=== PATIENT | female | born 1940 | race Caucasian/White ===

== ENCOUNTER 2020-11-25 08:54 | Emergency (ER) | payer MEDICARE, OTHER, SELFPAY ==
[2020-11-25 09:50] VITALS: BP 124/68; PULSE 71; RESP 20; TEMP 36.9; O2SAT 97; BMI 32.9
--- NOTE | 2020-11-25 09:51 | ED_ITS ---
HPI - General Adult General Chief complaint: Chest Pain <Kaylan Bernard NP - Last Filed: 11/25/20 12:00> Stated complaint: chest pain <Kaylan Bernard NP - Last Filed: 11/25/20 12:00> Time Seen by Provider: 11/25/20 09:51 <Kaylan Bernard NP - Last Filed: 11/25/20 12:00> Source: patient <Kaylan Bernard NP - Last Filed: 11/25/20 12:00> Mode of arrival: ambulatory <Kaylan Bernard NP - Last Filed: 11/25/20 12:00> Limitations: no limitations <Kaylan Bernard NP - Last Filed: 11/25/20 12:00> History of Present Illness HPI narrative: 80 yo female with past medical history of HTN, CVA, CHF, TIA, diverticulitis s/p perf with colostomy s/p anastamosis here with central chest pain since Tuesday. Worsened with palpation, movement, deep breathing. No short ness of breath, cough, fevers, chills, body aches, vomiting, diarrhea. No leg swelling or pain. <Kaylan Bernard NP - Last Filed: 11/25/20 12:00> Onset (ago): day(s) <Kaylan Bernard NP - Last Filed: 11/25/20 12:00> Location: chest <Kaylan Bernard NP - Last Filed: 11/25/20 12:00> Radiation: non-radiation <Kaylan Bernard NP - Last Filed: 11/25/20 12:00> Severity: mild <Kaylan Bernard NP - Last Filed: 11/25/20 12:00> Quality: dull <Kaylan Bernard NP - Last Filed: 11/25/20 12:00> Pain Consistency: intermittent <Kaylan Bernard NP - Last Filed: 11/25/20 12:00> Relieving factors: immobilization <NISHANT Chu Last Filed: 11/25/20 12:00> Exacerbating factors: movement and other (palpation ) <NISHANT Chu Last Filed: 11/25/20 12:00> Associated symptoms: denies other symptoms <Kaylan Bernard NP - Last Filed: 11/25/20 12:00> Treatments prior to arrival: none <NISHANT Chu Last Filed: 11/25/20 12:00> Related Data Home medications: Previous Rx's Medication Instructions Recorded azithromycin See Rx Instructions .ROUTE 11/25/20 .COMPLEX #6 tab <Kaylan Bernard NP - Last Filed: 11/25/20 12:00> Allergies/adverse reactions: Allergies Allergy/AdvReac Type Severity Reaction Status Date / Time amoxicillin [AMOXICILLIN] Allergy Unknown UNKNOWN Unverified 07/24/20 15:04 oxycodone Allergy Unknown vomiting Verified 10/24/18 00:00 <Kaylan Bernard NP - Last Filed: 11/25/20 12:00> Review of Systems Review of Systems: Yes all other systems are reviewed and are negative <NISHANT Chu Last Filed: 11/25/20 12:00> Constitutional: Constitutional: Reports no additional constitutional complaints, Denies body ache(s), Denies chills, Denies fever(s), Denies headache(s) and Denies weakness <NISHANT Chu Last Filed: 11/25/20 12:00> Eyes: Eyes: Reports no additional eye complaints and Denies change in vision <NISHANT Chu Last Filed: 11/25/20 12:00> ENT: Reports system reviewed and no additional complaints, except as documented, Denies dizziness, Denies headache(s), Denies nasal congestion, Denies nasal discharge and Denies neck pain <NISHANT Chu Last Filed: 11/25/20 12:00> Cardiovascular: Cardiovascular: Reports no additional cardiovascular complaints, Reports chest pain, Denies leg edema and Denies dyspnea <NISHANT Chu Last Filed: 11/25/20 12:00> Respiratory: Respiratory: Reports no additional respiratory complaints, Denies cough and Denies dyspnea <Kaylan Bernard NP - Last Filed: 11/25/20 12:00> Gastrointestinal: Gastrointestinal: Reports no additional gastrointestinal complaints, Denies abdominal pain, Denies diarrhea, Denies nausea and Denies vomiting <Kaylan Bernard NP - Last Filed: 11/25/20 12:00> Genitourinary: Genitourinary: Reports no additional female genitourinary complaints and Denies urinary incontinence <Kaylan Bernard NP - Last Filed: 11/25/20 12:00> Musculoskeletal: Musculoskeletal: Reports no additional musculoskeletal complaints, Denies back pain, Denies arthralgias, Denies joint swelling, Denies neck pain, Denies numbness and Denies tingling <Kaylan Bernard NP - Last Filed: 11/25/20 12:00> Integumentary/Breasts: Skin/Breast: Reports system reviewed and no additional complaints, except as docu and Denies rash <Kaylan Bernard NP - Last Filed: 11/25/20 12:00> Neurologic: Reports system reviewed and no additional complaints, except as documented, Denies Abnormal speech present, Denies dizziness, Denies headache(s), Denies numbness, Denies tingling and Denies weakness <Kaylan Bernard NP - Last Filed: 11/25/20 12:00> [facility] Past Medical History Attestation statement: The following information was validated with the patient. <Kaylan Bernard NP - Last Filed: 11/25/20 12:00> Source: old records reviewed and nursing notes reviewed <Kaylan Bernard NP - Last Filed: 11/25/20 12:00> Medical History: Medical History Acute diverticulitis CHF (congestive heart failure) HTN (hypertension) TIA (transient ischemic attack) <Kaylan Bernard NP - Last Filed: 11/25/20 12:00> Surgical History: Surgical History H/O hernia repair <Kaylan Bernard NP - Last Filed: 11/25/20 12:00> Social History Social History: Social History Advance Directives: No Advance Directives Information Provided: No <Kaylan Bernard NP - Last Filed: 11/25/20 12:00> Physical Exam Vital Signs: Vital Signs: Last Vital Signs Temp 98.5 F 11/25/20 09:50 Pulse 71 11/25/20 09:50 Resp 11/25/20 09:50 BP 124/68 11/25/20 09:50 Pulse Ox 97 11/25/20 09:50 Body Mass Index 32.9 <Kaylan Bernard NP - Last Filed: 11/25/20 12:00> Vital Signs: Last Vital Signs Temp 98.5 F 11/25/20 09:50 Pulse 71 11/25/20 09:50 Resp 11/25/20 09:50 BP 124/68 11/25/20 09:50 Pulse Ox 97 11/25/20 09:50 Body Mass Index 32.9 <Atif Hunter MD - Last Filed: 11/28/20 15:46> Const: General: cooperative, healthy appearing, comfortable and no acute distress <Kaylan Bernard NP - Last Filed: 11/25/20 12:00> Orientation/consciousness: patient oriented x3 <Kaylan Bernard NP - Last Filed: 11/25/20 12:00> Limitations: no limitations <Kaylan Bernard NP - Last Filed: 11/25/20 12:00> HENMT: Head: Yes normal to inspection <Kaylan Bernard NP - Last Filed: 11/25/20 12:00> Ears: hearing grossly normal bilaterally <Kaylan Bernard NP - Last Filed: 11/25/20 12:00> General nose exam: Normal external nose present <Kaylan Bernard NP - Last Filed: 11/25/20 12:00> Face and sinus: Yes normal facial exam <Kaylan Bernard NP - Last Filed: 11/25/20 12:00> Mouth: Normal oral and palatal mucosa present <Kaylan Bernard NP - Last Filed: 11/25/20 12:00> Throat: Yes posterior oropharynx normal <Kaylan Bernard NP - Last Filed: 11/25/20 12:00> Eyes: General: appearance normal, both eyes and all related structures <Kaylan Bernard NP - Last Filed: 11/25/20 12:00> Pupils: Equal, round and reactive pupils present <Kaylan Bernard NP - Last Filed: 11/25/20 12:00> Neck: Neck: Yes normal visual inspection <Kaylan Bernard NP - Last Filed: 11/25/20 12:00> Chest: Chest palpation & inspection: normal inspection of the chest and tenderness (central chest tender to palp) <Kaylan Bernard NP - Last Filed: 11/25/20 12:00> Resp: Effort & Inspection: normal respiratory effort <Kaylan Bernard NP - Last Filed: 11/25/20 12:00> Auscultation: clear to auscultation bilaterally <Kaylan Bernard NP - Last Filed: 11/25/20 12:00> Cardio: Rate: regular rate <Kaylan Bernard NP - Last Filed: 11/25/20 12:00> Rhythm: regular rhythm <Kaylan Bernard NP - Last Filed: 11/25/20 12:00> Peripheral pulses: Peripheral pulses 2+ throughout <Kaylan Bernard NP - Last Filed: 11/25/20 12:00> GI: Inspection: Yes normal to inspection <Kaylan Bernard NP - Last Filed: 11/25/20 12:00> Palpation (GI): Soft to palpation and nontender <Kaylan Bernard NP - Last Filed: 11/25/20 12:00> Auscultation: normal bowel sounds <Kaylan Bernard NP - Last Filed: 11/25/20 12:00> Back/Spine/Pelvis: Thoracic/Lumbar Spine: thoracic and lumbar spine normal to inspection <Kaylan Bernard NP - Last Filed: 11/25/20 12:00> Skin: General skin exam: no rashes or lesions noted <Kaylan Bernard NP - Last Filed: 11/25/20 12:00> Neuro: General: patient oriented x3, no focal motor deficits and normal sensation to monofilament <Kaylan Bernard NP - Last Filed: 11/25/20 12:00> Cranial nerves: Yes Equal, round and reactive pupils present <Kaylan Bernard NP - Last Filed: 11/25/20 12:00> Cognition (Neuro): normal cognition <Kaylan Bernard NP - Last Filed: 11/25/20 12:00> Speech: No Abnormal speech present <Kaylan Bernard NP - Last Filed: 11/25/20 12:00> Gait exam (Neuro): Normal gait present <Kaylan Bernard NP - Last Filed: 11/25/20 12:00> Motor exam (neuro): 5/5 motor strength present throughout <Kaylan Bernard NP - Last Filed: 11/25/20 12:00> Extrem: General: Yes normal to inspection, Yes no pedal edema and Yes no calf tenderness <Kaylan Bernard NP - Last Filed: 11/25/20 12:00> Course Course Course Narrative: 850-80 yo female with past medical history of HTN, CVA, CHF, TIA, diverticulitis s/p perf with colostomy s/p anastamosis here with central chest pain since Tuesday, no other symptoms. Worsened with palpation. Will check labs, CXR, EKG. Stable vital signs. 1130-CXR c/w with PNA. Labs including troponin negative. Mildly elevated BNP, exam not c/w with CHF exacerbation. EKG shows no ichemic changes with LBBB which is unchanged from EKG 09/2018. COVID testing sent. 1200-Covid test negative. CXR c/w with CAP. Patient is ambulatory with stable saturations and NO SOB or fever. No signs of leukocytosis or shift Will treat with 5 day course of azithromycin. Reviewed worrisome signs/symptoms with patient and when to return to ED. Comfortable with discharge home. <Kaylan Bernard NP - Last Filed: 11/25/20 12:00> I have reviewed the chart <Atif Hunter MD - Last Filed: 11/28/20 15:46> Medical Decision Making MDM Narrative Medical decision making narrative: PNA, ACS, PE, Viral syndrome Low concern for ACS with unremarkable EKG, symptoms >24 hrs and negative troponin Low concern for PE with no hypoxia, tachycardia, SOB or cough. <Kaylan marc NP - Last Filed: 11/25/20 12:00> Medical Records Medical records reviewed: Yes I reviewed the patient's medical records. <Kaylan Bernard NP - Last Filed: 11/25/20 12:00> Lab Data Lab results reviewed: Yes I reviewed the patient's lab results. <Kaylan Bernard NP - Last Filed: 11/25/20 12:00> Result diagrams: : 11/25/20 10:17 11/25/20 10:17 <Kaylan Bernard NP - Last Filed: 11/25/20 12:00> Labs: Lab Results 11/25/20 11/25/20 11/25/20 Range/Units 10:17 10:17 10:17 WBC 4.2 L (4.8-10.8) X10*3/uL RBC 4.45 (4.20-5.50) X10*6/uL Hgb 12.8 (12.0-16.0) g/dl Hct 39.9 (37-47) % MCV 89.7 (80-98) fL MCH 28.8 (27.0-33.0) pg MCHC 32.1 (31.0-35.0) g/dl RDW 14.2 (11.0-16.0) % Plt Count 202 (160-400) X10*3/uL MPV 9.7 (9.4-12.3) fL Immature Gran % (Auto) 0.2 (0.0-0.4) % Neut % (Auto) 65.7 (45-73) % Lymph % (Auto) 18.0 L (20-40) % [place] % (Auto) 12.1 H (2-11) % Eos % (Auto) 3.3 (0-4) % Baso % (Auto) 0.7 (0-2) % Lymph # (Auto) 0.8 L (1.2-4.9) X10*3/uL [place] # (Auto) 0.5 (0.1-1.2) X10*3/uL Eos # (Auto) 0.1 (0.0-0.4) X10*3/uL Baso # (Auto) 0.0 (0.0-0.2) X10*3/uL Abs Immat Gran (auto) 0.01 (0.00-0.03) X10*3/uL Absolute Neuts (auto) 2.8 (2.0-8.3) X10*3/uL Absolute Nucleated RBC 0.000 (0.0-0.012) X10*3/uL Nucleated RBC % (auto) 0.0 (0.0-0.2) /100WBC Hold Blue Top SEE NOTE Sodium 140 (135-145) mmol/L Potassium 4.0 (3.3-5.1) mmol/l Chloride 103 (96-108) mmol/L Carbon Dioxide 29 (22-29) mmol/L Anion Gap 12 (12-20) BUN 20 H (9-16) mg/dL Creatinine 0.86 (0.5-1.4) mg/dL Estim Creat Clear Calc 56.7 Estimated GFR > 60 Random Glucose 73 (60-115) mg/dL Calcium 9.0 (8.4-10.2) mg/dL Magnesium 2.4 (1.6-2.6) mg/dL Total Bilirubin 0.4 (0.0-1.0) mg/dL Direct Bilirubin 0.3 (0.0-0.5) mg/dL AST 21 (5-31) U/L ALT 17 (0-31) U/L Alkaline Phosphatase 103 (39-117) U/L Troponin I High Sens (<3.5-17.0) ng/L B-Natriuretic Peptide (<100) pg/mL Total Protein 7.4 (6.5-8.0) g/dL Albumin 4.3 (3.5-5.0) g/dL COVID-19 ([facility]) (Negative) COVID-19 Clin Com 11/25/20 11/25/20 Range/Units 10:17 11:09 WBC (4.8-10.8) X10*3/uL RBC (4.20-5.50) X10*6/uL Hgb (12.0-16.0) g/dl Hct (37-47) % MCV (80-98) fL MCH (27.0-33.0) pg MCHC (31.0-35.0) g/dl RDW (11.0-16.0) % Plt Count (160-400) X10*3/uL MPV (9.4-12.3) fL Immature Gran % (Auto) (0.0-0.4) % Neut % (Auto) (45-73) % Lymph % (Auto) (20-40) % [place] % (Auto) (2-11) % Eos % (Auto) (0-4) % Baso % (Auto) (0-2) % Lymph # (Auto) (1.2-4.9) X10*3/uL [place] # (Auto) (0.1-1.2) X10*3/uL Eos # (Auto) (0.0-0.4) X10*3/uL Baso # (Auto) (0.0-0.2) X10*3/uL Abs Immat Gran (auto) (0.00-0.03) X10*3/uL Absolute Neuts (auto) (2.0-8.3) X10*3/uL Absolute Nucleated RBC (0.0-0.012) X10*3/uL Nucleated RBC % (auto) (0.0-0.2) /100WBC Hold Blue Top Sodium (135-145) mmol/L Potassium (3.3-5.1) mmol/l Chloride (96-108) mmol/L Carbon Dioxide (22-29) mmol/L Anion Gap (12-20) BUN (9-16) mg/dL Creatinine (0.5-1.4) mg/dL Estim Creat Clear Calc Estimated GFR Random Glucose (60-115) mg/dL Calcium (8.4-10.2) mg/dL Magnesium (1.6-2.6) mg/dL Total Bilirubin (0.0-1.0) mg/dL Direct Bilirubin (0.0-0.5) mg/dL AST (5-31) U/L ALT (0-31) U/L Alkaline Phosphatase (39-117) U/L Troponin I High Sens < 3.5 (<3.5-17.0) ng/L B-Natriuretic Peptide 123 H (<100) pg/mL Total Protein (6.5-8.0) g/dL Albumin (3.5-5.0) g/dL COVID-19 ([facility]) Negative (Negative) COVID-19 Clin Com See Note <Kaylan Bernard, NISHANT - Last Filed: 11/25/20 12:00> Lab Results 11/25/20 11/25/20 11/25/20 Range/Units 10:17 10:17 10:17 WBC 4.2 L (4.8-10.8) X10*3/uL RBC 4.45 (4.20-5.50) X10*6/uL Hgb 12.8 (12.0-16.0) g/dl Hct 39.9 (37-47) % MCV 89.7 (80-98) fL MCH 28.8 (27.0-33.0) pg MCHC 32.1 (31.0-35.0) g/dl RDW 14.2 (11.0-16.0) % Plt Count 202 (160-400) X10*3/uL MPV 9.7 (9.4-12.3) fL Immature Gran % (Auto) 0.2 (0.0-0.4) % Neut % (Auto) 65.7 (45-73) % Lymph % (Auto) 18.0 L (20-40) % [place] % (Auto) 12.1 H (2-11) % Eos % (Auto) 3.3 (0-4) % Baso % (Auto) 0.7 (0-2) % Lymph # (Auto) 0.8 L (1.2-4.9) X10*3/uL [place] # (Auto) 0.5 (0.1-1.2) X10*3/uL Eos # (Auto) 0.1 (0.0-0.4) X10*3/uL Baso # (Auto) 0.0 (0.0-0.2) X10*3/uL Abs Immat Gran (auto) 0.01 (0.00-0.03) X10*3/uL Absolute Neuts (auto) 2.8 (2.0-8.3) X10*3/uL Absolute Nucleated RBC 0.000 (0.0-0.012) X10*3/uL Nucleated RBC % (auto) 0.0 (0.0-0.2) /100WBC Hold Blue Top SEE NOTE Sodium 140 (135-145) mmol/L Potassium 4.0 (3.3-5.1) mmol/l Chloride 103 (96-108) mmol/L Carbon Dioxide 29 (22-29) mmol/L Anion Gap 12 (12-20) BUN 20 H (9-16) mg/dL Creatinine 0.86 (0.5-1.4) mg/dL Estim Creat Clear Calc 56.7 Estimated GFR > 60 Random Glucose 73 (60-115) mg/dL Calcium 9.0 (8.4-10.2) mg/dL Magnesium 2.4 (1.6-2.6) mg/dL Total Bilirubin 0.4 (0.0-1.0) mg/dL Direct Bilirubin 0.3 (0.0-0.5) mg/dL AST 21 (5-31) U/L ALT 17 (0-31) U/L Alkaline Phosphatase 103 (39-117) U/L Troponin I High Sens (<3.5-17.0) ng/L B-Natriuretic Peptide (<100) pg/mL Total Protein 7.4 (6.5-8.0) g/dL Albumin 4.3 (3.5-5.0) g/dL COVID-19 ([facility]) (Negative) COVID-19 Clin Com 11/25/20 11/25/20 Range/Units 10:17 11:09 WBC (4.8-10.8) X10*3/uL RBC (4.20-5.50) X10*6/uL Hgb (12.0-16.0) g/dl Hct (37-47) % MCV (80-98) fL MCH (27.0-33.0) pg MCHC (31.0-35.0) g/dl RDW (11.0-16.0) % Plt Count (160-400) X10*3/uL MPV (9.4-12.3) fL Immature Gran % (Auto) (0.0-0.4) % Neut % (Auto) (45-73) % Lymph % (Auto) (20-40) % [place] % (Auto) (2-11) % Eos % (Auto) (0-4) % Baso % (Auto) (0-2) % Lymph # (Auto) (1.2-4.9) X10*3/uL [place] # (Auto) (0.1-1.2) X10*3/uL Eos # (Auto) (0.0-0.4) X10*3/uL Baso # (Auto) (0.0-0.2) X10*3/uL Abs Immat Gran (auto) (0.00-0.03) X10*3/uL Absolute Neuts (auto) (2.0-8.3) X10*3/uL Absolute Nucleated RBC (0.0-0.012) X10*3/uL Nucleated RBC % (auto) (0.0-0.2) /100WBC Hold Blue Top Sodium (135-145) mmol/L Potassium (3.3-5.1) mmol/l Chloride (96-108) mmol/L Carbon Dioxide (22-29) mmol/L Anion Gap (12-20) BUN (9-16) mg/dL Creatinine (0.5-1.4) mg/dL Estim Creat Clear Calc Estimated GFR Random Glucose (60-115) mg/dL Calcium (8.4-10.2) mg/dL Magnesium (1.6-2.6) mg/dL Total Bilirubin (0.0-1.0) mg/dL Direct Bilirubin (0.0-0.5) mg/dL AST (5-31) U/L ALT (0-31) U/L Alkaline Phosphatase (39-117) U/L Troponin I High Sens < 3.5 (<3.5-17.0) ng/L B-Natriuretic Peptide 123 H (<100) pg/mL Total Protein (6.5-8.0) g/dL Albumin (3.5-5.0) g/dL COVID-19 ([facility]) Negative (Negative) COVID-19 Clin Com See Note <Atif Hunter MD - Last Filed: 11/28/20 15:46> Imaging Data Chest x-ray: Attestation: I personally reviewed and interpreted this imaging study as follows: <Kaylan Bernard NP - Last Filed: 11/25/20 12:00> Radiologist's impression: EXAMINATION: XR CHEST CLINICAL INFORMATION: Chest pain COMPARISON: Chest radiographs 09/15/2018, 09/14/2018, 05/23/2018, CTA chest 05/21/2014 TECHNIQUE: 2 views of the chest were obtained. FINDINGS: There is no pneumothorax or pleural reaction. No lobar or segmental airspace consolidation or effusion. The costophrenic sulci are clear. There is mild coarsening bronchiolar markings right infrahilar region with suspicion of some associated groundglass opacity. The remainder the lungs are clear. The heart is normal in size. There is oval right hilar vascular markings similar to prior chest radiographs. The mediastinal contours and bony structures are unremarkable. XR/XR chest 2V IMPRESSION: 1. Coarsening bronchiolar markings right infrahilar region with suspicion of mild superimposed airspace opacity. 2. No pneumothorax, pleural reaction, or effusion. <Kaylan Bernard NP - Last Filed: 11/25/20 12:00> ECG Data Attestation: I personally reviewed and interpreted this ECG as follows: <Kaylan Bernard NP - Last Filed: 11/25/20 12:00> Interpretation: NSR with rate 62, normal AK, Normal QRS, LBBB unchanged from previous 09/2018 <Kaylan Bernard NP - Last Filed: 11/25/20 12:00> Discharge Plan Discharge Clinical Impression: Pneumonia <Kaylan Bernard NP - Last Filed: 11/25/20 12:00> Patient Disposition: Home, Self-Care <Kaylan Bernard NP - Last Filed: 11/25/20 12:00> Instructions: Community Acquired Pneumonia (ED) <Kaylan Bernard NP - Last Filed: 11/25/20 12:00> Additional Instructions: Your x-ray shows that you have pneumonia Your COVID is negative <NISHANT Chu Last Filed: 11/25/20 12:00> Prescriptions: New azithromycin 250 mg tablet See Rx Instructions .ROUTE .COMPLEX Qty: 6 RF: 0 <Kaylan Bernard NP - Last Filed: 11/25/20 12:00> Referrals: Cassidy Croley MD [Primary Care Provider] - 2 days <Kaylan Bernard NP - Last Filed: 11/25/20 12:00> Interventions: ED Discharge Assessment Last Done: 11/25/20 11:56 <Kaylan Bernard NP - Last Filed: 11/25/20 12:00> Discharge Date/Time: 11/25/20 11:56 <Kaylan Bernard NP - Last Filed: 11/25/20 12:00>
--- NOTE | 2020-11-25 09:57 | XR_ITS ---
EXAMINATION: XR CHEST CLINICAL INFORMATION: Chest pain COMPARISON: Chest radiographs 09/15/2018, 09/14/2018, 05/23/2018, CTA chest 05/21/2014 TECHNIQUE: 2 views of the chest were obtained. FINDINGS: There is no pneumothorax or pleural reaction. No lobar or segmental airspace consolidation or effusion. The costophrenic sulci are clear. There is mild coarsening bronchiolar markings right infrahilar region with suspicion of some associated groundglass opacity. The remainder the lungs are clear. The heart is normal in size. There is oval right hilar vascular markings similar to prior chest radiographs. The mediastinal contours and bony structures are unremarkable. XR/XR chest 2V IMPRESSION: 1. Coarsening bronchiolar markings right infrahilar region with suspicion of mild superimposed airspace opacity. 2. No pneumothorax, pleural reaction, or effusion.
--- NOTE | 2020-11-25 09:57 | ECG_ITS ---
Test Reason : CP Blood Pressure : / mmHG Vent. Rate : 062 BPM Atrial Rate : 062 BPM P-R Int : 146 ms QRS Dur : 142 ms QT Int : 442 ms P-R-T Axes : 020 -46 083 degrees QTc Int : 448 ms Normal sinus rhythm Left axis deviation Left bundle branch block Abnormal ECG When compared with ECG of 14-SEP-2018 20:51, No significant change was found Referred By: Kaylan Bernard Electronically Signed By:BARTOLO ALFONSO
[2020-11-25 10:31] LABS: MANUAL DIFF FLAG NO
[2020-11-25 10:32] LABS: Basophils Percent Auto 0.7 % (0-2); Eosinophils Absolute Auto 0.1 X10*3/uL (0.0-0.4); Eosinophils Percent Auto 3.3 % (0-4); Hematocrit 39.9 % (37-47); Hemoglobin 12.8 g/dl (12.0-16.0); Imm Gran Abs Auto 0.01 X10*3/uL (0.00-0.03); Imm Gran Pct Auto 0.2 % (0.0-0.4); Lymphocytes Absolute Auto 0.8 X10*3/uL (1.2-4.9); Mean Corpuscular HGB Conc 32.1 g/dl (31.0-35.0); Mean Corpuscular Hemoglobin 28.8 pg (27.0-33.0); Mean Corpuscular Volume 89.7 fL (80-98); Mean Platelet Volume 9.7 fL (9.4-12.3); Monocytes Absolute Auto 0.5 X10*3/uL (0.1-1.2); Monocytes Percent Auto 12.1 % (2-11); Neutrophils Absolute Auto 2.8 X10*3/uL (2.0-8.3); Neutrophils Percent Auto 65.7 % (45-73); Platelet Count 202 X10*3/uL (160-400); Red Blood Count 4.45 X10*6/uL (4.20-5.50); Red Cell Distribution Width 14.2 % (11.0-16.0); White Blood Count 4.2 X10*3/uL (4.8-10.8)
[2020-11-25 10:59] LABS: Alanine Aminotransferase 17 U/L (0-31); Albumin Level 4.3 g/dL (3.5-5.0); Alkaline Phosphatase 103 U/L (39-117); Anion Gap 12 (12-20); Aspartate Amino Transferase 21 U/L (5-31); Bilirubin Direct 0.3 mg/dL (0.0-0.5); Bilirubin Total 0.4 mg/dL (0.0-1.0); Blood Urea Nitrogen 20 mg/dL (9-16); Carbon Dioxide 29 mmol/L (22-29); Chloride 103 mmol/L (96-108); Creatinine Clr Calc Pharmacy 56.7; Estimated Glomerular Filt Rate > 60; Glucose Random 73 mg/dL (60-115); Magnesium 2.4 mg/dL (1.6-2.6); Sodium 140 mmol/L (135-145); Total Protein 7.4 g/dL (6.5-8.0)
[2020-11-25 11:09] LABS: B Type Natriuretic Peptide 123 pg/mL (<100); Troponin-I High Sensitivity < 3.5 ng/L (<3.5-17.0)
[2020-11-25 11:35] LABS: COVID-19 Test Negative (Negative); IDNOW Serial# 9DD0AD1C
== END 2020-11-25 11:56 | disposition home or self-care (01) ==
PROVIDERS: Nurse Practitioner Family; Emergency Provider Emergency Medicine; PCP Internal Medicine
DX: J18.9 Pneumonia, unspecified organism (principal); Z20.822 Contact with and (suspected) exposure to COVID-19; I11.0 Hypertensive heart disease with heart failure; I50.9 Heart failure, unspecified; Z86.73 Personal history of transient ischemic attack (TIA), and cerebral infarction without residual deficits
CPT/HCPCS: 36415; 71046; 80048; 80076; 83735; 83880; 84484; 85025; 87635; 93005; 99283

== ENCOUNTER → 2020-12-18 14:20 | Outpatient (BNVA) | payer MEDICARE, OTHER, SELFPAY | PROVIDERS: PCP Internal Medicine; Visit Provider Internal Medicine | DX: I50.9 Heart failure, unspecified (principal) | CPT/HCPCS: 99202 ==

== ENCOUNTER → 2021-01-28 09:22 | Outpatient (REF) | payer MEDICARE, OTHER, SELFPAY ==
--- NOTE | 2021-01-28 09:25 | CA_ITS ---
Transthoracic Echocardiogram Patient (Last, First, Middle): Isha Izquierdo M Gender: Female Date of : 1940 Age: 80 Procedure Date: 01/28/2021 Procedure Type: Transthoracic Echocardiogram Location: OP Height: 165.1 cm Weight: 88.45 kg BSA: 1.96 m2 Heart Rate: bpm BP: 140 / 70 mmHg Direct Care Worker: DSG Referring MD: Jose Ramey MD Symptoms: I44.7 - Left bundle-branch block, unspecified Study Quality: Fair ECG Rhythm: Sinus Conclusions: - The left ventricular systolic function is normal. The visually estimated ejection fraction is between 55-60%. - There is paradoxical septal motion consistent with a left bundle branch block. - There is severe focal hypertrophy of the basal septum. - There is mild mitral annular calcification. - There is mild tricuspid valve regurgitation. - Mild pulmonary hypertension is present. Findings Left Ventricle Normal left ventricular cavity size. There is mildly increased left ventricular wall thickness. The left ventricular systolic function is normal. The visually estimated ejection fraction is between 55-60%. There is paradoxical septal motion consistent with a left bundle branch block. E/E prime ratio is between 8 and 15 consistent with indeterminate filling pressures. Evidence suggests grade I (mild) diastolic dysfunction. There is severe focal hypertrophy of the basal septum. Right Ventricle Normal right ventricular cavity size and systolic function. Atria The left atrium is mildly dilated. The right atrium is normal in size. Aortic Valve There is a normal trileaflet aortic valve. There is no aortic valve stenosis. There is trace (trivial) aortic valve regurgitation. Mitral Valve There is mild mitral annular calcification. There is mild mitral valve regurgitation. There is no mitral valve stenosis. Pulmonic Valve The pulmonic valve was not well visualized. Tricuspid Valve Normal tricuspid valve structure. There is mild tricuspid valve regurgitation. The right ventricular systolic pressure is 37 mmHg. Mild pulmonary hypertension is present. Great Vessels The aortic annulus, sinuses of valsalva, and asc aorta are normal in size. Venous The inferior vena cava is normal in size and collapses greater than 50% with inspiration. Pericardium/Pleural There is no evidence of pericardial effusion. Prior Study Comparison No prior study available for comparison. Measurements 2D Linear Measurements IVSd: 1.27 0.6-0.9/0.6-1.0 cm LVIDd: 5.32 3.9-5.3/4.2-5.9 cm LVIDd Index: 2.71 2.4-3.2/2.2-3.1 cm/m2 LVIDs: 3.88 2.0-3.6 cm LVPWd: 1.28 0.7-1.1 cm Ao Root: 2.90 2.1-3.5 cm LA Diam: 4.40 2.7-3.8/3.0-4.0 cm LAIDs Index: 2.24 1.5-2.3 cm/m2 LV Mass: 350.35 67-162/88-224 g LV Mass Index: 178.75 43-95/49-115 g/m2 LVOT Diam: 2.10 3.0+(-)1.3 cm 2D Systolic Function EF 4C: 68.30 >55% EF 2C: 56.10 >55% EF BiP: 63.30 >55% Mitral Valve MV VTI: 0.35 MV Pk Barber: 0.92 MV Mn Barber: 0.52 MV Pk Grad: 3.00 MV Mn Grad: 1.00 MV Pk E: 0.80 MV PK A: 1.17 MV Decel Time: 121.00 E/A: 0.70 E'Lateral: 8.22 E'Medial: 5.80 E/E' Med: 13.70 E/E' Lat: 9.70 PHT: 36.00 MVA PHT: 6.11 MVA Continuity: 2.86 Decel [place]: 6.55 MR Vol - PW Dopp: 19.04 MR VTI: 2.38 MR ERO: 8.00 MR Alias Barber: 0.31 MR RAD: 0.50 Aortic Valve AoV Pk Barber: 1.55 AoV Pk Grad: 10.00 LVOT LVOT Pk Barber: 1.20 LVOT Mn Barber: 0.78 LVOT VTI: 0.29 LVOT Pk Grad: 6.00 LVOT Mn Grad: 3.00 LVOT Diam: 2.10 LVOT Area: 3.46 Diastolic Function MV Pk E: 0.80 MV Pk A: 1.17 E/A: 0.70 E'Medial: 5.80 E/E' Med: 13.70 E' Laterial: 8.22 E/E' Lat: 9.70 Tricuspid Valve TR Pk Barber: 2.91 TR Pk Grad: 34.00 RA Press: 3.00 RVSP: 37.00 Great Vessels Aorta Ao Root-2D: 2.90 2.0-3.7 cm Ao Asc: 3.60 2.1-3.4 cm Updated in Other Vendor System with Status of Final Jose Ramey MD electronically signed on 01/30/2021 12:22:23 PM with status of Final
== END ==
LOC: HO.CARD 09:22
PROVIDERS: Visit Provider Internal Medicine
DX: I44.7 Left bundle-branch block, unspecified (principal)
CPT/HCPCS: 93306

== ENCOUNTER → 2021-02-17 13:58 | Outpatient (BNVA) | payer MEDICARE, OTHER, SELFPAY | PROVIDERS: PCP Internal Medicine; Visit Provider Internal Medicine | DX: I50.32 Chronic diastolic (congestive) heart failure (principal); I44.7 Left bundle-branch block, unspecified; I10 Essential (primary) hypertension | CPT/HCPCS: 99212 ==

== ENCOUNTER → 2021-03-02 09:11 | Outpatient (REF) | payer MEDICARE, OTHER, SELFPAY ==
--- NOTE | ~2021-03-02 | NM_ITS ---
Lexiscan Myocardial perfusion study Indication: Chest pain, left bundle branch block, heart failure, assess for coronary disease and ischemia Technique: The patient was brought in for a Lexiscan perfusion study on 03/02/2021 and was injected 0.4 mg of Lexiscan intravenously. Within a minute of this injection 30 mCi of sestamibi was given intravenously. Images were obtained using the SPECT gamma camera interlaced with the gating device. Images were obtained in supine position. Resting perfusion study was performed on 03/03/2021. Patient was administered 30 mCi of sestamibi intravenously at rest. Images were then obtained in supine position. Total DLP 92mGy-cm. Images were processed with the software and compared side to side in short axis, horizontal long axis and vertical long axis views. Findings: Raw acquisition was reviewed. The stress perfusion study showed diminished tracer uptake along the septum and the basal to mid portions. With CT attenuation correction there seems to be improvement, but distal anteroseptal defect seen, likely artifactual. The gated study shows normal LV systolic function with calculated LVEF of 60%. LV cavity is normal in size. The gated study diminished thickening and contractility in the septum but otherwise unremarkable. Resting study shows diminished tracer uptake in the septum in the basal to mid portions. No major change with CT attenuation correction. Gating at rest reveals ejection fraction at 59% and septal wall motion abnormality. The findings are consistent with no definitive reversible defects. Fixed defect in the septum that could be from left bundle branch block. NM/NM delmis perf SPECT rest & str Impression: 1. Myocardial perfusion imaging study shows no clear evidence of any ischemia. Fixed defect in the septum likely from left bundle branch block. 2. Gated LVEF is 60% during stress and 59% during rest. 3. Transient ischemic dilatation not present. EKG component of the test reported separately.
--- NOTE | 2021-03-02 09:15 | CA_ITS ---
Acquisition Time: 2021-03-02 09:44:20 Total Exercise Time: 00:02:00 Test Indications: Dyspnea Medications: ASA FUROSEMIDE HYDROXYCHLOROQUINE LOSARTAN METOPROLOL Protocol: LEXISCAN Max HR: 085 BPM 61% of Pred: 139 BPM Max BP: 144/052 mmHG Max Work Load: 1.0 METS Pharmacological stress test using Lexiscan while sitting. Pt tolerated well, denies any anginal sx. EKG with LBBB non-diagnostic for ischemia. Nuclear images to follow. Normotensive response to test. Test reviewed with Dr. Walls. Referred By: Jose Ramey Overread By: Alicia Corado NP
== END ==
LOC: HO.CARD 09:11
PROVIDERS: Visit Provider Internal Medicine
DX: I50.32 Chronic diastolic (congestive) heart failure (principal); I44.7 Left bundle-branch block, unspecified
CPT/HCPCS: 78452; 93017; A9500; J0280; J2785

== ENCOUNTER → 2021-03-10 14:09 | Outpatient (BNVA) | payer MEDICARE, OTHER, SELFPAY | PROVIDERS: PCP Internal Medicine; Referring Provider Internal Medicine; Visit Provider Internal Medicine | DX: I11.0 Hypertensive heart disease with heart failure (principal); I50.32 Chronic diastolic (congestive) heart failure; I44.7 Left bundle-branch block, unspecified; Z79.899 Other long term (current) drug therapy | CPT/HCPCS: 99212 ==

== ENCOUNTER 2021-06-08 08:13 | Outpatient (REF) | payer MEDICARE, OTHER, SELFPAY ==
--- NOTE | 2021-06-08 14:40 | MHC.AU.AHA ---
Adult Audiological Evaluation Date of Visit: 06/08/21 Reason for Appointment: Audiological re-evaluation to monitor the status of Ms. Izquierdo's hearing loss. She has a history of bilateral sensorineural hearing loss and hearing aid use. She notes some difficulties hearing and understanding speech, but notes that she does not use her hearing aids consistently. She denies any significant changes to her medical history. Previous Hearing Test Results: [facility] [place]22/[place]- Moderate sloping to severe sensorineural hearing loss bilaterally. Medical History: Medical History: High Blood Pressure Medical History: Congestive heart failure, skin lupus Allergies: Amoxicillin Medication List: Metoprolol, Furosemide, baby aspirin, plaquenil Hearing Instrument History- Right Ear: Jewel Gauger: [employer] Model: [place] 2 Pro miniRITE Serial Number: [id number] Battery Size: 312 Repair Warranty: 10/2018 Loss and Damage Warranty:10/2017 Dispensed By: [facility] Date of Fitting: Per [employer], purchased 09/12/2015 Hearing Instrument History- Left Ear: Jewel Gauger: [employer] Model: [place] 2 Pro miniRITE Serial Number: [id number] Battery Size: 312 Warranty: 10/2018 Loss and Damage Warranty: 10/2017 Dispensed By: [facility] Date of Fitting: Per [employer], purchased 09/12/2015 Otoscopy: Right Ear: Unremarkable Left Ear: Unremarkable Tympanometry: Tympanometry performed due to: To assess integrity of the middle ear system Right Ear: Normal Middle Ear System (Type A) Left Ear: Normal Middle Ear System (Type A) Hearing Evaluation: Transducer(s) Used: Insert Earphones, Bone Conduction Method: Conventional Audiometry Stimuli Used: Pure Tones Right Ear: Description of Hearing: Mild sloping to moderately severe sensorineural hearing loss from 250-8000 Hz bilaterally. Left Ear: Description of Hearing: Mild sloping to moderately severe sensorineural hearing loss from 250-8000 Hz bilaterally. Speech Recognition Threshold (SRT): Method Used: Monitored Live Voice Stimuli Used: Spondee Words Right Ear: 45 dBHL Left Ear: 40 dBHL Word Discrimination: Method: Recorded Lists Word Lists Used: NU-6 Right Ear: 80% at 85 dBHL Left Ear: 84% at 80 dBHL Comparison: Compared to the most recent evaluation: Hearing is stable. Recommendations: Audiological re-evaluation in one year. Consistent, daily use of hearing aids is recommended. Diagnosis: Primary Diagnosis: H90.3 Bilateral Sensorineural Hearing Loss Services Performed: Comprehensive Audiological Evaluation (CPT 58280) Tympanometry (CPT 53426) Signature: Provider: Colette Wilson, CCC-A
== END 2021-06-08 08:14 | disposition home or self-care (01) ==
LOC: HO.SH 08:13
PROVIDERS: Visit Provider Internal Medicine
DX: H90.3 Sensorineural hearing loss, bilateral (principal)
CPT/HCPCS: 92557; 92567

== ENCOUNTER 2021-07-02 23:08 | Emergency (ER) | payer MEDICARE, OTHER, SELFPAY ==
[2021-07-02 23:23] VITALS: BP 142/60; PULSE 62; RESP 18; TEMP 36.3; O2SAT 97; BMI 33.1
--- NOTE | 2021-07-03 01:42 | ED.LOWEXIN ---
HPI - Extremity Injury (Lower) General Chief Complaint: Extremity Injury, Lower Stated Complaint: lac left leg Time Seen by Provider: 07/03/21 00:28 Source: patient Mode of arrival: ambulatory History of Present Illness HPI Narrative: 81-year-old female who presents with left lower leg mild redness and swelling for an hour, but states that she originally injured her leg on the edge of a bed 2 weeks ago. Patient otherwise denies any fever, chills. Related Data Home Medications Medication Instructions Recorded Confirmed aspirin 81 mg tablet,delayed 81 mg PO DAILY 12/18/20 03/10/21 release furosemide 40 mg tablet 40 mg PO DAILY 12/18/20 03/10/21 hydroxychloroquine 200 mg tablet 200 mg PO BID 12/18/20 03/10/21 losartan 25 mg tablet 25 mg PO DAILY 12/18/20 03/10/21 metoprolol succinate 25 mg 25 mg PO DAILY 12/18/20 03/10/21 tablet,extended release 24 hr multivitamin 1 tab PO DAILY 03/10/21 03/10/21 Allergies Allergy/AdvReac Type Severity Reaction Status Date / Time amoxicillin [AMOXICILLIN] Allergy Unknown UNKNOWN Verified 07/02/21 23:23 Review of Systems Review of Systems: Pertinent positives and negatives as stated in HPI 10 point review of systems is otherwise negative. [facility] [place] Past Medical History Source: nursing notes reviewed Medical History Acute diverticulitis CHF (congestive heart failure) Chronic heart failure with preserved ejection fraction (HFpEF) Essential hypertension HTN (hypertension) LBBB (left bundle branch block) TIA (transient ischemic attack) Surgical History H/O hernia repair Family History Family History Father No problems noted. Mother No problems noted. Social History Social History Alcohol intake: current Alcohol intake frequency: a few times a month Advance Directives: No Advance Directives Information Provided: Yes Physical Exam Vital Signs: Vital Signs: Last Vital Signs Temp 97.3 F 07/02/21 23:23 Pulse 62 07/02/21 23:23 Resp 18 07/02/21 23:23 BP 142/60 H 07/02/21 23:23 Pulse Ox 97 07/02/21 23:23 Body Mass Index 33.1 VITAL SIGNS: Reviewed. GENERAL: Well developed, well nourished, in no acute distress. HEAD: Normocephalic/atraumatic EYES: PERRLA, EOMI LUNGS: Normal breath sounds. No adventitious sounds or accessory muscle use. SpO2<97> CARDIOVASCULAR: Regular rate and rhythm without noted murmurs, no JVD or lower extremity edema. ABDOMEN: Soft, non-tender, non-distended with bowel sounds. LEFT LOWER EXTREMITY: Mild erythema with evidence of ecchymosis and centralized darker area from coagulated blood with good palpable pulses, no induration NEUROLOGIC: Alert and oriented x 4. Course Course Course Narrative: 81-year-old female with history and clinical presentation consistent with minor injury to left lower extremity approximately 2 weeks ago and likely given her underlying use of Lasix she likely experienced soft tissue injury and the wound has had a protracted healing course due to increased pressure in the lower extremities with poor venous return. There is no suspicion for cellulitis or infection at this time, an Tanner wrap was applied to the lower extremity and the patient was directed to follow-up with her primary care provider for continued observation to ensure continued improvement in the healing process. Discharge Plan Discharge Clinical Impression: Delayed wound healing Patient Disposition: Home, Self-Care Instructions: Wound Healing and Your Diet (ED) Additional Instructions: 1. Resume all home medications as prescribed. 2. Please apply the Tanner bandage to your leg prior to spending a significant amount of time walking around and elevate the lower extremity when possible. 3. Follow-up with your primary care doctor in the next 1-2 days for re-evaluation and further outpatient management to ensure that your wound continues to heal. May cleanse with soap and water and blot dry. Return to the ER for acute worsening of symptoms. Prescriptions: No Action furosemide 40 mg tablet 40 mg PO DAILY RF: 0 hydroxychloroquine 200 mg tablet 200 mg PO BID RF: 0 metoprolol succinate 25 mg tablet extended release 24 hr 25 mg PO DAILY RF: 0 losartan 25 mg tablet 25 mg PO DAILY RF: 0 aspirin 81 mg tablet,delayed release (DR/EC) 81 mg PO DAILY RF: 0 multivitamin Tablet 1 tab PO DAILY RF: 0 Referrals: Leo Dewitt MD [Primary Care Provider] - 2 days
== END 2021-07-03 01:55 | disposition home or self-care (01) ==
PROVIDERS: Emergency Provider Student in an Organized Health Care Education/Training Program; PCP Internal Medicine
DX: S80.12XD Contusion of left lower leg, subsequent encounter (principal); W22.03XD Walked into furniture, subsequent encounter; I11.0 Hypertensive heart disease with heart failure; I50.9 Heart failure, unspecified; Z86.73 Personal history of transient ischemic attack (TIA), and cerebral infarction without residual deficits
CPT/HCPCS: 99283

== ENCOUNTER 2021-07-17 08:48 | Outpatient (REF) | payer MEDICARE, OTHER, SELFPAY ==
--- NOTE | ~2021-07-17 | XR_ITS ---
EXAMINATION: XR LUMBOSACRAL SPINE CLINICAL INFORMATION: Low back pain. Question compression fracture COMPARISON: Sagittal reformatted images from CT abdomen pelvis 09/14/2018 TECHNIQUE: Three views of the lumbosacral spine. FINDINGS: 5 nonrib-bearing lumbar type vertebral bodies. 4 mm anterolisthesis of L4 on L5. There is mild inferior endplate concavity of L1 which is new from the prior study. Severe lower lumbar facet arthropathy. Osteopenia. Vascular calcifications. S-shaped thoracolumbar scoliosis. There is fusion/sclerosis of the right sacroiliac joint XR/XR lumbar spine 2-3V IMPRESSION: Mild inferior endplate concavity of L1 is new from the prior CT scan in 2018 but not necessarily acute. Consider MRI for further evaluation. Perfusion/sclerosis of the right sacroiliac joint consistent with prior sacroiliitis. Multilevel degenerative changes of the lumbar spine and osteopenia.
== END 2021-07-17 08:49 | disposition home or self-care (01) ==
LOC: HO.XRAY 08:48
PROVIDERS: PCP Internal Medicine; Visit Provider Internal Medicine Rheumatology
DX: M54.5 Low back pain (principal)
CPT/HCPCS: 72100

== ENCOUNTER 2021-07-28 11:38 | Outpatient (REF) | payer MEDICARE, OTHER, SELFPAY ==
--- NOTE | ~2021-07-28 | MR_ITS ---
EXAMINATION: MR LUMBAR SPINE WITHOUT CONTRAST CLINICAL INFORMATION: Dorsalgia, sacroiliitis. COMPARISON: Plain films of the lumbar spine 07/17/2021. TECHNIQUE: MRI of the lumbar spine was obtained using routine sequences without contrast. FINDINGS: VERTEBRAL BODIES AND PARASPINAL STRUCTURES: There is a mild levoscoliosis. There is a 4 mm grade 1 anterolisthesis of L4 on L5, and there is a 2 mm grade 1 anterolisthesis of L2 on L3. There is loss of intervertebral disc signal throughout the lumbar spine consistent with disc desiccation. There is loss of vertebral body height inferiorly of L1, of approximately 20%. There is moderately intense increased STIR signal along the inferior body of L1 with corresponding low T1 signal, and these findings are consistent with an inferior compression fracture of L1 which appears relatively acute and which corresponds to findings on the plain films. Vertebral body heights are maintained at other levels. There are degenerative endplate contour changes at some levels. There are fatty endplate signal changes anteriorly at T10-T11, and at L5-S1. There is a 1.6 cm area of increased signal on all sequences in the spinous process of L2, consistent with a hemangioma. A small focus of increased T1 and T2 signal is noted in the body of L4. Overall, marrow signal is homogenous. The visualized retroperitoneal and pelvic structures are unremarkable. CONUS MEDULLARIS AND CAUDA EQUINA: Normal, terminating at the level of L1. Accounting for artifact, spinal cord signal appears normal. SPINAL LEVELS: L1-L2: There is mild bilateral facet arthropathy. There is mild posterior protrusion of the inferior endplate of L1 into the spinal canal with mild flattening of the thecal sac but there is no significant central stenosis. The neural foramina are patent bilaterally. L2-L3: There is mild to moderate bilateral facet arthropathy. There is mild unroofing of the disc as a result of anterolisthesis. There are bilateral foraminal disc protrusions, and there may be mild impingement on the exiting right L2 nerve root. There is mild narrowing of the subarticular recesses. There is no central stenosis. L3-L4: There is mild bilateral facet arthropathy. There is a posterior disc protrusion extending into the right greater than left neural foramina, and there is impingement on the exiting right L3 nerve root. There is no central stenosis. L4-L5: There is severe right and moderate to severe left facet arthropathy. There is unroofing of the disc as a result of the anterolisthesis and there are bilateral foraminal disc protrusions impinging on the exiting L4 nerve roots bilaterally. There is mild narrowing of the subarticular recesses, but there is no central stenosis. L5-S1: There is severe bilateral facet arthropathy. There is a shallow posterior disc protrusion with an annular fissure extending into the neural foramina with impingement on the exiting L5 nerve roots, more prominently on the right. There is no central stenosis. MR/MR lumbar spine wo con IMPRESSION: 1. There is an inferior compression fracture the body of L1 which appears relatively acute. There is loss of approximately 20% vertebral body height inferiorly. 2. There is a grade 1 anterolisthesis of L4 on L5 secondary to facet arthropathy. There are bilateral foraminal disc protrusions impinging on the exiting L4 nerve roots. There is no central stenosis. 3. At L2-L3 there is a mild anterolisthesis secondary to facet arthropathy. There are bilateral foraminal disc protrusions and there may be impingement on the exiting right L2 nerve root. There is no central stenosis. 4. Spondylitic and facet arthropathic changes are also demonstrated at other levels as described above.
== END 2021-07-28 11:39 | disposition home or self-care (01) ==
LOC: HO.MRI 11:38
PROVIDERS: Visit Provider Internal Medicine Rheumatology
DX: M54.9 Dorsalgia, unspecified (principal)
CPT/HCPCS: 72148

== ENCOUNTER 2021-08-12 08:00 | Outpatient (RCR) | payer MEDICARE, OTHER, SELFPAY ==
--- NOTE | 2021-09-10 07:50 | MHC.PT.DC ---
[facility] [place] Office [place] Office [place] Office [address] [place] [address] [facility] [phone] F: [phone] F: [phone] F: [phone] F: [phone] Physical Therapy Discharge Report Diagnosis: Low Back Pain Date of Surgery: N/A Date of Evaluation: 08/06/21 Date of Discharge: 08/21/21 Treatments to Date: 2 Cancellations to Date: 1 No Shows to Date: 1 Discharge Status: Discharge Summary: Admit to in-patient status Electronically signed by: Yumiko Rapp PT, DPT Please sign and return to therapist. Thank you for your referral.
== END 2021-09-10 07:50 | disposition home or self-care (01) ==
LOC: HO.PT 08:00
PROVIDERS: PCP Internal Medicine; Visit Provider Internal Medicine
DX: G89.29 Other chronic pain; M54.50 Low back pain, unspecified
CPT/HCPCS: 97162; 97530; 97535

== ENCOUNTER → 2021-08-13 10:43 | Outpatient (BNVA) | payer MEDICARE, OTHER, SELFPAY | PROVIDERS: PCP Internal Medicine; Visit Provider Internal Medicine | DX: I11.0 Hypertensive heart disease with heart failure (principal); I50.32 Chronic diastolic (congestive) heart failure; I44.7 Left bundle-branch block, unspecified | CPT/HCPCS: 99212 ==

== ENCOUNTER 2021-08-18 01:58 | Inpatient (IN) | payer MEDICARE, OTHER, SELFPAY ==
[2021-08-18] VITALS (13 sets, daily range): BP systolic 127–169; BP diastolic 46–72; PULSE 58–96; RESP 15–30; TEMP 35.9–39.4; O2SAT 91–99; BMI 33.3
--- NOTE | 2021-08-18 | ECG_ITS ---
Test Reason : SOB Blood Pressure : / mmHG Vent. Rate : 100 BPM Atrial Rate : 100 BPM P-R Int : 154 ms QRS Dur : 134 ms QT Int : 366 ms P-R-T Axes : 086 -40 095 degrees QTc Int : 472 ms Sinus rhythm with Premature atrial complexes Left axis deviation Left bundle branch block Abnormal ECG When compared with ECG of 25-NOV-2020 10:18, Premature atrial complexes are now Present Vent. rate has increased BY 38 BPM Referred By: Generic ED Physician Electronically Signed By:ELADIO JIM MD
--- NOTE | 2021-08-18 | ECG_ITS ---
Test Reason : REPEAT, KEVIN Blood Pressure : / mmHG Vent. Rate : 056 BPM Atrial Rate : 056 BPM P-R Int : 158 ms QRS Dur : 144 ms QT Int : 456 ms P-R-T Axes : 041 -34 076 degrees QTc Int : 440 ms Sinus bradycardia with marked sinus arrhythmia Left axis deviation Blocked Premature atrial complexes Left bundle branch block Abnormal ECG When compared with ECG of 18-AUG-2021 02:11, Premature atrial complexes are no longer Present Vent. rate has decreased BY 44 BPM Referred By: Eugene Babb Electronically Signed By:ELADIO JIM MD
--- NOTE | ~2021-08-18 | XR_ITS ---
EXAMINATION: XR CHEST CLINICAL INFORMATION: Shortness breath COMPARISON: 11/25/2020 TECHNIQUE: Frontal view of the chest was obtained. FINDINGS: Normal symmetric lung volumes. Streaky opacity within the left lower lobe, likely subsegmental atelectasis. No pleural effusion. No pneumothorax. Cardiomediastinal silhouette and pulmonary vascularity are within normal limits. Aorta is atherosclerotic, and tortuous. No acute osseous abnormalities. XR/XR chest 1V IMPRESSION: Left lower lobe streaky opacity could represent subsegmental atelectasis or infiltrate
--- NOTE | ~2021-08-18 | CT_ITS ---
EXAMINATION: CT HEAD WITHOUT CONTRAST CLINICAL INFORMATION: Previous head CT August 2014 COMPARISON: None TECHNIQUE: Contiguous axial imaging was performed from the skull base to vertex without intravenous administration of contrast. This CT examination was performed using dose optimization techniques as appropriate, variously including the following: *Automated exposure control *Adjustment of mA and/or kV according to patient size (this includes techniques or standardized protocols for targeted exams where dose is matched to indication/reason for exam; i.e. extremities or head) *Use of iterative reconstruction technique DLP: 853 mGy-cm FINDINGS: There is no evidence of acute intracranial hemorrhage or territorial infarction. No abnormal mass effect or midline shift is seen. Recinos to white matter differentiation is well preserved. No extra-axial fluid collections are identified. The ventricles are normal in size. There is no abnormal attenuation within the brain parenchyma. The osseous structures and soft tissues are normal. The mastoid air cells and visualized portions of the paranasal sinuses are well aerated. CT/CT head/brain wo con IMPRESSION: Unremarkable exam.
--- NOTE | 2021-08-18 02:31 | ED_ITS ---
HPI - SOB/Dyspnea General Chief Complaint: Dyspnea Stated Complaint: SOB Time Seen by Provider: 08/18/21 02:20 Source: patient Mode of arrival: ambulatory Limitations: no limitations History of Present Illness HPI Narrative: 81-year-old female who presents emergency department for evaluation of shortness of breath. The patient states that the symptoms began at around 9:00 p.m.. She states the symptoms came on suddenly. She felt very weak, she felt anxious and short of breath. She states that she also is feeling lightheaded and dizzy. The patient denied chest pain. She denied fever, chills or cough. On presentation, the patient appeared to be very anxious. Her rectal temperature however was 103? F. . Patient states that she does have a nonhealing wound on her left sams, she states that this wound has become more painful over the past day or 2 and is more red than usual. Related Data Home Medications Medication Instructions Recorded Confirmed aspirin 81 mg tablet,delayed 81 mg PO DAILY 12/18/20 08/18/21 release furosemide 40 mg tablet 40 mg PO DAILY 12/18/20 08/18/21 hydroxychloroquine 200 mg tablet 200 mg PO BID 12/18/20 08/18/21 metoprolol succinate 25 mg 25 mg PO DAILY 12/18/20 08/18/21 tablet,extended release 24 hr multivitamin 1 tab PO DAILY 03/10/21 08/18/21 acetaminophen 325 mg capsule 650 mg PO Q6H PRN 07/15/21 08/18/21 Previous Rx's Medication Instructions Recorded losartan 25 mg tablet 25 mg PO DAILY #90 tab 07/03/21 Allergies Allergy/AdvReac Type Severity Reaction Status Date / Time amoxicillin [AMOXICILLIN] Allergy Unknown UNKNOWN Verified 08/13/21 11:12 Review of Systems Review of Systems: Yes all other systems are reviewed and are negative [facility] Past Medical History [facility] Narrative: Social history: The patient denies tobacco, alcohol and drug use. Medical History Acute diverticulitis CHF (congestive heart failure) Chronic heart failure with preserved ejection fraction (HFpEF) Essential hypertension HTN (hypertension) LBBB (left bundle branch block) TIA (transient ischemic attack) Surgical History H/O hernia repair History of cataract surgery Family History Family History Father No problems noted. Mother No problems noted. Social History Social History Housing: Apartment Alcohol intake: never Patient Tobacco Use Status: Never used Tobacco e-Cigarette/Vaping Use: Never Used Second Hand Smoke Exposure: No Use of substances other than those prescribed or required for medical reasons: No Advance Directives: No service: No Current occupational status: retired Physical Exam Vital Signs: Vital Signs: Last Vital Signs Temp 98.2 F 08/18/21 05:12 Pulse 79 08/18/21 05:12 Resp 17 08/18/21 05:12 BP 127/60 08/18/21 05:12 Pulse Ox 97 08/18/21 05:12 Body Mass Index 33.3 Const: General: cooperative and no acute distress Orientation/consciousness: oriented to person and oriented to place Limitations: no limitations HENMT: Head: Yes normal to inspection, Yes normocephalic and Yes atraumatic Ears: external ears normal General nose exam: Normal external nose present Face and sinus: Yes normal facial exam Mouth: Normal oral and palatal mucosa present Throat: Yes posterior oropharynx normal Eyes: General: appearance normal, both eyes and all related structures Pupils: Equal, round and reactive pupils present Neck: Neck: Yes normal visual inspection, Yes no lymphadenopathy, Yes trachea midline and Yes supple Chest: Chest palpation & inspection: normal inspection of the chest and normal palpation of entire chest wall Resp: Effort & Inspection: normal respiratory effort and able to speak in complete sentences Auscultation: clear to auscultation bilaterally Cardio: Rate: regular rate Rhythm: regular rhythm Heart sounds: S1 normal heart sound present, S2 normal heart sound present and no murmurs GI: Inspection: Yes normal to inspection Palpation (GI): Soft to palpation, nontender and no guarding Auscultation: normal bowel sounds : General: Yes no CVA tenderness Back/Spine/Pelvis: Back: no CVA tenderness Skin: Other: The patient has a over patch of erythema to her left lower sams area, there is a center area cicatration with no purulent drainage. Neuro: General: oriented to person and oriented to place Cranial nerves: Yes CN's II-XII intact bilaterally and Yes Equal, round and reactive pupils present Cognition (Neuro): normal cognition Motor exam (neuro): 5/5 motor strength present throughout Extrem: General: Yes normal to inspection Psych: Appearance: grossly normal Speech and movement: Normal speech and movement present Affect: normal affect Attitude: cooperative Thought process: Normal thought process present Thought content: Normal thought content present Course Course Course Narrative: 81-year-old female who presents emergency department for evaluation of sudden onset weakness, lightheadedness, shortness of breath and fever that started at 9:00 p.m.. The patient's vital signs revealed an elevated respiratory rate of 25 and a rectal temperature of a 103? F. blood pressure was elevated at 160 9/70. O2 saturation was 96% on room air. The patient's source is most likely pulmonary however she also has a left leg a nonhealing wound which is erythematous I did order a CBC, CMP, blood cultures x2, lactic acid, troponin, COVID screen, chest x-ray, EKG. Patient was ordered to get normal saline x1 L, Tylenol 975 mg orally and she will be treated for possible kidney acquired pneumonia with ceftriaxone 1 g IV and azithromycin 500 mg IV. 0326: The patient's laboratory evaluation did reveal low white blood count of 4500. The patient's lactic acid was elevated 2.8. The patient was ordered to get a 30 cc/kilogram normal saline bolus. The patient is not hypotensive. The patient's COVID-19 test was negative. Chest x-ray is concerning for left lower lobe infiltrate. Urinalysis revealed trace leukocyte esterase positive nitrate. Microscopic urine evaluation revealed 49 white blood cells 2+ bacteria 1+ epithelial cells. At this time I suspect the patient does have a left lower lobe pneumonia as the cause of her fever. I will discuss the patient's presentation with the covering hospitalist. 0527: Did discuss the patient's presentation with the covering hospitalist, Dr. Rios. Patient will be admitted the hospital service for further treatment. Patient has completed her fluid bolus and the repeat lactate is pending. Patient's repeat examination was unremarkable, the patient is awake and alert and does not appear to be in any distress. She states she is feeling significantly better. MDM - SOB/Dyspnea Lab Data Result diagrams: 08/18/21 02:38 08/18/21 02:38 Labs: Lab Results 08/18/21 08/18/21 08/18/21 Range/Units 02:38 02:38 02:38 WBC 4.5 L (4.8-10.8) X10*3/uL RBC 3.88 L (4.20-5.50) X10*6/uL Hgb 11.4 L (12.0-16.0) g/dl Hct 34.3 L (37-47) % MCV 88.4 (80-98) fL MCH 29.4 (27.0-33.0) pg MCHC 33.2 (31.0-35.0) g/dl RDW 14.3 (11.0-16.0) % Plt Count 192 (160-400) X10*3/uL MPV 9.4 (9.4-12.3) fL Immature Gran % (Auto) 0.7 H (0.0-0.4) % Neut % (Auto) 83.5 H (45-73) % Lymph % (Auto) 11.0 L (20-40) % [place] % (Auto) 4.0 (2-11) % Eos % (Auto) 0.4 (0-4) % Baso % (Auto) 0.4 (0-2) % Lymph # (Auto) 0.5 L (1.2-4.9) X10*3/uL [place] # (Auto) 0.2 (0.1-1.2) X10*3/uL Eos # (Auto) 0.0 (0.0-0.4) X10*3/uL Baso # (Auto) 0.0 (0.0-0.2) X10*3/uL Abs Immat Gran (auto) 0.03 (0.00-0.03) X10*3/uL Absolute Neuts (auto) 3.8 (2.0-8.3) X10*3/uL Absolute Nucleated RBC 0.000 (0.0-0.012) X10*3/uL Nucleated RBC % (auto) 0.0 (0.0-0.2) /100WBC Sodium 136 (135-145) mmol/L Potassium 4.3 (3.3-5.1) mmol/L Chloride 105 (96-108) mmol/L Carbon Dioxide 21 L (22-29) mmol/L Anion Gap 14 (12-20) BUN 14 (9-16) mg/dL Creatinine 0.88 (0.5-1.4) mg/dL Estim Creat Clear Calc 54.8 Estimated GFR > 60 Random Glucose 129 H (60-115) mg/dL Lactic Acid (0.5-2.0) mmol/L Calcium 9.0 (8.4-10.2) mg/dL Total Bilirubin 0.6 (0.0-1.0) mg/dL AST 29 (5-31) U/L ALT 22 (0-31) U/L Alkaline Phosphatase 99 (39-117) U/L Troponin I High Sens 16.4 (<3.5-17.0) ng/L Total Protein 6.7 (6.5-8.0) g/dL Albumin 3.9 (3.5-5.0) g/dL Lipase 37 (8-78) U/L COVID-19 ([facility]IO) (Negative) COVID-19 Clin Com 08/18/21 08/18/21 Range/Units 02:38 02:38 WBC (4.8-10.8) X10*3/uL RBC (4.20-5.50) X10*6/uL Hgb (12.0-16.0) g/dl Hct (37-47) % MCV (80-98) fL MCH (27.0-33.0) pg MCHC (31.0-35.0) g/dl RDW (11.0-16.0) % Plt Count (160-400) X10*3/uL MPV (9.4-12.3) fL Immature Gran % (Auto) (0.0-0.4) % Neut % (Auto) (45-73) % Lymph % (Auto) (20-40) % [place] % (Auto) (2-11) % Eos % (Auto) (0-4) % Baso % (Auto) (0-2) % Lymph # (Auto) (1.2-4.9) X10*3/uL [place] # (Auto) (0.1-1.2) X10*3/uL Eos # (Auto) (0.0-0.4) X10*3/uL Baso # (Auto) (0.0-0.2) X10*3/uL Abs Immat Gran (auto) (0.00-0.03) X10*3/uL Absolute Neuts (auto) (2.0-8.3) X10*3/uL Absolute Nucleated RBC (0.0-0.012) X10*3/uL Nucleated RBC % (auto) (0.0-0.2) /100WBC Sodium (135-145) mmol/L Potassium (3.3-5.1) mmol/L Chloride (96-108) mmol/L Carbon Dioxide (22-29) mmol/L Anion Gap (12-20) BUN (9-16) mg/dL Creatinine (0.5-1.4) mg/dL Estim Creat Clear Calc Estimated GFR Random Glucose (60-115) mg/dL Lactic Acid 2.8 H* (0.5-2.0) mmol/L Calcium (8.4-10.2) mg/dL Total Bilirubin (0.0-1.0) mg/dL AST (5-31) U/L ALT (0-31) U/L Alkaline Phosphatase (39-117) U/L Troponin I High Sens (<3.5-17.0) ng/L Total Protein (6.5-8.0) g/dL Albumin (3.5-5.0) g/dL Lipase (8-78) U/L COVID-19 ([facility]IO) Negative (Negative) COVID-19 Clin Com See Note Discharge Plan Discharge Clinical Impression: Pneumonia Qualifiers: Pneumonia type: due to unspecified organism Laterality: left Lung location: lower lobe of lung Qualified Code(s): J18.9 - Pneumonia, unspecified organism Fever Qualifiers: Fever type: unspecified Qualified Code(s): R50.9 - Fever, unspecified Patient Disposition: Admitted As Inpatient
[2021-08-18] MEDS: 0.9 % Sodium Chloride 1,000 ML 999 ML IV (02:46)
[2021-08-18 02:49] LABS: Basophils Percent Auto 0.4 % (0-2); Eosinophils Percent Auto 0.4 % (0-4); Hematocrit 34.3 % (37-47); Hemoglobin 11.4 g/dl (12.0-16.0); Imm Gran Abs Auto 0.03 X10*3/uL (0.00-0.03); Imm Gran Pct Auto 0.7 % (0.0-0.4); Lymphocytes Absolute Auto 0.5 X10*3/uL (1.2-4.9); MANUAL DIFF FLAG NO; Mean Corpuscular HGB Conc 33.2 g/dl (31.0-35.0); Mean Corpuscular Hemoglobin 29.4 pg (27.0-33.0); Mean Corpuscular Volume 88.4 fL (80-98); Mean Platelet Volume 9.4 fL (9.4-12.3); Monocytes Absolute Auto 0.2 X10*3/uL (0.1-1.2); Neutrophils Absolute Auto 3.8 X10*3/uL (2.0-8.3); Neutrophils Percent Auto 83.5 % (45-73); Platelet Count 192 X10*3/uL (160-400); Red Blood Count 3.88 X10*6/uL (4.20-5.50); Red Cell Distribution Width 14.3 % (11.0-16.0); White Blood Count 4.5 X10*3/uL (4.8-10.8)
[2021-08-18] MEDS: cefTRIAXone sodium 1 GM in 0.9 % Sodium Chloride 50 ML IV (02:50)
[2021-08-18] MEDS: Azithromycin 500 MG in 0.9 % Sodium Chloride 250 ML 125 MG IV (02:50)
[2021-08-18] MEDS: LORazepam 2 MG/ML VIAL 0.5 MG IVPUSH (02:51)
[2021-08-18] MEDS: Acetaminophen 325 MG TABLET 975 MG PO (02:52)
[2021-08-18] MEDS: ondansetron HCL 4 MG/2 ML VIAL IVPUSH (02:52)
[2021-08-18 03:01] LABS: COVID-19 Test Negative (Negative); IDNOW Serial# 9DD0AD1C
[2021-08-18 03:02] LABS: Lactic Acid 2.8 mmol/L (0.5-2.0)
[2021-08-18 03:10] LABS: Troponin-I High Sensitivity 16.4 ng/L (<3.5-17.0)
[2021-08-18 03:12] LABS: Alanine Aminotransferase 22 U/L (0-31); Albumin Level 3.9 g/dL (3.5-5.0); Alkaline Phosphatase 99 U/L (39-117); Anion Gap 14 (12-20); Aspartate Amino Transferase 29 U/L (5-31); Bilirubin Total 0.6 mg/dL (0.0-1.0); Blood Urea Nitrogen 14 mg/dL (9-16); Carbon Dioxide 21 mmol/L (22-29); Chloride 105 mmol/L (96-108); Creatinine Clr Calc Pharmacy 54.8; Estimated Glomerular Filt Rate > 60; Glucose Random 129 mg/dL (60-115); Lipase 37 U/L (8-78); Potassium 4.3 mmol/L (3.3-5.1); Sodium 136 mmol/L (135-145); Total Protein 6.7 g/dL (6.5-8.0)
[2021-08-18] MEDS: 0.9 % Sodium Chloride 2,721.54 ML 2721.54 ML IV (03:52)
[2021-08-18 04:47] LABS: Reflex Lactate? Lactic Acid Added
[2021-08-18 05:41] LABS: ~Lactic Acid-LAB USE ONLY 0.7 mmol/L (0.5-2.0)
--- NOTE | 2021-08-18 06:31 | PC.NURSE ---
Pt remains alert and oriented x4, calm and cooperative. Pt denies pain. Pt states SOB has improved. Pt denies chest pain. Pt remains afebrile at thi time, vitals stable. Pt on tele monitor NSR. IV intact. Pt tolerated IV abx well. Pt remains on 2 liters O2 at this time, pt noted t desat at 88% on room air. Pt resting in stretcher without complaints, will continue to monitor.
--- NOTE | 2021-08-18 07:32 | PHA.MEDREC ---
Pharmacy Consult ? Medication Reconciliation Med rec completed by overnight nursing staff. Pharmacy reviewed the completed med rec. There are no remarkable issues for provider's attention. Janet Garrison, JazielD
--- NOTE | 2021-08-18 08:26 | P.HPHOSP_ITS ---
History of Present Illness Date of Service: 08/18/21 Attending physician on admission: John Diaz Chief Complaint: Shortness of breath /weakness 81-year-old female with past medical history significant for congestive heart failure with preserved EF, essential hypertension, left bundle-branch block, chronic left leg redness presented to [facility] with acute onset of shortness of breath associated with generalized weakness unable to walk, also felt lightheaded and dizzy, patient denies associated fever chills or cough in the emergency room patient was noted to be febrile with a rectal temperature of 103 degrees, patient also noted that skin surrounding her chronic nonhealing left sams wound was also red without associated drainage or skin breakdown, in the emergency room workup revealed a urinalysis positive for UTI, chest x-ray concerning for left lower lobe infiltrate, elevated lactic acid and low WBC count patient treated in the emergency room for possible pneumonia with IV ceftriaxone and azithromycin now being admitted to [facility] with a diagnosis of sepsis likely related to pneumonia/cellulitis and possible UTI. Review of Systems Review of Systems: General no headache, positive lightheadedness, positive dizziness, no fever chills. CVS no chest pain, no palpitation. Respiratory no cough , no sputum production, no shortness of breath Gastrointestinal no nausea no vomiting, no abdominal pain Musculoskeletal chronic back pain Skin chronic left leg redness and scab Yes all other systems are reviewed and are negative [facility] Medical History Acute diverticulitis CHF (congestive heart failure) Chronic heart failure with preserved ejection fraction (HFpEF) Essential hypertension HTN (hypertension) LBBB (left bundle branch block) TIA (transient ischemic attack) Family History Father No problems noted. Mother No problems noted. Pertinent family history: No significant family history of premature coronary artery disease Surgical History H/O hernia repair History of cataract surgery Social History Household Members: None Housing: Apartment Do you presently have visiting nurse or other home services: No Alcohol intake: never Patient Tobacco Use Status: Never used Tobacco e-Cigarette/Vaping Use: Never Used Second Hand Smoke Exposure: No Use of substances other than those prescribed or required for medical reasons: No Currently Displaying Signs/Symptoms of Drug Intoxication Withdrawal: No Have you been hit, kicked, punched, or otherwise hurt by someone within the past year? If so, by whom?: No Do you feel safe in your current relationship?: Yes Is there a partner from a previous relationship who is making you feel unsafe now?: No Are you made to feel afraid or neglected: No Advance Directives: Yes Advance Directives on File: Yes Advance Directives Date on File: 08/18/21 Do you have thoughts of harming others: None Do you have a plan to hurt others: No Plan Recently lost weight without trying: No Nutrition Risks: No Nutritional Risk service: No Current occupational status: retired [employer] Allergies Allergy/AdvReac Type Severity Reaction Status Date / Time amoxicillin [AMOXICILLIN] Allergy Unknown UNKNOWN Verified 08/13/21 11:12 Active Medications: Current Medications Acetaminophen (Acetaminophen 325 Mg Tablet) 650 mg PO Q6H PRN PRN Reason: Pain, Mild (Pain Scale 1-3) Aspirin (Aspirin Enteric Coated 81 Mg Tablet.Dr) 81 mg PO DAILY [facility] Hydroxychloroquine Sulfate (Hydroxychloroquine Sulfate 200 Mg Tablet) 200 mg PO BID [facility] Ceftriaxone Sodium 1 gm/ (Sodium Chloride) 50 mls @ 100 mls/hr IV Q24H [facility] Azithromycin 500 mg/ Sodium (Chloride) 250 mls @ 125 mls/hr IV DAILY [facility] Losartan Potassium (Losartan Potassium 25 Mg Tablet) 25 mg PO DAILY [facility]; Protocol Metoprolol Succinate (Metoprolol Succinate Er 25 Mg Tab.Er.24h) 25 mg PO DAILY [facility]; Protocol Multivitamins/Vitamin C (Multivitamin Tablet) 1 tab PO DAILY [facility] Ondansetron HCl (Ondansetron Hcl 4 Mg/2 Ml Vial) 4 mg IVPUSH Q8H PRN PRN Reason: Nausea and Vomiting Pharmacy Consult (Consult Rx Perform Med Rec) 1 each MISCELLANE ONCE PRN PRN Reason: Consult order Sodium Chloride (0.9 % Sodium Chloride Flush 3 Ml Syringe) 3 ml IVFLUSH QSHIFT [facility] Home Medications Medication Instructions Recorded Confirmed Last Taken Type aspirin 81 mg tablet,delayed 81 mg PO DAILY 12/18/20 08/18/21 06/30/21 History release furosemide 40 mg tablet 40 mg PO DAILY 12/18/20 08/18/21 08/17/21 08:00 History hydroxychloroquine 200 mg tablet 200 mg PO BID 12/18/20 08/18/21 08/17/21 21:00 History metoprolol succinate 25 mg 25 mg PO DAILY 12/18/20 08/18/21 08/17/21 08:00 History tablet,extended release 24 hr multivitamin 1 tab PO DAILY 03/10/21 08/18/21 08/17/21 08:00 History acetaminophen 325 mg capsule 650 mg PO Q6H PRN 07/15/21 08/18/21 08/18/21 History Physical Exam Vital Signs and Narrative: Vital Signs: Last Vital Signs Temp 96.6 F L 08/18/21 08:14 Pulse 78 08/18/21 08:14 Resp 17 08/18/21 08:14 BP 141/53 H 08/18/21 08:14 Pulse Ox 96 08/18/21 08:14 Body Mass Index 33.3 General awake alert, no acute distress. Neck supple no JVD. CVS regular rate rhythm, Respiratory lungs left base crepitus, no respiratory distress, no wheeze, no rhonchi. Gastrointestinal abdomen soft, nontender, bowel sounds audible, no guarding , no rigidity. Extremities left lower extremity dry scab with surrounding erythema left sams, positive warmth and mild tenderness Neuro nonfocal, moving all 4 extremity speech clear. Skin multiple hyperemic dry scabs on both shoulders and right neck Musculoskeletal no deformity Results Labs CBC and Chem 7: 08/18/21 02:38 08/18/21 02:38 Labs: Laboratory Results - last 24 hr 08/18/21 08/18/21 08/18/21 02:38 02:38 02:38 MCV 88.4 MCH 29.4 MCHC 33.2 RDW 14.3 Plt Count 192 MPV 9.4 Immature Gran % (Auto) 0.7 H Neut % (Auto) 83.5 H Lymph % (Auto) 11.0 L [place] % (Auto) 4.0 Eos % (Auto) 0.4 Baso % (Auto) 0.4 Lymph # (Auto) 0.5 L [place] # (Auto) 0.2 Eos # (Auto) 0.0 Baso # (Auto) 0.0 Abs Immat Gran (auto) 0.03 Absolute Neuts (auto) 3.8 Absolute Nucleated RBC 0.000 Nucleated RBC % (auto) 0.0 Anion Gap 14 Estim Creat Clear Calc 54.8 Estimated GFR > 60 Random Glucose 129 H Lactic Acid Lactic Acid Fup @ 2Hr Calcium 9.0 Total Bilirubin 0.6 AST 29 ALT 22 Alkaline Phosphatase 99 Troponin I High Sens 16.4 Total Protein 6.7 Albumin 3.9 Lipase 37 COVID-19 ([facility]IO) COVID-19 Clin Com 08/18/21 08/18/21 08/18/21 02:38 02:38 05:27 MCV MCH MCHC RDW Plt Count MPV Immature Gran % (Auto) Neut % (Auto) Lymph % (Auto) [place] % (Auto) Eos % (Auto) Baso % (Auto) Lymph # (Auto) [place] # (Auto) Eos # (Auto) Baso # (Auto) Abs Immat Gran (auto) Absolute Neuts (auto) Absolute Nucleated RBC Nucleated RBC % (auto) Anion Gap Estim Creat Clear Calc Estimated GFR Random Glucose Lactic Acid 2.8 H* Lactic Acid Fup @ 2Hr 0.7 Calcium Total Bilirubin AST ALT Alkaline Phosphatase Troponin I High Sens Total Protein Albumin Lipase COVID-19 (CAIO) Negative COVID-19 Clin Com See Note Imaging Radiologist's Impressions: Impressions Chest X-Ray 08/18/21 02:45 IMPRESSION: Left lower lobe streaky opacity could represent subsegmental atelectasis or infiltrate Assessment and Plan (1) Pneumonia: Qualifiers: Laterality: left Lung location: lower lobe of lung Pneumonia type: due to unspecified organism Qualified Code(s): J18.9 - Pneumonia, unspecified organism Status: Acute (2) Fever: Qualifiers: Fever type: unspecified Qualified Code(s): R50.9 - Fever, unspecified Status: Acute (3) Chronic lower back pain: Status: Acute (4) Essential hypertension: Status: Acute (5) Chronic heart failure with preserved ejection fraction (HFpEF): Status: Acute (6) LBBB (left bundle branch block): Status: Acute (7) Leg skin lesion, left: Status: Acute (8) Cellulitis of left leg: Status: Acute (9) Sepsis: Status: Acute 81-year-old female patient with multiple medical issues including history of heart failure with preserved EF, chronic back pain, chronic left leg wound, essential hypertension presented to [facility] with acute onset of shortness of breath generalized weakness, in ER noted to have fever tachycardia and lactic acidosis patient diagnosed to have sepsis possible early related to pneumonia, left leg cellulitis and possible UTI # sepsis due to pneumonia/left leg cellulitis and positive UA Patient met sepsis due to tachycardia, fever, and lactic acidosis, repeat lactic acid normalized Will admit patient to medical floor, will treat with IV ceftriaxone and IV azithromycin, follow blood cultures and urine cultures Continue supportive care with analgesics cough medications Old record reviewed patient has chronic ongoing left leg cellulitis and has finished 2 recent courses of antibiotics including Bactrim and doxycycline # chronic congestive heart failure with preserved EF no acute decompensation continue losartan and Lasix, EKG showed left bundle-branch block. # hypertension blood pressure is stable continue home medication started 25 mg and metoprolol XL 25 mg daily # chronic back pain no acute exacerbation continue Tylenol and follow clinical course , status post recent MRI study 1 month ago will review report. # DVT prophylaxis with Lovenox # code status full code Quality Stroke Does the patient have a stroke diagnosis?: No VTE Prior VTE?: No VTE Risk Level:: Medical - moderate - high VTE Device Contraindication: Treatment Not Indicated VTE Drug Contraindication: N/A - Med Ordered
--- NOTE | 2021-08-18 09:56 | PC.NURSE ---
pt's daughter(lives in [place] and is the hcp) emelyn goodrich called [facility] and she was updated on pt status.
[2021-08-18] MEDS: Losartan Potassium 25 MG TABLET PO (10:05)
[2021-08-18] MEDS: Multivitamin TABLET 1 TAB PO (10:05)
[2021-08-18] MEDS: Aspirin Enteric Coated 81 MG TABLET.DR PO (10:05)
[2021-08-18] MEDS: Metoprolol Succinate ER 25 MG TAB.ER.24H PO (10:05)
[2021-08-18] MEDS: Hydroxychloroquine Sulfate 200 MG TABLET PO ×2 (10:06→21:44)
--- NOTE | 2021-08-18 10:17 | PC.NURSE ---
pt had a large bm x 1. pt daughter emelyn phone number is ([phone]).
--- NOTE | 2021-08-18 13:30 | PC.NURSE ---
visitor with pt. pt tearful, complaining of discomfort. moved to recliner to eat.
[2021-08-18 15:36] LABS: Appearance Urine CLEAR; Color Urine DK YELLOW; Glucose Urine UA NEG (NEG); Leukocyte Esterase Urine NEG (NEG); Nitrite Urine NEG (NEG); Specific Gravity - Urine >= 1.030 (1.005-1.025); Urine Blood NEG (NEG); Urine Ketones NEG (NEG); Urine Protein NEG (NEG-TRACE)
[2021-08-18] MEDS: 0.9 % Sodium Chloride Flush 3 ML SYRINGE IVFLUSH (16:04)
[2021-08-18] MEDS: Acetaminophen 325 MG TABLET 650 MG PO (19:30)
--- NOTE | 2021-08-18 20:50 | MHC.CM.PN ---
CM met with admitted patient, with bed assignment, awaiting transfer to floor. A&O x3. Pt lives alone, very independent, uses no equipment or services. Pt does have hearing aides. Pt would like some help with light housekeeping. Daughter referred to [facility]. IMM reviewed an signed per protocol 08/18/2021@2014. HCP not on file. HCP reviewed, completed and signed. HCP/daughter Daria Ruiz ([phone]). Copies given and uploaded into [employer] and [facility] [employer]. Pt is fully vaccinated with Pfizer and has received the booster vaccination. Pt is weak and has been having chronic back pain and attending PT at [facility]. D/C plan is home vs STR. Pt may need PT evaluation prior to d/c. Transportation by family. CM to follow for d/c needs.
[2021-08-19] VITALS (7 sets, daily range): BP systolic 146–181; BP diastolic 65–78; PULSE 55–76; RESP 17–20; TEMP 36.2–37.4; O2SAT 94–98
[2021-08-19] MEDS: 0.9 % Sodium Chloride Flush 3 ML SYRINGE IVFLUSH ×4 (02:19→23:51)
[2021-08-19] MEDS: cefTRIAXone sodium 1 GM in 0.9 % Sodium Chloride 50 ML IV (02:19)
[2021-08-19] MEDS: Azithromycin 500 MG in 0.9 % Sodium Chloride 250 ML 125 MG IV (03:05)
--- NOTE | 2021-08-19 03:26 | PC.NURSE ---
Pt c/o chronic back pain and requested a heating pad (she uses one at home). Pt given hot packs and repositioned with good effect. Will continue to monitor.
[2021-08-19] MEDS: Acetaminophen 325 MG TABLET 650 MG PO ×3 (04:01→23:42)
[2021-08-19] MEDS: Losartan Potassium 25 MG TABLET PO (10:13)
[2021-08-19] MEDS: Multivitamin TABLET 1 TAB PO (10:13)
[2021-08-19] MEDS: Hydroxychloroquine Sulfate 200 MG TABLET PO ×2 (10:14→20:23)
[2021-08-19] MEDS: Metoprolol Succinate ER 25 MG TAB.ER.24H PO (10:14)
[2021-08-19] MEDS: Aspirin Enteric Coated 81 MG TABLET.DR PO (10:14)
--- NOTE | 2021-08-19 14:06 | MHC.CLN ---
NUTRITION DIET CHANGED FROM REGULAR TO CARDIAC DUE TO HX CHF. SKIN WITH LEFT LEG CELLULITIS, NO PRESSURE AREAS.
--- NOTE | 2021-08-19 14:49 | MHC.CM.PN ---
EMR REVIEWED, BC PENDING, PT EVAL REC HOME W/SERVICES, PER HOSPITALIST PT HAS L1 COMPRESSION FX AND WILL CONSULT ORTHO, CM MET W/PT AND DTR WHO WAS AT BEDSIDE TO DISCUSS DCP AND PT PREFERS [facility] FOR VNA AND IF THEY CANNOT ACCOMMODATE PT SHE PREFERS [facility], [facility]. D/C PLAN: HOME W/NEW VNA, FAMILY FOR TRANSPORT.
--- NOTE | 2021-08-19 15:38 | MHC.CM.PN ---
CM RECEIVED MESSAGE FROM [facility] D/T BEING AT [facility], PER [facility] PLEASE RESUBMIT REFERRAL ON Tuesday08/21/21 THEY ARE UNABLE TO ACCEPT NEW PT'S ON 08/20/21.
--- NOTE | 2021-08-19 16:23 | HO.PM.IMPN ---
Subjective Subjective Date of Service: 08/19/21 Interval History: Being followed for sepsis due to left leg cellulitis/pneumonia, Complaining of lower back pain ongoing for lasts several weeks, denies fever chills, no shortness of breath,not on home oxygen. Review of Systems General no headache, no fever chills.? CVS no chest pain, no palpitation.? Respiratory no cough , no sputum production, no shortness of breath Gastrointestinal no nausea, no vomiting, no abdominal pain Musculoskeletal chronic back pain Skin chronic left leg redness and scab Yes all other systems are reviewed and are negative Physical Exam Vital Signs: Vital Signs: Last Vital Signs Temp 98.6 F 08/19/21 15:19 Pulse 76 08/19/21 15:19 Resp 18 08/19/21 15: BP 156/78 H 08/19/21 15: Pulse Ox 94 08/19/21 15:19 Body Mass Index 33.3 General awake alert, no acute distress.? Neck supple no JVD. CVS? regular rate rhythm, Respiratory lungs left base crepitus, no respiratory distress, no wheeze, no rhonchi. Gastrointestinal abdomen soft, nontender, bowel sounds audible, no guarding , no rigidity. Extremities left lower extremity dry scab with surrounding erythema left sams improved since yesterday, mild tenderness to palpation Neuro nonfocal, moving all 4 extremity speech clear. Skin multiple hyperemic dry scabs on both shoulders and right neck Musculoskeletal no deformity Objective Data Active Medications Acetaminophen (Acetaminophen 325 Mg Tablet) 650 mg PO Q6H PRN PRN Reason: Pain, Mild (Pain Scale 1-3) Last Admin: 08/19/21 14:09 Dose: 650 mg Documented by: LYNN Aspirin (Aspirin Enteric Coated 81 Mg Tablet.) 81 mg PO DAILY [facility] Last Admin: 08/19/21 10:14 Dose: 81 mg Documented by: LYNN Calcitonin Lykens (Calcitonin,Lykens,Synth Nasal 3.7 Ml Bottle) 1 spray NOSTRILALT DAILY [facility] Hydroxychloroquine Sulfate (Hydroxychloroquine Sulfate 200 Mg Tablet) 200 mg PO BID [facility] Last Admin: 08/19/21 10:14 Dose: 200 mg Documented by: LYNN Ceftriaxone Sodium 1 gm/ (Sodium Chloride) 50 mls @ 100 mls/hr IV Q24H [facility] Last Infusion: 08/19/21 02:51 Dose: 0 mls/hr Documented by: ISAEL Azithromycin 500 mg/ Sodium (Chloride) 250 mls @ 125 mls/hr IV Q24H [facility] Last Infusion: 08/19/21 05:16 Dose: 0 mls/hr Documented by: ISAEL Losartan Potassium (Losartan Potassium 25 Mg Tablet) 25 mg PO DAILY [facility]; Protocol Last Admin: 08/19/21 10:13 Dose: 25 mg Documented by: LYNN Metoprolol Succinate (Metoprolol Succinate Er 25 Mg Tab.Er.24h) 25 mg PO DAILY [facility]; Protocol Last Admin: 08/19/21 10:14 Dose: 25 mg Documented by: LYNN Multivitamins/Vitamin C (Multivitamin Tablet) 1 tab PO DAILY [facility] Last Admin: 08/19/21 10:13 Dose: 1 tab Documented by: LYNN Ondansetron HCl (Ondansetron Hcl 4 Mg/2 Ml Vial) 4 mg IVPUSH Q8H PRN PRN Reason: Nausea and Vomiting Pharmacy Consult (Consult Rx Perform Med Rec) 1 each MISCELLANE ONCE PRN PRN Reason: Consult order Sodium Chloride (0.9 % Sodium Chloride Flush 3 Ml Syringe) 3 ml IVFLUSH QSHIFT [facility] Last Admin: 08/19/21 10:15 Dose: 3 ml Documented by: LYNN Labs CBC & Chem 7: 08/18/21 02:38 08/18/21 02:38 Microbiology Microbiology Results: Microbiology 08/18/21 15:20 Urine Culture - Preliminary Urine clean catch - Clean Catch Midstream Culture too young to evaluate. 08/18/21 02:42 Blood Culture - Preliminary Blood - Venous No growth after 24 hours. 08/18/21 02:42 Blood Culture - Preliminary Blood - Venous No growth after 24 hours. Assessment and Plan (1) Sepsis: Status: Acute (2) Cellulitis of left leg: Status: Acute (3) Pneumonia: Status: Acute (4) Chronic lower back pain: Status: Acute (5) Leg skin lesion, left: Status: Acute (6) Chronic heart failure with preserved ejection fraction (HFpEF): Status: Acute (7) Essential hypertension: Status: Acute (8) LBBB (left bundle branch block): Status: Acute (9) CHF (congestive heart failure): Status: Acute Assessment and Plan: 81-year-old female patient with multiple medical issues including history of heart failure with preserved EF, chronic back pain, chronic left leg wound, essential hypertension presented to [facility] with acute onset of shortness of breath generalized weakness, in ER noted to have fever tachycardia and lactic acidosis patient diagnosed to have sepsis possible early related to pneumonia, left leg cellulitis and possible UTI # sepsis due to pneumonia/left leg cellulitis and positive UA ?? Patient met sepsis due to tachycardia, fever, and lactic acidosis, All symptoms of sepsis resolved ?? Continue IV ceftriaxone and IV azithromycin,day2, blood cultures neg and urine culture pend ?? Continue supportive care with analgesics, cough medications ?? Old record reviewed patient has chronic ongoing left leg cellulitis and has finished 2 recent courses of antibiotics including Bactrim and doxycycline As per daughter patient frequently bump her legs therefore has multiple bruises and recurrent cellulitis # chronic congestive heart failure with preserved EF no acute decompensation continue losartan and Lasix, EKG showed left bundle-branch block. # hypertension blood pressure is stable continue home medication losartan 25 mg and metoprolol XL 25 mg daily # chronic back pain Recent lumbar MRI 07/28 showed L1 compression fracture, continue Tylenol /hot pack, patient being followed at [facility] by Dr. Benjamin Thayer recommend outpatient follow-up Patient seen by Physical therapy today related with walker, give result of MRI to patient's daughter and patient. # DVT prophylaxis with Lovenox # code status full code Quality Stroke Does the patient have a stroke diagnosis?: No VTE Prior VTE?: No VTE Risk Level:: Medical - moderate - high VTE Device Contraindication: Treatment Not Indicated VTE Drug Contraindication: N/A - Med Ordered
[2021-08-19] MEDS: Calcitonin,Salmon,Synth Nasal 3.7 ML BOTTLE 1 SPRAY NOSTRILALT (16:39)
[2021-08-19] MEDS: ondansetron HCL 4 MG/2 ML VIAL IVPUSH (22:10)
[2021-08-20] VITALS (7 sets, daily range): BP systolic 137–158; BP diastolic 65–83; PULSE 58–76; RESP 17–18; TEMP 36.4–36.8; O2SAT 95–98
[2021-08-20] MEDS: cefTRIAXone sodium 1 GM in 0.9 % Sodium Chloride 50 ML IV (03:04)
[2021-08-20] MEDS: Azithromycin 500 MG in 0.9 % Sodium Chloride 250 ML 125 MG IV (03:36)
[2021-08-20] MEDS: Losartan Potassium 25 MG TABLET PO (07:48)
[2021-08-20] MEDS: Metoprolol Succinate ER 25 MG TAB.ER.24H PO (07:49)
[2021-08-20] MEDS: Hydroxychloroquine Sulfate 200 MG TABLET PO (07:49)
[2021-08-20] MEDS: Multivitamin TABLET 1 TAB PO (07:49)
[2021-08-20] MEDS: Aspirin Enteric Coated 81 MG TABLET.DR PO (07:49)
[2021-08-20] MEDS: Acetaminophen 325 MG TABLET 650 MG PO ×2 (07:49→14:34)
[2021-08-20] MEDS: 0.9 % Sodium Chloride Flush 3 ML SYRINGE IVFLUSH (07:50)
[2021-08-20 09:02] LABS: Hematocrit 32.6 % (37-47); Hemoglobin 10.5 g/dl (12.0-16.0); Mean Corpuscular HGB Conc 32.2 g/dl (31.0-35.0); Mean Corpuscular Hemoglobin 28.7 pg (27.0-33.0); Mean Corpuscular Volume 89.1 fL (80-98); Mean Platelet Volume 9.7 fL (9.4-12.3); Platelet Count 149 X10*3/uL (160-400); Red Blood Count 3.66 X10*6/uL (4.20-5.50); Red Cell Distribution Width 14.4 % (11.0-16.0); White Blood Count 3.8 X10*3/uL (4.8-10.8)
[2021-08-20 09:26] LABS: Anion Gap 11 (12-20); Blood Urea Nitrogen 10 mg/dL (9-16); Carbon Dioxide 24 mmol/L (22-29); Chloride 108 mmol/L (96-108); Estimated Glomerular Filt Rate > 60; Glucose Random 89 mg/dL (60-115); Sodium 138 mmol/L (135-145)
[2021-08-20 09:30] LABS: Troponin-I High Sensitivity 8.8 ng/L (<3.5-17.0)
[2021-08-20 09:48] LABS: Procalcitonin 0.05 ng/mL
[2021-08-20] MEDS: Calcitonin,Salmon,Synth Nasal 3.7 ML BOTTLE 1 SPRAY NOSTRILALT (11:01)
--- NOTE | 2021-08-20 12:37 | MHC.CM.PN ---
Addendum entered by Latanya Blake, RN 08/20/21 16:13: PT MEDICALLY CLEARED FOR DISCHARGE, PT WILL HAVE [facility] FOR SN & HOME PT, DTR AT BEDSIDE FOR TRANSPORT Original Note: PT DISCHARGING TODAY AFTER HEAD BRAIN CT SCHEDULED AT 2PM. D/C PLAN: HOME W/SN AND HOME PT, CM STILL WORKING ON OBTAINING VNA [facility] WERE UNABLE TO TAKE PT, [facility] WILL PROVIDE TRANSPORT.
--- NOTE | 2021-08-20 15:01 | W.MHC.F2F ---
Service Date Service Date: 08/20/21 Encounter Date of encounter: 08/20/21 Reasons for Services Signs and symptoms assessed: deconditioning, dyspnea Reason for retirement: medication management and teach disease management Reason for physical therapy: home safety and mobility, therapeutic exercises, gait/transfer training, assess need for DME, ADL training and energy conservation MD Overseeing Care: Armando Richards Homebound: Leaving the home is medically contraindicated at this time without the asist of a device and/or another person due th the listed conditions above and below. Reason homebound: unsteady gait / fall risk and weakness related to hospital stay Certification: Based on the above findings, I certify that this patient is confined to the home and needs intermittent retirement care, physical therapy and/or speech therapy, or continues to need occupational therapy. The patient is under my care, and I have initiated the establishment of the plan of care. The patient will be followed by a physician who will periodically review the plan of care.
--- NOTE | 2021-08-20 15:16 | P.DS_ITS ---
DS: Providers Provider Date of Service: 08/20/21 Date of admission: 08/18/21 08:13 Date of discharge: 08/20/21 Primary care physician: Armando Richards NP DS: Diagnosis Discharge Diagnosis (1) Sepsis: Status: Acute (2) Cellulitis of left leg: Status: Acute (3) Pneumonia: Status: Acute (4) Tension headache: Status: Acute DS: Summary Hospital Course Hospital Course: from admission H+P by hospitalist John Diaz, 08/18/21: 81-year-old female with past medical history significant for congestive heart failure with preserved EF, essential hypertension, left bundle-branch block, chronic left leg redness presented to [facility] with acute onset of shortness of breath associated with generalized weakness unable to walk, also felt lightheaded and dizzy, patient denies associated fever chills or cough in the emergency room patient was noted to be febrile with a rectal temperature of 103 degrees, patient also noted that skin surrounding her chronic nonhealing left sams wound was also red without associated drainage or skin breakdown, in the emergency room workup revealed a urinalysis positive for UTI, chest x-ray concerning for left lower lobe infiltrate, elevated lactic acid and low WBC count patient treated in the emergency room for possible pneumonia with IV ceftriaxone and azithromycin now being admitted to [facility] with a diagnosis of sepsis likely related to pneumonia/cellulitis and possible UTI. The patient was admitted to the medical/surgical floor for sepsis by virtue of tachycardia, fever, and lactic acidosis. She was treated with IV ceftriaxone and azithromycin for 3 days. Blood cultures were negative. Her symptoms improved. She also had a small area of cellulitis without martha abscess of the L sams that improved. She was discharged home with 4 more days of antibiotic treatment with cefuroxime and doxycycline. She also had a CT of the head for severe tension headache; CT was negative. She was given a prescription of Fioricet for short-term use. She was discharged home with VNA services and should see her primary care doctor within 1 week. Time Spent with Patient Time attestation: Total time spent providing and/or coordinating discharge services: Discharge coordination time: Greater than 30 minutes Quality: Stroke Does the patient have a stroke diagnosis?: No Physical Exam Vital Signs: Vital Signs: Last Vital Signs Temp 98.0 F 08/20/21 12:00 Pulse 66 08/20/21 12:00 Resp 17 08/20/21 12:00 BP 145/65 H 08/20/21 12:00 Pulse Ox 95 08/20/21 12:00 Body Mass Index 33.3 Gen: in no acute distress HEENT: sclera anicteric, moist mucus membranes Neck: supple Lungs: clear to auscultation bilaterally Heart: regular rate and rhythm, no murmurs Abd: soft, non-tender, non-distended Ext: no edema Skin: L sams with dry scab with approx 2 cm circumferential induration and erythema without fluctuance Neuro: alert and oriented x3, no focal findings Psych: appropriate affect DS: Data Data Completed and Pending Completed studies during hospitalization [Text1]: Laboratory Results WBC 3.8 X10*3/uL (4.8-10.8) L 08/20/21 08:18 RBC 3.66 X10*6/uL (4.20-5.50) L 08/20/21 08:18 Hgb 10.5 g/dl (12.0-16.0) L 08/20/21 08:18 Hct 32.6 % (37-47) L 08/20/21 08:18 MCV 89.1 fL (80-98) 08/20/21 08:18 MCH 28.7 pg (27.0-33.0) 08/20/21 08:18 MCHC 32.2 g/dl (31.0-35.0) 08/20/21 08:18 RDW 14.4 % (11.0-16.0) 08/20/21 08:18 Plt Count 149 X10*3/uL (160-400) L 08/20/21 08:18 MPV 9.7 fL (9.4-12.3) 08/20/21 08:18 Immature Gran % (Auto) 0.7 % (0.0-0.4) H 08/18/21 02:38 Neut % (Auto) 83.5 % (45-73) H 08/18/21 02:38 Lymph % (Auto) 11.0 % (20-40) L 08/18/21 02:38 [place] % (Auto) 4.0 % (2-11) 08/18/21 02:38 Eos % (Auto) 0.4 % (0-4) 08/18/21 02:38 Baso % (Auto) 0.4 % (0-2) 08/18/21 02:38 Lymph # (Auto) 0.5 X10*3/uL (1.2-4.9) L 08/18/21 02:38 [place] # (Auto) 0.2 X10*3/uL (0.1-1.2) 08/18/21 02:38 Eos # (Auto) 0.0 X10*3/uL (0.0-0.4) 08/18/21 02:38 Baso # (Auto) 0.0 X10*3/uL (0.0-0.2) 08/18/21 02:38 Abs Immat Gran (auto) 0.03 X10*3/uL (0.00-0.03) 08/18/21 02:38 Absolute Neuts (auto) 3.8 X10*3/uL (2.0-8.3) 08/18/21 02:38 Absolute Nucleated RBC 0.000 X10*3/uL (0.0-0.012) 08/20/21 08:18 Nucleated RBC % (auto) 0.0 /100WBC (0.0-0.2) 08/20/21 08:18 Sodium 138 mmol/L (135-145) 08/20/21 08:18 Potassium 5.0 mmol/L (3.3-5.1) 08/20/21 08:18 Chloride 108 mmol/L (96-108) 08/20/21 08:18 Carbon Dioxide 24 mmol/L (22-29) 08/20/21 08:18 Anion Gap 11 (12-20) L 08/20/21 08:18 BUN 10 mg/dL (9-16) 08/20/21 08:18 Creatinine 0.67 mg/dL (0.5-1.4) 08/20/21 08:18 Estim Creat Clear Calc 72.0 08/20/21 08:18 Estimated GFR > 60 08/20/21 08:18 Random Glucose 89 mg/dL (60-115) 08/20/21 08:18 Lactic Acid 2.8 mmol/L (0.5-2.0) H* 08/18/21 02:38 Lactic Acid Fup @ 2Hr 0.7 mmol/L (0.5-2.0) 08/18/21 05:27 Calcium 9.0 mg/dL (8.4-10.2) 08/20/21 08:18 Total Bilirubin 0.6 mg/dL (0.0-1.0) 08/18/21 02:38 AST 29 U/L (5-31) 08/18/21 02:38 ALT 22 U/L (0-31) 08/18/21 02:38 Alkaline Phosphatase 99 U/L (39-117) 08/18/21 02:38 Troponin I High Sens 8.8 ng/L (<3.5-17.0) 08/20/21 08:18 Total Protein 6.7 g/dL (6.5-8.0) 08/18/21 02:38 Albumin 3.9 g/dL (3.5-5.0) 08/18/21 02:38 Lipase 37 U/L (8-78) 08/18/21 02:38 Procalcitonin 0.05 ng/mL 08/20/21 08:18 Urine Color DK YELLOW 08/18/21 15:20 Urine Appearance CLEAR 08/18/21 15:20 Urine pH 6.0 (5.0-8.0) 08/18/21 15:20 Ur Specific [place] >= 1.030 (1.005-1.025) H 08/18/21 15:20 Urine Protein NEG MG/DL (NEG-TRACE) 08/18/21 15:20 Urine Glucose (UA) NEG MG/DL (NEG) 08/18/21 15:20 Urine Ketones NEG MG/DL (NEG) 08/18/21 15:20 Urine Blood NEG (NEG) 08/18/21 15:20 Urine Nitrite NEG (NEG) 08/18/21 15:20 Ur Leukocyte Esterase NEG (NEG) 08/18/21 15:20 COVID-19 (CAIO) Negative (Negative) 08/18/21 02:38 COVID-19 Clin Com See Note 08/18/21 02:38 Impressions Chest X-Ray 08/18/21 02:45 IMPRESSION: Left lower lobe streaky opacity could represent subsegmental atelectasis or infiltrate Head CT 08/20/21 12:55 IMPRESSION: Unremarkable exam. Discharge Plan Discharge Patient Disposition: Home Health Service Discharge Diagnosis: sepsis, pneumonia, cellulitis Referrals: Armando Richards NP [Primary Care Provider] - 1 Week Discharge Medications: New [id number]-[id number] 50-325-40 mg Tablet 1 tab PO Q4H PRN (Reason: headache) Qty: 20 RF: 0 cefuroxime axetil 250 mg tablet 250 mg PO BID Qty: 8 RF: 0 doxycycline monohydrate 100 mg tablet 100 mg PO BID Qty: 8 RF: 0 Continued acetaminophen 325 mg capsule 650 mg PO Q6H PRN (Reason: pain) RF: 0 losartan 25 mg tablet 25 mg PO DAILY Qty: 90 RF: 0 furosemide 40 mg tablet 40 mg PO DAILY RF: 0 hydroxychloroquine 200 mg tablet 200 mg PO BID RF: 0 metoprolol succinate 25 mg tablet extended release 24 hr 25 mg PO DAILY RF: 0 aspirin 81 mg tablet,delayed release (DR/EC) 81 mg PO DAILY RF: 0 multivitamin Tablet 1 tab PO DAILY RF: 0 Discharge Orders: Discharge Order (Routine); Ordered 08/20/21 Ordered By: Emery Lou Diet: advance to usual diet Activity on Discharge: As tolerated Stand Alone Forms: Patient Portal Discharge page Care Plan Goals: cure of pneumonia and cellulitis Health Concerns: sepsis due to pneumonia, cellulitis Plan of Treatment: cefuroxime 250 mg 2x a day for 4 days doxycycline 100 mg 2x a day for 4 days apply warm compresses to the infected area on your left leg home PT see your primary care doctor in 1 week take Fioricet as needed for severe headache; your CT scan was normal Assessment: see Discharge Plan
== END 2021-08-20 20:07 | disposition home health service (06) | DRG 871 ==
LOC: HO.ED 03:44 → HO.EDOVER 08:41 → HO.S3 18:43
PROVIDERS: Admitting Provider Hospitalist; Emergency Provider Emergency Medicine Emergency Medical Services; PCP Nurse Practitioner Family; Visit Provider Family Medicine
DX: A41.9 Sepsis, unspecified organism (principal); J18.9 Pneumonia, unspecified organism; I50.32 Chronic diastolic (congestive) heart failure; L03.116 Cellulitis of left lower limb; N39.0 Urinary tract infection, site not specified; E87.2 Acidosis; G44.209 Tension-type headache, unspecified, not intractable; I11.0 Hypertensive heart disease with heart failure; I44.7 Left bundle-branch block, unspecified; G89.29 Other chronic pain; Z20.822 Contact with and (suspected) exposure to COVID-19; Z88.0 Allergy status to penicillin; Z79.82 Long term (current) use of aspirin; Z79.899 Other long term (current) drug therapy
CPT/HCPCS: 36415; 70450; 71045; 80048; 80053; 81003; 83605; 83690; 84145; 84484; 85025; 85027; 87040; 87086; 87635; 93005; 97116; 97161; 99285; J0456; J0696; J2060; J2405

== ENCOUNTER 2021-09-15 08:57 | Outpatient (RCR) | payer MEDICARE, OTHER, SELFPAY | END 2021-09-22 16:00 | disposition home or self-care (01) | LOC: HO.WCC 08:57 | PROVIDERS: PCP Internal Medicine; Visit Provider Physician Assistant | DX: Z09 Encounter for follow-up examination after completed treatment for conditions other than malignant neoplasm (principal); I83.12 Varicose veins of left lower extremity with inflammation; I11.0 Hypertensive heart disease with heart failure; I50.9 Heart failure, unspecified; I73.9 Peripheral vascular disease, unspecified; I44.7 Left bundle-branch block, unspecified; M32.10 Systemic lupus erythematosus, organ or system involvement unspecified; Z86.73 Personal history of transient ischemic attack (TIA), and cerebral infarction without residual deficits; Z87.2 Personal history of diseases of the skin and subcutaneous tissue | CPT/HCPCS: 99213 ==

== ENCOUNTER 2021-09-25 07:45 | Outpatient (REF) | payer MEDICARE, OTHER, SELFPAY ==
[2021-09-25 09:34] LABS: COVID-19 Test Negative (Negative)
== END 2021-09-25 07:46 | disposition home or self-care (01) ==
LOC: HO.LAB 07:45
PROVIDERS: PCP Internal Medicine; Visit Provider Internal Medicine
DX: Z20.822 Contact with and (suspected) exposure to COVID-19 (principal)
CPT/HCPCS: 36415; 87635; C9803

== ENCOUNTER 2022-03-09 16:00 | Outpatient (REF) | payer MEDICARE, OTHER, SELFPAY ==
--- NOTE | ~2022-03-09 | XR_ITS ---
EXAMINATION: XR CHEST CLINICAL INFORMATION: Shortness of breath. COMPARISON: 08/18/2021 chest radiograph. TECHNIQUE: 2 views of the chest were obtained. FINDINGS: No significant abnormality is noted involving the heart, lungs, mediastinum, bony thorax or soft tissues. XR/XR chest 2V IMPRESSION: No acute cardiopulmonary process.
[2022-03-09 16:15] LABS: MANUAL DIFF FLAG NO
[2022-03-09 16:49] LABS: Basophils Percent Auto 0.5 % (0-2); Eosinophils Absolute Auto 0.1 X10*3/uL (0.0-0.4); Eosinophils Percent Auto 1.5 % (0-4); Hemoglobin 11.5 g/dl (12.0-16.0); Imm Gran Abs Auto 0.03 X10*3/uL (0.00-0.03); Imm Gran Pct Auto 0.8 % (0.0-0.4); Lymphocytes Absolute Auto 1.1 X10*3/uL (1.2-4.9); Lymphocytes Percent Auto 28.6 % (20-40); Mean Corpuscular HGB Conc 32.9 g/dl (31.0-35.0); Mean Corpuscular Hemoglobin 29.3 pg (27.0-33.0); Mean Corpuscular Volume 89.1 fL (80.0-98.0); Mean Platelet Volume 9.6 fL (9.4-12.3); Monocytes Absolute Auto 0.3 X10*3/uL (0.1-1.2); Monocytes Percent Auto 8.7 % (2-11); Neutrophils Absolute Auto 2.3 x10*3/uL (2.0-8.3); Neutrophils Percent Auto 59.9 % (45-73); Platelet Count 265 X10*3/uL (160-400); Red Blood Count 3.93 X10*6/uL (4.20-5.50); Red Cell Distribution Width 14.6 % (11.0-16.0); White Blood Count 3.9 X10*3/uL (4.8-10.8)
[2022-03-09 16:54] LABS: Appearance Urine HAZY; Color Urine YELLOW; Glucose Urine UA NEG (NEG); Leukocyte Esterase Urine 2+ (NEG); Nitrite Urine POS (NEG); Specific Gravity - Urine <= 1.005 (1.005-1.025); UACC Culture Trigger YES; Urine Blood NEG (NEG); Urine Ketones NEG (NEG); Urine Protein NEG (NEG-TRACE)
[2022-03-09 17:08] LABS: Anion Gap 12 (12-20); Blood Urea Nitrogen 16 mg/dL (9-16); Calcium 9.6 mg/dL (8.4-10.2); Carbon Dioxide 32 mmol/L (22-29); Chloride 98 mmol/L (96-108); Estimated Glomerular Filt Rate 51; Glucose Random 98 mg/dL (60-115); Sodium 137 mmol/L (135-145)
[2022-03-09 17:14] LABS: Bacteria Urine 4+ /LPF; RBC Urine 0-2 /HPF (0); Squamous Epithelial Cell Urine TRACE /LPF; WBC Urine 50-75 /HPF (0-4)
== END 2022-03-09 16:01 | disposition home or self-care (01) ==
LOC: HO.XRAY 16:00
PROVIDERS: PCP Internal Medicine; Visit Provider Nurse Practitioner Family
DX: R06.02 Shortness of breath (principal); R32 Unspecified urinary incontinence; I10 Essential (primary) hypertension
CPT/HCPCS: 36415; 71046; 80048; 81001; 85025; 87086; 87088; 87186

== ENCOUNTER → 2022-06-01 08:14 | Outpatient (BNVA) | payer MEDICARE, OTHER, SELFPAY | PROVIDERS: PCP Internal Medicine | DX: R35.0 Frequency of micturition (principal) | CPT/HCPCS: 51798; 99202 ==

== ENCOUNTER 2022-06-28 09:12 | Outpatient (REF) | payer SELFPAY | END 2022-06-28 09:13 | disposition home or self-care (01) | LOC: HO.HAP 09:12 | PROVIDERS: Visit Provider Internal Medicine | DX: Z46.1 Encounter for fitting and adjustment of hearing aid (principal); H90.3 Sensorineural hearing loss, bilateral | CPT/HCPCS: 99499 ==

== ENCOUNTER 2022-08-02 18:42 | Emergency (ER) | payer MEDICARE, OTHER, SELFPAY ==
--- NOTE | ~2022-08-02 | XR_ITS ---
EXAMINATION: XR CHEST CLINICAL INFORMATION: Cough COMPARISON: 04/05/2022 TECHNIQUE: Frontal view of the chest was obtained. FINDINGS: Heart is enlarged. Low lung volumes are present. Interstitial and patchy opacity seen diffusely throughout the bilateral lung parenchyma, especially within the bilateral lower lobes. No pleural effusion seen. XR/XR chest 1V IMPRESSION: Low lung volumes with interstitial and patchy airspace opacities
[2022-08-02 19:21] VITALS: BP 108/70; PULSE 64; RESP 14; O2SAT 99; BMI 31.8
--- NOTE | 2022-08-02 19:21 | ECG_ITS ---
Test Reason : syncope Blood Pressure : / mmHG Vent. Rate : 051 BPM Atrial Rate : 051 BPM P-R Int : 146 ms QRS Dur : 158 ms QT Int : 504 ms P-R-T Axes : 015 -32 111 degrees QTc Int : 464 ms Sinus bradycardia Left axis deviation Left bundle branch block Abnormal ECG When compared with ECG of 18-AUG-2021 18:43, Premature atrial complexes are no longer Present Referred By: Liz Tavarez Electronically Signed By:CHANA TORREZ
[2022-08-02 19:44] VITALS: PULSE 53; RESP 14; O2SAT 98; O2SAT 99
[2022-08-02 19:55] LABS: MANUAL DIFF FLAG NO
[2022-08-02 19:56] LABS: Basophils Percent Auto 0.6 % (0-2); Eosinophils Absolute Auto 0.1 X10*3/uL (0.0-0.4); Eosinophils Percent Auto 1.6 % (0-4); Hematocrit 37.3 % (37.0-47.0); Hemoglobin 12.3 g/dl (12.0-16.0); Imm Gran Abs Auto 0.09 X10*3/uL (0.00-0.03); Imm Gran Pct Auto 1.3 % (0.0-0.4); Lymphocytes Percent Auto 28.6 % (20-40); Mean Corpuscular Hemoglobin 29.1 pg (27.0-33.0); Mean Corpuscular Volume 88.2 fL (80.0-98.0); Mean Platelet Volume 9.5 fL (9.4-12.3); Monocytes Absolute Auto 0.6 X10*3/uL (0.1-1.2); Monocytes Percent Auto 9.1 % (2-11); Neutrophils Percent Auto 58.8 % (45-73); Platelet Count 206 X10*3/uL (160-400); Red Blood Count 4.23 X10*6/uL (4.20-5.50); White Blood Count 6.8 X10*3/uL (4.8-10.8)
[2022-08-02 20:00] VITALS: PULSE 54; RESP 14; O2SAT 98
[2022-08-02 20:02] LABS: INTERNATIONAL NORM RATIO 0.9 (0.9-1.1); Prothrombin Time 10.7 SEC (10.0-13.1)
[2022-08-02 20:13] LABS: Alanine Aminotransferase 21 U/L (0-31); Albumin Level 3.9 g/dL (3.5-5.0); Alkaline Phosphatase 70 U/L (39-117); Anion Gap 15 (12-20); Aspartate Amino Transferase 20 U/L (5-31); Bilirubin Total 0.8 mg/dL (0.0-1.0); Blood Urea Nitrogen 23 mg/dL (9-16); Calcium 9.3 mg/dL (8.4-10.2); Carbon Dioxide 28 mmol/L (22-29); Chloride 96 mmol/L (96-108); Creatinine Clr Calc Pharmacy 31.3; Estimated Glomerular Filt Rate 34; Glucose Random 122 mg/dL (60-115); Potassium 3.6 mmol/L (3.3-5.1); Sodium 135 mmol/L (135-145); Total Protein 6.8 g/dL (6.5-8.0)
[2022-08-02 20:19] LABS: B Type Natriuretic Peptide 82 pg/mL (<100); Troponin-I High Sensitivity 7.3 ng/L (<3.5-17.0)
--- NOTE | 2022-08-02 20:25 | ED_ITS ---
HPI - Syncope General Chief Complaint: Syncope Stated Complaint: Syncopal Time Seen by Provider: 08/02/22 19:21 Source: patient and family (Daughter) Mode of arrival: EMS History of Present Illness HPI narrative: 82-year-old female with history CAD and hypertension is arriving via ambulance and states that she was having dinner with her family, celebrating a birthday, when she ?passed out?. Patient states that she began experiencing narrowed vision and was able to communicate to her daughter that she did not feel well and this was also associated with nausea. The daughter who is at bedside states that she witnessed her mother losing consciousness she did not hit her head as there were other family members to hold her up in the approximate passing out. Was felt to be approximately 2 minutes. When patient came around she felt nauseous, states that she felt like she had to go to the bathroom and felt cool and clammy. This all occurred while patient was sitting at the table and she denies any associated dizziness, shortness of breath, chest pain or palpitations. Patient states that she feels much better now. Related Data Home Medications Medication Instructions Recorded Confirmed hydroxychloroquine 200 mg tablet 200 mg PO BID 12/18/20 03/09/22 multivitamin 1 tab PO DAILY 03/10/21 03/09/22 clobetasol 0.05 % topical ointment g topical 02/04/22 03/09/22 triamcinolone acetonide 0.1 % topical 02/04/22 03/09/22 topical ointment prednisone 5 mg tablet mg PO 03/09/22 03/09/22 Previous Rx's Medication Instructions Recorded azithromycin 250 mg tablet See Rx Instructions PO .COMPLEX #6 03/09/22 tabs guaifenesin 200 mg tablet 200 mg PO Q4H PRN congestion #20 03/09/22 tabs nitrofurantoin macrocrystal 100 mg 100 mg PO Q12H 5 days #10 caps 03/11/22 capsule furosemide 40 mg tablet 40 mg PO DAILY #90 tabs 04/14/22 losartan 25 mg tablet 25 mg PO DAILY #90 tabs 04/14/22 estradiol 0.01% (0.1 mg/gram) See Rx Instructions .Route DAILY 06/01/22 vaginal cream (Estrace) complicated uti 30 days #42.5 grams oxybutynin chloride 15 mg 15 mg PO DAILY 30 days #30 tabs 06/01/22 tablet,extended release 24 hr metoprolol succinate 25 mg 25 mg PO DAILY #90 tabs 07/09/22 tablet,extended release 24 hr Allergies Allergy/AdvReac Type Severity Reaction Status Date / Time amoxicillin [AMOXICILLIN] Allergy Unknown UNKNOWN Verified 06/01/22 08:23 Review of Systems Review of Systems: Pertinent positives and negatives as stated in HPI 10 point review of systems is otherwise negative. [facility] Past Medical History Source: nursing notes reviewed Medical History Acute diverticulitis Cellulitis of left leg CHF (congestive heart failure) Chronic heart failure with preserved ejection fraction (HFpEF) Chronic lower back pain Essential hypertension Fever HTN (hypertension) LBBB (left bundle branch block) Leg skin lesion, left Leg wound, left Pneumonia Sepsis TIA (transient ischemic attack) Surgical History H/O hernia repair History of cataract surgery Family History Family History Father No problems noted. Mother No problems noted. Social History Social History Household Members: None Housing: Apartment Do you presently have visiting nurse or other home services: No Alcohol intake: current Alcohol intake frequency: holidays/special occasions only Patient Tobacco Use Status: Never used Tobacco e-Cigarette/Vaping Use: Never Used Second Hand Smoke Exposure: No Use of substances other than those prescribed or required for medical reasons: No Advance Directives: Yes Advance Directives on File: Yes Advance Directives Date on File: 08/18/21 service: No Current occupational status: retired Current occupational exposures/hazards: No Cognitive needs: No Hearing needs: Yes Vision needs: No Physical Exam Vital Signs: Vital Signs: Last Vital Signs Pulse 53 08/02/22 19:44 Resp 14 08/02/22 19:44 BP 108/70 08/02/22 19:21 Pulse Ox 98 08/02/22 19:44 O2 Del Method 08/02/22 19:44 BMI result Body Mass Index 31.8 VITAL SIGNS: Reviewed. GENERAL: Well developed, well nourished, in no acute distress. HEAD: Normocephalic/atraumatic EYES: PERRLA, EOMI EARS: Ext canals without abnormality OROPHARYNX: no oral lesions noted, posterior pharynx clear NECK: Supple, no adenopathy LUNGS: Normal breath sounds, no tachypnea/wheeze/rhonchi/rales. SpO2<98> CARDIOVASCULAR: Regular rate and rhythm without noted murmurs, no JVD or lower extremity edema. ABDOMEN: Soft, non-tender, non-distended with bowel sounds. MUSCULOSKELETAL: No tenderness, deformities, or effusions noted on gross inspection. EXTREMITIES: No cyanosis, clubbing or edema. SKIN: Inspection of the skin reveals no rashes NEUROLOGIC: Alert and oriented x 4. Strength and sensation to light touch were grossly intact x 4, cranial nerves 2-12 grossly intact, no facial asymmetry. Course Course Course Narrative: 82-year-old female with history and clinical presentation consistent with vasovagal syncope, this occurred while patient was sitting and she is noted to be significantly bradycardic. Review of all investigations demonstrates a mild PAULINE and patient is adamant that she will not stay here in the hospital. 2049: I discussed the case with Dr. Morrow who recommends IV fluids, stop Lopressor, and call the office in the morning. Patient discharged home in stable condition. MDM - Syncope Lab Data Result diagrams: 08/02/22 19:49 08/02/22 19:49 Labs: Lab Results 08/02/22 08/02/22 08/02/22 Range/Units 19:49 19:49 19:49 WBC 6.8 (4.8-10.8) X10*3/uL RBC 4.23 (4.20-5.50) X10*6/uL Hgb 12.3 (12.0-16.0) g/dl Hct 37.3 (37.0-47.0) % MCV 88.2 (80.0-98.0) fL MCH 29.1 (27.0-33.0) pg MCHC 33.0 (31.0-35.0) g/dl RDW 16.0 (11.0-16.0) % Plt Count 206 (160-400) X10*3/uL MPV 9.5 (9.4-12.3) fL Immature Gran % (Auto) 1.3 H (0.0-0.4) % Neut % (Auto) 58.8 (45-73) % Lymph % (Auto) 28.6 (20-40) % Atkinson % (Auto) 9.1 (2-11) % Eos % (Auto) 1.6 (0-4) % Baso % (Auto) 0.6 (0-2) % Lymph # (Auto) 2.0 (1.2-4.9) X10*3/uL Atkinson # (Auto) 0.6 (0.1-1.2) X10*3/uL Eos # (Auto) 0.1 (0.0-0.4) X10*3/uL Baso # (Auto) 0.0 (0.0-0.2) X10*3/uL Abs Immat Gran (auto) 0.09 H (0.00-0.03) X10*3/uL Absolute Neuts (auto) 4.0 (2.0-8.3) x10*3/uL Absolute Nucleated RBC 0.000 (0.0-0.012) X10*3/uL Nucleated RBC % (auto) 0.0 (0.0-0.2) /100WBC PT 10.7 (10.0-13.1) SEC INR 0.9 (0.9-1.1) Sodium 135 (135-145) mmol/L Potassium 3.6 D (3.3-5.1) mmol/L Chloride 96 (96-108) mmol/L Carbon Dioxide 28 (22-29) mmol/L Anion Gap 15 (12-20) BUN 23 H (9-16) mg/dL Creatinine 1.48 H (0.5-1.4) mg/dL Estim Creat Clear Calc 31.3 Estimated GFR 34 Random Glucose 122 H (60-115) mg/dL Calcium 9.3 (8.4-10.2) mg/dL Total Bilirubin 0.8 (0.0-1.0) mg/dL AST 20 (5-31) U/L ALT 21 (0-31) U/L Alkaline Phosphatase 70 D (39-117) U/L Troponin I High Sens (<3.5-17.0) ng/L B-Natriuretic Peptide (<100) pg/mL Total Protein 6.8 (6.5-8.0) g/dL Albumin 3.9 (3.5-5.0) g/dL COVID-19 ([facility]) (Negative) COVID-19 Clin Com 08/02/22 08/02/22 Range/Units 19:49 20:12 WBC (4.8-10.8) X10*3/uL RBC (4.20-5.50) X10*6/uL Hgb (12.0-16.0) g/dl Hct (37.0-47.0) % MCV (80.0-98.0) fL MCH (27.0-33.0) pg MCHC (31.0-35.0) g/dl RDW (11.0-16.0) % Plt Count (160-400) X10*3/uL MPV (9.4-12.3) fL Immature Gran % (Auto) (0.0-0.4) % Neut % (Auto) (45-73) % Lymph % (Auto) (20-40) % Atkinson % (Auto) (2-11) % Eos % (Auto) (0-4) % Baso % (Auto) (0-2) % Lymph # (Auto) (1.2-4.9) X10*3/uL Atkinson # (Auto) (0.1-1.2) X10*3/uL Eos # (Auto) (0.0-0.4) X10*3/uL Baso # (Auto) (0.0-0.2) X10*3/uL Abs Immat Gran (auto) (0.00-0.03) X10*3/uL Absolute Neuts (auto) (2.0-8.3) x10*3/uL Absolute Nucleated RBC (0.0-0.012) X10*3/uL Nucleated RBC % (auto) (0.0-0.2) /100WBC PT (10.0-13.1) SEC INR (0.9-1.1) Sodium (135-145) mmol/L Potassium (3.3-5.1) mmol/L Chloride (96-108) mmol/L Carbon Dioxide (22-29) mmol/L Anion Gap (12-20) BUN (9-16) mg/dL Creatinine (0.5-1.4) mg/dL Estim Creat Clear Calc Estimated GFR Random Glucose (60-115) mg/dL Calcium (8.4-10.2) mg/dL Total Bilirubin (0.0-1.0) mg/dL AST (5-31) U/L ALT (0-31) U/L Alkaline Phosphatase (39-117) U/L Troponin I High Sens 7.3 (<3.5-17.0) ng/L B-Natriuretic Peptide 82 (<100) pg/mL Total Protein (6.5-8.0) g/dL Albumin (3.5-5.0) g/dL COVID-19 ([facility]) Negative (Negative) COVID-19 Clin Com See Note ECG Data Attestation: I personally reviewed and interpreted this ECG as follows: Prior ECG tracings: available for review Interpretation: Sinus bradycardia, HR -51, LBBB, no STEMI, NH/QTC are within normal limits. Discharge Plan Discharge Clinical Impression: Vasovagal syncope, PAULINE (acute kidney injury) Patient Disposition: Home, Self-Care Instructions: Syncope in Older Adults (ED) Additional Instructions: 1. Resume all home medications as prescribed. Increase your water intake. 2. Stop taking the metoprolol succinate until evaluated by Cardiology. 3. Call the cardiology office in the morning to set up an appointment. You understand that the recommendation is for you to stay for further workup and admission. Return to the ER for any worsening symptoms. Prescriptions: No Action furosemide 40 mg tablet 40 mg PO DAILY Qty: 90 1RF losartan 25 mg tablet 25 mg PO DAILY Qty: 90 1RF metoprolol succinate 25 mg tablet extended release 24 hr 25 mg PO DAILY Qty: 90 1RF triamcinolone acetonide 0.1 % ointment topical clobetasol 0.05 % ointment topical prednisone 5 mg tablet PO azithromycin 250 mg tablet See Rx Instructions PO .COMPLEX Qty: 6 0RF Rx Instructions: take 500 mg today (day 1), then 250 mg for 4 days (days 2-5) PO guaifenesin 200 mg tablet 200 mg PO Q4H PRN (Reason: congestion) Qty: 20 0RF nitrofurantoin macrocrystal 100 mg capsule 100 mg PO Q12H 5 Days Qty: 10 0RF Rx Instructions: must administer with a meal/food hydroxychloroquine 200 mg tablet 200 mg PO BID multivitamin Tablet 1 tab PO DAILY estradiol [Estrace] 0.01 % (0.1 mg/gram) cream See Rx Instructions .Route DAILY 30 Days Qty: 42.5 0RF Rx Instructions: pea sized amount per urethra daily; oxybutynin chloride 15 mg tablet extended release 24hr 15 mg PO DAILY 30 Days Qty: 30 3RF Referrals: Leo Dewitt MD [Primary Care Provider] - Kannan Morrow MD [Physician] -
[2022-08-02 20:37] LABS: COVID-19 Test Negative (Negative); IDNOW Serial# 9DB6401D
[2022-08-02] MEDS: 0.9 % Sodium Chloride 500 ML 999 ML IV (21:13)
== END 2022-08-02 22:18 | disposition home or self-care (01) ==
PROVIDERS: Emergency Provider Student in an Organized Health Care Education/Training Program; PCP Internal Medicine
DX: R55 Syncope and collapse (principal); N17.9 Acute kidney failure, unspecified; R00.1 Bradycardia, unspecified; Z20.822 Contact with and (suspected) exposure to COVID-19; I11.0 Hypertensive heart disease with heart failure; I50.32 Chronic diastolic (congestive) heart failure; Z86.73 Personal history of transient ischemic attack (TIA), and cerebral infarction without residual deficits
CPT/HCPCS: 36415; 71045; 80053; 83880; 84484; 85025; 85610; 87635; 93005; 96360; 99284; 99285

== ENCOUNTER → 2022-08-04 12:49 | Outpatient (BNVA) | payer MEDICARE, OTHER, SELFPAY | PROVIDERS: PCP Internal Medicine; Referring Provider Internal Medicine; Visit Provider Nurse Practitioner Family | DX: R55 Syncope and collapse (principal); I44.7 Left bundle-branch block, unspecified; R00.1 Bradycardia, unspecified; I11.0 Hypertensive heart disease with heart failure; I50.32 Chronic diastolic (congestive) heart failure; Z79.899 Other long term (current) drug therapy | CPT/HCPCS: 99212 ==

== ENCOUNTER 2022-08-17 09:06 | Outpatient (REF) | payer SELFPAY ==
--- NOTE | 2022-08-17 09:44 | MHC.AU.FUL ---
Hearing Instrument Follow-Up Date of Visit: 08/17/22 Left Ear: Burner Operator: Oticon Model: Verenice 2 Pro miniRITE Serial Number: [id number] Repair Warranty: 10/2018 Loss and Damage Warranty: 10/2017 Battery Size: 312 Provider Relations Coordinator: Size 3 85 gain Type of Dome: 8 mm power DOUBLE [place] Type of Wax Guard: Prowax minifit Dispensed By: [facility] Date of Fitting: Per Oticon, purchased 09/12/2015 Follow-Up Summary: Patient dropped off left aid not working. Cerumen blocking the wax guard. Changed wax guard and dome. Cleaned microphones and contacts. Aid now amplifying clearly. TODAY'S SERVICE FEE WILL BE $15.00. WILL TELL PATIENT NEXT VISIT FOR MAINTENANCE WILL BE $50.00 DUE TO GILLIAM CHANGE. Diagnosis Code(s):Primary Diagnosis: H90.3 Bilateral Sensorineural Hearing Loss Services Performed:[facility] Purchased through [facility] [place] or Outside Vendor: GARCIA Purchased At Another Clinic Signature:Provider: Colette Tipton CCC-A
== END 2022-08-17 09:07 | disposition home or self-care (01) ==
LOC: HO.HAP 09:06
PROVIDERS: Visit Provider Internal Medicine
DX: Z46.1 Encounter for fitting and adjustment of hearing aid (principal); H90.3 Sensorineural hearing loss, bilateral
CPT/HCPCS: 92700

== ENCOUNTER 2022-08-19 10:59 | Outpatient (REF) | payer SELFPAY | END 2022-08-19 11:00 | disposition home or self-care (01) | LOC: HO.HAP 10:59 | PROVIDERS: Visit Provider Internal Medicine | DX: Z13.89 Encounter for screening for other disorder (principal) ==

== ENCOUNTER 2022-08-20 11:08 | Outpatient (REF) | payer MEDICARE, OTHER, SELFPAY ==
--- NOTE | ~2022-08-20 | XR_ITS ---
EXAMINATION: XR CHEST CLINICAL INFORMATION: Cough COMPARISON: August 02, 2022, March 09, 2022, and August 18, 2021 TECHNIQUE: 2 views of the chest were obtained. FINDINGS: There is improvement in appearance to study of August 02, 2022 with patchy regions of interstitial and airspace disease. The present some of which may be related to small lung volumes and atelectasis at that time. Scarring is noted at the left base. Heart is upper limits of normal in size. No evidence of pulmonary edema. No pneumothorax or pleural effusion. On lateral film overlying the anterior aspects of T10 and T11 is region of increased density but which appears similar to prior studies and appears to represent superimposition of aorta, vertebral bodies and some spurring, and vasculature. XR/XR chest 2V IMPRESSION: No significant acute parenchymal disease identified.
== END 2022-08-20 11:09 | disposition home or self-care (01) ==
LOC: HO.HMGCX 11:08
PROVIDERS: PCP Internal Medicine; Visit Provider Internal Medicine
DX: R05.9 Cough, unspecified (principal)
CPT/HCPCS: 71046

== ENCOUNTER → 2022-08-25 13:37 | Outpatient (REF) | payer MEDICARE, OTHER, SELFPAY ==
--- NOTE | 2022-08-25 13:40 | CA_ITS ---
Transthoracic Echocardiogram Patient (Last, First, Middle): Isha Izquierdo M Gender: Female Date of : 1940 Age: 82 Procedure Date: 08/25/2022 Procedure Type: Transthoracic Echocardiogram Location: OP Height: 165.1 cm Weight: 87.09 kg BSA: 1.94 m2 Heart Rate: bpm BP: 140 / 68 mmHg Revenue Manager: TO Referring MD: Haley Garcia CLAMP OPERATORCortesC Symptoms: R55 - Syncope and collapse Study Quality: Fair ECG Rhythm: Sinus Conclusions: - The left ventricular systolic function is mildly decreased. The calculated ejection fraction is 48% by biplane method. - There is evidence of regional wall motion abnormalities(septal wall motion abnormalities could be related to LBBB). - There is mild tricuspid valve regurgitation. Findings Left Ventricle Normal left ventricular cavity size. The left ventricular systolic function is mildly decreased. The calculated ejection fraction is 48% by biplane method. There is evidence of regional wall motion abnormalities. Severe focal hypertrophy of the basal septum. Wall Motion Rest Echo Findings The apical septum is hypokinetic. The mid inferoseptal segment is akinetic. Atria The left atrium is mildly dilated. The right atrium is normal in size. Aortic Valve There is a normal trileaflet aortic valve. There is no aortic valve stenosis. There is trace (trivial) aortic valve regurgitation. Mitral Valve There is mild mitral annular calcification. There is trace mitral valve regurgitation. There is no mitral valve stenosis. Pulmonic Valve The pulmonic valve is likely normal. Tricuspid Valve There is mild tricuspid valve regurgitation. Borderline pulmonary artery systolic pressure. Great Vessels The asc aorta is normal in size. Venous The inferior vena cava is normal in size and collapses greater than 50% with inspiration. Pericardium/Pleural There is a trivial pericardial effusion. Prior Study Comparison Changes noted compared to prior study dated: 01/28/2021. Reported LVEF slightly lower, but otherwise similar. Measurements 2D Linear Measurements LVOT Diam: 2.00 3.0+(-)1.3 cm 2D Systolic Function EF 4C: 42.10 >55% EF 2C: 51.90 >55% EF BiP: 48.20 >55% Mitral Valve MV Pk E: 0.53 MV PK A: 0.90 MV Decel Time: 233.00 E/A: 0.60 E'Lateral: 3.26 E'Medial: 3.37 E/E' Med: 15.60 E/E' Lat: 16.20 PHT: 68.00 MVA PHT: 3.24 Decel Vermillion: 2.27 Aortic Valve AoV Pk Barber: 1.56 AoV Mn Barber: 1.12 AoV VTI: 0.34 AoV Pk Grad: 10.00 Aov Mn Grad: 6.00 CHILO Cont.VTI: 2.96 LVOT LVOT Pk Barber: 1.54 LVOT Mn Barber: 0.99 LVOT VTI: 0.32 LVOT Pk Grad: 9.00 LVOT Mn Grad: 5.00 LVOT Diam: 2.00 LVOT Area: 3.14 Diastolic Function MV Pk E: 0.53 MV Pk A: 0.90 E/A: 0.60 E'Medial: 3.37 E/E' Med: 15.60 E' Laterial: 3.26 E/E' Lat: 16.20 Right Ventricle TAPSE (mm): 17.50 TVS' Barber: 12.90 Tricuspid Valve TR Pk Barber: 2.81 TR Pk Grad: 32.00 RA Press: 3.00 RVSP: 35.00 Great Vessels Aorta Sinus of Valsalva: 3.66 2.0-3.[address] [place]: 2.77 1.7-3.4 cm Ao Asc: 3.50 2.1-3.4 cm Updated in Other Vendor System with Status of Final Jose Ramey MD electronically signed on 08/25/2022 5:49:36 PM with status of Final
--- NOTE | 2022-08-25 13:40 | HM_ITS ---
Conclusion: 1. Patient was monitored for total period of 3 days 2. Baseline rhythm was normal sinus rhythm with average heart of 78 beats per minute 3. No significant pauses or bradycardia noted 4. Total of 741 PVCs accounting for 0.22% of total beats account for occasional PVCs 5. 1 episode of nonsustained VT, 3 beat at 161 beats per minute 6. Total of 19,870 PACs accounting for 5.9% total beats account for frequent PACs 7. Frequent short burst of SVTs consistent with SVT with fastest at 179 beats per minute 8. No sustained atrial fibrillation noted 9. Patient reported multiple events correlated with sinus rhythm MTDD
== END ==
LOC: HO.CARD 13:37
PROVIDERS: PCP Internal Medicine; Visit Provider Nurse Practitioner Family
DX: R55 Syncope and collapse (principal); R00.1 Bradycardia, unspecified; I44.7 Left bundle-branch block, unspecified
CPT/HCPCS: 93242; 93306

== ENCOUNTER 2022-09-01 15:05 | Outpatient (REF) | payer MEDICARE, OTHER, SELFPAY ==
--- NOTE | ~2022-09-01 | US_ITS ---
EXAMINATION: US VENOUS ULTRASOUND WITH DOPPLER LOWER EXTREMITY, BILATERAL CLINICAL INFORMATION: Pain and swelling. COMPARISON: None TECHNIQUE: Ultrasound of the deep veins is performed from the hip to the calf with compression sonography and color and pulse Doppler assessment. Spectral analysis with color-flow imaging is performed. FINDINGS: RIGHT: There is normal venous compression and respiratory variation and augmented flow. The visualized common femoral vein, superficial femoral vein, profunda femoral vein, popliteal vein, and the trifurcation region shows no evidence of deep venous thrombosis. There is no significant popliteal fossa cyst. LEFT: There is normal venous compression and respiratory variation and augmented flow. The visualized common femoral vein, superficial femoral vein, profunda femoral vein, popliteal vein, and the trifurcation region shows no evidence of deep venous thrombosis. There is no significant popliteal fossa cyst. If the patient's symptoms persist, followup ultrasound in 5 days 7 days might be of value to exclude proximal propagation from a non-visualized calf vein. US/US venous duplex LE BI IMPRESSION: No DVT demonstrated in the right and left lower extremity.
== END 2022-09-01 15:06 | disposition home or self-care (01) ==
LOC: HO.US 15:05
PROVIDERS: PCP Internal Medicine; Visit Provider Internal Medicine
DX: I82.593 Chronic embolism and thrombosis of other specified deep vein of lower extremity, bilateral (principal); R60.0 Localized edema
CPT/HCPCS: 93970

== ENCOUNTER 2022-09-10 12:56 | Outpatient (REF) | payer MEDICARE, OTHER, SELFPAY ==
--- NOTE | ~2022-09-10 | XR_ITS ---
EXAMINATION: XR LUMBOSACRAL SPINE CLINICAL INFORMATION: Low back pain COMPARISON: None TECHNIQUE: Three views of the lumbosacral spine. FINDINGS: There is normal lumbar lordosis. There is loss of inferior endplate height L1 vertebra with sclerosis likely chronic changes. Rest of the vertebral heights and alignment is normal. No visible acute fracture, dislocation or lytic process seen. The SI joints are symmetrical and normal. There is moderate stool seen throughout the colon. XR/XR lumbar spine 2-3V IMPRESSION: 1. Old mild compression deformity inferior endplate L1 vertebra with sclerosis likely chronic. No acute fracture or dislocation seen. 2. There is moderate constipation with moderate stool in the colon.
== END 2022-09-10 12:57 | disposition home or self-care (01) ==
LOC: HO.XRAY 12:56
PROVIDERS: PCP Internal Medicine; Visit Provider Internal Medicine
DX: M54.50 Low back pain, unspecified (principal)
CPT/HCPCS: 72100

== ENCOUNTER → 2022-09-21 13:48 | Outpatient (BNVA) | payer MEDICARE, OTHER, SELFPAY | PROVIDERS: PCP Internal Medicine; Referring Provider Internal Medicine; Visit Provider Nurse Practitioner Family | DX: I11.0 Hypertensive heart disease with heart failure (principal); I50.32 Chronic diastolic (congestive) heart failure; I44.7 Left bundle-branch block, unspecified; R55 Syncope and collapse | CPT/HCPCS: 99212 ==

== ENCOUNTER 2022-09-24 08:53 | Outpatient (REF) | payer MEDICARE, OTHER, SELFPAY ==
[2022-09-24 10:07] LABS: Hematocrit 37.5 % (37.0-47.0); Hemoglobin 11.9 g/dl (12.0-16.0); Mean Corpuscular HGB Conc 31.7 g/dl (31.0-35.0); Mean Corpuscular Hemoglobin 29.2 pg (27.0-33.0); Mean Corpuscular Volume 92.1 fL (80.0-98.0); Mean Platelet Volume 9.9 fL (9.4-12.3); Platelet Count 265 X10*3/uL (160-400); Red Blood Count 4.07 X10*6/uL (4.20-5.50); Red Cell Distribution Width 14.4 % (11.0-16.0); White Blood Count 3.6 X10*3/uL (4.8-10.8)
[2022-09-24 10:41] LABS: Alanine Aminotransferase 22 U/L (0-31); Alkaline Phosphatase 141 U/L (39-117); Anion Gap 15 (12-20); Aspartate Amino Transferase 30 U/L (5-31); Bilirubin Direct 0.3 mg/dL (0.0-0.5); Bilirubin Total 0.6 mg/dL (0.0-1.0); Blood Urea Nitrogen 16 mg/dL (9-16); C Reactive Protein 0.15 mg/dL (< or = 0.50); Calcium 9.3 mg/dL (8.4-10.2); Carbon Dioxide 25 mmol/L (22-29); Chloride 104 mmol/L (96-108); Estimated Glomerular Filt Rate > 60; Glucose Random 84 mg/dL (60-115); Potassium 4.7 mmol/L (3.3-5.1); Sodium 139 mmol/L (135-145); Thyroid Stimulating Hormone 3.21 uIU/mL (0.32-4.0); Total Protein 7.2 g/dL (6.5-8.0)
[2022-09-24 11:15] LABS: Albumin Level 3.8 g/dL (3.5-5.0)
[2022-09-25 23:12] LABS: Prot Elec - Albumin 3.9 g/dL (3.8-4.8); Prot Elec - Alpha1 0.3 g/dL (0.2-0.3); Prot Elec - Alpha2 0.7 g/dL (0.5-0.9); Prot Elec - Beta 1 0.4 g/dL (0.4-0.6); Prot Elec - Beta 2 0.2 g/dL (0.2-0.5); Prot Elec - Gamma 1.7 g/dL (0.8-1.7); Prot Elec - Total Protein 7.1 g/dL (6.1-8.1)
== END 2022-09-24 08:54 | disposition home or self-care (01) ==
LOC: HO.LAB 08:53
PROVIDERS: PCP Internal Medicine; Visit Provider Internal Medicine
DX: M54.6 Pain in thoracic spine (principal)
CPT/HCPCS: 36415; 80048; 80076; 84165; 84443; 85027; 86140

== ENCOUNTER → 2022-10-11 08:20 | Outpatient (BNVA) | payer MEDICARE, OTHER, SELFPAY | PROVIDERS: PCP Internal Medicine; Visit Provider Anesthesiology | DX: M51.36 Other intervertebral disc degeneration, lumbar region (principal); M47.16 Other spondylosis with myelopathy, lumbar region; M54.50 Low back pain, unspecified | CPT/HCPCS: 99202 ==

== ENCOUNTER → 2023-03-22 08:57 | Outpatient (BNVA) | payer MEDICARE, OTHER, SELFPAY | PROVIDERS: PCP Internal Medicine; Referring Provider Internal Medicine; Visit Provider Internal Medicine | DX: I11.0 Hypertensive heart disease with heart failure (principal); I50.32 Chronic diastolic (congestive) heart failure; I44.7 Left bundle-branch block, unspecified | CPT/HCPCS: 99212 ==

== ENCOUNTER 2023-05-12 11:17 | Outpatient (REF) | payer SELFPAY | END 2023-05-12 11:18 | disposition home or self-care (01) | LOC: HO.HAP 11:17 | PROVIDERS: Visit Provider Internal Medicine | DX: Z46.1 Encounter for fitting and adjustment of hearing aid (principal); H90.3 Sensorineural hearing loss, bilateral | CPT/HCPCS: 92593 ==

== ENCOUNTER 2023-06-16 13:22 | Inpatient (IN) | payer MEDICARE, OTHER, SELFPAY ==
[2023-06-16] VITALS (10 sets, daily range): BP systolic 114–157; BP diastolic 44–73; PULSE 76–101; RESP 14–19; TEMP 36.4–38.3; O2SAT 90–97
--- NOTE | ~2023-06-16 | XR_ITS ---
EXAMINATION: XR CHEST 2 VIEW CLINICAL INFORMATION: This COMPARISON: [facility] most recent 08/20/2022 TECHNIQUE: PA and lateral views of the chest obtained. FINDINGS: The lungs are clear. There are no pleural effusions. The cardiomediastinal silhouette is stable. The humeral heads are elevated and the glenohumeral joint is narrowed bilaterally, unchanged, indicative of advanced osteoarthrosis or rheumatoid arthritis as well as superimposed rotator cuff tear. XR/XR chest 2V IMPRESSION: No acute cardiopulmonary disease or significant change since 08/20/2022.
--- NOTE | ~2023-06-16 | CT_ITS ---
EXAMINATION: CT ABDOMEN AND PELVIS WITH CONTRAST CLINICAL INFORMATION: Right lower quadrant pain. COMPARISON: CT abdomen/pelvis 09/14/2018. TECHNIQUE: Multidetector volumetric images were obtained from the superior aspect of the liver through the pubic symphysis following administration 85 mL of Omnipaque 350 intravenous contrast. Sagittal and coronal reformatted images were obtained on the technologist's workstation. Oral contrast: No This CT examination was performed using dose optimization techniques as appropriate, variously including the following: *Automated exposure control *Adjustment of mA and/or kV according to patient size (this includes techniques or standardized protocols for targeted exams where dose is matched to indication/reason for exam; i.e. extremities or head) *Use of iterative reconstruction technique DLP: 617 mGy-cm FINDINGS: LUNG BASES: Mild bilateral bronchiectasis. Bibasilar predominantly platelike opacities, more prominent in the left lung base. Cardiomegaly. Partially imaged coronary artery calcifications. Multiple bilateral breast nodules with a few small calcifications, for instance a 1.3 cm nodule in the right breast axial image 2 series 2. LIVER, GALLBLADDER, AND BILIARY TREE: Liver is normal in size, shape and attenuation. Simple water density cyst in the left hepatic lobe measuring 3.5 cm. A few additional too small to characterize hypodensities scattered along the liver are stable compared to 2018 which is reassuring. Large approximately 2.2 cm calculus in the gallbladder fundus. No associated gallbladder wall thickening or pericholecystic fat stranding/free fluid to suspected acute cholecystitis. No biliary ductal dilatation. PANCREAS: Atrophic. There are 2 cystic appearing lesions in the posterior surface of the pancreatic body measuring 1.5 cm and 1.3 cm on images 22 and 23 of series 2, new compared to 2018. No main ductal dilatation. No peripancreatic free fluid or fat stranding. SPLEEN: Unremarkable. ADRENAL GLANDS: Unremarkable. KIDNEYS AND URETERS: Multiple too small to characterize bilateral cortical hypodensities, statistically favoring to represent simple cysts for which no imaging follow-up is recommended. No hydronephrosis. Symmetric nephrograms. BLADDER: Unremarkable. GASTROINTESTINAL TRACT: Redemonstration of an anastomotic staple lines in the rectosigmoid junction and right lower quadrant small bowel. The appendix is dilated measuring up to 1.5 cm in diameter with significant periappendiceal fat stranding and free fluid. A few foci of extraluminal air are noted adjacent to the appendiceal base on axial image 48 series 2 most consistent with perforated appendicitis. There is dilatation of the upstream small bowel as well as cecum, most likely reflecting reactive ileus. ABDOMINAL WALL: Anterior abdominal wall hernias containing loops of small and large bowel. There is luminal narrowing of the small bowel loops in the midline hernia axial image 53 series 2, however there is contrast passing into distal loops of small bowel. LYMPH NODES: No lymphadenopathy. VASCULAR: Normal caliber abdominal aorta with extensive atherosclerotic disease. PELVIC VISCERA: Uterus is likely surgically absent. Small amount of free fluid. OSSEOUS STRUCTURES: Stable inferior endplate compression deformity at L1 compared to MRI lumbar spine from 07/28/2021. New severe compression deformity at L5 with 0.6 cm of retropulsion into the spinal canal. New moderate to severe compression deformity at L4 compared to MRI lumbar spine 07/28/2021 CT/CT abdomen pelvis w IV con IMPRESSION: 1. Findings most consistent with acute perforated appendicitis with significant periappendiceal fat stranding and free fluid. 2. Anterior abdominal wall hernias containing loops of small and large bowel. There is luminal narrowing of the small bowel loops in the midline hernia, however there is contrast passing into distal loops of small bowel; some degree of partial small bowel obstruction transitioning at the level of the hernia is suspected. The small bowel dilatation throughout the abdomen could be explained by a combination of reactive ileus in the setting of perforated appendicitis and partial small bowel obstruction from the hernia. 3. New severe compression deformity at L5 with 0.6 cm of retropulsion into the spinal canal. New moderate to severe compression deformity at L4. Correlation with an MRI of the lumbar spine could be obtained as clinically indicated for evaluation of spinal cord signal abnormalities. 4. There are 2 cystic-appearing lesions in the posterior surface of the pancreatic body, new compared to 2018. These are indeterminate and could represent side branch IPMNs. Recommend further evaluation with an MR of the abdomen with and without intravenous contrast, pancreatic mass protocol. 5. Multiple bilateral breast nodules with a few small calcifications. If the patient is due, correlation with mammograms is advised. 6. Bronchiectasis in the lung bases suggesting some degree of pulmonary fibrosis. Platelike opacities are likely subsegmental atelectasis/scarring. This critical result was discussed with Dr Salas at 06/16/2023 7:12 PM and it was ascertained that the content and urgency of the report was understood at the time of direct communication.
--- NOTE | 2023-06-16 13:27 | ED_ITS ---
[facility] Past Medical History Medical History Acute diverticulitis Cellulitis of left leg CHF (congestive heart failure) Chronic heart failure with preserved ejection fraction (HFpEF) Chronic lower back pain Essential hypertension Fever HTN (hypertension) LBBB (left bundle branch block) Leg skin lesion, left Leg wound, left Pneumonia Sepsis TIA (transient ischemic attack) Surgical History H/O hernia repair History of cataract surgery Family History Family History Father No problems noted. Mother No problems noted. Social History Social History Household Members: None Housing: Apartment Do you presently have visiting nurse or other home services: No Alcohol intake: current Alcohol intake frequency: a few times a week Patient Tobacco Use Status: Never used Tobacco Smoked in Last 30 Days: No e-Cigarette/Vaping Use: Never Used Second Hand Smoke Exposure: No Use of substances other than those prescribed or required for medical reasons: No Advance Directives: Yes Advance Directives on File: Yes Advance Directives Date on File: 08/18/21 service: No Current occupational status: retired Current occupational exposures/hazards: No Cognitive needs: No Hearing needs: Yes Vision needs: No FT.Exam Exam Narrative Exam Narrative: Last Vital Signs Temp 100.9 F H 06/16/23 13:26 Pulse 85 06/16/23 13:26 Resp 18 06/16/23 13:26 BP 114/44 L 06/16/23 13:26 Pulse Ox 94 06/16/23 13:26 O2 Del Method Room Air 06/16/23 13:26 BMI result Body Mass Index 30.0 Course Course Course Narrative: This is an RME: Additional HPI, ROS, PE not included below will be deferred to primary provider. This is a 83-year-old, past medical history significant for congestive heart failure with preserved EF, essential hypertension, left bundle-branch block,?presenting to the emergency department with complaints of not feeling well . Patient reports that 2 days ago she ate a chicken salad while she was at a meeting. She states that ever since she has had nausea, vomiting and diarrhea. Denies any bloody or black stool. She states that she was seen at an urgent care today where she was tested for COVID which was negative. She also had an EKG which showed a left bundle branch block. Patient was sent to the emergency department for further evaluation. Patient has a history of left bundle-branch block. Patient found to be febrile orally at 100.9. Given vital signs on presentation, spoke to charge nurse to bring patient back into the main emergency department for further evaluation. Plan: Labs, blood cultures, lactic acid, troponin, BNP, EKG, chest x-ray, UA Medications Administered Generic Name Dose Route Start Last Admin Trade Name Freq PRN Reason Stop Dose Admin Sodium Chloride 1,000 mls @ 999 mls/hr 06/16/23 16:30 06/16/23 16:34 Ns IV 06/16/23 17:30 999 mls/hr .Q1H1M KATE Administration Medical Decision Making Lab Data 06/16/23 14:10 06/16/23 14:10 Labs: Lab Results 06/16/23 06/16/23 06/16/23 Range/Units 14:10 14:10 14:10 WBC 15.6 H (4.8-10.8) X10*3/uL RBC 4.06 L (4.20-5.50) X10*6/uL Hgb 11.9 L (12.0-16.0) g/dl Hct 36.5 L (37.0-47.0) % MCV 89.9 (80.0-98.0) fL MCH 29.3 (27.0-33.0) pg MCHC 32.6 (31.0-35.0) g/dl RDW 14.6 (11.0-16.0) % Plt Count 187 D (160-400) X10*3/uL MPV 10.0 (9.4-12.3) fL Immature Gran % (Auto) 0.6 H (0.0-0.4) % Neut % (Auto) 88.5 H (45-73) % Lymph % (Auto) 4.4 L (20-40) % [place] % (Auto) 6.1 (2-11) % Eos % (Auto) 0.1 (0-4) % Baso % (Auto) 0.3 (0-2) % Lymph # (Auto) 0.7 L (1.2-4.9) X10*3/uL [place] # (Auto) 1.0 (0.1-1.2) X10*3/uL Eos # (Auto) 0.0 (0.0-0.4) X10*3/uL Baso # (Auto) 0.0 (0.0-0.2) X10*3/uL Abs Immat Gran (auto) 0.09 H (0.00-0.03) X10*3/uL Absolute Neuts (auto) 13.8 H (2.0-8.3) x10*3/uL Absolute Nucleated RBC 0.000 (0.0-0.012) X10*3/uL Nucleated RBC % (auto) 0.0 (0.0-0.2) /100WBC Sodium 135 (135-145) mmol/L Potassium 3.6 D (3.3-5.1) mmol/L Chloride 103 (96-108) mmol/L Carbon Dioxide 24 (22-29) mmol/L Anion Gap 12 (12-20) BUN 16 (9-16) mg/dL Creatinine 0.99 (0.5-1.4) mg/dL Estim Creat Clear Calc 44.6 Estimated GFR 53 Random Glucose 105 (60-115) mg/dL Lactic Acid (0.5-2.0) mmol/L Calcium 9.3 (8.4-10.2) mg/dL Magnesium 1.9 (1.6-2.6) mg/dL Total Bilirubin 1.3 H (0.0-1.0) mg/dL Direct Bilirubin 0.6 H (0.0-0.5) mg/dL AST 19 (5-31) U/L ALT 16 (0-31) U/L Alkaline Phosphatase 79 (39-117) U/L Troponin I High Sens (<3.5-17.0) ng/L B-Natriuretic Peptide 318 H (<100) pg/mL Total Protein 7.0 (6.5-8.0) g/dL Albumin 3.7 (3.5-5.0) g/dL Lipase 10 (8-78) U/L 08/10/23 08/10/23 Range/Units 14:10 14:10 WBC (4.8-10.8) X10*3/uL RBC (4.20-5.50) X10*6/uL Hgb (12.0-16.0) g/dl Hct (37.0-47.0) % MCV (80.0-98.0) fL MCH (27.0-33.0) pg MCHC (31.0-35.0) g/dl RDW (11.0-16.0) % Plt Count (160-400) X10*3/uL MPV (9.4-12.3) fL Immature Gran % (Auto) (0.0-0.4) % Neut % (Auto) (45-73) % Lymph % (Auto) (20-40) % [place] % (Auto) (2-11) % Eos % (Auto) (0-4) % Baso % (Auto) (0-2) % Lymph # (Auto) (1.2-4.9) X10*3/uL [place] # (Auto) (0.1-1.2) X10*3/uL Eos # (Auto) (0.0-0.4) X10*3/uL Baso # (Auto) (0.0-0.2) X10*3/uL Abs Immat Gran (auto) (0.00-0.03) X10*3/uL Absolute Neuts (auto) (2.0-8.3) x10*3/uL Absolute Nucleated RBC (0.0-0.012) X10*3/uL Nucleated RBC % (auto) (0.0-0.2) /100WBC Sodium (135-145) mmol/L Potassium (3.3-5.1) mmol/L Chloride (96-108) mmol/L Carbon Dioxide (22-29) mmol/L Anion Gap (12-20) BUN (9-16) mg/dL Creatinine (0.5-1.4) mg/dL Estim Creat Clear Calc Estimated GFR Random Glucose (60-115) mg/dL Lactic Acid 1.8 (0.5-2.0) mmol/L Calcium (8.4-10.2) mg/dL Magnesium (1.6-2.6) mg/dL Total Bilirubin (0.0-1.0) mg/dL Direct Bilirubin (0.0-0.5) mg/dL AST (5-31) U/L ALT (0-31) U/L Alkaline Phosphatase (39-117) U/L Troponin I High Sens 20.8 H (<3.5-17.0) ng/L B-Natriuretic Peptide (<100) pg/mL Total Protein (6.5-8.0) g/dL Albumin (3.5-5.0) g/dL Lipase (8-78) U/L Discharge Plan Discharge Prescriptions: No Action furosemide 40 mg tablet 40 mg PO DAILY Qty: 90 1RF losartan 25 mg tablet 25 mg PO DAILY Qty: 90 0RF oxybutynin chloride 15 mg tablet extended release 24hr 15 mg PO DAILY Qty: 30 1RF prednisone 5 mg tablet 5 mg PO BID acetaminophen [Tylenol] 325 mg capsule 325 mg PO QID PRN hydroxychloroquine 200 mg tablet 200 mg PO ONCE multivitamin Tablet 1 tab PO DAILY metoprolol succinate 25 mg tablet extended release 24 hr 25 mg PO DAILY Rx Instructions: TAKE HALF OF A TABLET DAILY
--- NOTE | 2023-06-16 13:35 | ECG_ITS ---
Test Reason : WEAKNESS Blood Pressure : / mmHG Vent. Rate : 082 BPM Atrial Rate : 082 BPM P-R Int : 138 ms QRS Dur : 140 ms QT Int : 396 ms P-R-T Axes : 006 -42 111 degrees QTc Int : 462 ms Normal sinus rhythm Left axis deviation Left bundle branch block Abnormal ECG When compared with ECG of 02-AUG-2022 19:58, Vent. rate has increased BY 31 BPM Referred By: Skye Diaz Electronically Signed By:Kannan Morrow
[2023-06-16 14:16] LABS: MANUAL DIFF FLAG NO
[2023-06-16 14:19] LABS: Basophils Percent Auto 0.3 % (0-2); Eosinophils Percent Auto 0.1 % (0-4); Hematocrit 36.5 % (37.0-47.0); Hemoglobin 11.9 g/dl (12.0-16.0); Imm Gran Abs Auto 0.09 X10*3/uL (0.00-0.03); Imm Gran Pct Auto 0.6 % (0.0-0.4); Lymphocytes Absolute Auto 0.7 X10*3/uL (1.2-4.9); Lymphocytes Percent Auto 4.4 % (20-40); Mean Corpuscular HGB Conc 32.6 g/dl (31.0-35.0); Mean Corpuscular Hemoglobin 29.3 pg (27.0-33.0); Mean Corpuscular Volume 89.9 fL (80.0-98.0); Monocytes Percent Auto 6.1 % (2-11); Neutrophils Absolute Auto 13.8 x10*3/uL (2.0-8.3); Neutrophils Percent Auto 88.5 % (45-73); Platelet Count 187 X10*3/uL (160-400); Red Blood Count 4.06 X10*6/uL (4.20-5.50); Red Cell Distribution Width 14.6 % (11.0-16.0); White Blood Count 15.6 X10*3/uL (4.8-10.8)
[2023-06-16 14:32] LABS: Alanine Aminotransferase 16 U/L (0-31); Albumin Level 3.7 g/dL (3.5-5.0); Alkaline Phosphatase 79 U/L (39-117); Anion Gap 12 (12-20); Aspartate Amino Transferase 19 U/L (5-31); Bilirubin Direct 0.6 mg/dL (0.0-0.5); Bilirubin Total 1.3 mg/dL (0.0-1.0); Blood Urea Nitrogen 16 mg/dL (9-16); Calcium 9.3 mg/dL (8.4-10.2); Carbon Dioxide 24 mmol/L (22-29); Chloride 103 mmol/L (96-108); Creatinine Clr Calc Pharmacy 44.6; Estimated Glomerular Filt Rate 53; Glucose Random 105 mg/dL (60-115); Lipase 10 U/L (8-78); Magnesium 1.9 mg/dL (1.6-2.6); Potassium 3.6 mmol/L (3.3-5.1); Sodium 135 mmol/L (135-145)
[2023-06-16 14:34] LABS: Lactic Acid 1.8 mmol/L (0.5-2.0)
[2023-06-16 14:38] LABS: B Type Natriuretic Peptide 318 pg/mL (<100)
[2023-06-16 15:03] LABS: Troponin-I High Sensitivity 20.8 ng/L (<3.5-17.0)
[2023-06-16] MEDS: 0.9 % Sodium Chloride 1,000 ML 999 ML IV (16:34)
--- NOTE | 2023-06-16 16:58 | ED_ITS ---
HPI - General Adult General Chief complaint: Arrhythmia/Palpitations Stated complaint: heart issues Time Seen by Provider: 06/16/23 16:01 Source: patient, family (son at bedside, eldest daughter karen via telephone), RN notes reviewed and old records reviewed Mode of arrival: ambulatory Limitations: no limitations History of Present Illness HPI narrative: 83-year-old female with past medical history significant for SLE with cutaneous manifestations, congestive heart failure, left bundle-branch block, degenerative disc disease presents for evaluation of vomiting. Patient reports 2 days of vomiting and diarrhea but denies severe abdominal pain She went to urgent care earlier to the ER for further evaluation Patient denies any chest pain She states that currently ?I feel like a million bucks. ? Denies any fevers or chills Patient reports a history of large abdominal hernia that she states ?is too big for them to operate on. ? Patient denies any recent antibiotic use Per her daughter she has been ?around people with rotavirus. Patient has been to steroids open a your, last 2 weeks but no other travel Related Data Home Medications Medication Instructions Recorded Confirmed multivitamin 1 tab PO DAILY 03/10/21 04/28/23 hydroxychloroquine 200 mg tablet 200 mg PO ONCE 09/21/22 04/28/23 acetaminophen 325 mg capsule 325 mg PO QID PRN 01/20/23 04/28/23 (Tylenol) prednisone 5 mg tablet 5 mg PO BID 01/20/23 04/28/23 metoprolol succinate 25 mg 25 mg PO DAILY 03/22/23 04/28/23 tablet,extended release 24 hr Previous Rx's Medication Instructions Recorded losartan 25 mg tablet 25 mg PO DAILY #90 tabs 04/28/23 oxybutynin chloride 15 mg 15 mg PO DAILY #30 tabs 04/28/23 tablet,extended release 24 hr furosemide 40 mg tablet 40 mg PO DAILY #90 tabs 05/08/23 Allergies Allergy/AdvReac Type Severity Reaction Status Date / Time amoxicillin [AMOXICILLIN] Allergy Unknown UNKNOWN Verified 04/28/23 11:17 Review of Systems Constitutional: Constitutional: Denies chills, Denies fever(s), Denies malaise and Denies weakness Cardiovascular: Cardiovascular: Denies chest pain and Denies dyspnea Respiratory: Respiratory: Denies cough and Denies dyspnea Gastrointestinal: Gastrointestinal: Denies abdominal pain, Denies melena, Denies hematochezia, Reports diarrhea, Reports nausea and Reports vomiting Musculoskeletal: Musculoskeletal: Denies back pain Neurologic: Denies weakness PMFSH Past Medical History Medical History Acute diverticulitis Cellulitis of left leg CHF (congestive heart failure) Chronic heart failure with preserved ejection fraction (HFpEF) Chronic lower back pain Essential hypertension Fever HTN (hypertension) LBBB (left bundle branch block) Leg skin lesion, left Leg wound, left Pneumonia Sepsis TIA (transient ischemic attack) Surgical History H/O hernia repair History of cataract surgery Family History Family History Father No problems noted. Mother No problems noted. Social History Social History Household Members: None Housing: Apartment Do you presently have visiting nurse or other home services: No Alcohol intake: current Alcohol intake frequency: a few times a week Patient Tobacco Use Status: Never used Tobacco Smoked in Last 30 Days: No e-Cigarette/Vaping Use: Never Used Second Hand Smoke Exposure: No Use of substances other than those prescribed or required for medical reasons: No Advance Directives: Yes Advance Directives on File: Yes Advance Directives Date on File: 08/18/21 service: No Current occupational status: retired Current occupational exposures/hazards: No Cognitive needs: No Hearing needs: Yes Vision needs: No Physical Exam ED Vital Signs: Vital Signs - 24 hr 06/16/23 13:26 06/16/23 17:19 06/16/23 19:43 Temperature 100.9 F H 99.3 F 98.4 F Pulse Rate 85 82 86 Respiratory Rate 18 18 14 Blood Pressure 114/44 L 157/57 H 128/58 L Pulse Oximetry 94 92 90 L Oxygen Delivery Method Room Air Room Air Room Air 06/16/23 20:00 Temperature Pulse Rate Respiratory Rate Blood Pressure Pulse Oximetry 97 Oxygen Delivery Method Room Air BMI result Body Mass Index 30.0 Const General: healthy appearing, comfortable, no acute distress, alert and awake Nutritional Appearance: well nourished Orientation/consciousness: patient oriented x3 HENMT Head: Yes normocephalic and Yes atraumatic Eyes Eyelids: Yes eyelids normal Conjunctivae: conjunctivae normal Sclerae: sclerae normal Corneas: corneas normal Pupils: Equal, round and reactive pupils present EOM: EOMs intact bilaterally Neck Neck: Yes full ROM Resp Effort & Inspection: normal respiratory effort, able to speak in complete sentences, no audible wheezes and not labored Auscultation: clear to auscultation bilaterally Cardio Rate: regular rate Rhythm: regular rhythm GI Inspection: No distended Palpation (GI): Soft to palpation, not firm, Tenderness to palpation present (GI) in the epigastrum, in the RLQ and periumbilically, Guarding due to palpation present (GI) in the RLQ and not rigid Auscultation: normoactive bowel sounds Skin Other: Diffuse cutaneous plaque like lesions scattered over most of her body with an erythematous base General skin exam: elasticity normal Neuro General: patient oriented x3 Cranial nerves: Yes Equal, round and reactive pupils present and Yes Bilaterally intact EOM present Cognition (Neuro): normal cognition Extrem Other: Moving all extremities well without any obvious deformities Course Reevaluation(s) Reevaluation #1: The patient denies any chest pain, her EKG is consistent with his known left bundle-branch block. Will repeat the slightly elevated troponin Time: 17:05 Reevaluation #2: Received call from [facility] the patient had a perforated appendix. Dr Echevarria happened to be walking by and was able to discuss with him who is the covering general surgeon. He evaluated the patient and will take the patient to the. I added on metronidazole and Levaquin as the patient has an amoxicillin allergy. I discussed the CT findings with the patient her son was at bedside and her daughter, Karen via telephone. Time: 19:34 Medications Administered Generic Name Dose Route Start Last Admin Trade Name Freq PRN Reason Stop Dose Admin Levofloxacin 750 mg in 150 mls @ 100 mls/hr 06/16/23 19:22 06/16/23 20:05 Levaquin IV 06/16/23 20:51 100 mls/hr ONCE ONE Administration Discontinued Medications Generic Name Dose Route Start Last Admin Trade Name Freq PRN Reason Stop Dose Admin Acetaminophen 975 mg 06/16/23 16:56 06/16/23 17:17 Acetaminophen 325 Mg Tablet PO 06/16/23 16:57 975 mg ONCE ONE Administration Diatrizoate Meglum/Diatrizoate Sod 30 ml 06/16/23 18:06 06/16/23 18:06 Diatrizoate Meglumine, Sodium 30 Ml Solution PO 06/16/23 18:07 30 ml ONCE ONE Administration Sodium Chloride 1,000 mls @ 999 mls/hr 06/16/23 16:30 06/16/23 17:58 Ns IV 06/16/23 17:30 Infused .Q1H1M KATE Infusion Metronidazole 500 mg in 100 mls @ 100 mls/hr 06/16/23 19:22 06/16/23 20:05 Flagyl IV 06/16/23 20:21 100 mls/hr ONCE ONE Administration Iohexol 100 ml 06/16/23 18:43 06/16/23 18:43 Iohexol 350 Mg/Ml 100 Ml Infus..Btl IV 06/16/23 18:44 85 ml ONCE ONE Administration Medical Decision Making Medical Decision Making [facility] Narrative: 83-year-old female presents for evaluation of nausea and vomiting. Despite benign fevers and chills subjectively she is noted have a temperature a 100.9?. She is quite tender on exam to right lower quadrant despite denying abdominal pain. Will get a septic workup that includes blood cultures, lactic acid, chest x-ray, UA, CT scan of the abdomen pelvis. Patient declines analgesia and antiemetics at this time. Will give her Tylenol for her fever. Is worth noting that she is on chronic prednisone for her SLE Differential Diagnosis Differential Diagnoses: The differential diagnosis associated with the pres entation includes Acute appendicitis Incarcerated hernia Viral syndrome COVID-19 Pneumonia Pyelonephritis Strangulated hernia Admission/Observation Consideration of admission/observation: Escalation of care including admissio n/observation considered Consult Healthcare Provider Management of the patient was discussed with: Central Lab Technician Dr Echevarria, general surgery who will take the patient to the OR Lab Data [facility] Lab Attestation statement: I reviewed the patient's lab results. Leukocytosis with a white count of 15.6 K. there is an associated left shift. Exam mild anemia this consistent with her recent baseline with a hemoglobin 11.9 the macula 36.5. Normal platelet count. Sodium, potassium, chloride, CO2 this. The patient has normal renal function with a BUN of 16 and creatinine is 0.99. Normal for renal glucose at 105. Patient has slight elevation of total bilirubin to 1.3. Troponin is 20.8 BNP of 318. Patient's lungs are clear to auscultation, there is no sign of over volume overload. 06/16/23 14:10 06/16/23 14:10 Labs: Lab Results 06/16/23 06/16/23 06/16/23 Range/Units 14:10 14:10 14:10 WBC 15.6 H (4.8-10.8) X10*3/uL RBC 4.06 L (4.20-5.50) X10*6/uL Hgb 11.9 L (12.0-16.0) g/dl Hct 36.5 L (37.0-47.0) % MCV 89.9 (80.0-98.0) fL MCH 29.3 (27.0-33.0) pg MCHC 32.6 (31.0-35.0) g/dl RDW 14.6 (11.0-16.0) % Plt Count 187 D (160-400) X10*3/uL MPV 10.0 (9.4-12.3) fL Immature Gran % (Auto) 0.6 H (0.0-0.4) % Neut % (Auto) 88.5 H (45-73) % Lymph % (Auto) 4.4 L (20-40) % [place] % (Auto) 6.1 (2-11) % Eos % (Auto) 0.1 (0-4) % Baso % (Auto) 0.3 (0-2) % Lymph # (Auto) 0.7 L (1.2-4.9) X10*3/uL [place] # (Auto) 1.0 (0.1-1.2) X10*3/uL Eos # (Auto) 0.0 (0.0-0.4) X10*3/uL Baso # (Auto) 0.0 (0.0-0.2) X10*3/uL Abs Immat Gran (auto) 0.09 H (0.00-0.03) X10*3/uL Absolute Neuts (auto) 13.8 H (2.0-8.3) x10*3/uL Absolute Nucleated RBC 0.000 (0.0-0.012) X10*3/uL Nucleated RBC % (auto) 0.0 (0.0-0.2) /100WBC Sodium 135 (135-145) mmol/L Potassium 3.6 D (3.3-5.1) mmol/L Chloride 103 (96-108) mmol/L Carbon Dioxide 24 (22-29) mmol/L Anion Gap 12 (12-20) BUN 16 (9-16) mg/dL Creatinine 0.99 (0.5-1.4) mg/dL Estim Creat Clear Calc 44.6 Estimated GFR 53 Random Glucose 105 (60-115) mg/dL Lactic Acid (0.5-2.0) mmol/L Calcium 9.3 (8.4-10.2) mg/dL Magnesium 1.9 (1.6-2.6) mg/dL Total Bilirubin 1.3 H (0.0-1.0) mg/dL Direct Bilirubin 0.6 H (0.0-0.5) mg/dL AST 19 (5-31) U/L ALT 16 (0-31) U/L Alkaline Phosphatase 79 (39-117) U/L Troponin I High Sens (<3.5-17.0) ng/L B-Natriuretic Peptide 318 H (<100) pg/mL Total Protein 7.0 (6.5-8.0) g/dL Albumin 3.7 (3.5-5.0) g/dL Lipase 10 (8-78) U/L Influenza Type A (PCR) (Negative) Influenza Type B (PCR) (Negative) RSV RNA Qual (PCR) (Negative) SARS-CoV-2 RNA (RT-PCR) (Negative) 06/16/23 06/16/23 06/16/23 Range/Units 14:10 14:10 16:59 WBC (4.8-10.8) X10*3/uL RBC (4.20-5.50) X10*6/uL Hgb (12.0-16.0) g/dl Hct (37.0-47.0) % MCV (80.0-98.0) fL MCH (27.0-33.0) pg MCHC (31.0-35.0) g/dl RDW (11.0-16.0) % Plt Count (160-400) X10*3/uL MPV (9.4-12.3) fL Immature Gran % (Auto) (0.0-0.4) % Neut % (Auto) (45-73) % Lymph % (Auto) (20-40) % [place] % (Auto) (2-11) % Eos % (Auto) (0-4) % Baso % (Auto) (0-2) % Lymph # (Auto) (1.2-4.9) X10*3/uL [place] # (Auto) (0.1-1.2) X10*3/uL Eos # (Auto) (0.0-0.4) X10*3/uL Baso # (Auto) (0.0-0.2) X10*3/uL Abs Immat Gran (auto) (0.00-0.03) X10*3/uL Absolute Neuts (auto) (2.0-8.3) x10*3/uL Absolute Nucleated RBC (0.0-0.012) X10*3/uL Nucleated RBC % (auto) (0.0-0.2) /100WBC Sodium (135-145) mmol/L Potassium (3.3-5.1) mmol/L Chloride (96-108) mmol/L Carbon Dioxide (22-29) mmol/L Anion Gap (12-20) BUN (9-16) mg/dL Creatinine (0.5-1.4) mg/dL Estim Creat Clear Calc Estimated GFR Random Glucose (60-115) mg/dL Lactic Acid 1.8 (0.5-2.0) mmol/L Calcium (8.4-10.2) mg/dL Magnesium (1.6-2.6) mg/dL Total Bilirubin (0.0-1.0) mg/dL Direct Bilirubin (0.0-0.5) mg/dL AST (5-31) U/L ALT (0-31) U/L Alkaline Phosphatase (39-117) U/L Troponin I High Sens 20.8 H 19.3 H (<3.5-17.0) ng/L B-Natriuretic Peptide (<100) pg/mL Total Protein (6.5-8.0) g/dL Albumin (3.5-5.0) g/dL Lipase (8-78) U/L Influenza Type A (PCR) (Negative) Influenza Type B (PCR) (Negative) RSV RNA Qual (PCR) (Negative) SARS-CoV-2 RNA (RT-PCR) (Negative) 06/16/23 Range/Units 16:59 WBC (4.8-10.8) X10*3/uL RBC (4.20-5.50) X10*6/uL Hgb (12.0-16.0) g/dl Hct (37.0-47.0) % MCV (80.0-98.0) fL MCH (27.0-33.0) pg MCHC (31.0-35.0) g/dl RDW (11.0-16.0) % Plt Count (160-400) X10*3/uL MPV (9.4-12.3) fL Immature Gran % (Auto) (0.0-0.4) % Neut % (Auto) (45-73) % Lymph % (Auto) (20-40) % [place] % (Auto) (2-11) % Eos % (Auto) (0-4) % Baso % (Auto) (0-2) % Lymph # (Auto) (1.2-4.9) X10*3/uL [place] # (Auto) (0.1-1.2) X10*3/uL Eos # (Auto) (0.0-0.4) X10*3/uL Baso # (Auto) (0.0-0.2) X10*3/uL Abs Immat Gran (auto) (0.00-0.03) X10*3/uL Absolute Neuts (auto) (2.0-8.3) x10*3/uL Absolute Nucleated RBC (0.0-0.012) X10*3/uL Nucleated RBC % (auto) (0.0-0.2) /100WBC Sodium (135-145) mmol/L Potassium (3.3-5.1) mmol/L Chloride (96-108) mmol/L Carbon Dioxide (22-29) mmol/L Anion Gap (12-20) BUN (9-16) mg/dL Creatinine (0.5-1.4) mg/dL Estim Creat Clear Calc Estimated GFR Random Glucose (60-115) mg/dL Lactic Acid (0.5-2.0) mmol/L Calcium (8.4-10.2) mg/dL Magnesium (1.6-2.6) mg/dL Total Bilirubin (0.0-1.0) mg/dL Direct Bilirubin (0.0-0.5) mg/dL AST (5-31) U/L ALT (0-31) U/L Alkaline Phosphatase (39-117) U/L Troponin I High Sens (<3.5-17.0) ng/L B-Natriuretic Peptide (<100) pg/mL Total Protein (6.5-8.0) g/dL Albumin (3.5-5.0) g/dL Lipase (8-78) U/L Influenza Type A (PCR) NEGATIVE (Negative) Influenza Type B (PCR) NEGATIVE (Negative) RSV RNA Qual (PCR) NEGATIVE (Negative) SARS-CoV-2 RNA (RT-PCR) NEGATIVE (Negative) Independent Interpretation I performed an independent interpretation of an: EKG and Plain X-Ray (Chest x- ray without acute findings, no pleural effusions or overt heart failure) Interpretation: Normal sinus rhythm rate of 82 beats per minute. Left bundle branch block left axis deviation. Radiology Impression Discussion of test interpretation with radiology: I have reviewed the radiologist's reading. (No acute abnormality of the chest x-ray) Radiologist Impression: Perforated appendicitis. Abdominal wall hernia New severe compression deformity Critical Care Time Critical Care Time Critical Care Time: Yes Total Critical Care Time: 40 Attestation: 83-year-old female presents for evaluation of a perforated appendix. Discussions with surgery, as well as multiple discussions with family. IV antibiotic, IV fluid resuscitation patient was brought emergently to the OR Discharge Plan Discharge Clinical Impression: Acute perforated appendicitis Patient Disposition: Admitted As Inpatient
[2023-06-16] MEDS: Acetaminophen 325 MG TABLET 975 MG PO (17:17)
[2023-06-16 17:52] LABS: Troponin-I High Sensitivity 19.3 ng/L (<3.5-17.0)
[2023-06-16] MEDS: Diatrizoate Meglumine, Sodium 30 ML SOLUTION PO (18:06)
[2023-06-16 18:23] LABS: Influenza A PCR NEGATIVE (Negative); Influenza B PCR NEGATIVE (Negative); Resp Syncy Virus RNA Qual PCR NEGATIVE (Negative); SARS COV2 PCR INHOUSE NEGATIVE (Negative)
[2023-06-16] MEDS: iohexoL 350 MG/ML 100 ML INFUS..BTL IV (18:43)
--- NOTE | 2023-06-16 18:56 | PC.NURSE ---
patient in ct scan
--- NOTE | 2023-06-16 19:46 | PM.HPGS ---
History of Present Illness History of Present Illness Date of Service: 06/16/23 Chief complaint: heart issues Narrative: Isha Izquierdo is a 83 year old female who presents here with a 2-3 day history of progressively worsening lower abdominal pain. She has associated nausea vomiting and loose stool. She thought she had gastroenteritis/food poisoning. Because of progression of symptoms, she presented to the emergency department for further evaluation. Workup including physical exam and CT scan demonstrate findings consistent with perforated acute appendicitis. Chart was reviewed and patient evaluated. Patient has a plethora of medical problems. She is currently on 5 mg of prednisone for rheumatologic reasons. [facility] Past Medical History Medical History Acute diverticulitis Cellulitis of left leg CHF (congestive heart failure) Chronic heart failure with preserved ejection fraction (HFpEF) Chronic lower back pain Essential hypertension Fever HTN (hypertension) LBBB (left bundle branch block) Leg skin lesion, left Leg wound, left Pneumonia Sepsis TIA (transient ischemic attack) Family History Family History Father No problems noted. Mother No problems noted. Surgical History Surgical History H/O hernia repair History of cataract surgery Social History Social History Household Members: None Housing: Apartment Do you presently have visiting nurse or other home services: No Alcohol intake: current Alcohol intake frequency: a few times a week Patient Tobacco Use Status: Never used Tobacco Smoked in Last 30 Days: No e-Cigarette/Vaping Use: Never Used Second Hand Smoke Exposure: No Use of substances other than those prescribed or required for medical reasons: No Advance Directives: Yes Advance Directives on File: Yes Advance Directives Date on File: 08/18/21 service: No Current occupational status: retired Current occupational exposures/hazards: No Cognitive needs: No Hearing needs: Yes Vision needs: No Meds Allergies Allergy/AdvReac Type Severity Reaction Status Date / Time amoxicillin [AMOXICILLIN] Allergy Unknown UNKNOWN Verified 04/28/23 11:17 Active Medications: Current Medications Levofloxacin (Levaquin) 750 mg in 150 mls @ 100 mls/hr IV ONCE ONE Stop: 08/10/23 20:51 Metronidazole (Flagyl) 500 mg in 100 mls @ 100 mls/hr IV ONCE ONE Stop: 06/16/23 20:21 Home Medications Medication Instructions Recorded Confirmed Last Taken Type multivitamin 1 tab PO DAILY 03/10/21 04/28/23 08/17/21 08:00 History hydroxychloroquine 200 mg tablet 200 mg PO ONCE 09/21/22 04/28/23 Unknown History acetaminophen 325 mg capsule 325 mg PO QID PRN 01/20/23 04/28/23 Unknown History (Tylenol) prednisone 5 mg tablet 5 mg PO BID 01/20/23 04/28/23 Unknown History metoprolol succinate 25 mg 25 mg PO DAILY 03/22/23 04/28/23 Unknown History tablet,extended release 24 hr Physical Exam Vital Signs: Vital Signs: Last Vital Signs Temp 99.3 F 06/16/23 17:19 Pulse 82 06/16/23 17:19 Resp 18 06/16/23 17:19 BP 157/57 H 06/16/23 17:19 Pulse Ox 92 06/16/23 17:19 O2 Del Method Room Air 06/16/23 17:19 BMI result Body Mass Index 30.0 Chest: Other: Chest breath sounds bilaterally, HS 1 in 2 GI: Other: Abdominal exam is most noteworthy for marked right lower quadrant rebound tenderness. Patient has a very large irreducible ventral midline hernia. This is confirmed on CT scan with multiple loops of small bowel in this large hernia. Results Results Labs: Short CBC 06/16/23 Range/Units 14:10 WBC 15.6 H (4.8-10.8) X10*3/uL Hgb 11.9 L (12.0-16.0) g/dl Hct 36.5 L (37.0-47.0) % Plt Count 187 D (160-400) X10*3/uL BMP 06/16/23 14:10 Sodium 135 Potassium 3.6 D Chloride 103 Carbon Dioxide 24 BUN 16 Creatinine 0.99 Calcium 9.3 Liver Function 06/16/23 Range/Units 14:10 Total Bilirubin 1.3 H (0.0-1.0) mg/dL Direct Bilirubin 0.6 H (0.0-0.5) mg/dL AST 19 (5-31) U/L ALT 16 (0-31) U/L Alkaline Phosphatase 79 (39-117) U/L Albumin 3.7 (3.5-5.0) g/dL Assessment and Plan (1) Acute perforated appendicitis: Status: Acute Plan Because of the significant midline hernia with incarcerated loops of bowel, laparoscopic appendectomy would not be applicable or safe. I discussed with the patient the risks, benefits, alternatives of open appendectomy which included but not limited to bleeding, infection, numbness, pain, scarring and the patient wishes to proceed. All questions were answered. Arrangements will be made for this as an add on case for this evening. Time Spent With Patient Time: Total time managing care of this patient today ____ minutes. Quality Stroke Does the patient have a stroke diagnosis?: No VTE Prior VTE?: No VTE Risk Level:: Surgical - low VTE Device Contraindication: Treatment Not Indicated VTE Drug Contraindication: Treatment Not Indicated Procedures Date of Service Date of Service: 06/16/23
[2023-06-16] MEDS: levoFLOXacin/D5W 750 MG/150 ML PIGGYBACK 100 MG IV (20:05)
[2023-06-16] MEDS: metroNIDAZOLE/NS 500 MG/100 ML PIGGYBACK 100 MG IV (20:05)
--- NOTE | 2023-06-16 20:32 | PC.NURSE ---
This magnetic tape typewriter operator assumed care at 1900, Pt A&Ox4, denies any pain at the moment, positive effectiveness to medication given by previous nurse, afebrile. Pt ambulated independently to br, with steady gait, pt had one episode of foul smelling, explosive diarrhea. 20G IV in right hand and right AC placed. ABX running as ordered, pt changed into to hospital attire. awaiting transport to OR, pt and family aware of plan. VSS.
--- NOTE | 2023-06-16 21:01 | PHA.MEDREC ---
Pharmacy Consult ? Medication Reconciliation Pharmacy has completed the medication reconciliation. Patient confirmed medications. Reports she is taking prednisone 5 mg daily. She stated that her daughter wants her off it. She was prescribed a high dose but reports taking 5 mg. Patient also stated she ran out of oxybutynin and wants a refill because she pees to much. It has not been filled since 11/01/22. Janet Garrison P
--- NOTE | 2023-06-16 21:25 | PC.NURSE ---
RN to RN report given to Benjamin from PACU, nurse will come over to transport Pt, Pt and family aware of plan.
[2023-06-16 21:35] LABS: INTERNATIONAL NORM RATIO 1.2 (0.9-1.1); Prothrombin Time 14.9 SEC (11.1-13.3)
--- NOTE | 2023-06-16 21:42 | HO.ANESPROP2 ---
[facility] Active Problems Active Problems: All Active Problems (Updated 06/16/23 @ 19:36 by Bandar Franklin) Acute perforated appendicitis (Acute) Wound of right leg (Acute) Acute low back pain (Acute) Spondylosis, lumbar, with myelopathy (Acute) Disc degeneration, lumbar (Acute) Lower thoracic back pain (Acute) Edema of both feet (Acute) Cough (Acute) Sinus bradycardia (Acute) LBBB (left bundle branch block) (Acute) Chronic heart failure with preserved ejection fraction (HFpEF) (Acute) Syncope (Acute) Urinary frequency (Acute) Chest congestion (Acute) Urinary incontinence (Acute) Shortness of breath (Acute) Lupus (Acute) Essential hypertension (Acute) Leg wound, left (Acute) Tension headache (Acute) Lower back pain (Acute) Migraine headache (Acute) Decreased hearing (Acute) Past Medical History Medical History Acute diverticulitis Cellulitis of left leg CHF (congestive heart failure) Chronic heart failure with preserved ejection fraction (HFpEF) Chronic lower back pain Essential hypertension Fever HTN (hypertension) LBBB (left bundle branch block) Leg skin lesion, left Leg wound, left Pneumonia Sepsis TIA (transient ischemic attack) Functional capacity: independent ambulation Family History Family History Father No problems noted. Mother No problems noted. Surgical History Surgical History H/O hernia repair History of cataract surgery History of Problems with Anesthesia: No Social History Social History Household Members: None Housing: Apartment Do you presently have visiting nurse or other home services: No Alcohol intake: current Alcohol intake frequency: a few times a week Patient Tobacco Use Status: Never used Tobacco Smoked in Last 30 Days: No e-Cigarette/Vaping Use: Never Used Second Hand Smoke Exposure: No Use of substances other than those prescribed or required for medical reasons: No Advance Directives: Yes Advance Directives on File: Yes Advance Directives Date on File: 08/18/21 service: No Current occupational status: retired Current occupational exposures/hazards: No Cognitive needs: No Hearing needs: Yes Vision needs: No Meds Allergies Allergy/AdvReac Type Severity Reaction Status Date / Time amoxicillin [AMOXICILLIN] Allergy Unknown UNKNOWN Verified 04/28/23 11:17 Home Medications Medication Instructions Recorded Confirmed Last Taken Type multivitamin 1 tab PO DAILY 03/10/21 06/16/23 08/17/21 08:00 History hydroxychloroquine 200 mg tablet 200 mg PO BID 09/21/22 06/16/23 Unknown History acetaminophen 325 mg capsule 650 mg PO QID PRN Pain 01/20/23 06/16/23 Unknown History (Tylenol) prednisone 5 mg tablet 5 mg PO DAILY 01/20/23 06/16/23 Unknown History metoprolol succinate 25 mg 12.5 mg PO DAILY 03/22/23 06/16/23 Unknown History tablet,extended release 24 hr Exam Exam Date and Time: June 16, [id number] Height,Weight and Vital Signs: Height 5 ft 5 in Weight 81.647 kg Last Vital Signs Temp 98.4 F 06/16/23 19:43 Pulse 86 06/16/23 19:43 Resp 14 06/16/23 19:43 BP 128/58 L 06/16/23 19:43 Pulse Ox 97 06/16/23 20:00 O2 Del Method Room Air 06/16/23 20:00 Pertinent Lab Results Pertinent Lab Results: Laboratory Tests 06/16/23 06/16/23 06/16/23 14:10 14:10 14:10 WBC 15.6 H RBC 4.06 L Hgb 11.9 L Hct 36.5 L MCV 89.9 MCH 29.3 MCHC 32.6 RDW 14.6 Plt Count 187 D MPV 10.0 Immature Gran % (Auto) 0.6 H Neut % (Auto) 88.5 H Lymph % (Auto) 4.4 L Tompkins % (Auto) 6.1 Eos % (Auto) 0.1 Baso % (Auto) 0.3 Lymph # (Auto) 0.7 L Tompkins # (Auto) 1.0 Eos # (Auto) 0.0 Baso # (Auto) 0.0 Abs Immat Gran (auto) 0.09 H Absolute Neuts (auto) 13.8 H Absolute Nucleated RBC 0.000 Nucleated RBC % (auto) 0.0 PT INR APTT Sodium 135 Potassium 3.6 D Chloride 103 Carbon Dioxide 24 Anion Gap 12 BUN 16 Creatinine 0.99 Estim Creat Clear Calc 44.6 Estimated GFR 53 Random Glucose 105 Lactic Acid Calcium 9.3 Magnesium 1.9 Total Bilirubin 1.3 H Direct Bilirubin 0.6 H AST 19 ALT 16 Alkaline Phosphatase 79 Troponin I High Sens B-Natriuretic Peptide 318 H Total Protein 7.0 Albumin 3.7 Lipase 10 Influenza Type A (PCR) Influenza Type B (PCR) RSV RNA Qual (PCR) SARS-CoV-2 RNA (RT-PCR) 06/16/23 06/16/23 06/16/23 14:10 14:10 16:59 WBC RBC Hgb Hct MCV MCH MCHC RDW Plt Count MPV Immature Gran % (Auto) Neut % (Auto) Lymph % (Auto) Tompkins % (Auto) Eos % (Auto) Baso % (Auto) Lymph # (Auto) Tompkins # (Auto) Eos # (Auto) Baso # (Auto) Abs Immat Gran (auto) Absolute Neuts (auto) Absolute Nucleated RBC Nucleated RBC % (auto) PT INR APTT Sodium Potassium Chloride Carbon Dioxide Anion Gap BUN Creatinine Estim Creat Clear Calc Estimated GFR Random Glucose Lactic Acid 1.8 Calcium Magnesium Total Bilirubin Direct Bilirubin AST ALT Alkaline Phosphatase Troponin I High Sens 20.8 H 19.3 H B-Natriuretic Peptide Total Protein Albumin Lipase Influenza Type A (PCR) Influenza Type B (PCR) RSV RNA Qual (PCR) SARS-CoV-2 RNA (RT-PCR) 06/16/23 06/16/23 16:59 21:19 WBC RBC Hgb Hct MCV MCH MCHC RDW Plt Count MPV Immature Gran % (Auto) Neut % (Auto) Lymph % (Auto) Tompkins % (Auto) Eos % (Auto) Baso % (Auto) Lymph # (Auto) Tompkins # (Auto) Eos # (Auto) Baso # (Auto) Abs Immat Gran (auto) Absolute Neuts (auto) Absolute Nucleated RBC Nucleated RBC % (auto) PT 14.9 H INR 1.2 H APTT 28.0 Sodium Potassium Chloride Carbon Dioxide Anion Gap BUN Creatinine Estim Creat Clear Calc Estimated GFR Random Glucose Lactic Acid Calcium Magnesium Total Bilirubin Direct Bilirubin AST ALT Alkaline Phosphatase Troponin I High Sens B-Natriuretic Peptide Total Protein Albumin Lipase Influenza Type A (PCR) NEGATIVE Influenza Type B (PCR) NEGATIVE RSV RNA Qual (PCR) NEGATIVE SARS-CoV-2 RNA (RT-PCR) NEGATIVE Airway TM Dist: >3cm Neck ROM: Full Heart: RRR Lungs: CTA Assessment and Plan Final Anesthetic Review History of Problems with Anesthesia: No NPO: Yes ASA Class: III and Emergency Final Preanesthetic Review: Meds/Allgs Chart Reviewed, Consent Obtained/Reviewed and Anes Risks/Benef Reviewed Patient Risk: Intermediate Procedure Risk: Intermediate Anesthetic Plan Anesthetic Plan: GA Disposition: Standard PACU
[2023-06-16] MEDS: Acetaminophen 1,000 MG/100 ML PIGGYBACK 400 MG IV (23:36)
[2023-06-16] MEDS: ondansetron HCL 4 MG/2 ML VIAL IVPUSH (23:36)
--- NOTE | 2023-06-16 23:39 | W.PM.OPN ---
Operative Note Operative Note Date of Service: 06/16/23 Narrative: Preoperative diagnosis: [] Perforated appendicitis Postop diagnosis: [] Same Procedure [] open appendectomy Surgeon: [] [facility] Physician Assistant: [] Type of Anesthesia: [] General Findings: [] Patient has had multiple prior abdominal surgeries including several midline hernia repairs. Patient has a massive midline incarcerated hernia with multiple loops of small bowel precluding laparoscopic appendectomy. Intraoperative findings demonstrated significant acute suppurative peritonitis secondary to perforated appendix. Patient is on chronic steroids and has very poor quality tissues. Moderately corpulent abdomen. Procedure; patient was brought to the operating room, placed on the operative table in supine position, after adequate level of general anesthesia was induced, the patient's abdomen was prepped and draped in usual sterile fashion. Using an oblique incision over McBurney's point right lower quadrant, this carried down through skin, subcutaneous tissue, and Juan's fascia. External oblique fibers were opened and there direction. Internal oblique and transversus abdominal muscles were split, the perineum opened sharply and extended along the length of the incision. Patient had marked acute suppurative peritonitis. Cultures were obtained. Patient also had significant adhesions from multiple prior abdominal surgeries. Enterolysis was undertaken and the cecum was identified. Perforated necrotic appendix was identified. This was mobilized and transected at the cecal base using endoscopic MORGAN stapler. Mesentery was then taken down using double firing of ligature device. Specimen sent to pathology. The abdominal cavity was very copiously irrigated, and secured for hemostasis. Wound was closed in the following manner; perineum was closed using running 2-0 Vicryl suture. Internal oblique and transversus abdominal muscles were reapproximated using one Maxon. The fascia was closed using running 1. Maxon. Skin was closed using widely spaced interrupted inverted dermal 3-0 Vicryl sutures followed by skin zev. Wound was infiltrated 0.5% Marcaine at completion of the procedure. Sponge, needle, instrument counts reported to be correct. Patient tolerated the procedure well and emerged anesthesia in stable condition. EBL minimal
[2023-06-17] VITALS (8 sets, daily range): BP systolic 118–165; BP diastolic 50–80; PULSE 62–86; RESP 16–20; TEMP 36.4–37.2; O2SAT 92–96
[2023-06-17] MEDS: ceFAZolin Sodium/Dextrose,Iso 2 GM/50 ML PIGGYBACK IV ×3 (00:33→22:30)
[2023-06-17] MEDS: Dextrose 5 % and 0.45 % NaCl 1,000 ML 100 ML IVCONT ×2 (00:35→14:03)
--- NOTE | 2023-06-17 01:11 | PC.NURSE ---
patient just arrived from PACU. Per MOVEMENT EDUCATION SPECIALISTchild and family therapist took all belongings except dentures top and bottom. Placed in denture cup, labelled.
[2023-06-17 01:30] LABS: Anion Gap 11 (12-20); Blood Urea Nitrogen 17 mg/dL (9-16); Calcium 8.8 mg/dL (8.4-10.2); Carbon Dioxide 23 mmol/L (22-29); Chloride 103 mmol/L (96-108); Creatinine Clr Calc Pharmacy 44.6; Estimated Glomerular Filt Rate 53; Glucose Random 104 mg/dL (60-115); Magnesium 1.9 mg/dL (1.6-2.6); Potassium 3.8 mmol/L (3.3-5.1); Sodium 133 mmol/L (135-145)
[2023-06-17] MEDS: Magnesium Sulfate/H2O 2 GM/50 ML PIGGYBACK IV (01:43)
[2023-06-17 06:32] LABS: Hematocrit 35.3 % (37.0-47.0); Hemoglobin 11.4 g/dl (12.0-16.0); Mean Corpuscular HGB Conc 32.3 g/dl (31.0-35.0); Mean Corpuscular Hemoglobin 29.4 pg (27.0-33.0); Mean Platelet Volume 9.9 fL (9.4-12.3); Platelet Count 143 X10*3/uL (160-400); Red Blood Count 3.88 X10*6/uL (4.20-5.50); Red Cell Distribution Width 14.8 % (11.0-16.0); White Blood Count 12.8 X10*3/uL (4.8-10.8)
[2023-06-17 06:42] LABS: Anion Gap 11 (12-20); Blood Urea Nitrogen 14 mg/dL (9-16); Carbon Dioxide 21 mmol/L (22-29); Chloride 107 mmol/L (96-108); Creatinine Clr Calc Pharmacy 55.3; Estimated Glomerular Filt Rate > 60; Glucose Random 135 mg/dL (60-115); Potassium 3.7 mmol/L (3.3-5.1); Sodium 135 mmol/L (135-145)
[2023-06-17] MEDS: Metoprolol Succinate ER 12.5 MG HALFTAB.ER.24H PO (08:03)
[2023-06-17] MEDS: Furosemide 40 MG TABLET PO (08:03)
[2023-06-17] MEDS: predniSONE 5 MG TABLET PO (08:03)
[2023-06-17] MEDS: Losartan Potassium 25 MG TABLET PO (08:03)
[2023-06-17] MEDS: Hydroxychloroquine Sulfate 200 MG TABLET PO ×2 (08:03→19:48)
[2023-06-17] MEDS: metroNIDAZOLE/NS 500 MG/100 ML PIGGYBACK 100 MG IV ×2 (08:03→19:48)
[2023-06-17] MEDS: Multivitamin TABLET 1 TAB PO (08:04)
[2023-06-17] MEDS: 0.9 % Sodium Chloride Flush 3 ML SYRINGE IVFLUSH (08:12)
--- NOTE | 2023-06-17 08:20 | PM.PNGS ---
Subjective Subjective Date of Service: 06/17/23 Interval history: Feels better this morning. Hungry. Pain is well controlled. Has not been OOB. Denies flatus. Physical Exam Vital Signs: Vital Signs: Last Vital Signs Temp 97.9 F 06/17/23 07:42 Pulse 75 06/17/23 07:42 Resp 18 06/17/23 07:42 BP 146/66 H 06/17/23 07:42 Pulse Ox 96 06/17/23 07:42 O2 Del Method Nasal Cannula 06/17/23 07:42 O2 Flow Rate 3 06/17/23 07:42 BMI result Body Mass Index 30.0 Const: General: comfortable, no acute distress and alert Orientation/consciousness: patient oriented x3 Resp: Effort & Inspection: normal respiratory effort GI: Inspection: Yes distended and Yes incision (dressing c/d/i) Palpation (GI): Soft to palpation, Tenderness to palpation present (GI) (incisional), no guarding and not rigid Skin: General skin exam: no rashes or lesions noted Neuro: General: patient oriented x3 and moves all extremities Objective Data Active Medications Acetaminophen (Acetaminophen 325 Mg Tablet) 650 mg PO Q6H PRN PRN Reason: Pain, Mild (Pain Scale 1-3) Al Hydroxide/Mg Hydroxide (Magnesium Hydrox/Alum Hydrox 30 Ml Oral.Susp) 30 ml PO Q4H PRN PRN Reason: Heartburn/Nausea Docusate Sodium (Docusate Sodium 100 Mg Capsule) 100 mg PO DAILY PRN PRN Reason: Constipation Fentanyl (Fentanyl Citrate/Pf 100 Mcg/2 Ml Vial) 25 mcg IVPUSH Q5M PRN; Protocol PRN Reason: Pain, Moderate(Pain Scale 4-6) Furosemide (Furosemide 40 Mg Tablet) 40 mg PO DAILY [facility]; Protocol Last Admin: 06/17/23 08:03 Dose: 40 mg Documented By: OLIVIA Hydromorphone HCl (Hydromorphone Hcl 1 Mg/Ml Syringe) 0.5 mg IVPUSH Q4H PRN; Protocol PRN Reason: Pain, Severe (Pain Scale 7-10) Hydroxychloroquine Sulfate (Hydroxychloroquine Sulfate 200 Mg Tablet) 200 mg PO BID [facility] Last Admin: 06/17/23 08:03 Dose: 200 mg Documented By: OLIVIA Dextrose/Sodium Chloride (D51/2ns) 1,000 mls @ 100 mls/hr IVCONT .Q10H [facility] Last Infusion: 06/17/23 03:43 Dose: 100 mls/hr Documented By: MANJEET Cefazolin Sodium/Dextrose (Ancef) 2 gm in 50 mls @ 100 mls/hr IV Q12H [facility] Last Infusion: 06/17/23 01:07 Dose: 0 mls/hr Documented By: MANJEET Metronidazole (Flagyl) 500 mg in 100 mls @ 100 mls/hr IV Q12H [facility] Last Admin: 06/17/23 08:03 Dose: 100 mls/hr Documented By: OLIVIA Losartan Potassium (Losartan Potassium 25 Mg Tablet) 25 mg PO DAILY [facility]; Protocol Last Admin: 06/17/23 08:03 Dose: 25 mg Documented By: OLIVIA Magnesium Hydroxide (Milk Of Magnesia 30 Ml Oral.Susp) 30 ml PO DAILY PRN PRN Reason: Constipation Metoprolol Succinate (Metoprolol Succinate Er 12.5 Mg Halftab.Er.24h) 12.5 mg PO DAILY [facility]; Protocol Last Admin: 06/17/23 08:03 Dose: 12.5 mg Documented By: OLIVIA Multivitamins/Vitamin C (Multivitamin Tablet) 1 tab PO DAILY [facility] Last Admin: 06/17/23 08:04 Dose: 1 tab Documented By: OLIVIA Ondansetron HCl (Ondansetron Hcl 4 Mg/2 Ml Vial) 4 mg IVPUSH Q8H PRN PRN Reason: Nausea and Vomiting Prednisone (Prednisone 5 Mg Tablet) 5 mg PO DAILY [facility] Last Admin: 06/17/23 08:03 Dose: 5 mg Documented By: OLIVIA Sodium Chloride (0.9 % Sodium Chloride Flush 3 Ml Syringe) 3 ml IVFLUSH QSHIFT [facility] Last Admin: 06/17/23 08:12 Dose: 3 ml Documented By: OLIVIA Labs 06/17/23 06:22 06/17/23 06:22 Labs: Laboratory Results - last 24 hr 06/16/23 06/16/23 06/16/23 14:10 14:10 14:10 MCV 89.9 MCH 29.3 MCHC 32.6 RDW 14.6 Plt Count 187 D MPV 10.0 Immature Gran % (Auto) 0.6 H Neut % (Auto) 88.5 H Lymph % (Auto) 4.4 L [place] % (Auto) 6.1 Eos % (Auto) 0.1 Baso % (Auto) 0.3 Lymph # (Auto) 0.7 L [place] # (Auto) 1.0 Eos # (Auto) 0.0 Baso # (Auto) 0.0 Abs Immat Gran (auto) 0.09 H Absolute Neuts (auto) 13.8 H Absolute Nucleated RBC 0.000 Nucleated RBC % (auto) 0.0 PT INR APTT Anion Gap 12 Estim Creat Clear Calc 44.6 Estimated GFR 53 Random Glucose 105 Lactic Acid Calcium 9.3 Magnesium 1.9 Total Bilirubin 1.3 H Direct Bilirubin 0.6 H AST 19 ALT 16 Alkaline Phosphatase 79 B-Natriuretic Peptide 318 H Total Protein 7.0 Albumin 3.7 Lipase 10 Influenza Type A (PCR) Influenza Type B (PCR) RSV RNA Qual (PCR) SARS-CoV-2 RNA (RT-PCR) Blood Type Antibody Screen 06/16/23 06/16/23 06/16/23 14:10 16:59 21:19 MCV MCH MCHC RDW Plt Count MPV Immature Gran % (Auto) Neut % (Auto) Lymph % (Auto) [place] % (Auto) Eos % (Auto) Baso % (Auto) Lymph # (Auto) [place] # (Auto) Eos # (Auto) Baso # (Auto) Abs Immat Gran (auto) Absolute Neuts (auto) Absolute Nucleated RBC Nucleated RBC % (auto) PT 14.9 H INR 1.2 H APTT 28.0 Anion Gap Estim Creat Clear Calc Estimated GFR Random Glucose Lactic Acid 1.8 Calcium Magnesium Total Bilirubin Direct Bilirubin AST ALT Alkaline Phosphatase B-Natriuretic Peptide Total Protein Albumin Lipase Influenza Type A (PCR) NEGATIVE Influenza Type B (PCR) NEGATIVE RSV RNA Qual (PCR) NEGATIVE SARS-CoV-2 RNA (RT-PCR) NEGATIVE Blood Type Antibody Screen 06/16/23 06/17/23 06/17/23 21:19 01:00 06:22 MCV 91.0 MCH 29.4 MCHC 32.3 RDW 14.8 Plt Count 143 L MPV 9.9 Immature Gran % (Auto) Neut % (Auto) Lymph % (Auto) [place] % (Auto) Eos % (Auto) Baso % (Auto) Lymph # (Auto) [place] # (Auto) Eos # (Auto) Baso # (Auto) Abs Immat Gran (auto) Absolute Neuts (auto) Absolute Nucleated RBC 0.000 Nucleated RBC % (auto) 0.0 PT INR APTT Anion Gap 11 L Estim Creat Clear Calc 44.6 Estimated GFR 53 Random Glucose 104 Lactic Acid Calcium 8.8 Magnesium 1.9 Total Bilirubin Direct Bilirubin AST ALT Alkaline Phosphatase B-Natriuretic Peptide Total Protein Albumin Lipase Influenza Type A (PCR) Influenza Type B (PCR) RSV RNA Qual (PCR) SARS-CoV-2 RNA (RT-PCR) Blood Type O Negative Antibody Screen NEGATIVE 06/17/23 06:22 MCV MCH MCHC RDW Plt Count MPV Immature Gran % (Auto) Neut % (Auto) Lymph % (Auto) [place] % (Auto) Eos % (Auto) Baso % (Auto) Lymph # (Auto) [place] # (Auto) Eos # (Auto) Baso # (Auto) Abs Immat Gran (auto) Absolute Neuts (auto) Absolute Nucleated RBC Nucleated RBC % (auto) PT INR APTT Anion Gap 11 L Estim Creat Clear Calc 55.3 Estimated GFR > 60 Random Glucose 135 H Lactic Acid Calcium 9.0 Magnesium Total Bilirubin Direct Bilirubin AST ALT Alkaline Phosphatase B-Natriuretic Peptide Total Protein Albumin Lipase Influenza Type A (PCR) Influenza Type B (PCR) RSV RNA Qual (PCR) SARS-CoV-2 RNA (RT-PCR) Blood Type Antibody Screen Procedures Date of Service Date of Service: 06/17/23 Progress Note: A&P Assessment and plan (1) Acute perforated appendicitis: Status: Acute Plan 83 year old female admitted with acute perforated appendicitis now POD #1 s/p open appendectomy. Doing fairly well post op. VSS. Abd benign with appropriate post op tenderness, dressing c/d/i. Will advance to clear liquids and then further as tolerated. Cont IV abx. Cont pain control. Encouraged OOB/ambulation and IS use. Time Spent With Patient Time: Total time managing care of this patient today ____ minutes. Quality Stroke Does the patient have a stroke diagnosis?: No VTE Prior VTE?: No VTE Risk Level:: Surgical - low VTE Device Contraindication: Treatment Not Indicated VTE Drug Contraindication: Treatment Not Indicated
--- NOTE | 2023-06-17 10:53 | MHC.CM.PN ---
CM MET WITH PT, HER DAUGHTER KVNG, AND HER SON AT BEDSIDE PT LIVES ALONE AND IS INDEPENDENT AT BASELINE PT HAS A CANE SHE USES PRN PT HAS NO HOME SERVICES HCP ON FILE PCP: [facility] DELIVERED PER PT, HER WAS A , HOWEVER SHE IS NOT SERVICE CONNECTED DCP: HOME WITH POSSIBLE [facility]NA SERVICES PT ONLY WANTS [facility], SHE HAS HAD THEM IN THE PAST REFERRAL PLACED FAMILY WILL TRANSPORT
--- NOTE | 2023-06-17 11:28 | PC.NURSE ---
Per RADHA Lynn. mendez catheter removed at 1125. Catheter intact upon removal. Pt tolerated well. Due to void by 1725.
--- NOTE | 2023-06-17 12:12 | P.CONHOSP_ITS ---
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 She presented with 2 to 3 days of abdominal pain, nausea vomitting and loose stool and found to have perferoated appendicitis and underwent urgent surgery, POD 1 today. She doing well, pain is controlled, she is tolerating regular diet and looking forward to going home tomorrow Review of Systems Review of Systems: Gen: no fever Resp: no sob, no cough CV: no chest, no VEGA, no leg edema GI: No n/v, no abd pain Neuro: No confusion noted lupus rash on arms [facility] Medical History (Updated 06/17/23 @ 12:18 by Viktor Dodge MD) Acute diverticulitis Cellulitis of left leg CHF (congestive heart failure) Chronic heart failure with preserved ejection fraction (HFpEF) Chronic lower back pain Essential hypertension Fever HTN (hypertension) LBBB (left bundle branch block) Leg skin lesion, left Leg wound, left Pneumonia Sepsis TIA (transient ischemic attack) Functional capacity: independent ambulation Family History Father No problems noted. Mother No problems noted. Surgical History H/O hernia repair History of cataract surgery Social History Household Members: None Housing: Apartment Do you presently have visiting nurse or other home services: No Alcohol intake: current Alcohol intake frequency: a few times a week Patient Tobacco Use Status: Never used Tobacco Smoked in Last 30 Days: No e-Cigarette/Vaping Use: Never Used Second Hand Smoke Exposure: No Use of substances other than those prescribed or required for medical reasons: No Currently Displaying Signs/Symptoms of Drug Intoxication Withdrawal: No Have you been hit, kicked, punched, or otherwise hurt by someone within the past year? If so, by whom?: No Do you feel safe in your current relationship?: No Current Relationship Is there a partner from a previous relationship who is making you feel unsafe now?: No Are you made to feel afraid or neglected: No Advance Directives: Yes Advance Directives on File: Yes Advance Directives Date on File: 08/18/21 Do you have thoughts of harming others: None Do you have a plan to hurt others: No Plan Eating poorly because of decreased appetite: No Nutrition Risks: No Nutritional Risk Patient : No : No Poor oral hygiene: No service: No Current occupational status: retired Current occupational exposures/hazards: No Cognitive needs: No Hearing needs: Yes Vision needs: No Meds Allergies Allergy/AdvReac Type Severity Reaction Status Date / Time amoxicillin [AMOXICILLIN] Allergy Unknown UNKNOWN Verified 06/17/23 00:53 Active Medications: Current Medications Acetaminophen (Acetaminophen 325 Mg Tablet) 650 mg PO Q6H PRN PRN Reason: Pain, Mild (Pain Scale 1-3) Al Hydroxide/Mg Hydroxide (Magnesium Hydrox/Alum Hydrox 30 Ml Oral.Susp) 30 ml PO Q4H PRN PRN Reason: Heartburn/Nausea Docusate Sodium (Docusate Sodium 100 Mg Capsule) 100 mg PO DAILY PRN PRN Reason: Constipation Fentanyl (Fentanyl Citrate/Pf 100 Mcg/2 Ml Vial) 25 mcg IVPUSH Q5M PRN; Protocol PRN Reason: Pain, Moderate(Pain Scale 4-6) Furosemide (Furosemide 40 Mg Tablet) 40 mg PO DAILY [facility]; Protocol Last Admin: 06/17/23 08:03 Dose: 40 mg Hydromorphone HCl (Hydromorphone Hcl 1 Mg/Ml Syringe) 0.5 mg IVPUSH Q4H PRN; Protocol PRN Reason: Pain, Severe (Pain Scale 7-10) Hydroxychloroquine Sulfate (Hydroxychloroquine Sulfate 200 Mg Tablet) 200 mg PO BID [facility] Last Admin: 06/17/23 08:03 Dose: 200 mg Dextrose/Sodium Chloride (D51/2ns) 1,000 mls @ 100 mls/hr IVCONT .Q10H [facility] Last Infusion: 06/17/23 03:43 Dose: 100 mls/hr Cefazolin Sodium/Dextrose (Ancef) 2 gm in 50 mls @ 100 mls/hr IV Q12H [facility] Last Infusion: 06/17/23 11:27 Dose: Infused Metronidazole (Flagyl) 500 mg in 100 mls @ 100 mls/hr IV Q12H [facility] Last Infusion: 06/17/23 09:44 Dose: Infused Losartan Potassium (Losartan Potassium 25 Mg Tablet) 25 mg PO DAILY [facility]; Protocol Last Admin: 06/17/23 08:03 Dose: 25 mg Magnesium Hydroxide (Milk Of Magnesia 30 Ml Oral.Susp) 30 ml PO DAILY PRN PRN Reason: Constipation Metoprolol Succinate (Metoprolol Succinate Er 12.5 Mg Halftab.Er.24h) 12.5 mg PO DAILY [facility]; Protocol Last Admin: 06/17/23 08:03 Dose: 12.5 mg Multivitamins/Vitamin C (Multivitamin Tablet) 1 tab PO DAILY [facility] Last Admin: 06/17/23 08:04 Dose: 1 tab Ondansetron HCl (Ondansetron Hcl 4 Mg/2 Ml Vial) 4 mg IVPUSH Q8H PRN PRN Reason: Nausea and Vomiting Prednisone (Prednisone 5 Mg Tablet) 5 mg PO DAILY [facility] Last Admin: 06/17/23 08:03 Dose: 5 mg Sodium Chloride (0.9 % Sodium Chloride Flush 3 Ml Syringe) 3 ml IVFLUSH QSHIFT [facility] Last Admin: 06/17/23 08:12 Dose: 3 ml Home Medications Medication Instructions Recorded Confirmed Last Taken Type multivitamin 1 tab PO DAILY 03/10/21 06/16/23 08/17/21 08:00 History hydroxychloroquine 200 mg tablet 200 mg PO BID 09/21/22 06/16/23 Unknown History acetaminophen 325 mg capsule 650 mg PO QID PRN Pain 01/20/23 06/16/23 Unknown History (Tylenol) prednisone 5 mg tablet 5 mg PO DAILY 01/20/23 06/16/23 Unknown History metoprolol succinate 25 mg 12.5 mg PO DAILY 03/22/23 06/16/23 Unknown History tablet,extended release 24 hr Physical Exam Vital Signs and Narrative: Vital Signs: Last Vital Signs Temp 97.9 F 06/17/23 07:42 Pulse 75 06/17/23 07:42 Resp 18 06/17/23 07:42 BP 146/66 H 06/17/23 07:42 Pulse Ox 96 06/17/23 07:42 O2 Del Method Nasal Cannula 06/17/23 07:42 O2 Flow Rate 3 06/17/23 07:42 BMI result Body Mass Index 30.0 Const: Other: Constitutional: Alert, in no distress, overweight. Mental Status: Oriented to person, place and time. Eyes: Pupils are equal, round and reactive to light. Ear, Nose and Throat: Oropharynx clear, mucous membranes moist. Ears and nose without eformities. Trachea midline. Respiratory: Clear to auscultation. No wheezing, rales or rhonchi. Cardiovascular: S1 S2 regular. No murmurs, rubs or gallops. Gastrointestinal: Abdomen soft, non-tender, non-distended. Normal bowel sounds.? Neurologic: Cranial nerves II-XII grossly intact. No focal neurological defic its. Moves all extremities spontaneously.? Skin: No rashes, noticeable lups rash on arm, chest area, not face Musculoskeletal: No cyanosis or clubbing. Psychiatric: Normal mood and affect? Results Labs 06/17/23 06:22 06/17/23 06:22 Imaging Radiologist's Impressions: Impressions Chest X-Ray 06/16/23 13:58 IMPRESSION: No acute cardiopulmonary disease or significant change since 08/20/2022. Abdomen/Pelvis CT 06/16/23 18:47 IMPRESSION: 1. Findings most consistent with acute perforated appendicitis with significant periappendiceal fat stranding and free fluid. 2. Anterior abdominal wall hernias containing loops of small and large bowel. There is luminal narrowing of the small bowel loops in the midline hernia, however there is contrast passing into distal loops of small bowel; some degree of partial small bowel obstruction transitioning at the level of the hernia is suspected. The small bowel dilatation throughout the abdomen could be explained by a combination of reactive ileus in the setting of perforated appendicitis and partial small bowel obstruction from the hernia. 3. New severe compression deformity at L5 with 0.6 cm of retropulsion into the spinal canal. New moderate to severe compression deformity at L4. Correlation with an MRI of the lumbar spine could be obtained as clinically indicated for evaluation of spinal cord signal abnormalities. 4. There are 2 cystic-appearing lesions in the posterior surface of the pancreatic body, new compared to 2018. These are indeterminate and could represent side branch IPMNs. Recommend further evaluation with an MR of the abdomen with and without intravenous contrast, pancreatic mass protocol. 5. Multiple bilateral breast nodules with a few small calcifications. If the patient is due, correlation with mammograms is advised. 6. Bronchiectasis in the lung bases suggesting some degree of pulmonary fibrosis. Platelike opacities are likely subsegmental atelectasis/scarring. This critical result was discussed with Dr Salas at 06/16/2023 7:12 PM and it was ascertained that the content and urgency of the report was understood at the time of direct communication. 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 She presented with 2 to 3 days of abdominal pain, nausea vomitting and loose stool and found to have perferoated appendicitis and underwent urgent surgery, POD 1 today. She doing well, pain is controlled, she is tolerating regular diet and looking forward to going home tomorrow ruptured apendicitis--s/p open apendectomy, further management by surgery, contine flagyl and cefazolin Chronic HFpEF--no exacerbation, continue Lasix Cutaneous Lupus, continue Hydroxychloroquine and Prednisone HTN--continue Losartan and Metoprolol will follow Time Spent With Patient Time: Total time managing care of this patient today ____ minutes.
--- NOTE | 2023-06-17 13:03 | HO.POSTANES ---
Post Anesthesia Evaluation Post Anesthesia Evaluation Date of Service: 06/17/23 Vital Signs: Vital Signs Temp Pulse Resp BP Pulse Ox O2 Del Method O2 Flow Rate 06/17/23 07:42 97.9 F 75 18 146/66 H 96 Nasal Cannula 3 06/17/23 03:25 98 F 75 17 134/63 94 Nasal Cannula 3 Anesthesia: General Endotracheal-GETA Mental Status: Awake Pain Control: Satisfactory Nausea/Vomiting: None Hydration: Adequate Anesthesia-Related Issues: No Anes. Related Issues
[2023-06-17] MEDS: ondansetron HCL 4 MG/2 ML VIAL IVPUSH (19:46)
[2023-06-17] MEDS: Betamethasone Dip Aug 0.05% Cr 15 GM TUBE 1 APPL TOPICAL (20:45)
[2023-06-17] MEDS: Acetaminophen 325 MG TABLET 650 MG PO (23:28)
[2023-06-17] MEDS: Magnesium Hydrox/Alum Hydrox 30 ML ORAL.SUSP PO (23:29)
[2023-06-18] MEDS: Dextrose 5 % and 0.45 % NaCl 1,000 ML 100 ML IVCONT ×2 (00:52→11:20)
[2023-06-18 07:32] VITALS: BP 148/88; PULSE 76; RESP 16; TEMP 36.5; O2SAT 92
[2023-06-18] MEDS: Multivitamin TABLET 1 TAB PO (07:50)
[2023-06-18] MEDS: metroNIDAZOLE/NS 500 MG/100 ML PIGGYBACK 100 MG IV ×2 (07:50→19:48)
[2023-06-18] MEDS: Metoprolol Succinate ER 12.5 MG HALFTAB.ER.24H PO (07:50)
[2023-06-18] MEDS: Losartan Potassium 25 MG TABLET PO (07:51)
[2023-06-18] MEDS: Furosemide 40 MG TABLET PO (07:51)
[2023-06-18] MEDS: Hydroxychloroquine Sulfate 200 MG TABLET PO ×2 (07:51→19:48)
[2023-06-18] MEDS: predniSONE 5 MG TABLET PO (07:52)
[2023-06-18] MEDS: Betamethasone Dip Aug 0.05% Cr 15 GM TUBE 1 APPL TOPICAL ×2 (07:52→19:48)
--- NOTE | 2023-06-18 08:15 | HO.PM.IMPN ---
Subjective Subjective Date of Service: 06/18/23 Interval History: has no pain, no fever or chils, tolerating diet and wants to go home Physical Exam Vital Signs: Vital Signs: Last Vital Signs Temp 97.7 F 06/18/23 07:32 Pulse 76 06/18/23 07:32 Resp 16 06/18/23 07:32 BP 148/88 H 06/18/23 07:32 Pulse Ox 92 06/18/23 07:32 O2 Del Method Room Air 06/18/23 07:32 O2 Flow Rate 3 06/17/23 07:42 BMI result Body Mass Index 30.0 Const: Other: Constitutional: Alert, in no distress, overweight. Mental Status: Oriented to person, place and time. Eyes: Pupils are equal, round and reactive to light. Ear, Nose and Throat: Oropharynx clear, mucous membranes moist. Ears and nose without eformities. Trachea midline. Respiratory: Clear to auscultation. No wheezing, rales or rhonchi. Cardiovascular: S1 S2 regular. No murmurs, rubs or gallops. Gastrointestinal: Abdomen soft, non-tender, non-distended. Normal bowel sounds.? Neurologic: Cranial nerves II-XII grossly intact. No focal neurological deficits. Moves all extremities spontaneously.? Skin: No rashes, noticeable lups rash on arm, chest area, not face Musculoskeletal: No cyanosis or clubbing. Psychiatric: Normal mood and affect? Objective Data Active Medications Acetaminophen (Acetaminophen 325 Mg Tablet) 650 mg PO Q6H PRN PRN Reason: Pain, Mild (Pain Scale 1-3) Last Admin: 06/17/23 23:28 Dose: 650 mg Documented By: MANJEET Al Hydroxide/Mg Hydroxide (Magnesium Hydrox/Alum Hydrox 30 Ml Oral.Susp) 30 ml PO Q4H PRN PRN Reason: Heartburn/Nausea Last Admin: 06/17/23 23:29 Dose: 30 ml Documented By: MANJEET Betamethasone Dipropion Augmented (Betamethasone Dip Aug 0.05% Cr 15 Gm Tube) 1 appl TOPICAL BID [facility] Last Admin: 06/18/23 07:52 Dose: 1 appl Documented By: COTEMA Docusate Sodium (Docusate Sodium 100 Mg Capsule) 100 mg PO DAILY PRN PRN Reason: Constipation Fentanyl (Fentanyl Citrate/Pf 100 Mcg/2 Ml Vial) 25 mcg IVPUSH Q5M PRN; Protocol PRN Reason: Pain, Moderate(Pain Scale 4-6) Furosemide (Furosemide 40 Mg Tablet) 40 mg PO DAILY [facility]; Protocol Last Admin: 06/18/23 07:51 Dose: 40 mg Documented By: COTEMA Hydromorphone HCl (Hydromorphone Hcl 1 Mg/Ml Syringe) 0.5 mg IVPUSH Q4H PRN; Protocol PRN Reason: Pain, Severe (Pain Scale 7-10) Hydroxychloroquine Sulfate (Hydroxychloroquine Sulfate 200 Mg Tablet) 200 mg PO BID [facility] Last Admin: 06/18/23 07:51 Dose: 200 mg Documented By: COTEMA Dextrose/Sodium Chloride (D51/2ns) 1,000 mls @ 100 mls/hr IVCONT .Q10H [facility] Last Admin: 06/18/23 04:50 Dose: Not Given Documented By: LYSZ Non-Admin Reason: IV Running Cefazolin Sodium/Dextrose (Ancef) 2 gm in 50 mls @ 100 mls/hr IV Q12H [facility] Last Infusion: 06/17/23 23:01 Dose: 0 mls/hr Documented By: MANJEET Metronidazole (Flagyl) 500 mg in 100 mls @ 100 mls/hr IV Q12H [facility] Last Admin: 06/18/23 07:50 Dose: 100 mls/hr Documented By: COTEMA Losartan Potassium (Losartan Potassium 25 Mg Tablet) 25 mg PO DAILY [facility]; Protocol Last Admin: 06/18/23 07:51 Dose: 25 mg Documented By: COTEMA Magnesium Hydroxide (Milk Of Magnesia 30 Ml Oral.Susp) 30 ml PO DAILY PRN PRN Reason: Constipation Metoprolol Succinate (Metoprolol Succinate Er 12.5 Mg Halftab.Er.24h) 12.5 mg PO DAILY [facility]; Protocol Last Admin: 06/18/23 07:50 Dose: 12.5 mg Documented By: COTEMA Multivitamins/Vitamin C (Multivitamin Tablet) 1 tab PO DAILY [facility] Last Admin: 06/18/23 07:50 Dose: 1 tab Documented By: COTEMA Ondansetron HCl (Ondansetron Hcl 4 Mg/2 Ml Vial) 4 mg IVPUSH Q8H PRN PRN Reason: Nausea and Vomiting Last Admin: 06/17/23 19:46 Dose: 4 mg Documented By: MANJEET Prednisone (Prednisone 5 Mg Tablet) 5 mg PO DAILY [facility] Last Admin: 06/18/23 07:52 Dose: 5 mg Documented By: MICHAEL Sodium Chloride (0.9 % Sodium Chloride Flush 3 Ml Syringe) 3 ml IVFLUSH QSHIFT [facility] Last Admin: 06/18/23 07:05 Dose: Not Given Documented By: MICHAEL Non-Admin Reason: IV Running Labs 06/17/23 06:22 06/17/23 06:22 Microbiology Microbiology Results: Microbiology 06/16/23 14:10 Blood Culture - Preliminary Blood - Venous No growth after 24 hours. 06/16/23 14:10 Blood Culture - Preliminary Blood - Venous No growth after 24 hours. 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 She presented with 2 to 3 days of abdominal pain, nausea vomitting and loose stool and found to have perferoated appendicitis and underwent urgent surgery, POD 1 today. She doing well, pain is controlled, she is tolerating regular diet and looking forward to going home tomorrow ruptured apendicitis--s/p open apendectomy, further management by surgery, contine flagyl and cefazolin, PO option of discharge (Flagyl and Keflex) Chronic HFpEF--no exacerbation, continue Lasix Cutaneous Lupus, continue Hydroxychloroquine and Prednisone HTN--continue Losartan and Metoprolol [facility] for ddischarge Time Spent With Patient Time: Total time managing care of this patient today ____ minutes. Quality Stroke Does the patient have a stroke diagnosis?: No VTE Prior VTE?: No VTE Risk Level:: Surgical - low VTE Device Contraindication: Treatment Not Indicated VTE Drug Contraindication: Treatment Not Indicated
--- NOTE | 2023-06-18 11:13 | PM.PNGS ---
Subjective Subjective Date of Service: 06/18/23 Interval history: says she feels well good oral intake passing flatus Physical Exam Vital Signs: Vital Signs: Last Vital Signs Temp 97.7 F 06/18/23 07:32 Pulse 76 06/18/23 07:32 Resp 16 06/18/23 07:32 BP 148/88 H 06/18/23 07:32 Pulse Ox 92 06/18/23 07:32 O2 Del Method Room Air 06/18/23 07:32 O2 Flow Rate 3 06/17/23 07:42 BMI result Body Mass Index 30.0 Const: Other: ambulating General: comfortable and no acute distress Resp: Effort & Inspection: normal respiratory effort Cardio: Rate: regular rate GI: Other: incision clean and dry, with packings, Palpation (GI): Soft to palpation, not firm and no guarding Objective Data Active Medications Acetaminophen (Acetaminophen 325 Mg Tablet) 650 mg PO Q6H PRN PRN Reason: Pain, Mild (Pain Scale 1-3) Last Admin: 06/17/23 23:28 Dose: 650 mg Documented By: MANJEET Al Hydroxide/Mg Hydroxide (Magnesium Hydrox/Alum Hydrox 30 Ml Oral.Susp) 30 ml PO Q4H PRN PRN Reason: Heartburn/Nausea Last Admin: 06/17/23 23:29 Dose: 30 ml Documented By: MANJEET Betamethasone Dipropion Augmented (Betamethasone Dip Aug 0.05% Cr 15 Gm Tube) 1 appl TOPICAL BID [facility] [place] Last Admin: 06/18/23 07:52 Dose: 1 appl Documented By: COTEMA Docusate Sodium (Docusate Sodium 100 Mg Capsule) 100 mg PO DAILY PRN PRN Reason: Constipation Fentanyl (Fentanyl Citrate/Pf 100 Mcg/2 Ml Vial) 25 mcg IVPUSH Q5M PRN; Protocol PRN Reason: Pain, Moderate(Pain Scale 4-6) Furosemide (Furosemide 40 Mg Tablet) 40 mg PO DAILY [facility] [place]; Protocol Last Admin: 06/18/23 07:51 Dose: 40 mg Documented By: COTEMA Hydromorphone HCl (Hydromorphone Hcl 1 Mg/Ml Syringe) 0.5 mg IVPUSH Q4H PRN; Protocol PRN Reason: Pain, Severe (Pain Scale 7-10) Hydroxychloroquine Sulfate (Hydroxychloroquine Sulfate 200 Mg Tablet) 200 mg PO BID [facility] [place] Last Admin: 06/18/23 07:51 Dose: 200 mg Documented By: COTEMA Dextrose/Sodium Chloride (D51/2ns) 1,000 mls @ 100 mls/hr IVCONT .Q10H [facility] Last Admin: 06/18/23 04:50 Dose: Not Given Documented By: MANJEET Non-Admin Reason: IV Running Cefazolin Sodium/Dextrose (Ancef) 2 gm in 50 mls @ 100 mls/hr IV Q12H [facility] [place] Last Infusion: 06/17/23 23:01 Dose: 0 mls/hr Documented By: MANJEET Metronidazole (Flagyl) 500 mg in 100 mls @ 100 mls/hr IV Q12H [facility] [place] Last Infusion: 06/18/23 09:20 Dose: 0 mls/hr Documented By: COTEMA Losartan Potassium (Losartan Potassium 25 Mg Tablet) 25 mg PO DAILY [facility] [place]; Protocol Last Admin: 06/18/23 07:51 Dose: 25 mg Documented By: EMYEMA Magnesium Hydroxide (Milk Of Magnesia 30 Ml Oral.Susp) 30 ml PO DAILY PRN PRN Reason: Constipation Metoprolol Succinate (Metoprolol Succinate Er 12.5 Mg Halftab.Er.24h) 12.5 mg PO DAILY [facility] [place]; Protocol Last Admin: 06/18/23 07:50 Dose: 12.5 mg Documented By: MICHAEL Multivitamins/Vitamin C (Multivitamin Tablet) 1 tab PO DAILY [facility] [place] Last Admin: 06/18/23 07:50 Dose: 1 tab Documented By: MICHAEL Ondansetron HCl (Ondansetron Hcl 4 Mg/2 Ml Vial) 4 mg IVPUSH Q8H PRN PRN Reason: Nausea and Vomiting Last Admin: 06/17/23 19:46 Dose: 4 mg Documented By: MANJEET Prednisone (Prednisone 5 Mg Tablet) 5 mg PO DAILY [facility] [place] Last Admin: 06/18/23 07:52 Dose: 5 mg Documented By: EMYEMA Sodium Chloride (0.9 % Sodium Chloride Flush 3 Ml Syringe) 3 ml IVFLUSH QSHIFT [facility] [place] Last Admin: 06/18/23 07:05 Dose: Not Given Documented By: MICHAEL Non-Admin Reason: IV Running Labs 06/17/23 06:22 08/11/23 06:22 Microbiology Microbiology Results: Microbiology 06/16/23 Unknown Gram Stain - Final Abscess Appendiceal Routine Culture - Preliminary Gram negative martha 06/16/23 14:10 Blood Culture - Preliminary Blood - Venous No growth after 24 hours. 06/16/23 14:10 Blood Culture - Preliminary Blood - Venous No growth after 24 hours. Procedures Date of Service Date of Service: 06/18/23 Progress Note: A&P Assessment and plan (1) Acute perforated appendicitis: Status: Acute Assessment and Plan: status post open appendectomy looks well I removed some of her packings dressings changed doing well overall possible discharge home tomorrow family in the room Time Spent With Patient Time: Total time managing care of this patient today ____ minutes. Quality Stroke Does the patient have a stroke diagnosis?: No VTE Prior VTE?: No VTE Risk Level:: Surgical - low VTE Device Contraindication: Treatment Not Indicated VTE Drug Contraindication: Treatment Not Indicated
[2023-06-18] MEDS: ceFAZolin Sodium/Dextrose,Iso 2 GM/50 ML PIGGYBACK IV ×2 (11:21→22:58)
[2023-06-18] MEDS: Magnesium Hydrox/Alum Hydrox 30 ML ORAL.SUSP PO ×2 (16:52→23:52)
[2023-06-18 19:57] VITALS: BP 148/76; PULSE 69; RESP 14; TEMP 36.5; O2SAT 93
[2023-06-18 21:00] VITALS: O2SAT 93
[2023-06-18 23:03] VITALS: BP 156/66; PULSE 68; RESP 14; TEMP 36.3; O2SAT 95
--- NOTE | 2023-06-19 06:38 | PC.NURSE ---
At 0425 patient had what appears to be 26 beats of v-tech. Leads checked and all intact, patient is asymptomatic.VS stable. Md Rahman notified, images of the monitor recording as well as the rhythm strip sent to her also. Stat labs ordered, awaiting results.
[2023-06-19 06:42] LABS: Anion Gap 10 (12-20); Blood Urea Nitrogen 9 mg/dL (9-16); Carbon Dioxide 27 mmol/L (22-29); Chloride 102 mmol/L (96-108); Creatinine Clr Calc Pharmacy 64.9; Estimated Glomerular Filt Rate > 60; Glucose Random 87 mg/dL (60-115); Magnesium 2.1 mg/dL (1.6-2.6); Potassium 3.8 mmol/L (3.3-5.1); Sodium 135 mmol/L (135-145)
[2023-06-19] MEDS: Betamethasone Dip Aug 0.05% Cr 15 GM TUBE 1 APPL TOPICAL (07:36)
[2023-06-19] MEDS: Hydroxychloroquine Sulfate 200 MG TABLET PO (07:36)
[2023-06-19] MEDS: Losartan Potassium 25 MG TABLET PO (07:36)
[2023-06-19] MEDS: Metoprolol Succinate ER 12.5 MG HALFTAB.ER.24H PO (07:36)
[2023-06-19] MEDS: predniSONE 5 MG TABLET PO (07:36)
[2023-06-19] MEDS: Furosemide 40 MG TABLET PO (07:36)
[2023-06-19] MEDS: Multivitamin TABLET 1 TAB PO (07:36)
[2023-06-19] MEDS: metroNIDAZOLE/NS 500 MG/100 ML PIGGYBACK 100 MG IV (07:36)
[2023-06-19] MEDS: 0.9 % Sodium Chloride Flush 3 ML SYRINGE IVFLUSH (07:37)
[2023-06-19 08:00] VITALS: BP 138/72; PULSE 77; RESP 16; TEMP 36.4; O2SAT 92
--- NOTE | 2023-06-19 10:46 | W.MHC.F2F ---
Service Date Service Date: 06/19/23 Encounter Date of encounter: 06/19/23 Reasons for Services Signs and symptoms assessed: underwent open appendectomy has incision on right side of the abdomen, with pain and tenderness Reason for detention: wound care Reason for occupational therapy: home safety and mobility Homebound: Leaving the home is medically contraindicated at this time without the asist of a device and/or another person due th the listed conditions above and below. Reason homebound: unsteady gait / fall risk Homebound supporting statement: as above Certification: Based on the above findings, I certify that this patient is confined to the home and needs intermittent detention care, physical therapy and/or speech therapy, or continues to need occupational therapy. The patient is under my care, and I have initiated the establishment of the plan of care. The patient will be followed by a physician who will periodically review the plan of care. Time Spent With Patient Time: Total time managing care of this patient today ____ minutes.
--- NOTE | 2023-06-19 10:47 | P.PNGS_ITS ---
Subjective Subjective Date of Service: 06/19/23 Interval history: still with pain on incision but better tolerating diet wants to go home has BMs Physical Exam Vital Signs: Vital Signs: Last Vital Signs Temp 97.6 F 06/19/23 08:00 Pulse 77 06/19/23 08:00 Resp 16 06/19/23 08:00 BP 138/72 06/19/23 08:00 Pulse Ox 92 06/19/23 08:00 O2 Del Method Room Air 06/19/23 08:00 O2 Flow Rate 3 06/17/23 07:42 BMI result Body Mass Index 30.0 Const: Other: frail looking General: comfortable and no acute distress Cardio: Rate: regular rate GI: Other: incision clean and dry, dressings changed, packings removed Palpation (GI): Soft to palpation, not firm and no guarding Objective Data Active Medications Acetaminophen (Acetaminophen 325 Mg Tablet) 650 mg PO Q6H PRN PRN Reason: Pain, Mild (Pain Scale 1-3) Last Admin: 06/17/23 23:28 Dose: 650 mg Documented By: MANJEET Al Hydroxide/Mg Hydroxide (Magnesium Hydrox/Alum Hydrox 30 Ml Oral.Susp) 30 ml PO Q4H PRN PRN Reason: Heartburn/Nausea Last Admin: 06/18/23 23:52 Dose: 30 ml Documented By: MANJEET Betamethasone Dipropion Augmented (Betamethasone Dip Aug 0.05% Cr 15 Gm Tube) 1 appl TOPICAL BID [facility] Last Admin: 06/19/23 07:36 Dose: 1 appl Documented By: CADENCE Docusate Sodium (Docusate Sodium 100 Mg Capsule) 100 mg PO DAILY PRN PRN Reason: Constipation Fentanyl (Fentanyl Citrate/Pf 100 Mcg/2 Ml Vial) 25 mcg IVPUSH Q5M PRN; Protocol PRN Reason: Pain, Moderate(Pain Scale 4-6) Furosemide (Furosemide 40 Mg Tablet) 40 mg PO DAILY [facility]; Protocol Last Admin: 06/19/23 07:36 Dose: 40 mg Documented By: CADENCE Hydromorphone HCl (Hydromorphone Hcl 1 Mg/Ml Syringe) 0.5 mg IVPUSH Q4H PRN; Protocol PRN Reason: Pain, Severe (Pain Scale 7-10) Hydroxychloroquine Sulfate (Hydroxychloroquine Sulfate 200 Mg Tablet) 200 mg PO BID [facility] Last Admin: 06/19/23 07:36 Dose: 200 mg Documented By: CADENCE Cefazolin Sodium/Dextrose (Ancef) 2 gm in 50 mls @ 100 mls/hr IV Q12H [facility] Last Infusion: 06/18/23 23:29 Dose: 0 mls/hr Documented By: MANJEET Metronidazole (Flagyl) 500 mg in 100 mls @ 100 mls/hr IV Q12H [facility] Last Infusion: 06/19/23 08:56 Dose: 0 mls/hr Documented By: CADENCE Losartan Potassium (Losartan Potassium 25 Mg Tablet) 25 mg PO DAILY [facility]; Protocol Last Admin: 06/19/23 07:36 Dose: 25 mg Documented By: CADENCE Magnesium Hydroxide (Milk Of Magnesia 30 Ml Oral.Susp) 30 ml PO DAILY PRN PRN Reason: Constipation Metoprolol Succinate (Metoprolol Succinate Er 12.5 Mg Halftab.Er.24h) 12.5 mg PO DAILY [facility]; Protocol Last Admin: 06/19/23 07:36 Dose: 12.5 mg Documented By: CADENCE Multivitamins/Vitamin C (Multivitamin Tablet) 1 tab PO DAILY [facility] Last Admin: 06/19/23 07:36 Dose: 1 tab Documented By: CADENCE Ondansetron HCl (Ondansetron Hcl 4 Mg/2 Ml Vial) 4 mg IVPUSH Q8H PRN PRN Reason: Nausea and Vomiting Last Admin: 06/17/23 19:46 Dose: 4 mg Documented By: MANJEET Prednisone (Prednisone 5 Mg Tablet) 5 mg PO DAILY [facility] Last Admin: 06/19/23 07:36 Dose: 5 mg Documented By: CADENCE Sodium Chloride (0.9 % Sodium Chloride Flush 3 Ml Syringe) 3 ml IVFLUSH QSHIFT [facility] Last Admin: 06/19/23 07:37 Dose: 3 ml Documented By: CADENCE Labs 06/17/23 06:22 06/19/23 06:20 Labs: Laboratory Results - last 24 hr 06/19/23 06:20 Anion Gap 10 L Estim Creat Clear Calc 64.9 Estimated GFR > 60 Random Glucose 87 Calcium 9.0 Magnesium 2.1 Microbiology Microbiology Results: Microbiology 06/16/23 Unknown Gram Stain - Final Abscess Appendiceal Routine Culture - Final Escherichia coli 06/16/23 14:10 Blood Culture - Preliminary Blood - Venous No growth after 48 hours. 06/16/23 14:10 Blood Culture - Preliminary Blood - Venous No growth after 48 hours. Procedures Date of Service Date of Service: 06/19/23 Progress Note: A&P Assessment and plan (1) Acute perforated appendicitis: Status: Acute Assessment and Plan: status post open appendectomy dressings changed packings removed she says she is comfortable and wants to go home today okay to DC home, discussed with adult protective caseworker instructions given, follow-up with Dr. Echevarria Time Spent With Patient Time: Total time managing care of this patient today ____ minutes. Quality Stroke Does the patient have a stroke diagnosis?: No VTE Prior VTE?: No VTE Risk Level:: Surgical - low VTE Device Contraindication: Treatment Not Indicated VTE Drug Contraindication: Treatment Not Indicated
--- NOTE | 2023-06-19 10:56 | MHC.CM.PN ---
Addendum entered by Tali Gonzales 06/20/23 10:18: [facility] SENT TO [facility] Addendum entered by Tali Gonzales 06/19/23 11:08: CM MET WITH PT AND DAUGHTER AT BEDSIDE PT REPORTS BEING EXCITED ABOUT DC PTS DAUGHTER REPORTS SHE USED TO HAVE [facility] AND [facility] HOW TO GET IT AGAIN PT REPORTS SHE GOT IT THROUGH [facility] AND DOES NOT WANT TO WORK WITH THEM AGAIN SHE SAYS THE [facility] DID NOT WORK IN MOST ROOMS OF HER HOME PTS DAUGHTER REPORTS SHE IS UNSURE THAT THIS IS ACCURATE PTS DAUGHTER REPORTS SHE WOULD BE INTERESTED IN SPEAKING WITH A REP FROM [facility] TO DETERMINE WHAT MAY BE AVAILABLE TO HER MOTHER AND WHAT THE COST WOULD BE TASK SENT TO [facility] REP THEY ARE ALSO AWARE [facility] WILL BE STARTING AND PTS DAUGHTER, KVNG, WILL ALSO ASK THEM ABOUT [facility] OR [facility] PTS FAMILY WILL TRANSPORT Original Note: PT CLEARED TO DC HOME TODAY WITH [facility] UPDATED, FACE TO FACE SENT, DCS STILL PENDING FAMILY TO TRANSPORT
--- NOTE | 2023-06-20 08:57 | PM.DS ---
DS: Providers Provider Date of Service: 06/16/23 Date of admission: 06/16/23 21:55 Date of discharge: 06/19/23 Primary care physician: Leo Dewitt MD Admitting clinician: Eris Echevarria Attending physician on admission: Eris Echevarria Consults: 06/16/23 19:55 Consult to Hospitalist Routine Comment: Consulting Provider: Hospitalist Reason For Exam: Perforated appendicitis. Multiple medical comorbi Attending physician on discharge: Eris Echevarria Discharging clinician: Eris Echevarria DS: Diagnosis Discharge Diagnosis (1) Acute perforated appendicitis: Status: Acute DS: Summary Hospital Course Hospital Course: Patient is an 83-year-old female presents with acute perforated appendicitis. Patient was admitted, underwent general restorative measures, had uneventful open appendectomy on 06/16/2023. Patient's postoperative course has been exemplary. She has been afebrile stay device signs. She is tolerating her diet. Standing with minimal assistance. Abdomen soft. Wound is clean dry and intact. Current plan is to discharge patient home will follow-up me in a proximal weeks time. She has been given local instructions as well as analgesics. Time Spent with Patient Time attestation: Total time managing care of this patient today ____ minutes. Discharge coordination time: Less than 30 minutes Quality: Safe Use of Opioids Does Pt have an Active Cancer Diagnosis on the Problem List?: No Quality: Stroke Does the patient have a stroke diagnosis?: No Physical Exam Vital Signs: Vital Signs: Last Vital Signs Temp 97.6 F 06/19/23 08:00 Pulse 77 06/19/23 08:00 Resp 16 06/19/23 08:00 BP 138/72 06/19/23 08:00 Pulse Ox 92 06/19/23 08:00 O2 Del Method Room Air 06/19/23 08:00 O2 Flow Rate 3 06/17/23 07:42 BMI result Body Mass Index 30.0 Chest: Other: Chest sounds bilaterally, HS 1 in 2 GI: Other: Abdomen soft, benign. Wound clean dry and intact. DS: Data Data Completed and Pending Pending studies at discharge: Pending at discharge 06/16/23 22:55 Surgical [PTH] Routine Labs on day of discharge: Preliminary micro results at discharge 06/16/23 14:10 Blood Culture - Preliminary Blood - Venous No growth after 48 hours. 06/16/23 14:10 Blood Culture - Preliminary Blood - Venous No growth after 48 hours. Discharge Plan Discharge Anticipated Discharge Date/Time: 06/19/23 13:52 Patient Disposition: Home Health Service Discharge Diagnosis: acute perforated appendicitis Referrals: [facility] [Outside] - 1 Day Eris Echevarria MD [Physician] - 1 Week Leo Dewitt MD [Primary Care Provider] - 1 Week Discharge Medications: New docusate sodium [Colace] 100 mg capsule 100 mg PO BID PRN (Reason: constipation) Qty: 30 0RF oxycodone 5 mg tablet 5 mg PO Q4H PRN (Reason: pain (scale score 7-10)) Qty: 24 0RF Rx Instructions: Partial Fill upon patient request. levofloxacin 500 mg tablet 500 mg PO Q24H Qty: 7 0RF metronidazole 500 mg tablet 500 mg PO Q8H Qty: 21 0RF Continued furosemide 40 mg tablet 40 mg PO DAILY Qty: 90 1RF clobetasol 0.05 % ointment 1 appl topical BID losartan 25 mg tablet 25 mg PO DAILY Qty: 90 0RF prednisone 5 mg tablet 5 mg PO DAILY acetaminophen [Tylenol] 325 mg capsule 650 mg PO QID PRN (Reason: Pain) hydroxychloroquine 200 mg tablet 200 mg PO BID multivitamin Tablet 1 tab PO DAILY metoprolol succinate 25 mg tablet extended release 24 hr 12.5 mg PO DAILY Rx Instructions: TAKE HALF OF A TABLET DAILY Discharge Orders: Discharge Order (Routine); Ordered 06/19/23 Ordered By: Matt Simpson Diet: Advance to usual diet Activity on Discharge: No heavy lifting Stand Alone Forms: Patient Portal Discharge page Activity Restrictions/Additional Instructions: Apply an ice pack for short intervals (20 minutes on, followed by at least 20 minutes off) for the first 2 days. Do not apply heat. Do not use creams, lotions, or topical antibiotics. These can cause infection or allergic reaction. Ok to shower 48 hours after your surgery. Replace dressing as needed. You have steri strips (small white cloth strips) covering your incision- these will fall off ~1 week. Follow up in office with Dr. Echevarria in 1 week. ([phone]) No heavy lifting (>10lbs) or strenuous activity! Call Your Doctor If: -Your temperature exceeds 101.5? F -You experience excessive pain or swelling -You have an unexpected reaction to medication -You have excessive bleeding -You experience continued vomiting/nausea -Your incision begins to separate -Your incision shows signs of infection such as increased redness, swelling, excessive pain, drainage (light blood or clear fluid is normal) or heat Care Plan Goals: Return to baseline health and resume normal activities following recovery period. Health Concerns: acute perforated appendicitis Lupus CHF Plan of Treatment: s/p open appendectomy IV abx transitioned to PO abx F/u in office in 1 week Assessment: Doing well post op Discharge Date/Time: 06/19/23 11:37
== END 2023-06-19 11:37 | disposition home health service (06) | DRG 336 ==
LOC: HO.ED 19:47 → HO.EDOVER 22:08 → HO.S3 23:40
PROVIDERS: Internal Medicine; Physician Assistant; Physician Assistant Medical; Admitting Provider Surgery; Emergency Provider Emergency Medicine Emergency Medical Services; PCP Internal Medicine; Visit Provider Surgery
PROC: (CPT 44950; principal; 2023-06-16 22:00)
DX: K35.32 Acute appendicitis with perforation, localized peritonitis, and gangrene, without abscess (principal); I50.32 Chronic diastolic (congestive) heart failure; K43.0 Incisional hernia with obstruction, without gangrene; I11.0 Hypertensive heart disease with heart failure; L93.1 Subacute cutaneous lupus erythematosus; K66.0 Peritoneal adhesions (postprocedural) (postinfection); Z20.822 Contact with and (suspected) exposure to COVID-19; Z79.52 Long term (current) use of systemic steroids; Z79.899 Other long term (current) drug therapy
CPT/HCPCS: 0241U; 36415; 71046; 74177; 80048; 80076; 83605; 83690; 83735; 83880; 84484; 85025; 85027; 85610; 85730; 86850; 86900; 86901; 87040; 87070; 87077; 87186; 87205; 88304; 93005; 99285; C1758; J0131; J0690; J1100; J1956; J2250; J2405; J2795; J3010; J3475; Q9967

== ENCOUNTER → 2023-06-16 13:35 | Outpatient (BNV) | payer MEDICARE, OTHER, SELFPAY | PROVIDERS: Emergency Provider Emergency Medicine Emergency Medical Services; PCP Internal Medicine; Visit Provider Internal Medicine Cardiovascular Disease | DX: R94.31 Abnormal electrocardiogram [ECG] [EKG] (principal) | CPT/HCPCS: 93010 ==

== ENCOUNTER → 2023-06-16 14:09 | Outpatient (BNV) | payer MEDICARE, OTHER, SELFPAY | PROVIDERS: Emergency Provider Emergency Medicine Emergency Medical Services; PCP Internal Medicine; Visit Provider Surgery | DX: K35.32 Acute appendicitis with perforation, localized peritonitis, and gangrene, without abscess (principal) | CPT/HCPCS: 44960; 99024; 99223; 99285; G0180 ==

== ENCOUNTER → 2023-06-16 21:55 | Outpatient (BNV) | payer MEDICARE, OTHER, SELFPAY | PROVIDERS: Admitting Provider Surgery; Emergency Provider Emergency Medicine Emergency Medical Services; PCP Internal Medicine; Visit Provider Internal Medicine | DX: I10 Essential (primary) hypertension (principal); L93.2 Other local lupus erythematosus; K35.32 Acute appendicitis with perforation, localized peritonitis, and gangrene, without abscess | CPT/HCPCS: 99223; 99232 ==

== ENCOUNTER 2023-06-23 08:16 | Outpatient (AMB) | payer MEDICARE, OTHER, SELFPAY ==
[2023-06-23 08:33] VITALS: BP 164/70; PULSE 79
--- NOTE | 2023-06-23 08:33 | MHC.OFFVIS ---
Intake Vital Signs 06/23/23 08:33 Weight 192 lb BP 164/70 H Blood Pressure Location Rt brachial Position Sitting Pulse 79 Intake Visit Reasons: s/p open appendectomy Intake Note: Patient here s/p appendectomy. Visiting nurse changed dressing a couple days ago. Advised patient incision sites look fine and healing well. Denies pain, redness, itch. Patient never took percocet rx. Taking tylenol as needed. [facility] Required: No Accompanied by: Self / Same As Patient Allergies amoxicillin [AMOXICILLIN] Allergy (Unknown, Verified 06/23/23 08:35) UNKNOWN HPI HPI Comments History of Present Illness Details Patient presents with her daughter status post open appendectomy for perforated appendicitis. Patient is doing very well. She is tolerating a diet. Having normal bowel habits. She has minimal incisional discomfort. She is increasing her activity level. [facility] Medical History (Updated 06/17/23 @ 12:18 by Viktor Dodge MD) Acute diverticulitis Cellulitis of left leg CHF (congestive heart failure) Chronic heart failure with preserved ejection fraction (HFpEF) Chronic lower back pain Essential hypertension Fever HTN (hypertension) LBBB (left bundle branch block) Leg skin lesion, left Leg wound, left Pneumonia Sepsis TIA (transient ischemic attack) Surgical History (Updated 06/23/23 @ 09:11 by Eris Echevarria MD) H/O hernia repair History of appendectomy (06/16/23) History of cataract surgery Family History Father No problems noted. Mother No problems noted. Social History Household Members: None Housing: Apartment Do you presently have visiting nurse or other home services: No Alcohol intake: current Alcohol intake frequency: a few times a week Patient Tobacco Use Status: Never used Tobacco e-Cigarette/Vaping Use: Never Used Second Hand Smoke Exposure: No Advance Directives Date on File: 08/18/21 service: No Current occupational status: retired Current occupational exposures/hazards: No Cognitive needs: No Hearing needs: Yes Vision needs: No Physical Exam Vital Signs: Last Vital Signs Pulse 79 06/23/23 08:33 BP 164/70 H 06/23/23 08:33 GI Other: Abdomen soft. Wound clean dry and intact. Assessment & Plan Assessment & Plan (1) Acute perforated appendicitis: Code(s): K35.32 - Acute appendicitis with perforation, localized peritonitis, and gangrene, without abscess Plan Patient and daughter have been given local instructions and activity instructions and will follow-up p.r.n.. Coding Level of Care Code Global (75541) Diagnoses Acute perforated appendicitis K35.32
== END 2023-06-23 09:10 | disposition home or self-care (01) ==
PROVIDERS: PCP Internal Medicine; Visit Provider Surgery
DX: K35.32 Acute appendicitis with perforation, localized peritonitis, and gangrene, without abscess (principal)
CPT/HCPCS: 99024

== ENCOUNTER → 2023-06-23 08:16 | Outpatient (BNVA) | payer MEDICARE, OTHER, SELFPAY | PROVIDERS: PCP Internal Medicine; Visit Provider Surgery ==

== ENCOUNTER 2023-06-28 07:36 | Outpatient (AMB) | payer MEDICARE, OTHER, SELFPAY ==
[2023-06-28 07:51] VITALS: BP 140/62; PULSE 67; TEMP 36; O2SAT 98; BMI 33.0
--- NOTE | 2023-06-28 07:51 | MHC.OFFVIS ---
Intake Vital Signs 06/28/23 07:51 Height 5 ft 3 in Weight 186 lb 8.177 oz BMI 33.0 BP 140/62 H Blood Pressure Location Rt brachial Position Sitting Pulse 67 Pulse Source Pulse Oximeter Temp 96.8 F Temp Source Skin Pulse Oximetry (%) 98 Oxygen Delivery Method Room Air Intake Visit Reasons: SLE Intake Note: Here for new patient visit for SLE. 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: No Accompanied by: Self / Same As Patient Allergies amoxicillin [AMOXICILLIN] Allergy (Unknown, Verified 06/28/23 07:56) UNKNOWN Medication List - Last Reconciled 06/28/23 by Love Avitia MD acetaminophen (Tylenol) 650 mg PO QID PRN clobetasol 0.05% 1 appl topical BID furosemide 40 mg PO DAILY hydroxychloroquine 200 mg PO BID levofloxacin 500 mg PO Q24H losartan 25 mg PO DAILY metoprolol succinate ER 12.5 mg PO DAILY metronidazole 500 mg PO Q8H multivitamin 1 tab PO DAILY prednisone mg PO HPI HPI Comments History of Present Illness Details This is an 83-year-old female who 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 She had been on hydroxychloroquine for the last 5 years and intermittently gets prednisone. She stated that she started having a flare of discoid lupus over the last 6-9 months. She was started on prednisone g daily. Prednisone dose was recently increased to 10 mg daily. Of note patient was admitted to the hospital about 2 weeks ago for a perforated appendicitis, she had open appendectomy. Patient has healed well. The stitches are out. Currently she is complaining of diffuse skin rashes on her back, chest, arms. The rashes are not itchy or painful. Patient avoids the sun. [facility] Medical History (Updated 06/28/23 @ 08:42 by Love Avitia MD) Acute diverticulitis Cellulitis of left leg CHF (congestive heart failure) Chronic heart failure with preserved ejection fraction (HFpEF) Chronic lower back pain Essential hypertension Fever HTN (hypertension) LBBB (left bundle branch block) Leg skin lesion, left Leg wound, left Pneumonia Sepsis TIA (transient ischemic attack) Surgical History H/O hernia repair History of appendectomy (06/16/23) History of cataract surgery Family History Father No problems noted. Mother No problems noted. Social History Household Members: None Housing: Apartment Do you presently have visiting nurse or other home services: No Alcohol intake: current Alcohol intake frequency: a few times a week Patient Tobacco Use Status: Never used Tobacco e-Cigarette/Vaping Use: Never Used Second Hand Smoke Exposure: No Advance Directives Date on File: 08/18/21 service: No Current occupational status: retired Current occupational exposures/hazards: No Cognitive needs: No Hearing needs: Yes Vision needs: No Review of Systems Musc Denies arthralgias Skin/Breast Reports photosensitivity and Reports rash Physical Exam Vital Signs: Last Vital Signs Temp 96.8 F 06/28/23 07:51 Pulse 67 06/28/23 07:51 BP 140/62 H 06/28/23 07:51 Pulse Ox 98 06/28/23 07:51 Oxygen Delivery Method Room Air 06/28/23 07:51 BMI result Body Mass Index 33.0 Const General: cooperative, healthy appearing and comfortable Nutritional Appearance: obese Orientation/consciousness: patient oriented x3 Limitations: no limitations HEENT Head: Yes normocephalic and Yes atraumatic Mouth: moist mucous membranes Resp Effort & Inspection: normal respiratory effort and able to speak in complete sentences GI Other: Right lower quadrant appendectomy scar with no signs of infection Inspection: No distended Palpation (GI): Soft to palpation and nontender Skin Other: Diffuse discoid lesions on back, upper chest, arms, proximal thighs Neuro General: patient oriented x3 Extrem Other: No active synovitis Normal nailfold capillaroscopy Assessment & Plan Assessment & Plan (1) Cutaneous lupus erythematosus: Comment: dx around 2018 HCQ throughout Code(s): L93.2 - Other local lupus erythematosus Plan: This is an 83-year-old female with a past medical history of discoid lupus who presents for evaluation of discoid lupus. Diagnosed around 5 years ago. Has been on hydroxychloroquine consistently. She has been having a flare of discoid lupus for the last 6-9 months. Patient is currently on 10 mg of prednisone as well. Will need to add DMARD Discussed risks and benefits of methotrexate. Patient agreed to proceed. Start methotrexate 15 mg once weekly for 2 weeks then 20 mg once weekly. Plus folic acid 1 mg daily. Continue hydroxychloroquine 200 mg Twice daily Continue prednisone 10 mg daily. Plan to taper next visit Patient's appendectomy wound has healed well Labs before next visit in 2 months Plan I spent 46 minutes reviewing patient's chart, evaluating patient, ordering diagnostic workup, counseling patient and documenting in the chart Orders: Orders Comprehensive Met. Panel Today M32.9 - Systemic lupus erythematosus, unspecified C Reactive Protein Today M32.9 - Systemic lupus erythematosus, unspecified Complete Blood Count Auto Diff Today M32.9 - Systemic lupus erythematosus, unspecified Erythrocyte Sedimentation Rate Today M32.9 - Systemic lupus erythematosus, unspecified Immunofixation Pnl, Serum Today M32.9 - Systemic lupus erythematosus, unspecified Protein Electrophoresis, Serum Today M32.9 - Systemic lupus erythematosus, unspecified Hepatitis A,B,C Profile Today Z11.59 - Encounter for screening for other viral diseases Thiopurine Methyltransferase Today Z51.81 - Encounter for therapeutic drug level monitoring, Z79.624 - jail (current) use of inhibitors of nucleotide synthesis Protein Creatinine Ratio, Ur Today M32.9 - Systemic lupus erythematosus, unspecified Complement C3 Today M32.9 - Systemic lupus erythematosus, unspecified Complement C4 Today M32.9 - Systemic lupus erythematosus, unspecified Anti DNA DS Antibody Today M32.9 - Systemic lupus erythematosus, unspecified Anti Extractable Nuclear Ag Today M32.9 - Systemic lupus erythematosus, unspecified Sjogren's Antibodies Today M32.9 - Systemic lupus erythematosus, unspecified T Spot TB Today Z11.7 - Encounter for testing for latent tuberculosis infection UA w Microscopic Today M32.9 - Systemic lupus erythematosus, unspecified Medications: New methotrexate sodium take 6 tabs by mouth once weekly for 2 weeks then 8 tabs once weekly 64 tabs 0RF folic acid 1 mg PO DAILY 90 tabs 0RF Coding Level of Care Code New Pt Level 4 (75053) Diagnoses Cutaneous lupus erythematosus L93.2
== END 2023-06-28 08:28 | disposition home or self-care (01) ==
PROVIDERS: PCP Internal Medicine; Visit Provider Student in an Organized Health Care Education/Training Program
DX: L93.2 Other local lupus erythematosus (principal)
CPT/HCPCS: 99204

== ENCOUNTER → 2023-06-28 07:36 | Outpatient (BNVA) | payer MEDICARE, OTHER, SELFPAY | PROVIDERS: PCP Internal Medicine; Visit Provider Student in an Organized Health Care Education/Training Program | DX: L93.2 Other local lupus erythematosus (principal) | CPT/HCPCS: 99202 ==

== ENCOUNTER 2023-08-04 09:37 | Outpatient (AMB) | payer MEDICARE, OTHER, SELFPAY ==
--- NOTE | 2023-08-04 09:47 | A.OFFPC_ITS ---
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: Not Required per policy Accompanied by: Self / Same As Patient Allergies amoxicillin [AMOXICILLIN] Allergy (Unknown, Verified 08/04/23 10:49) UNKNOWN Medication List - Last Reconciled 08/04/23 by Leo Dewitt MD acetaminophen (Tylenol) 650 mg PO QID PRN clobetasol 0.05% 1 appl topical BID folic acid 1 mg PO DAILY furosemide 40 mg PO DAILY hydroxychloroquine 200 mg PO BID levofloxacin 500 mg PO Q24H losartan 25 mg PO DAILY methotrexate sodium take 6 tabs by mouth once weekly for 2 weeks then 8 tabs once weekly metoprolol succinate ER 12.5 mg PO DAILY metronidazole 500 mg PO Q8H multivitamin 1 tab PO DAILY prednisone mg PO Tobacco use date assessed: 08/04/23 Fall risk assessment: No Falls in past year Last assessed Fall Risk: 08/04/23 Dental Screening Dental Screen Date: 08/04/23 Did you have a dental visit in the last 12 months?: Yes Did you have a dental problem in the last 6 months where you did not have access to dental care?: No Was dental information given to patient?: Patient has dentist HPI 3mth f/u HPI Details 83-year-old female presents to the offic e to discuss her chronic medical conditions. Since the last office visit, patient was admitted to [facility] for a perforated appendix. She underwent an appendectomy and recovered with no complications. Subsequently she saw her new senior accountant analyst who has started her on methotrexate. Patient is confused about the instructions on the new medications and has not taken any medication. Patient was also quite agitated and depressed on a personal matter. [facility] Medical History (Updated 06/28/23 @ 08:42 by Love Avitia MD) Leg wound, left Sepsis Cellulitis of left leg Fever Pneumonia Chronic lower back pain Leg skin lesion, left Chronic heart failure with preserved ejection fraction (HFpEF) Essential hypertension LBBB (left bundle branch block) Acute diverticulitis TIA (transient ischemic attack) CHF (congestive heart failure) HTN (hypertension) Surgical History History of appendectomy (06/16/23) History of cataract surgery H/O hernia repair Family History Father No problems noted. Mother No problems noted. Social History Household Members: None Housing: Apartment Do you presently have visiting nurse or other home services: No Alcohol intake: current Alcohol intake frequency: a few times a week Patient Tobacco Use Status: Never used Tobacco e-Cigarette/Vaping Use: Never Used Second Hand Smoke Exposure: No Advance Directives Date on File: 08/18/21 service: No Current occupational status: retired Current occupational exposures/hazards: No Cognitive needs: No Hearing needs: Yes Vision needs: No Questionnaire Thrive Questionnaire Date Thrive assessed: 06/17/23 VERONICA-7 AMB Questionnaire VERONICA-7 Date VERONICA - 7 assessed: 12/02/22 Source: Developed by Drs. Chad Gramajo, Amalia Brewer, Duane Small and colleagues, with an educational edward from [employer]. Physical exam (Primary Care) Vital Signs: Last Vital Signs Pulse 59 08/04/23 09:48 BP 132/72 08/04/23 09:48 Pulse Ox 98 08/04/23 09:48 Oxygen Delivery Method Room Air 08/04/23 09:48 BMI result Body Mass Index 32.6 Tobacco/Smoking Status: Tobacco use Status Tobacco use date assessed 08/04/23 08/04/23 10:07 Patient Tobacco Use Status Never used Tobacco 08/04/23 10:07 e-Cigarette/Vaping Use Never Used 08/04/23 10:07 Thrive Assessment: Date of Thrive Assessment Date Thrive assessed 06/17/23 08/04/23 10:07 Const General: cooperative and healthy appearing Nutritional Appearance: well nourished Orientation/consciousness: patient oriented x3 Limitations: no limitations HENMT Head: Yes normal to inspection Eyes General: appearance normal, both eyes and all related structures Neck Neck: Yes normal visual inspection Chest Chest palpation & inspection: normal palpation of entire chest wall Resp Effort & Inspection: normal respiratory effort Neuro General: patient oriented x3 Assessment and Plan Assessment & Plan (1) Cutaneous lupus erythematosus: Comment: dx around 2018 HCQ throughout Code(s): L93.2 - Other local lupus erythematosus Plan: Patient's hospital visit and her visit to the senior accountant analyst was reviewed. She was instructed to take 15 mg of methotrexate a week for 2 weeks and then increase it to 20 mg. She was also instructed to take folic acid once a day. Coding Level of Care Code Est Pt Level 3 (96872) Diagnoses Cutaneous lupus erythematosus L93.2
[2023-08-04 09:48] VITALS: BP 132/72; PULSE 59; O2SAT 98; BMI 32.6
== END 2023-08-04 11:42 | disposition home or self-care (01) ==
PROVIDERS: PCP Internal Medicine; Visit Provider Internal Medicine
DX: L93.2 Other local lupus erythematosus (principal)
CPT/HCPCS: 99213

== ENCOUNTER 2023-08-30 07:38 | Outpatient (REF) | payer MEDICARE, OTHER, SELFPAY ==
[2023-08-30 13:23] LABS: MANUAL DIFF FLAG NO
[2023-08-30 13:58] LABS: Basophils Percent Auto 0.8 % (0-2); Eosinophils Percent Auto 1.5 % (0-4); Hematocrit 35.5 % (37.0-47.0); Hemoglobin 11.5 g/dl (12.0-16.0); Imm Gran Abs Auto 0.01 X10*3/uL (0.00-0.03); Imm Gran Pct Auto 0.4 % (0.0-0.4); Lymphocytes Percent Auto 36.7 % (20-40); Mean Corpuscular HGB Conc 32.4 g/dl (31.0-35.0); Mean Corpuscular Hemoglobin 29.4 pg (27.0-33.0); Mean Corpuscular Volume 90.8 fL (80.0-98.0); Mean Platelet Volume 9.9 fL (9.4-12.3); Monocytes Absolute Auto 0.4 X10*3/uL (0.1-1.2); Neutrophils Absolute Auto 1.1 x10*3/uL (2.0-8.3); Neutrophils Percent Auto 43.6 % (45-73); Platelet Count 225 X10*3/uL (160-400); Red Blood Count 3.91 X10*6/uL (4.20-5.50); Red Cell Distribution Width 15.3 % (11.0-16.0); White Blood Count 2.6 X10*3/uL (4.8-10.8)
[2023-08-30 14:19] LABS: Appearance Urine Hazy; Color Urine Yellow; Glucose Urine UA Negative (Negative); Leukocyte Esterase Urine Moderate (2+) (Negative); Nitrite Urine Positive (Negative); PH 7.5 (5.0-9.0); Specific Gravity - Urine <= 1.005 (1.005-1.025); UMIC TRIGGER UA YES; Urine Blood Negative (Negative); Urine Ketones Negative (Negative); Urine Protein 30 (1+) mg/dL (Neg-Trace)
[2023-08-30 14:26] LABS: Bacteria Urine 4+ (None Seen); Squamous Epithelial Cell Urine 0-2 /HPF (0-2); WBC Urine >50 /HPF (0-5)
[2023-08-30 14:42] LABS: Creatinine Urine 122.41 mg/dL; Protein/Creatinine Ratio, Ur 0.18 (<0.2); Total Protein Urine Random 22 mg/dL (<12)
[2023-08-30 14:44] LABS: Erythrocyte Sedimentation Rate 10 MM/HR (0-20)
[2023-08-30 14:48] LABS: Alanine Aminotransferase 24 U/L (0-31); Albumin Level 3.8 g/dL (3.5-5.0); Alkaline Phosphatase 69 U/L (39-117); Anion Gap 13 (12-20); Aspartate Amino Transferase 38 U/L (5-31); Bilirubin Total 0.7 mg/dL (0.0-1.0); Blood Urea Nitrogen 16 mg/dL (9-16); Calcium 9.3 mg/dL (8.4-10.2); Carbon Dioxide 28 mmol/L (22-29); Chloride 106 mmol/L (96-108); Estimated Glomerular Filt Rate > 60; Glucose Random 86 mg/dL (60-115); Potassium 4.5 mmol/L (3.3-5.1); Sodium 142 mmol/L (135-145); Total Protein 7.1 g/dL (6.5-8.0)
[2023-08-31 10:02] LABS: HBS Num1 0.17 mIU/mL (0-7.99); HBc Num1 0.17 S/CO (0.00-0.79); HBsAGNum1 0.27 S/CO (0.00-0.99); Hepatitis A Antibody IgM 0.39 Index (0-0.79); Hepatitis B Core Antibody Nonreactive (Nonreactive); Hepatitis B Surface Antigen Negative (Negative); ~HepC Num1 0.08 S/CO (0.00-0.79); ~Hepatitis A Antibody IgM Nonreactive (Nonreactive); ~Hepatitis B Surface Antibody NONREACTIVE (Nonreactive); ~Hepatitis C Antibody Nonreactive (Nonreactive)
[2023-08-31 17:38] LABS: Complement C3 93 mg/dL
[2023-09-01 13:04] LABS: Anti DNA DS Antibody <1 IU/mL; Antibody to SS-A Antigen >8.0 POS AI (<1.0 NEG); Antibody to SS-B Antigen >8.0 POS AI (<1.0 NEG); SM/Ribonucleoprotein Ab <1.0 NEG AI (<1.0 NEG); Smith Protein <1.0 NEG AI (<1.0 NEG)
[2023-09-01 21:19] LABS: TS Negative Control Passed; TS Panel A 0; TS Panel B 0; TS Positive Control Passed; TSpotTB Negative (Negative)
[2023-09-02 11:27] LABS: Prot Elec - Albumin 3.9 g/dL (3.8-4.8); Prot Elec - Alpha1 0.2 g/dL (0.2-0.3); Prot Elec - Alpha2 0.6 g/dL (0.5-0.9); Prot Elec - Beta 1 0.3 g/dL (0.4-0.6); Prot Elec - Beta 2 0.3 g/dL (0.2-0.5); Prot Elec - Gamma 1.5 g/dL (0.8-1.7); Prot Elec - Total Protein 6.8 g/dL (6.1-8.1)
[2023-09-05 13:28] LABS: IgA 132 mg/dL (70-320); IgG 1643 mg/dL (600-1540); IgM 79 mg/dL (50-300)
[2023-09-10 19:03] LABS: TPMT Activity 19
== END 2023-08-30 07:39 | disposition home or self-care (01) ==
LOC: HO.LAB 07:38
PROVIDERS: PCP Internal Medicine; Visit Provider Student in an Organized Health Care Education/Training Program
DX: L93.2 Other local lupus erythematosus (principal); Z51.81 Encounter for therapeutic drug level monitoring; Z79.631 Long term (current) use of antimetabolite agent; Z79.624 Long term (current) use of inhibitors of nucleotide synthesis; Z79.899 Other long term (current) drug therapy; Z11.59 Encounter for screening for other viral diseases; Z11.7 Encounter for testing for latent tuberculosis infection; Z72.89 Other problems related to lifestyle
CPT/HCPCS: 36415; 80053; 81001; 82570; 82784; 84156; 84165; 84433; 85025; 85652; 86140; 86160; 86225; 86235; 86334; 86481; 86704; 86706; 86709; 86803; 87340; 99212

== ENCOUNTER 2023-08-30 07:38 | Outpatient (AMB) | payer MEDICARE, OTHER, SELFPAY ==
--- NOTE | 2023-08-30 08:07 | MHC.OFFVIS ---
Intake Vital Signs 08/30/23 08:08 Height 5 ft 3 in Weight 183 lb 3.266 oz BMI 32.4 BP 142/74 H Blood Pressure Location Rt brachial Position Sitting Pulse 63 Pulse Source Pulse Oximeter Temp 97.4 F Temp Source Skin Pulse Oximetry (%) 96 Intake Visit Reasons: Discoid Intake Note: Pt presents today for follow up and test results. Last seen 06/28/23, labs pending. She states she did not do labs. Continues on plaquenil, prednisone and MTX. Would like to discuss medications. 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 Accompanied by: Self / Same As Patient Allergies amoxicillin [AMOXICILLIN] Allergy (Unknown, Verified 08/30/23 08:17) UNKNOWN Medication List - Last Reconciled 08/30/23 by Love Avitia MD acetaminophen (Tylenol) 650 mg PO QID PRN clobetasol 0.05% 1 appl topical BID folic acid 1 mg PO DAILY furosemide 40 mg PO DAILY hydroxychloroquine 200 mg PO BID losartan 25 mg PO DAILY methotrexate sodium take 6 tabs by mouth once weekly for 2 weeks then 8 tabs once weekly metoprolol succinate ER 12.5 mg PO DAILY metronidazole 500 mg PO Q8H multivitamin 1 tab PO DAILY prednisone 20 mg (2 x 10 mg) PO DAILY HPI HPI Comments History of Present Illness Details 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 Patient did not take methotrexate as prescribed last visit. She was worried about it. Wanted to discuss it again with me before she started. She states that the rashes on her arms, chest and back are worse. She continues to take hydroxychloroquine. She takes prednisone 5 mg daily, I had as patient to take 10 mg daily. She states that has multiple prednisone dosages at home and she is not quite sure how to take it. 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 She had been on hydroxychloroquine for the last 5 years and intermittently gets prednisone. She stated that she started having a flare of discoid lupus over the last 6-9 months. She was started on prednisone g daily. Prednisone dose was recently increased to 10 mg daily. Of note patient was admitted to the hospital about 2 weeks ago for a perforated appendicitis, she had open appendectomy. Patient has healed well. The stitches are out. Currently she is complaining of diffuse skin rashes on her back, chest, arms. The rashes are not itchy or painful. Patient avoids the sun. [facility] Medical History Leg wound, left Sepsis Cellulitis of left leg Fever Pneumonia Chronic lower back pain Leg skin lesion, left Chronic heart failure with preserved ejection fraction (HFpEF) Essential hypertension LBBB (left bundle branch block) Acute diverticulitis TIA (transient ischemic attack) CHF (congestive heart failure) HTN (hypertension) Surgical History History of appendectomy (06/16/23) History of cataract surgery H/O hernia repair Family History Father No problems noted. Mother No problems noted. Social History Household Members: None Housing: Apartment Do you presently have visiting nurse or other home services: No Alcohol intake: current Alcohol intake frequency: a few times a week Patient Tobacco Use Status: Never used Tobacco e-Cigarette/Vaping Use: Never Used Second Hand Smoke Exposure: No Advance Directives Date on File: 08/18/21 service: No Current occupational status: retired Current occupational exposures/hazards: No Cognitive needs: No Hearing needs: Yes Vision needs: No Review of Systems Musc Denies arthralgias Skin/Breast Reports photosensitivity and Reports rash Physical Exam Vital Signs: Last Vital Signs Temp 97.4 F 08/30/23 08:08 Pulse 63 08/30/23 08:08 BP 142/74 H 08/30/23 08:08 Pulse Ox 96 08/30/23 08:08 BMI result Body Mass Index 32.4 Const General: cooperative, healthy appearing and comfortable Nutritional Appearance: obese Orientation/consciousness: patient oriented x3 Limitations: no limitations HEENT Head: Yes normocephalic and Yes atraumatic Resp Effort & Inspection: normal respiratory effort and able to speak in complete sentences Skin Other: Picture 08/30/2023. Subacute cutaneous lupus erythematosus rash on both arms, upper chest and back Neuro General: patient oriented x3 Extrem Other: No active synovitis Normal nailfold capillaroscopy Assessment & Plan Assessment & Plan (1) Cutaneous lupus erythematosus: Comment: dx around 2018 HCQ throughout Code(s): L93.2 - Other local lupus erythematosus Plan: This is an 83-year-old female with a past medical history of discoid lupus who presents for evaluation of discoid lupus. Diagnosed around 2018. Has been on hydroxychloroquine consistently. She has been having a flare of discoid lupus for the last year. Last visit we discussed adding methotrexate. Patient did not start methotrexate as discussed. Her rashes worsening. Today her rash looks more consistent with subacute cutaneous lupus. Today we had a long discussion about methotrexate. Patient agrees to start. 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 Patient states that she follows up regularly with Ophthalmology once yearly since starting hydroxychloroquine. Patient will call her recovery assistant Dr. GARCIA and request they send records to me Plan I spent 36 minutes reviewing patient's chart, evaluating patient, ordering diagnostic workup, counseling patient and documenting in the chart Orders: Orders Complete Blood Count Auto Diff 2 Months L93.2 - Other local lupus erythematosus Comprehensive Met. 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
[2023-08-30 08:08] VITALS: BP 142/74; PULSE 63; TEMP 36.3; O2SAT 96; BMI 32.4
== END 2023-08-30 08:42 | disposition home or self-care (01) ==
PROVIDERS: PCP Internal Medicine; Visit Provider Student in an Organized Health Care Education/Training Program
DX: L93.2 Other local lupus erythematosus (principal); Z79.631 Long term (current) use of antimetabolite agent; Z79.899 Other long term (current) drug therapy
CPT/HCPCS: 99214

== ENCOUNTER 2023-10-17 09:29 | Outpatient (REF) | payer MEDICARE, OTHER, SELFPAY ==
[2023-10-17 09:53] LABS: MANUAL DIFF FLAG NO
[2023-10-17 10:03] LABS: Basophils Percent Auto 0.3 % (0-2); Eosinophils Percent Auto 0.7 % (0-4); Hematocrit 36.2 % (37.0-47.0); Hemoglobin 11.7 g/dl (12.0-16.0); Imm Gran Abs Auto 0.04 X10*3/uL (0.00-0.03); Imm Gran Pct Auto 0.7 % (0.0-0.4); Lymphocytes Absolute Auto 0.8 X10*3/uL (1.2-4.9); Lymphocytes Percent Auto 12.9 % (20-40); Mean Corpuscular HGB Conc 32.3 g/dl (31.0-35.0); Mean Corpuscular Hemoglobin 30.1 pg (27.0-33.0); Mean Corpuscular Volume 93.1 fL (80.0-98.0); Mean Platelet Volume 9.6 fL (9.4-12.3); Monocytes Absolute Auto 0.6 X10*3/uL (0.1-1.2); Monocytes Percent Auto 9.5 % (2-11); Neutrophils Absolute Auto 4.5 x10*3/uL (2.0-8.3); Neutrophils Percent Auto 75.9 % (45-73); Platelet Count 260 X10*3/uL (160-400); Red Blood Count 3.89 X10*6/uL (4.20-5.50); Red Cell Distribution Width 16.5 % (11.0-16.0)
[2023-10-17 10:40] LABS: Erythrocyte Sedimentation Rate 5 MM/HR (0-20)
[2023-10-17 10:46] LABS: Alanine Aminotransferase 17 U/L (0-31); Albumin Level 3.9 g/dL (3.5-5.0); Alkaline Phosphatase 69 U/L (39-117); Anion Gap 14 (12-20); Aspartate Amino Transferase 18 U/L (5-31); Bilirubin Total 0.6 mg/dL (0.0-1.0); Blood Urea Nitrogen 18 mg/dL (9-16); C Reactive Protein < 0.10 mg/dL (< or = 0.50); Calcium 9.3 mg/dL (8.4-10.2); Carbon Dioxide 28 mmol/L (22-29); Chloride 104 mmol/L (96-108); Estimated Glomerular Filt Rate > 60; Glucose Random 82 mg/dL (60-115); Potassium 3.5 mmol/L (3.3-5.1); Sodium 142 mmol/L (135-145); Total Protein 6.9 g/dL (6.5-8.0)
== END 2023-10-17 09:30 | disposition home or self-care (01) ==
LOC: HO.LAB 09:29
PROVIDERS: PCP Internal Medicine; Visit Provider Student in an Organized Health Care Education/Training Program
DX: L93.2 Other local lupus erythematosus (principal); Z79.631 Long term (current) use of antimetabolite agent
CPT/HCPCS: 36415; 80053; 85025; 85652; 86140

== ENCOUNTER 2023-10-28 12:06 | Outpatient (AMB) | payer MEDICARE, OTHER, SELFPAY ==
[2023-10-28 13:19] VITALS: BP 120/70; PULSE 88; TEMP 36.6; O2SAT 98; BMI 33.5
--- NOTE | 2023-10-28 13:19 | AM.OFFWIN_ITS ---
Intake Vital Signs 10/28/23 13:19 Height 5 ft 3 in Weight 189 lb BMI 33.5 BP 120/70 Blood Pressure Location Lt brachial Position Sitting Pulse 88 Pulse Source Pulse Oximeter Temp 97.8 F Temp Source Temporal Artery Scan Pulse Oximetry (%) 98 Oxygen Delivery Method Room Air Intake Visit Reasons: EP, Right wrist cut (pt on blood thinner) Intake Note: pt is here today for rt wrist cut started this morning Patient Tobacco Use Status: Never used Tobacco Allergies amoxicillin [AMOXICILLIN] Allergy (Unknown, Verified 10/28/23 13:58) UNKNOWN Medication List - Last Reconciled 10/28/23 by Leo Dewitt MD acetaminophen (Tylenol) 650 mg PO QID PRN clobetasol 0.05% 1 appl topical BID folic acid 1 mg PO DAILY furosemide 40 mg PO DAILY hydroxychloroquine 200 mg PO BID losartan 25 mg PO DAILY methotrexate sodium 20 mg (8 x 2.5 mg) PO QWEEK metoprolol succinate ER 25 mg PO DAILY metronidazole 500 mg PO Q8H multivitamin 1 tab PO DAILY oxybutynin chloride ER 15 mg PO DAILY prednisone 20 mg (2 x 10 mg) PO DAILY Do you need a note to return to daycare/school/sports/work: No HPI EP, Right wrist cut (pt on blood thinner) HPI Details 83-year-old female presents to the [facility] for visit. Patient was out Dov shopping, when she accidentally hit a shelf at the department store. She is bleeding blood from the right wrist area. [facility] Medical History Leg wound, left Sepsis Cellulitis of left leg Fever Pneumonia Chronic lower back pain Leg skin lesion, left Chronic heart failure with preserved ejection fraction (HFpEF) Essential hypertension LBBB (left bundle branch block) Acute diverticulitis TIA (transient ischemic attack) CHF (congestive heart failure) HTN (hypertension) Surgical History History of appendectomy (06/16/23) History of cataract surgery H/O hernia repair Family History Father No problems noted. Mother No problems noted. Social History Household Members: None Housing: Apartment Do you presently have visiting nurse or other home services: No Alcohol intake: current Alcohol intake frequency: a few times a week Patient Tobacco Use Status: Never used Tobacco e-Cigarette/Vaping Use: Never Used Second Hand Smoke Exposure: No Advance Directives Date on File: 08/18/21 service: No Current occupational status: retired Current occupational exposures/hazards: No Cognitive needs: No Hearing needs: Yes Vision needs: No Physical Exam Vital Signs: Last Vital Signs Temp 97.8 F 10/28/23 13:19 Pulse 88 10/28/23 13:19 BP 120/70 10/28/23 13:19 Pulse Ox 98 10/28/23 13:19 Oxygen Delivery Method Room Air 10/28/23 13:19 BMI result Body Mass Index 33.5 Skin Other: Right wrist: Superficial laceration. Minimal bleeding Assessment & Plan Assessment & Plan (1) Wound, open, wrist: Code(s): S61.509A - Unspecified open wound of unspecified wrist, initial encounter Plan: Wound approximated with steri strips. Tetanus booster provided. Coding Level of Care Code Est Pt Level 3 (13751) Diagnoses Wound, open, wrist S61.509A
== END 2023-10-28 14:26 | disposition home or self-care (01) ==
PROVIDERS: PCP Internal Medicine; Visit Provider Internal Medicine
DX: S61.509A Unspecified open wound of unspecified wrist, initial encounter (principal); Z23 Encounter for immunization
CPT/HCPCS: 90471; 90715; 99213

== ENCOUNTER 2023-11-02 08:03 | Outpatient (AMB) | payer MEDICARE, OTHER, SELFPAY ==
--- NOTE | 2023-11-02 08:07 | A.OFFVIS_ITS ---
Intake Vital Signs 11/02/23 08:08 Height 5 ft 8 in Weight 179 lb 0.246 oz BMI 27.2 BP 144/62 H Blood Pressure Location Lt brachial Position Sitting Pulse 72 Pulse Source Pulse Oximeter Temp 97 F Temp Source Skin Pulse Oximetry (%) 98 Oxygen Delivery Method Room Air Intake Visit Reasons: cutaneous lupus Intake Note: Pt last seen 08/30/23 presents today for follow up and test results. Daughter reports high dose of prednisone causing anxiety. Currently on Prednisone 10 mg QD. Process Supervisor Required: No Accompanied by: Daughter Allergies amoxicillin [AMOXICILLIN] Allergy (Unknown, Verified 11/02/23 08:08) UNKNOWN Medication List - Last Reconciled 11/02/23 by Love Avitia MD acetaminophen (Tylenol) 650 mg PO QID PRN clobetasol 0.05% 1 appl topical BID folic acid 1 mg PO DAILY furosemide 40 mg PO DAILY hydroxychloroquine 200 mg PO BID losartan 25 mg PO DAILY methotrexate sodium 20 mg (8 x 2.5 mg) PO QWEEK metoprolol succinate ER 25 mg PO DAILY metronidazole 500 mg PO Q8H multivitamin 1 tab PO DAILY oxybutynin chloride ER 15 mg PO DAILY prednisone 20 mg (2 x 10 mg) PO DAILY HPI HPI Comments History of Present Illness Details 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 Has been on methotrexate for the last 2 months now. Well tolerated. Her skin has cleared up. She remains on hydroxychloroquine 200 mg Twice daily and prednisone 10 mg daily. She has been having more frequent skin bruising recently. 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 She had been on hydroxychloroquine for the last 5 years and intermittently gets prednisone. She stated that she started having a flare of discoid lupus over the last 6-9 months. She was started on prednisone g daily. Prednisone dose was recently increased to 10 mg daily. Of note patient was admitted to the hospital about 2 weeks ago for a perforated appendicitis, she had open appendectomy. Patient has healed well. The stitches are out. Currently she is complaining of diffuse skin rashes on her back, chest, arms. The rashes are not itchy or painful. Patient avoids the sun. [facility] Medical History Leg wound, left Sepsis Cellulitis of left leg Fever Pneumonia Chronic lower back pain Leg skin lesion, left Chronic heart failure with preserved ejection fraction (HFpEF) Essential hypertension LBBB (left bundle branch block) Acute diverticulitis TIA (transient ischemic attack) CHF (congestive heart failure) HTN (hypertension) Surgical History History of appendectomy (06/16/23) History of cataract surgery H/O hernia repair Family History Father No problems noted. Mother No problems noted. Social History Household Members: None Housing: Apartment Do you presently have visiting nurse or other home services: No Alcohol intake: current Alcohol intake frequency: a few times a month Patient Tobacco Use Status: Never used Tobacco e-Cigarette/Vaping Use: Never Used Second Hand Smoke Exposure: No Advance Directives Date on File: 08/18/21 service: No Current occupational status: retired Current occupational exposures/hazards: No Cognitive needs: No Hearing needs: Yes Vision needs: No Review of Systems Musc Denies arthralgias Skin/Breast Denies rash Physical Exam Vital Signs: Last Vital Signs Temp 97 F 11/02/23 08:08 Pulse 72 11/02/23 08:08 BP 144/62 H 11/02/23 08:08 Pulse Ox 98 11/02/23 08:08 Oxygen Delivery Method Room Air 11/02/23 08:08 BMI result Body Mass Index 27.2 Const General: cooperative, healthy appearing and comfortable Nutritional Appearance: obese Orientation/consciousness: patient oriented x3 Limitations: no limitations HEENT Head: Yes normocephalic and Yes atraumatic Resp Effort & Inspection: normal respiratory effort and able to speak in complete sentences Skin Other: Her skin essentially cleared up compared to last visit Neuro General: patient oriented x3 Extrem Other: No active synovitis Normal nailfold capillaroscopy Assessment & Plan Assessment & Plan (1) Cutaneous lupus erythematosus: Comment: dx around 2018 HCQ throughout PDN throughout Code(s): L93.2 - Other local lupus erythematosus Plan: 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 Has been on methotrexate for the last 2 months and essentially her skin cleared up. Continue methotrexate 20 mg weekly plus hydroxychloroquine 200 mg Twice daily. Continue folic acid 1 mg daily Reduce prednisone to 7.5 mg daily for 1 month then remain on 5 mg daily until next visit Labs before next visit in 3 month (2) shelter methotrexate user: Code(s): Z79.631 - shelter (current) use of antimetabolite agent Plan: Monitor safety labs (3) Long-term use of hydroxychloroquine: Code(s): Z79.899 - Other fdc (current) drug therapy Plan: Discussed risk of retinopathy with hydroxychloroquine. Patient states that she follows up regularly with Ophthalmology once yearly since starting hydroxychloroquine. Patient will call her reel repairer Dr. GARCIA and request they send records to me (4) Immunization counseling: Code(s): Z71.85 - Encounter for immunization safety counseling Plan: Patient stated that she got both COVID booster and flu vaccine for this seen Plan I spent 26 minutes reviewing patient's chart, evaluating patient, ordering diagnostic workup, counseling patient and documenting in the chart Orders: Orders Comprehensive Met. Panel 3 Months Z79.631 - emt intermediate (current) use of antimetabolite agent C Reactive Protein 3 Months Z79.631 - shelter (current) use of antimetabolite agent Erythrocyte Sedimentation Rate 3 Months Z79.631 - emt intermediate (current) use of antimetabolite agent Complete Blood Count Auto Diff 3 Months Z79.631 - shelter (current) use of antimetabolite agent Medications: New prednisone Take 3 tablets once daily for 1 month then remain on 2 tabs daily 210 tabs 0RF Refilled methotrexate sodium 20 mg (8 x 2.5 mg) PO QWEEK 32 tabs 2RF hydroxychloroquine 200 mg PO BID 180 tabs 0RF folic acid 1 mg PO DAILY 90 tabs 1RF Discontinued prednisone Discontinued Reason: Doctor's Order 20 mg (2 x 10 mg) PO DAILY 30 tabs 1RF Coding Level of Care Code Est Pt Level 4 (02769) Diagnoses Cutaneous lupus erythematosus L93.2 emt intermediate methotrexate user Z79.631 Long-term use of hydroxychloroquine Z79.899 Immunization counseling Z71.85
[2023-11-02 08:08] VITALS: BP 144/62; PULSE 72; TEMP 36.1; O2SAT 98; BMI 27.2
== END 2023-11-02 08:38 | disposition home or self-care (01) ==
PROVIDERS: PCP Internal Medicine; Visit Provider Student in an Organized Health Care Education/Training Program
DX: L93.2 Other local lupus erythematosus (principal); Z79.631 Long term (current) use of antimetabolite agent; Z79.899 Other long term (current) drug therapy; Z71.85 Encounter for immunization safety counseling
CPT/HCPCS: 99214

== ENCOUNTER → 2023-11-02 08:03 | Outpatient (BNVA) | payer MEDICARE, OTHER, SELFPAY | PROVIDERS: PCP Internal Medicine; Visit Provider Student in an Organized Health Care Education/Training Program | DX: L93.2 Other local lupus erythematosus (principal); Z79.631 Long term (current) use of antimetabolite agent; Z79.899 Other long term (current) drug therapy; Z71.85 Encounter for immunization safety counseling | CPT/HCPCS: 99212 ==

== ENCOUNTER 2023-11-16 07:58 | Outpatient (AMB) | payer MEDICARE, OTHER, SELFPAY ==
--- NOTE | 2023-11-16 08:03 | MHC.OFFVIS ---
Intake Vital Signs 11/16/23 08:05 Height 5 ft 3 in Weight 179 lb 3.773 oz BMI 31.7 BP 124/62 Blood Pressure Location Rt brachial Position Sitting Pulse 62 Pulse Source Pulse Oximeter Temp 96.6 F L Temp Source Skin Pulse Oximetry (%) 94 Oxygen Delivery Method Room Air Intake Visit Reasons: Methotrexate side effects Intake Note: Pt seen today for mtx concerns ? Does it make skin less thick. Reports banging arm and skin breaks easily. If continuing mtx she will need a refill Vice President Education Required: No Accompanied by: Self / Same As Patient Allergies amoxicillin [AMOXICILLIN] Allergy (Unknown, Verified 11/16/23 08:08) UNKNOWN Medication List - Last Reconciled 11/16/23 by Love Avitia MD acetaminophen (Tylenol) 650 mg PO QID PRN clobetasol 0.05% 1 appl topical BID folic acid 1 mg PO DAILY furosemide 40 mg PO DAILY hydroxychloroquine 200 mg PO BID losartan 25 mg PO DAILY methotrexate sodium 20 mg (8 x 2.5 mg) PO QWEEK metoprolol succinate ER 25 mg PO DAILY metronidazole 500 mg PO Q8H multivitamin 1 tab PO DAILY oxybutynin chloride ER 15 mg PO DAILY prednisone Take 3 tablets once daily for 1 month then remain on 2 tabs daily HPI HPI Comments History of Present Illness Details 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 She is here to discuss medications. She is worried about medication side effects. She mentions that her skin bruises easily. She had not had any recurrence of lupus skin lesions. She does not believe she has any fatigue, hair loss, mouth ulcers. 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 She had been on hydroxychloroquine for the last 5 years and intermittently gets prednisone. She stated that she started having a flare of discoid lupus over the last 6-9 months. She was started on prednisone g daily. Prednisone dose was recently increased to 10 mg daily. Of note patient was admitted to the hospital about 2 weeks ago for a perforated appendicitis, she had open appendectomy. Patient has healed well. The stitches are out. Currently she is complaining of diffuse skin rashes on her back, chest, arms. The rashes are not itchy or painful. Patient avoids the sun. [facility] Medical History Leg wound, left Sepsis Cellulitis of left leg Fever Pneumonia Chronic lower back pain Leg skin lesion, left Chronic heart failure with preserved ejection fraction (HFpEF) Essential hypertension LBBB (left bundle branch block) Acute diverticulitis TIA (transient ischemic attack) CHF (congestive heart failure) HTN (hypertension) Surgical History History of appendectomy (06/16/23) History of cataract surgery H/O hernia repair Family History Father No problems noted. Mother No problems noted. Social History Household Members: None Housing: Apartment Do you presently have visiting nurse or other home services: No Alcohol intake: current Alcohol intake frequency: a few times a month Patient Tobacco Use Status: Never used Tobacco e-Cigarette/Vaping Use: Never Used Second Hand Smoke Exposure: No Advance Directives Date on File: 08/18/21 service: No Current occupational status: retired Current occupational exposures/hazards: No Cognitive needs: No Hearing needs: Yes Vision needs: No Review of Systems Musc Denies arthralgias Skin/Breast Denies rash and Reports unusual bruising Physical Exam Vital Signs: Last Vital Signs Temp 96.6 F L 11/16/23 08:05 Pulse 62 11/16/23 08:05 BP 124/62 11/16/23 08:05 Pulse Ox 94 11/16/23 08:05 Oxygen Delivery Method Room Air 11/16/23 08:05 BMI result Body Mass Index 31.7 Const General: cooperative, healthy appearing and comfortable Nutritional Appearance: obese Orientation/consciousness: patient oriented x3 Limitations: no limitations HEENT Head: Yes normocephalic and Yes atraumatic Resp Effort & Inspection: normal respiratory effort and able to speak in complete sentences Neuro General: patient oriented x3 Extrem Other: No active synovitis Normal nailfold capillaroscopy Assessment & Plan Assessment & Plan (1) Cutaneous lupus erythematosus: Comment: dx around 2018 HCQ throughout PDN throughout flare 2022 MTX 08/2023 very effective Code(s): L93.2 - Other local lupus erythematosus Plan: 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 On methotrexate 20 mg weekly. Her skin essentially cleared up promptly after methotrexate was started. Today we had a long discussion about methotrexate and its side effects. It does not seem that patient had any symptomatic side effects related to methotrexate. Given patient's worry and very good control of her cutaneous lupus. Will reduce methotrexate to 15 mg weekly. Continue prednisone 7.5 mg daily for 2 more weeks then remain on 5 mg daily Labs before next visit in 10 weeks (2) senior living methotrexate user: Code(s): Z79.631 - senior living (current) use of antimetabolite agent Plan: Monitor safety labs (3) Long-term use of hydroxychloroquine: Code(s): Z79.899 - Other custodial (current) drug therapy Plan: Discussed risk of retinopathy with hydroxychloroquine. Patient states that she follows up regularly with Ophthalmology once yearly since starting hydroxychloroquine. Patient will call her catheter builder Dr. GARCIA and request they send records to me (4) Immunization counseling: Code(s): Z71.85 - Encounter for immunization safety counseling Plan: Patient stated that she got both COVID booster and flu vaccine for this seen Plan I spent 26 minutes reviewing patient's chart, evaluating patient, ordering diagnostic workup, counseling patient and documenting in the chart Medications: Changed From methotrexate sodium 20 mg (8 x 2.5 mg) PO QWEEK 96 tabs 0RF To methotrexate sodium 15 mg (6 x 2.5 mg) PO QWEEK 72 tabs 0RF Coding Level of Care Code Est Pt Level 4 (95417) Diagnoses Cutaneous lupus erythematosus L93.2 senior living methotrexate user Z79.631 Long-term use of hydroxychloroquine Z79.899 Immunization counseling Z71.85
[2023-11-16 08:05] VITALS: BP 124/62; PULSE 62; TEMP 35.9; O2SAT 94; BMI 31.7
== END 2023-11-16 08:35 | disposition home or self-care (01) ==
PROVIDERS: PCP Internal Medicine; Visit Provider Student in an Organized Health Care Education/Training Program
DX: L93.2 Other local lupus erythematosus (principal); Z79.631 Long term (current) use of antimetabolite agent; Z79.899 Other long term (current) drug therapy; Z71.85 Encounter for immunization safety counseling
CPT/HCPCS: 99214

== ENCOUNTER → 2023-11-16 07:58 | Outpatient (BNVA) | payer MEDICARE, OTHER, SELFPAY | PROVIDERS: PCP Internal Medicine; Visit Provider Student in an Organized Health Care Education/Training Program | DX: L93.2 Other local lupus erythematosus (principal); Z79.631 Long term (current) use of antimetabolite agent; Z71.85 Encounter for immunization safety counseling; Z79.899 Other long term (current) drug therapy | CPT/HCPCS: 99212 ==

== ENCOUNTER 2023-11-24 10:30 | Outpatient (AMB) | payer MEDICARE, OTHER, SELFPAY ==
--- NOTE | 2023-11-24 10:40 | MHC.PC.OV ---
Vital Signs 11/24/23 10:42 Height 5 ft 3 in Weight 179 lb 2 oz BMI 31.7 BP 110/70 Blood Pressure Location Lt brachial Position Sitting Pulse 59 Pulse Source Pulse Oximeter Pulse Oximetry (%) 91 L Oxygen Delivery Method Room Air Intake Visit Reasons: discuss medication Intake Note: Patient is here to follow up on medication review. Rn Case Management Required: No Dry Cleaning Counter Clerk: Not Required per policy Accompanied by: Self / Same As Patient Allergies amoxicillin [AMOXICILLIN] Allergy (Unknown, Verified 12/04/23 10:25) UNKNOWN Medication List - Last Reconciled 12/04/23 by Leo Dewitt MD acetaminophen (Tylenol) 650 mg PO QID PRN folic acid 1 mg PO DAILY furosemide 40 mg PO DAILY hydroxychloroquine 200 mg PO BID losartan 25 mg PO DAILY methotrexate sodium 15 mg (6 x 2.5 mg) PO QWEEK metoprolol succinate ER 25 mg PO DAILY multivitamin 1 tab PO DAILY oxybutynin chloride ER 15 mg PO DAILY prednisone Take 3 tablets once daily for 1 month then remain on 2 tabs daily Tobacco use date assessed: 11/24/23 Fall risk assessment: No Falls in past year Last assessed Fall Risk: 11/24/23 Dental Screening Dental Screen Date: 11/24/23 Did you have a dental visit in the last 12 months?: No Did you have a dental problem in the last 6 months where you did not have access to dental care?: No Was dental information given to patient?: No (dentures) HPI discuss medication HPI Details 83-year-old female presents to the office to discuss her chronic medical conditions. Patient continues to be active and able to enjoy her daily life. Continues to drive and do all activities of daily living. Compliant with all medications. [facility] Medical History (Updated 12/04/23 @ 10:30 by Leo Dewitt MD) Chronic lower back pain Chronic heart failure with preserved ejection fraction (HFpEF) Essential hypertension LBBB (left bundle branch block) Acute diverticulitis TIA (transient ischemic attack) HTN (hypertension) Surgical History History of appendectomy (06/16/23) History of cataract surgery H/O hernia repair Family History Father No problems noted. Mother No problems noted. Social History Household Members: None Housing: Apartment Do you presently have visiting nurse or other home services: No Alcohol intake: current Alcohol intake frequency: a few times a month Patient Tobacco Use Status: Never used Tobacco e-Cigarette/Vaping Use: Never Used Second Hand Smoke Exposure: No Advance Directives Date on File: 08/18/21 service: No Current occupational status: retired Current occupational exposures/hazards: No Cognitive needs: No Hearing needs: Yes Vision needs: No Questionnaire PHQ-9 Over the last 2 weeks, how often have you been bothered by any of the following problems? 1. Little interest or pleasure in doing things: not at all 2. Feeling down, depressed, or hopeless: not at all 3. Trouble falling or staying asleep, or sleeping too much: not at all 4. Feeling tired or having little energy: not at all 5. Poor appetite or overeating: not at all 6. Feeling bad about yourself - or that you are a failure or have let yourself or your family down: not at all 7. Trouble concentrating on things, such as reading the newspaper or watching television: not at all 8. Moving or speaking so slowly that other people could have noticed. Or the opposite - being so fidgety or restless that you have been moving around a lot more than usual: not at all 9. Thoughts that you would be better off or of hurting yourself in some way: not at all Total score: 0 Depression Screening Interpretation: Negative Depression Screening Done: Yes Source: Developed by Drs. Chad Gramajo, Amalia Brewer, Duane Small and colleagues, with an educational edward from [employer]. Thrive Questionnaire Date Thrive assessed: 11/24/23 I am a: Patient What is your living situation today?: I have a steady place to live Within the past 12 months, did the food you bought not last and you didn't have the money to get more?: Never true Within the past 12 months, did you worry whether your food would run out before you got money to buy more?: Never true Do you have trouble paying for medicines?: No Do you have trouble getting transportation to medical appointments?: No Do you have trouble paying your heating and electricity bill?: No Do you have trouble taking care of your child, family member or friend?: No Do you have trouble with day-to-day activities such as bathing, preparing meals, shopping, managing finances, etc.?: No Are you currently unemployed and looking for a job?: No Are you interested in more education?: No Currently or been in a relationship where the following occur: no concerns reported THRIVE Score: 0 AUDIT C Alcohol Use Questionnaire (AUDIT-C) 1. How often do you have a drink containing alcohol?: Never Total Score: 0 VERONICA-7 AMB Questionnaire VERONICA-7 Date VERONICA - 7 assessed: 11/24/23 Feeling nervous, anxious, or on edge: 0 = Not at all Not being able to stop or control worryin = Not at all Worrying too much about different things: 0 = Not at all Trouble relaxin = Not at all Being so restless that it is hard to sit still: 0 = Not at all Becoming easily annoyed or irritable: 0 = Not at all Feeling afraid as if something awful might happen: 0 = Not at all Total VERONICA-7 score (0-4 normal; 5-9 mild; 10-14 moderate; 15-21 severe): 0 Source: Developed by Drs. Chad Gramajo, Amalia Brewer, Duane Small and colleagues, with an educational edward from [employer]. Physical exam (Primary Care) Vital Signs: Last Vital Signs Pulse 59 11/24/23 10:42 BP 110/70 11/24/23 10:42 Pulse Ox 91 L 11/24/23 10:42 Oxygen Delivery Method Room Air 11/24/23 10:42 Care Plan Goal for BP management: Blood pressure is in range. Continue current medications. BMI result Body Mass Index 31.7 BMI Assessment/Plan discussion: High (1 lb per week weight loss suggested.) BMI High, discussed plan: lifestyle, weight reduction and dietary Tobacco/Smoking Status: Tobacco use Status Tobacco use date assessed 11/24/23 11/24/23 10:51 Patient Tobacco Use Status Never used Tobacco 11/24/23 10:51 e-Cigarette/Vaping Use Never Used 11/24/23 10:51 PHQ-9: PHQ-9 Score PHQ-9: Total score 0 11/24/23 10:51 Depression Screening Interpretation: Negative Thrive Assessment: Date of Thrive Assessment Date Thrive assessed 11/24/23 11/24/23 10:51 Currently or been in a relationship where the following occur: no concerns reported Date of discussion: 11/24/23 Who was present: Patient Forms completed: Health Care Proxy Time spent: 1-15 minutes, on File Actual minutes spent: 5 Const General: cooperative and healthy appearing Nutritional Appearance: well nourished Orientation/consciousness: patient oriented x3 Limitations: no limitations HENMT Head: Yes normal to inspection Eyes General: appearance normal, both eyes and all related structures Neck Neck: Yes normal visual inspection Chest Chest palpation & inspection: normal palpation of entire chest wall Resp Effort & Inspection: normal respiratory effort Neuro General: patient oriented x3 Assessment and Plan Assessment & Plan (1) Cutaneous lupus erythematosus: Comment: dx around 2018 HCQ throughout PDN throughout flare 2022 MTX 08/2023 very effective Code(s): L93.2 - Other local lupus erythematosus Plan: Condition is stable. Continue medications at same dosage. (2) Chronic heart failure with preserved ejection fraction (HFpEF): Code(s): I50.32 - Chronic diastolic (congestive) heart failure Plan: Condition is stable. Continue medications at same dosage. (3) LBBB (left bundle branch block): Code(s): I44.7 - Left bundle-branch block, unspecified Coding Level of Care Code Est Pt Level 4 (11493) Diagnoses Cutaneous lupus erythematosus L93.2 Chronic heart failure with preserved ejection fraction (HFpEF) I50.32 LBBB (left bundle branch block) I44.7 Additional Codes Vital Signs *Quality* - Time spent: 1-15 minutes, on File ([id number])
[2023-11-24 10:42] VITALS: BP 110/70; PULSE 59; O2SAT 91; BMI 31.7
== END 2023-11-24 12:05 | disposition home or self-care (01) ==
PROVIDERS: PCP Internal Medicine; Visit Provider Internal Medicine
DX: L93.2 Other local lupus erythematosus (principal); I50.32 Chronic diastolic (congestive) heart failure; I44.7 Left bundle-branch block, unspecified; Z00.00 Encounter for general adult medical examination without abnormal findings
CPT/HCPCS: 1123F; 99214

== ENCOUNTER 2024-01-17 08:59 | Outpatient (REF) | payer MEDICARE, OTHER, SELFPAY ==
[2024-01-17 10:01] LABS: Basophils Percent Auto 0.6 % (0-2); Eosinophils Absolute Auto 0.1 X10*3/uL (0.0-0.4); Eosinophils Percent Auto 3.5 % (0-4); Hematocrit 38.4 % (37.0-47.0); Hemoglobin 12.3 g/dl (12.0-16.0); Imm Gran Abs Auto 0.03 X10*3/uL (0.00-0.03); Lymphocytes Percent Auto 32.3 % (20-40); MANUAL DIFF FLAG SCAN; Mean Corpuscular Hemoglobin 30.7 pg (27.0-33.0); Mean Corpuscular Volume 95.8 fL (80.0-98.0); Mean Platelet Volume 9.8 fL (9.4-12.3); Monocytes Absolute Auto 0.7 X10*3/uL (0.1-1.2); Monocytes Percent Auto 21.9 % (2-11); Neutrophils Absolute Auto 1.3 x10*3/uL (2.0-8.3); Neutrophils Percent Auto 40.7 % (45-73); Platelet Count 222 X10*3/uL (160-400); Red Blood Count 4.01 X10*6/uL (4.20-5.50); Red Cell Distribution Width 15.9 % (11.0-16.0); SCAN SMEAR FLAG 1; White Blood Count 3.1 X10*3/uL (4.8-10.8)
[2024-01-17 10:19] LABS: Alanine Aminotransferase 24 U/L (0-31); Albumin Level 4.1 g/dL (3.5-5.0); Alkaline Phosphatase 101 U/L (39-117); Anion Gap 11 (12-20); Aspartate Amino Transferase 24 U/L (5-31); Bilirubin Total 0.6 mg/dL (0.0-1.0); Blood Urea Nitrogen 24 mg/dL (9-16); C Reactive Protein 0.16 mg/dL (< or = 0.50); Calcium 9.5 mg/dL (8.4-10.2); Carbon Dioxide 29 mmol/L (22-29); Chloride 107 mmol/L (96-108); Estimated Glomerular Filt Rate > 60; Glucose Random 80 mg/dL (60-115); Potassium 3.5 mmol/L (3.3-5.1); Sodium 143 mmol/L (135-145); Total Protein 7.3 g/dL (6.5-8.0)
[2024-01-17 10:54] LABS: SLIDE REVIEW VERIFIED
[2024-01-17 11:13] LABS: Erythrocyte Sedimentation Rate 8 MM/HR (0-20)
== END 2024-01-17 09:00 | disposition home or self-care (01) ==
LOC: HO.LAB 08:59
PROVIDERS: PCP Internal Medicine; Visit Provider Student in an Organized Health Care Education/Training Program
DX: L93.2 Other local lupus erythematosus (principal); Z79.631 Long term (current) use of antimetabolite agent
CPT/HCPCS: 36415; 80053; 85025; 85652; 86140

== ENCOUNTER 2024-01-19 14:25 | Outpatient (AMB) | payer MEDICARE, OTHER, SELFPAY ==
--- NOTE | 2024-01-19 14:45 | MHC.PC.OV ---
Vital Signs 01/19/24 14:46 Height 5 ft 3 in Weight 180 lb 8.937 oz BMI 32.0 BP 116/66 Blood Pressure Location Lt brachial Position Sitting Pulse 58 Pulse Source Pulse Oximeter Pulse Oximetry (%) 98 Oxygen Delivery Method Room Air Intake Visit Reasons: Back pain Intake Note: Patient is here today to follow up on back pain Underwater Hunter Trapper Required: No Hot Dip Plating Supervisor: Not Required per policy Accompanied by: Self / Same As Patient Allergies amoxicillin [AMOXICILLIN] Allergy (Unknown, Verified 01/27/24 20:31) UNKNOWN Medication List - Last Reconciled 01/27/24 by Leo Dewitt MD acetaminophen (Tylenol) 650 mg PO QID PRN folic acid 1 mg PO DAILY furosemide 40 mg PO DAILY hydroxychloroquine 200 mg PO BID losartan 25 mg PO DAILY methotrexate sodium 15 mg (6 x 2.5 mg) PO QWEEK metoprolol succinate ER 25 mg PO DAILY multivitamin 1 tab PO DAILY oxybutynin chloride ER 15 mg PO DAILY prednisone 5 mg (2 x 2.5 mg) PO DAILY Tobacco use date assessed: 01/19/24 Fall risk assessment: No Falls in past year Last assessed Fall Risk: 01/19/24 Dental Screening Dental Screen Date: 01/19/24 Did you have a dental visit in the last 12 months?: Yes Did you have a dental problem in the last 6 months where you did not have access to dental care?: No Was dental information given to patient?: Patient has dentist HPI Back pain HPI Details 83 yr old female presents to the office to discuss her chronic medical conditions. Patient is at baseline state of health. Compliant with medications and not reporting any side effects. Able to function and do all ADL's. Able to drive and handle all her personal finances. No change in bowel or urinary habits. [facility] Medical History Chronic lower back pain Chronic heart failure with preserved ejection fraction (HFpEF) Essential hypertension LBBB (left bundle branch block) Acute diverticulitis TIA (transient ischemic attack) HTN (hypertension) Surgical History History of appendectomy (06/16/23) History of cataract surgery H/O hernia repair Family History Father No problems noted. Mother No problems noted. Social History Household Members: None Housing: Apartment Do you presently have visiting nurse or other home services: No Alcohol intake: current Alcohol intake frequency: a few times a month Patient Tobacco Use Status: Never used Tobacco e-Cigarette/Vaping Use: Never Used Second Hand Smoke Exposure: No Advance Directives Date on File: 08/18/21 service: No Current occupational status: retired Current occupational exposures/hazards: No Cognitive needs: No Hearing needs: Yes Vision needs: No Questionnaire PHQ-9 Over the last 2 weeks, how often have you been bothered by any of the following problems? Depression Screening Interpretation: Negative Depression Screening Done: Yes Source: Developed by Drs. Chad Gramajo, Amalia Brewer, Duane Small and colleagues, with an educational edward from [employer]. Thrive Questionnaire Date Thrive assessed: 11/24/23 Currently or been in a relationship where the following occur: no concerns reported THRIVE Score: 0 VERONICA-7 AMB Questionnaire VERONICA-7 Date VERONICA - 7 assessed: 11/24/23 Source: Developed by Drs. Chad Gramajo, Amalia Brewer, Duane Small and colleagues, with an educational edward from [employer]. Physical exam (Primary Care) Vital Signs: Last Vital Signs Pulse 58 01/19/24 14:46 BP 116/66 01/19/24 14:46 Pulse Ox 98 01/19/24 14:46 Oxygen Delivery Method Room Air 01/19/24 14:46 Care Plan Goal for BP management: BP is stable, continue current medications BMI result Body Mass Index 32.0 BMI Assessment/Plan discussion: High Tobacco/Smoking Status: Tobacco use Status Tobacco use date assessed 01/19/24 01/19/24 14:55 Patient Tobacco Use Status Never used Tobacco 01/19/24 14:55 e-Cigarette/Vaping Use Never Used 01/19/24 14:55 Depression Screening Interpretation: Negative Thrive Assessment: Date of Thrive Assessment Date Thrive assessed 11/24/23 01/19/24 14:55 Currently or been in a relationship where the following occur: no concerns reported Advance Care Planning discussion: Exists, not on file Date of discussion: 01/19/24 Forms completed: Health Care Proxy Time spent: 1-15 minutes, not on file Actual minutes spent: 5 Const General: cooperative and healthy appearing Nutritional Appearance: well nourished Orientation/consciousness: patient oriented x3 Limitations: no limitations HENMT Head: Yes normal to inspection Eyes General: appearance normal, both eyes and all related structures Neck Neck: Yes normal visual inspection Chest Chest palpation & inspection: normal palpation of entire chest wall Resp Effort & Inspection: normal respiratory effort Neuro General: patient oriented x3 Assessment and Plan Assessment & Plan (1) HTN (hypertension): Code(s): I10 - Essential (primary) hypertension Plan: BP is stable, continue current medications (2) Cutaneous lupus erythematosus: Comment: dx around 2018 HCQ throughout PDN throughout flare 2022 MTX 08/2023 very effective Code(s): L93.2 - Other local lupus erythematosus (3) Chronic heart failure with preserved ejection fraction (HFpEF): Code(s): I50.32 - Chronic diastolic (congestive) heart failure Plan: Condition is stable, continue current medications. Medications: Refilled losartan 25 mg PO DAILY 90 tabs 0RF I10 - Essential (primary) hypertension Coding Level of Care Code Est Pt Level 4 (09733) Diagnoses HTN (hypertension) I10 Cutaneous lupus erythematosus L93.2 Chronic heart failure with preserved ejection fraction (HFpEF) I50.32 Additional Codes Vital Signs *Quality* - Advance Care Planning discussion: Exists, not on file ([id number]) Vital Signs *Quality* - Time spent: 1-15 minutes, not on file ([id number])
[2024-01-19 14:46] VITALS: BP 116/66; PULSE 58; O2SAT 98; BMI 32.0
== END 2024-01-19 16:23 | disposition home or self-care (01) ==
PROVIDERS: PCP Internal Medicine; Visit Provider Internal Medicine
DX: I11.0 Hypertensive heart disease with heart failure (principal); I50.32 Chronic diastolic (congestive) heart failure; L93.2 Other local lupus erythematosus; Z00.00 Encounter for general adult medical examination without abnormal findings
CPT/HCPCS: 1124F; 99214

== ENCOUNTER 2024-01-24 07:40 | Outpatient (AMB) | payer MEDICARE, OTHER, SELFPAY ==
[2024-01-24 07:49] VITALS: BP 110/68; PULSE 69; O2SAT 97; BMI 31.4
--- NOTE | 2024-01-24 07:49 | MHC.OFFVIS ---
Intake Vital Signs 01/24/24 07:49 Height 5 ft 3 in Weight 177 lb 7.554 oz BMI 31.4 BP 110/68 Blood Pressure Location Rt brachial Position Sitting Pulse 69 Pulse Source Pulse Oximeter Pulse Oximetry (%) 97 Oxygen Delivery Method Room Air Intake Visit Reasons: Cutneous lupus Intake Note: Patient last seen 11/16/23 presents today for follow up and test results. She has 3 different prescription bottles for prednisone with her and is confused. She states she has been off prednsione for a week I screwed up my medication. I hope he takes me off prednisone; I'm just an accident waiting to happen Concerned with over dosing Instrumentation And Controls Technician Required: No Accompanied by: Self / Same As Patient Allergies amoxicillin [AMOXICILLIN] Allergy (Unknown, Verified 01/24/24 08:05) UNKNOWN HPI HPI Comments History of Present Illness Details 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 Patient states that over the last few weeks. She messed up her prednisone dose. She was confused. She stopped taking it altogether last week. Did not feel any difference in her symptoms. Her skin rashes have not come back. She remains on methotrexate and folic acid. 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 She had been on hydroxychloroquine for the last 5 years and intermittently gets prednisone. She stated that she started having a flare of discoid lupus over the last 6-9 months. She was started on prednisone g daily. Prednisone dose was recently increased to 10 mg daily. Of note patient was admitted to the hospital about 2 weeks ago for a perforated appendicitis, she had open appendectomy. Patient has healed well. The stitches are out. Currently she is complaining of diffuse skin rashes on her back, chest, arms. The rashes are not itchy or painful. Patient avoids the sun. [facility] Medical History Chronic lower back pain Chronic heart failure with preserved ejection fraction (HFpEF) Essential hypertension LBBB (left bundle branch block) Acute diverticulitis TIA (transient ischemic attack) HTN (hypertension) Surgical History History of appendectomy (06/16/23) History of cataract surgery H/O hernia repair Family History Father No problems noted. Mother No problems noted. Social History Household Members: None Housing: Apartment Do you presently have visiting nurse or other home services: No Alcohol intake: current Alcohol intake frequency: a few times a month Patient Tobacco Use Status: Never used Tobacco e-Cigarette/Vaping Use: Never Used Second Hand Smoke Exposure: No Advance Directives Date on File: 08/18/21 service: No Current occupational status: retired Current occupational exposures/hazards: No Cognitive needs: No Hearing needs: Yes Vision needs: No Review of Systems Musc Denies arthralgias Skin/Breast Denies rash and Reports unusual bruising Physical Exam Vital Signs: Last Vital Signs Pulse 69 01/24/24 07:49 BP 110/68 01/24/24 07:49 Pulse Ox 97 01/24/24 07:49 Oxygen Delivery Method Room Air 01/24/24 07:49 BMI result Body Mass Index 31.4 Const General: cooperative, healthy appearing and comfortable Nutritional Appearance: obese Orientation/consciousness: patient oriented x3 Limitations: no limitations HEENT Head: Yes normocephalic and Yes atraumatic Resp Effort & Inspection: normal respiratory effort and able to speak in complete sentences Skin Other: Few areas of super facial bruising No lupus rashes Neuro General: patient oriented x3 Extrem Other: No active synovitis Normal nailfold capillaroscopy Assessment & Plan Assessment & Plan (1) Cutaneous lupus erythematosus: Comment: dx around 2018 HCQ throughout PDN throughout flare 2022 MTX 08/2023 very effective Code(s): L93.2 - Other local lupus erythematosus Plan: 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 On hydroxychloroquine 200 mg Twice daily, methotrexate 15 mg weekly and folic acid 1 mg daily. She patient was confused about her prednisone dose and discontinued it last week without any adverse events. Continue with methotrexate 15 mg weekly, folic acid 1 mg daily. Continue with hydroxychloroquine 200 mg Twice daily Labs before next visit in 3 months (2) assisted methotrexate user: Code(s): Z79.631 - terminal superintendent (current) use of antimetabolite agent Plan: Monitor safety labs (3) Long-term use of hydroxychloroquine: Code(s): Z79.899 - Other care home (current) drug therapy Plan: Discussed risk of retinopathy with hydroxychloroquine. Patient states that she follows up regularly with Ophthalmology once yearly since starting hydroxychloroquine. She stated that when evaluated last year she was cleared to continue. Advised patient to follow-up regularly with her presser machine and request they send me the report Plan I spent 26 minutes reviewing patient's chart, evaluating patient, ordering diagnostic workup, counseling patient and documenting in the chart Orders: Orders Complete Blood Count Auto Diff 3 Months Z79.631 - assisted (current) use of antimetabolite agent Erythrocyte Sedimentation Rate 3 Months Z79.631 - assisted (current) use of antimetabolite agent Comprehensive Met. Panel 3 Months Z79.631 - terminal superintendent (current) use of antimetabolite agent C Reactive Protein 3 Months Z79.631 - terminal superintendent (current) use of antimetabolite agent Coding Level of Care Code Est Pt Level 4 (15506) Diagnoses Cutaneous lupus erythematosus L93.2 assisted methotrexate user Z79.631 Long-term use of hydroxychloroquine Z79.899
== END 2024-01-24 08:24 | disposition home or self-care (01) ==
PROVIDERS: PCP Internal Medicine; Visit Provider Student in an Organized Health Care Education/Training Program
DX: L93.2 Other local lupus erythematosus (principal); Z79.631 Long term (current) use of antimetabolite agent; Z79.899 Other long term (current) drug therapy
CPT/HCPCS: 99214

== ENCOUNTER → 2024-01-24 07:40 | Outpatient (BNVA) | payer MEDICARE, OTHER, SELFPAY | PROVIDERS: Visit Provider Student in an Organized Health Care Education/Training Program | DX: L93.2 Other local lupus erythematosus (principal); Z79.631 Long term (current) use of antimetabolite agent; Z79.899 Other long term (current) drug therapy | CPT/HCPCS: 99212 ==

== ENCOUNTER 2024-01-31 15:25 | Outpatient (AMB) | payer MEDICARE, OTHER, SELFPAY ==
[2024-01-31 15:32] VITALS: BP 156/82; PULSE 70; TEMP 36.7; O2SAT 98; BMI 31.2
--- NOTE | 2024-01-31 15:32 | MHC.OFFWIV ---
Intake Vital Signs 01/31/24 15:32 Height 5 ft 3 in Weight 176 lb 2 oz BMI 31.2 BP 156/82 H Blood Pressure Location Lt brachial Position Sitting Pulse 70 Pulse Source Pulse Oximeter Temp 98.0 F Temp Source Oral Pulse Oximetry (%) 98 Oxygen Delivery Method Room Air Intake Visit Reasons: EP Pain Intake Note: Pt presents to the office today for c/o rib pain. Pt states the pain started this morning with no known injury. Pt states she has no others symptoms at this time. Patient Tobacco Use Status: Never used Tobacco Allergies amoxicillin [AMOXICILLIN] Allergy (Unknown, Verified 01/31/24 15:57) UNKNOWN Medication List - Last Reconciled 01/31/24 by Leo Dewitt MD acetaminophen (Tylenol) 650 mg PO QID PRN folic acid 1 mg PO DAILY furosemide 40 mg PO DAILY hydroxychloroquine 200 mg PO BID losartan 25 mg PO DAILY methotrexate sodium 15 mg (6 x 2.5 mg) PO QWEEK metoprolol succinate ER 25 mg PO DAILY multivitamin 1 tab PO DAILY oxybutynin chloride ER 15 mg PO DAILY HPI EP Pain HPI Details 83 yr old female presents to the office for a sick visit. Reporting a dull pain under the ribs bilaterally since 10 am this morning. Pain has not gotten worse. No improvement after eating. No associated nausea or vomiting. No fever or chills. Last BM was yesterday. Feels apprehensive. [facility] Medical History Chronic lower back pain Chronic heart failure with preserved ejection fraction (HFpEF) Essential hypertension LBBB (left bundle branch block) Acute diverticulitis TIA (transient ischemic attack) HTN (hypertension) Surgical History History of appendectomy (06/16/23) History of cataract surgery H/O hernia repair Family History Father No problems noted. Mother No problems noted. Social History Household Members: None Housing: Apartment Do you presently have visiting nurse or other home services: No Alcohol intake: current Alcohol intake frequency: a few times a month Patient Tobacco Use Status: Never used Tobacco e-Cigarette/Vaping Use: Never Used Second Hand Smoke Exposure: No Advance Directives Date on File: 08/18/21 service: No Current occupational status: retired Current occupational exposures/hazards: No Cognitive needs: No Hearing needs: Yes Vision needs: No Physical Exam Vital Signs: Last Vital Signs Temp 98.0 F 01/31/24 15:32 Pulse 70 01/31/24 15:32 BP 156/82 H 01/31/24 15:32 Pulse Ox 98 01/31/24 15:32 Oxygen Delivery Method Room Air 01/31/24 15:32 BMI result Body Mass Index 31.2 Const General: cooperative and healthy appearing Nutritional Appearance: well nourished Orientation/consciousness: patient oriented x3 Limitations: no limitations HEENT Head: Yes normal to inspection Eyes General: appearance normal, both eyes and all related structures Neck Neck: Yes normal visual inspection Chest Chest palpation & inspection: normal palpation of entire chest wall Resp Effort & Inspection: normal respiratory effort GI Other: Abd: BS well heard all over. No tender areas and no rebound tenderness. Neuro General: patient oriented x3 Assessment & Plan Assessment & Plan (1) Abdominal pain: Code(s): R10.9 - Unspecified abdominal pain Plan: X rays revd by me. Predominant fecal matter. In view of her benign clinical exam, constipation could be causing her sx. Try Milk of magnesia. If sx do not improve to follow up here. Orders: Orders XR chest 2V Today R05.9 - Cough, unspecified Coding Level of Care Code Est Pt Level 4 (75388) Diagnoses Abdominal pain R10.9
== END 2024-01-31 16:23 | disposition home or self-care (01) ==
PROVIDERS: PCP Internal Medicine; Visit Provider Internal Medicine
DX: R10.9 Unspecified abdominal pain (principal)
CPT/HCPCS: 99214

== ENCOUNTER 2024-01-31 15:56 | Outpatient (REF) | payer MEDICARE, OTHER, SELFPAY ==
--- NOTE | ~2024-01-31 | XR_ITS ---
EXAMINATION: Chest and abdomen. CLINICAL INDICATIONS: Cough. COMPARISON: Chest 06/16/2023. TECHNIQUE: Chest 2 views. Abdomen 2 views. FINDINGS: CHEST: The lungs are well-expanded and clear. Heart size and pulmonary vascularity is normal. Mild compression deformity T6 vertebra of indeterminate age. No additional bony abnormality seen. ABDOMEN: There is moderate scattered stool seen in colon without significant distention. There is multiple small air-fluid levels on upright view but no free air seen. There is no organomegaly. No radiopaque calculi. No gross bony abnormality. XR/XR chest 2V IMPRESSION: 1. No acute cardiopulmonary process seen. 2. Mild compression deformity T6 vertebra of indeterminate age. 3. Moderate constipation. Nonspecific small bowel air-fluid levels in the midabdomen.
--- NOTE | ~2024-01-31 | XR_ITS ---
EXAMINATION: Chest and abdomen. CLINICAL INDICATIONS: Cough. COMPARISON: Chest 06/16/2023. TECHNIQUE: Chest 2 views. Abdomen 2 views. FINDINGS: CHEST: The lungs are well-expanded and clear. Heart size and pulmonary vascularity is normal. Mild compression deformity T6 vertebra of indeterminate age. No additional bony abnormality seen. ABDOMEN: There is moderate scattered stool seen in colon without significant distention. There is multiple small air-fluid levels on upright view but no free air seen. There is no organomegaly. No radiopaque calculi. No gross bony abnormality. XR/XR abdomen min 2V IMPRESSION: 1. No acute cardiopulmonary process seen. 2. Mild compression deformity T6 vertebra of indeterminate age. 3. Moderate constipation. Nonspecific small bowel air-fluid levels in the midabdomen.
== END 2024-01-31 15:57 | disposition home or self-care (01) ==
LOC: HO.HMGCX 15:56
PROVIDERS: Visit Provider Internal Medicine
DX: R05.9 Cough, unspecified (principal); R10.9 Unspecified abdominal pain
CPT/HCPCS: 71046; 74019

== ENCOUNTER 2024-02-02 15:48 | Outpatient (AMB) | payer MEDICARE, OTHER, SELFPAY ==
--- NOTE | 2024-02-02 15:54 | A.OFFVIS_ITS ---
Intake Vital Signs 02/02/24 15:55 Height 5 ft 3 in BP 134/70 Blood Pressure Location Rt brachial Position Sitting Pulse 78 Pulse Source Pulse Oximeter Pulse Oximetry (%) 98 Oxygen Delivery Method Room Air Intake Visit Reasons: SLE Equal Opportunity Specialist Required: No Accompanied by: Self / Same As Patient Allergies amoxicillin [AMOXICILLIN] Allergy (Unknown, Verified 02/02/24 15:57) UNKNOWN Medication List - Last Reconciled 02/02/24 by Love Avitia MD acetaminophen (Tylenol) 650 mg PO QID PRN folic acid 1 mg PO DAILY furosemide 40 mg PO DAILY hydroxychloroquine 200 mg PO BID losartan 25 mg PO DAILY methotrexate sodium 15 mg (6 x 2.5 mg) PO QWEEK metoprolol succinate ER 25 mg PO DAILY multivitamin 1 tab PO DAILY oxybutynin chloride ER 15 mg PO DAILY HPI HPI Comments History of Present Illness Details This is an 83-year-old female with cutaneous lupus who presents for an urgent visit. Three days ago she started having abrupt onset of mid back pain, she took Tylenol with little relief. The pain did not improve so she went to urgent care 2 days ago and she had a chest and abdominal x-rays which showed findings suggestive of constipation. She was discharged home. She states that she continues to have the same pain. She does not recall having any similar pain before. She denies any recent trauma or overuse. 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 She had been on hydroxychloroquine for the last 5 years and intermittently gets prednisone. She stated that she started having a flare of discoid lupus over the last 6-9 months. She was started on prednisone g daily. Prednisone dose was recently increased to 10 mg daily. Of note patient was admitted to the hospital about 2 weeks ago for a perforated appendicitis, she had open appendectomy. Patient has healed well. The stitches are out. Currently she is complaining of diffuse skin rashes on her back, chest, arms. The rashes are not itchy or painful. Patient avoids the sun. REPLACED BY [facility] Medical History Chronic lower back pain Chronic heart failure with preserved ejection fraction (HFpEF) Essential hypertension LBBB (left bundle branch block) Acute diverticulitis TIA (transient ischemic attack) HTN (hypertension) Surgical History History of appendectomy (06/16/23) History of cataract surgery H/O hernia repair Family History Father No problems noted. Mother No problems noted. Social History Household Members: None Housing: Apartment Do you presently have visiting nurse or other home services: No Alcohol intake: current Alcohol intake frequency: a few times a month Patient Tobacco Use Status: Never used Tobacco e-Cigarette/Vaping Use: Never Used Second Hand Smoke Exposure: No Advance Directives Date on File: 08/18/21 service: No Current occupational status: retired Current occupational exposures/hazards: No Cognitive needs: No Hearing needs: Yes Vision needs: No Review of Systems Musc Reports back pain Physical Exam Vital Signs: Last Vital Signs Pulse 78 02/02/24 15:55 BP 134/70 02/02/24 15:55 Pulse Ox 98 02/02/24 15:55 Oxygen Delivery Method Room Air 02/02/24 15:55 Const General: cooperative, healthy appearing and in distress mild Nutritional Appearance: obese Orientation/consciousness: patient oriented x3 Limitations: no limitations HEENT Head: Yes normocephalic and Yes atraumatic Resp Effort & Inspection: normal respiratory effort and able to speak in complete sentences Back/Spine/Pelvis Other: Tenderness to palpation in the midthoracic vertebrae Skin Other: Few areas of super facial bruising No lupus rashes Neuro General: patient oriented x3 Extrem Other: No active synovitis Normal nailfold capillaroscopy Results Reviewed Results Reviewed: XR/XR chest 2V IMPRESSION: 1. No acute cardiopulmonary process seen. 2. Mild compression deformity T6 vertebra of indeterminate age. 3. Moderate constipation. Nonspecific small bowel air-fluid levels in the midabdomen. 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 Imaging showed T6 fracture of indeterminate age. Of note patient has history of an L1 fracture. Likely this is what is causing her symptoms. Discussed osteoporosis with patient. For now will need to treat the acute pain. I prescribed calcitonin. Apply Salonpas patch. Patient states that she will take Tylenol 2 or 3 times a day. She stated that she had GI bleeding with NSAIDs in the past. Advised patient to call the office if her pain is not improving in a few days and I will prescribe her something stronger. She mentioned that she has old prescriptions of Percocet at home from her PCP that she never used Will order a bone density scan. 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
[2024-02-02 15:55] VITALS: BP 134/70; PULSE 78; O2SAT 98
== END 2024-02-02 16:27 | disposition home or self-care (01) ==
PROVIDERS: PCP Internal Medicine; Visit Provider Student in an Organized Health Care Education/Training Program
DX: M80.08XA Age-related osteoporosis with current pathological fracture, vertebra(e), initial encounter for fracture (principal)
CPT/HCPCS: 99214

== ENCOUNTER → 2024-02-02 15:48 | Outpatient (BNVA) | payer MEDICARE, OTHER, SELFPAY | PROVIDERS: PCP Internal Medicine; Visit Provider Student in an Organized Health Care Education/Training Program | DX: M80.08XA Age-related osteoporosis with current pathological fracture, vertebra(e), initial encounter for fracture (principal) | CPT/HCPCS: 99212 ==

== ENCOUNTER 2024-02-17 07:54 | Outpatient (REF) | payer MEDICARE, OTHER, SELFPAY ==
--- NOTE | ~2024-02-17 | MM_ITS ---
EXAMINATION: BONE DENSITOMETRY CLINICAL INDICATION: Age-related osteoporosis with current pathological fracture. COMPARISON: This is the patient's baseline examination. TECHNIQUE: Using a theScore DXA System (software version: 13.1) manufactured by [employer], dual-energy x-ray absorptiometry was performed of the lumbar spine and left hip. The images are of good technical quality. Summary results are attached. FINDINGS: LEFT FEMUR, NECK: BMD 0.679 g/cm2, Z-score -0.5, T-score -2.6, osteoporosis. LEFT FEMUR, TOTAL: BMD 0.727 g/cm2, Z-score -0.3, T-score -2.2, osteopenia. AP SPINE L1-L4: BMD 0.895 g/cm2, Z-score -0.9, T-score -2.4, osteopenia. IDENTIFIED RISK FACTORS: Rheumatoid arthritis, height loss, menopause, hysterectomy. HISTORY OF FRACTURE: None listed. MEDICATIONS: Multivitamin. MM/XR DEXA axial skeleton IMPRESSION: 1. DIAGNOSIS: Osteoporosis based on the lowest T-score value of -2.6 in the femoral neck applying World Health Organization criteria. 2. 10-YEAR FRACTURE RISK PREDICTION, FRAX: According to the guidelines, FRAX calculation should only be performed on patients in the osteopenia bone density category. Therefore, FRAX was not performed on this patient. 3. Treatment Recommendations: NOF guidelines recommend consideration for treatment in postmenopausal women and men age 50 and older presenting with the following: -A hip or vertebral (clinical or morphometric) fracture. -T-score less than or equal to -2.5 at the femoral neck or spine after appropriate evaluation to exclude secondary causes. -Low bone mass at the hip or spine and a 10-year fracture probability by FRAX of greater than or equal to 3% for hip fracture or greater than or equal to 20% for major osteoporotic fracture based on the [place] adapted WHO algorithm. 4. Other Recommendations: All treatment decisions require clinical judgment and consideration of individual patient factors, including patient preferences, comorbidities, previous drug use, risk factors not captured in the FRAX model (e.g. frailty, falls, vitamin D deficiency, increased bone turnover, interval significant decline in bone density) and possible under or overestimation of fracture risk by FRAX. Additional medical evaluation for secondary cause of low bone mineral density may be appropriate. FUTURE SCAN RECOMMENDATION: People with diagnosed cases of osteoporosis or at high risk for fracture should have regular bone mineral density tests. For patients eligible for Medicare, routine testing is allowed once every 2 years. The testing frequency can be increased to one year for patients who have rapidly progressing disease, those who are receiving or discontinuing medical therapy to restore bone mass, or have additional risk factors.
== END 2024-02-17 07:55 | disposition home or self-care (01) ==
LOC: HO.MAMMO 07:54
PROVIDERS: PCP Internal Medicine; Visit Provider Student in an Organized Health Care Education/Training Program
DX: Z13.820 Encounter for screening for osteoporosis (principal); M80.08XA Age-related osteoporosis with current pathological fracture, vertebra(e), initial encounter for fracture; Z78.0 Asymptomatic menopausal state
CPT/HCPCS: 77080

== ENCOUNTER 2024-02-21 09:14 | Outpatient (REF) | payer MEDICARE, OTHER, SELFPAY ==
[2024-02-21 09:33] LABS: MANUAL DIFF FLAG NO
[2024-02-21 09:51] LABS: Basophils Percent Auto 0.4 % (0-2); Eosinophils Absolute Auto 0.1 X10*3/uL (0.0-0.4); Eosinophils Percent Auto 2.3 % (0-4); Hematocrit 36.7 % (37.0-47.0); Imm Gran Abs Auto 0.01 X10*3/uL (0.00-0.03); Imm Gran Pct Auto 0.4 % (0.0-0.4); Lymphocytes Absolute Auto 0.9 X10*3/uL (1.2-4.9); Lymphocytes Percent Auto 33.1 % (20-40); Mean Corpuscular HGB Conc 32.7 g/dl (31.0-35.0); Mean Corpuscular Hemoglobin 30.7 pg (27.0-33.0); Mean Corpuscular Volume 93.9 fL (80.0-98.0); Mean Platelet Volume 9.3 fL (9.4-12.3); Monocytes Absolute Auto 0.5 X10*3/uL (0.1-1.2); Monocytes Percent Auto 19.6 % (2-11); Neutrophils Absolute Auto 1.2 x10*3/uL (2.0-8.3); Neutrophils Percent Auto 44.2 % (45-73); Platelet Count 216 X10*3/uL (160-400); Red Blood Count 3.91 X10*6/uL (4.20-5.50); Red Cell Distribution Width 15.4 % (11.0-16.0); White Blood Count 2.6 X10*3/uL (4.8-10.8)
[2024-02-21 10:40] LABS: Alanine Aminotransferase 28 U/L (0-31); Albumin Level 3.9 g/dL (3.5-5.0); Alkaline Phosphatase 143 U/L (39-117); Anion Gap 14 (12-20); Aspartate Amino Transferase 31 U/L (5-31); Bilirubin Total 0.6 mg/dL (0.0-1.0); Blood Urea Nitrogen 16 mg/dL (9-16); C Reactive Protein 0.37 mg/dL (< or = 0.50); Calcium 9.4 mg/dL (8.4-10.2); Carbon Dioxide 25 mmol/L (22-29); Chloride 105 mmol/L (96-108); Estimated Glomerular Filt Rate > 60; Glucose Random 75 mg/dL (60-115); Potassium 3.9 mmol/L (3.3-5.1); Sodium 140 mmol/L (135-145); Total Protein 7.1 g/dL (6.5-8.0)
[2024-02-21 10:48] LABS: Erythrocyte Sedimentation Rate 14 MM/HR (0-20)
== END 2024-02-21 09:15 | disposition home or self-care (01) ==
LOC: HO.LAB 09:14
PROVIDERS: Visit Provider Student in an Organized Health Care Education/Training Program
DX: L93.2 Other local lupus erythematosus (principal); Z79.631 Long term (current) use of antimetabolite agent; Z79.899 Other long term (current) drug therapy
CPT/HCPCS: 36415; 80053; 85025; 85652; 86140; 99212

== ENCOUNTER 2024-02-21 11:01 | Outpatient (AMB) | payer MEDICARE, OTHER, SELFPAY ==
--- NOTE | 2024-02-21 11:12 | MHC.OFFVIS ---
Intake Vital Signs 02/21/24 11:13 Height 5 ft 3 in Weight 172 lb 13.478 oz BMI 30.6 BP 140/72 H Blood Pressure Location Rt brachial Position Sitting Pulse 70 Pulse Source Pulse Oximeter Pulse Oximetry (%) 94 Oxygen Delivery Method Room Air Intake Visit Reasons: osteoporosis Intake Note: Patient last seen 02/02/24 presents today for follow up and test results. Butcher Helper Required: No Accompanied by: Self / Same As Patient Allergies amoxicillin [AMOXICILLIN] Allergy (Unknown, Verified 02/21/24 11:17) UNKNOWN Medication List - Last Reconciled 02/21/24 by Love Avitia MD acetaminophen (Tylenol) 650 mg PO QID PRN calcitonin (salmon) 200 unit/actuation 1 spray intranasal (ALT) DAILY NS folic acid 1 mg PO DAILY furosemide 40 mg PO DAILY hydroxychloroquine 200 mg PO BID losartan 25 mg PO DAILY methotrexate sodium 15 mg (6 x 2.5 mg) PO QWEEK metoprolol succinate ER 25 mg PO DAILY multivitamin 1 tab PO DAILY oxybutynin chloride ER 15 mg PO DAILY HPI HPI Comments History of Present Illness Details 83-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 Patient took the calcitonin nasal spray as prescribed after last visit and she has been doing very well for the last week. Her back pain almost resolved. Not take the oxycodone or the Tylenol. She remains on methotrexate and hydroxychloroquine as prescribed. 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 She had been on hydroxychloroquine for the last 5 years and intermittently gets prednisone. She stated that she started having a flare of discoid lupus over the last 6-9 months. She was started on prednisone g daily. Prednisone dose was recently increased to 10 mg daily. Of note patient was admitted to the hospital about 2 weeks ago for a perforated appendicitis, she had open appendectomy. Patient has healed well. The stitches are out. Currently she is complaining of diffuse skin rashes on her back, chest, arms. The rashes are not itchy or painful. Patient avoids the sun. [facility] Medical History Chronic lower back pain Chronic heart failure with preserved ejection fraction (HFpEF) Essential hypertension LBBB (left bundle branch block) Acute diverticulitis TIA (transient ischemic attack) HTN (hypertension) Surgical History History of appendectomy (06/16/23) History of cataract surgery H/O hernia repair Family History Father No problems noted. Mother No problems noted. Social History Household Members: None Housing: Apartment Do you presently have visiting nurse or other home services: No Alcohol intake: current Alcohol intake frequency: a few times a month Patient Tobacco Use Status: Never used Tobacco e-Cigarette/Vaping Use: Never Used Second Hand Smoke Exposure: No Advance Directives Date on File: 08/18/21 service: No Current occupational status: retired Current occupational exposures/hazards: No Cognitive needs: No Hearing needs: Yes Vision needs: No Review of Systems Musc Denies back pain Physical Exam Vital Signs: Last Vital Signs Pulse 70 02/21/24 11:13 BP 140/72 H 02/21/24 11:13 Pulse Ox 94 02/21/24 11:13 Oxygen Delivery Method Room Air 02/21/24 11:13 BMI result Body Mass Index 30.6 Const General: cooperative, healthy appearing and in distress mild Nutritional Appearance: obese Orientation/consciousness: patient oriented x3 Limitations: no limitations HEENT Head: Yes normocephalic and Yes atraumatic Resp Effort & Inspection: normal respiratory effort and able to speak in complete sentences Back/Spine/Pelvis Other: Tenderness to palpation in the midthoracic vertebrae resolved Skin Other: No lupus rashes Neuro General: patient oriented x3 Extrem Other: No active synovitis Normal nailfold capillaroscopy Results Reviewed Results Reviewed: XR/XR chest 2V IMPRESSION: 1. No acute cardiopulmonary process seen. 2. Mild compression deformity T6 vertebra of indeterminate age. 3. Moderate constipation. Nonspecific small bowel air-fluid levels in the midabdomen. Assessment & Plan Assessment & Plan (1) Osteoporosis with pathological fracture of cervical vertebra: Comment: DEXA 02/2024 Left femur neck T-score-2.6 Left femur total-2.2 L-spine T-score -2.4 T6 fracture 01/2024 Code(s): M80.08XA - Age-related osteoporosis with current pathological fracture, vertebra(e), initial encounter for fracture Plan: 83-year-old female with osteoporosis returns for follow-up. Patient did quite well with calcitonin nasal spray. Advised patient to finish the bottle Discussed osteoporosis management. Discussed risks and benefits of alendronate. Start alendronate 70 mg weekly. Start vitamin-D supplementation. Advised patient to start consuming more dairy products such as fat-free yogurt and milk Avoid falls. Consider weight-bearing exercises (2) Cutaneous lupus erythematosus: Comment: dx around 2018 HCQ throughout PDN throughout flare 2022 MTX 08/2023 very effective Code(s): L93.2 - Other local lupus erythematosus Plan: Her cutaneous lupus has been very well controlled since methotrexate was added. Continue with methotrexate 15 mg weekly and hydroxychloroquine 200 mg Twice daily Continue folic acid (3) [facility]FP methotrexate user: Code(s): Z79.631 - ad terminal makeup operator (current) use of antimetabolite agent Plan: Monitor safety labs (4) Long-term use of hydroxychloroquine: Code(s): Z79.899 - Other adjunct faculty for medical terminology (current) drug therapy Plan: Follow-up regularly with Ophthalmology Plan I spent 26 minutes reviewing patient's chart, evaluating patient, counseling patient and documenting in the chart Medications: New alendronate Take 1 tab once weekly, 1st thing in the morning, on an empty stomach, with a large glass of water (at least 6 oz) and stay upright for 30 minutes 70 mg PO QWEEK 12 tabs 0RF cholecalciferol (vitamin D3) 25 mcg PO DAILY 90 caps 1RF Coding Level of Care Code Est Pt Level 4 (14133) Diagnoses Osteoporosis with pathological fracture of cervical vertebra M80.08XA Cutaneous lupus erythematosus L93.2 MCFP methotrexate user Z79.631 Long-term use of hydroxychloroquine Z79.899
[2024-02-21 11:13] VITALS: BP 140/72; PULSE 70; O2SAT 94; BMI 30.6
== END 2024-02-21 11:42 | disposition home or self-care (01) ==
PROVIDERS: PCP Internal Medicine; Visit Provider Student in an Organized Health Care Education/Training Program
DX: M80.08XA Age-related osteoporosis with current pathological fracture, vertebra(e), initial encounter for fracture (principal); L93.2 Other local lupus erythematosus; Z79.631 Long term (current) use of antimetabolite agent; Z79.899 Other long term (current) drug therapy
CPT/HCPCS: 99214

== ENCOUNTER 2024-03-08 11:19 | Outpatient (AMB) | payer MEDICARE, OTHER, SELFPAY ==
[2024-03-08 11:25] VITALS: BP 140/60; PULSE 73; TEMP 36.5; O2SAT 95; BMI 30.8
--- NOTE | 2024-03-08 11:25 | MHC.OFFWIV ---
Intake Vital Signs 03/08/24 11:25 Height 5 ft 3 in Weight 174 lb BMI 30.8 BP 140/60 H Blood Pressure Location Lt brachial Position Sitting Pulse 73 Pulse Source Pulse Oximeter Temp 97.7 F Temp Source Temporal Artery Scan Pulse Oximetry (%) 95 Oxygen Delivery Method Room Air Intake Visit Reasons: EP lump on rt leg painful Intake Note: pt is here today for lump on rt leg painful started tuesday Patient Tobacco Use Status: Never used Tobacco Allergies amoxicillin [AMOXICILLIN] Allergy (Unknown, Verified 03/08/24 11:46) UNKNOWN Do you need a note to return to daycare/school/sports/work: No HPI HPI Comments History of Present Illness Details 83 y/o female patient presents to walk in clinic with c/o abrasions right foot plantar. Pt went to get pedicure Tuesday, and the agent telegrapher was a little aggressive and used lot of pressure scrubbing and created small cuts under plantar. Pt also c/o small lump on her private part. She noticed it Tuesday. [facility] Medical History Chronic lower back pain Chronic heart failure with preserved ejection fraction (HFpEF) Essential hypertension LBBB (left bundle branch block) Acute diverticulitis TIA (transient ischemic attack) HTN (hypertension) Surgical History History of appendectomy (06/16/23) History of cataract surgery H/O hernia repair Family History Father No problems noted. Mother No problems noted. Social History Household Members: None Housing: Apartment Do you presently have visiting nurse or other home services: No Alcohol intake: current Alcohol intake frequency: a few times a month Patient Tobacco Use Status: Never used Tobacco e-Cigarette/Vaping Use: Never Used Second Hand Smoke Exposure: No Advance Directives Date on File: 08/18/21 service: No Current occupational status: retired Current occupational exposures/hazards: No Cognitive needs: No Hearing needs: Yes Vision needs: No Review of Systems Const All systems reviewed & are unremarkable except as noted in HPI and below Physical Exam Vital Signs: Last Vital Signs Temp 97.7 F 03/08/24 11:25 Pulse 73 03/08/24 11:25 BP 140/60 H 03/08/24 11:25 Pulse Ox 95 03/08/24 11:25 Oxygen Delivery Method Room Air 03/08/24 11:25 BMI result Body Mass Index 30.8 Const General: no acute distress Nutritional Appearance: overweight Orientation/consciousness: patient oriented x3 Female genitals images: 1. Small red bump, tender to touch, no drainage and no infection. Neuro General: patient oriented x3, gait normal and moves all extremities Extrem Right lower extremity: foot Details: tenderness Location: of the plantar foot, toes with normal ROM, edema Location: of the calcaneus and abrasion (plantar aspect) Left lower extremity: normal to inspection Ankle/foot/toe images: 1. Redness, superficial cuts and abrasions right plantar. Assessment & Plan Assessment & Plan (1) Abrasion of plantar aspect of foot: Code(s): S90.819A - Abrasion, unspecified foot, initial encounter Plan: - Keep the area clean and dry - May use OTC topical Antibiotics to the area - RTC if worse. - Small area of redness near Labia majora. No infection Coding Level of Care Code Est Pt Level 3 (65021) Diagnoses Abrasion of plantar aspect of foot S90.819A Time Spent (min) 15
== END 2024-03-08 13:16 | disposition home or self-care (01) ==
PROVIDERS: PCP Internal Medicine; Visit Provider Nurse Practitioner Family
DX: S90.811A Abrasion, right foot, initial encounter (principal)
CPT/HCPCS: 99213

== ENCOUNTER 2024-03-14 15:03 | Outpatient (AMB) | payer MEDICARE, OTHER, SELFPAY ==
--- NOTE | 2024-03-14 15:12 | A.OFFPC_ITS ---
Vital Signs 03/14/24 15:13 Height 5 ft 3 in Weight 170 lb BMI 30.1 BP 132/62 Blood Pressure Location Lt brachial Position Sitting Pulse 67 Pulse Source Pulse Oximeter Pulse Oximetry (%) 96 Oxygen Delivery Method Room Air Intake Visit Reasons: Lump in groin area Intake Note: Patient is here to follow up on Lump in groin area and open wound under right foot Laminator Hand Required: No Personal Support Worker: Not Required per policy Accompanied by: Self / Same As Patient Allergies amoxicillin [AMOXICILLIN] Allergy (Unknown, Verified 03/18/24 15:10) UNKNOWN Medication List - Last Reconciled 03/18/24 by Leo Dewitt MD acetaminophen (Tylenol) 650 mg PO QID PRN alendronate 70 mg PO QWEEK calcitonin (salmon) 200 unit/actuation 1 spray intranasal (ALT) DAILY NS cholecalciferol (vitamin D3) 25 mcg PO DAILY doxycycline hyclate 100 mg PO BID folic acid 1 mg PO DAILY furosemide 40 mg PO DAILY hydroxychloroquine 200 mg PO BID losartan 25 mg PO DAILY methotrexate sodium 15 mg (6 x 2.5 mg) PO QWEEK metoprolol succinate ER 25 mg PO DAILY multivitamin 1 tab PO DAILY oxybutynin chloride ER 15 mg PO DAILY sulfamethoxazole-trimethoprim 800-160 mg (Bactrim DS) 1 tab PO BID 7 days Tobacco use date assessed: 03/14/24 Fall risk assessment: No Falls in past year Last assessed Fall Risk: 03/14/24 Dental Screening Dental Screen Date: 01/19/24 HPI Lump in groin area HPI Details 83 yr old female presents to the office for a sick visit. She recvd a pedicure recently. A steel brush was used to scrub her right sole. There was bleeding as the skin was broken. Patient is now complaining of pain which is worse on bearing weight. She also reports a small growth int he groin area. No fevers or chills. [facility] Medical History Chronic lower back pain Chronic heart failure with preserved ejection fraction (HFpEF) Essential hypertension LBBB (left bundle branch block) Acute diverticulitis TIA (transient ischemic attack) HTN (hypertension) Surgical History History of appendectomy (06/16/23) History of cataract surgery H/O hernia repair Family History Father No problems noted. Mother No problems noted. Social History Household Members: None Housing: Apartment Do you presently have visiting nurse or other home services: No Alcohol intake: current Alcohol intake frequency: a few times a month Patient Tobacco Use Status: Never used Tobacco e-Cigarette/Vaping Use: Never Used Second Hand Smoke Exposure: No Advance Directives Date on File: 08/18/21 service: No Current occupational status: retired Current occupational exposures/hazards: No Cognitive needs: No Hearing needs: Yes Vision needs: No Questionnaire Thrive Questionnaire Date Thrive assessed: 11/24/23 VERONICA-7 AMB Questionnaire VERONICA-7 Date VERONICA - 7 assessed: 11/24/23 Source: Developed by Drs. Chad Gramajo, Amalia Brewer, Duane Small and colleagues, with an educational edward from [employer]. Physical exam (Primary Care) Vital Signs: Last Vital Signs Pulse 67 03/14/24 15:13 BP 132/62 03/14/24 15:13 Pulse Ox 96 03/14/24 15:13 Oxygen Delivery Method Room Air 03/14/24 15:13 BMI result Body Mass Index 30.1 Tobacco/Smoking Status: Tobacco use Status Tobacco use date assessed 03/14/24 03/14/24 15:22 Patient Tobacco Use Status Never used Tobacco 03/14/24 15:22 e-Cigarette/Vaping Use Never Used 03/14/24 15:22 Thrive Assessment: Date of Thrive Assessment Date Thrive assessed 11/24/23 03/14/24 15:22 Other: Small swelling attached to the skin in the right inguinal area. Extrem Other: Right foot: Open wound surrounding by pale granulation tissue. Tender to touch Assessment and Plan Assessment & Plan (1) Cellulitis of foot: Code(s): L03.119 - Cellulitis of unspecified part of limb Plan: Bactrim started. If symptoms do not improve to follow up here. The swelling in the groin is not a lymph node. Its a sebaceous cyst Medications: New sulfamethoxazole-trimethoprim 800-160 mg (Bactrim DS) 1 tab PO BID 7 days 14 tabs 0RF Refilled oxybutynin chloride ER 15 mg PO DAILY 30 tabs 1RF Coding Level of Care Code Est Pt Level 3 (09889) Diagnoses Cellulitis of foot L03.119
[2024-03-14 15:13] VITALS: BP 132/62; PULSE 67; O2SAT 96; BMI 30.1
== END 2024-03-14 17:20 | disposition home or self-care (01) ==
PROVIDERS: PCP Internal Medicine; Visit Provider Internal Medicine
DX: L03.119 Cellulitis of unspecified part of limb (principal)
CPT/HCPCS: 99213

== ENCOUNTER 2024-03-16 14:34 | Outpatient (AMB) | payer MEDICARE, OTHER, SELFPAY ==
[2024-03-16 14:25] VITALS: BP 140/68; PULSE 67; TEMP 36.8; O2SAT 96; BMI 30.1
--- NOTE | 2024-03-16 14:25 | MHC.OFFWIV ---
Intake Vital Signs 03/16/24 14:25 Height 5 ft 3 in Weight 170 lb BMI 30.1 BP 140/68 H Blood Pressure Location Lt brachial Position Sitting Pulse 67 Pulse Source Pulse Oximeter Temp 98.2 F Temp Source Temporal Artery Scan Pulse Oximetry (%) 96 Oxygen Delivery Method Room Air Intake Visit Reasons: EP hives from medication rt foot infection Intake Note: Pt presents to the office today for c/o hives on her face and neck that started this morning after being prescribed antibiotics for an infection on her right foot. Patient Tobacco Use Status: Never used Tobacco Allergies amoxicillin [AMOXICILLIN] Allergy (Unknown, Verified 03/16/24 14:25) UNKNOWN HPI HPI Comments History of Present Illness Details This is a anthony 83-year-old female presenting for re-evaluation of a right foot wound and a new rash that she noted this morning. Patient was seen on March 14, 2024 and started on Bactrim for management of a right foot infection that occurred following a pedicure. Patient started her antibiotic therapy yesterday and woke up today with a rash on her face, neck and arms bilaterally. Patient states the rash is not itchy or painful. Patient is also complaining of a headache. Patient denies having any fevers or chills. [facility] Medical History Chronic lower back pain Chronic heart failure with preserved ejection fraction (HFpEF) Essential hypertension LBBB (left bundle branch block) Acute diverticulitis TIA (transient ischemic attack) HTN (hypertension) Surgical History History of appendectomy (06/16/23) History of cataract surgery H/O hernia repair Family History Father No problems noted. Mother No problems noted. Social History Household Members: None Housing: Apartment Do you presently have visiting nurse or other home services: No Alcohol intake: current Alcohol intake frequency: a few times a month Patient Tobacco Use Status: Never used Tobacco e-Cigarette/Vaping Use: Never Used Second Hand Smoke Exposure: No Advance Directives Date on File: 08/18/21 service: No Current occupational status: retired Current occupational exposures/hazards: No Cognitive needs: No Hearing needs: Yes Vision needs: No Review of Systems Const All systems reviewed & are unremarkable except as noted in HPI and below Reports as per HPI, Denies chills and Denies fever(s) Skin/Breast Denies pruritus, Reports lesions, Reports erythema, Reports rash and Denies skin pain Neuro Details: Headache; no visual changes or neck pain Physical Exam Vital Signs: Last Vital Signs Temp 98.2 F 03/16/24 14:25 Pulse 67 03/16/24 14:25 BP 140/68 H 03/16/24 14:25 Pulse Ox 96 03/16/24 14:25 Oxygen Delivery Method Room Air 03/16/24 14:25 BMI result Body Mass Index 30.1 Const General: cooperative, healthy appearing, no acute distress, well developed, alert and awake Nutritional Appearance: average body habitus Orientation/consciousness: patient oriented x3 Limitations: no limitations Eyes Pupils: Equal, round and reactive pupils present Skin Other: There are surface skin abrasions on the plantar surfaces of the feet *bilaterally*; there is surrounding macular erythema on the plantar surface of the right foot only; no exudates or circumferential erythema. Additionally there are numerous erythematous macules and papules noted on the lateral face bilaterally, anterior cervical region, anterior chest wall and volar surfaces of the arms bilaterally. Lesions are nontender and there is no warmth to touch. Rashes: rashes noted Neuro General: patient oriented x3 Cranial nerves: Yes Equal, round and reactive pupils present, Yes Bilaterally intact EOM present, Yes Normal facial strength present and Yes Midline tongue present Cognition (Neuro): normal cognition Extrem Other: ROM intact all digits of the right foot as well as the right ankle. Psych Appearance: grossly normal Mental Status: mental status grossly normal Insight: Good insight present (Psych) Judgement: Good judgement present (Psych) Assessment & Plan Assessment & Plan (1) Cellulitis of foot: Comment: Patient will be instructed to discontinue Bactrim and alternative antibiotic therapy will be provided. Code(s): L03.119 - Cellulitis of unspecified part of limb Plan: Discontinue the previously prescribed Bactrim antibiotic therapy. Please keep your right foot clean with soap and water daily and use a gauze dressing for the next 2-3 days. I would like you to start doxycycline twice daily for the next 7 days and follow up with your primary care provider within 5-7 days for a re-evaluation of this cellulitis. (2) Headache: Comment: Patient is neurologically intact and has a frontal headache. Patient will be given Tylenol in the clinic. Code(s): R51.9 - Headache, unspecified Qualifiers: Headache type: unspecified Headache chronicity pattern: acute headache Intractability: not intractable Qualified Code(s): R51.9 - Headache, unspecified Plan: Tylenol or ibuprofen as needed for your headache, stay very well hydrated with water upon returning home. Orders: Orders AMB Acetaminophen Adult Dose Today R51.9 - Headache, unspecified Medications: New acetaminophen 325 mg PO ONCE 1 tab 0RF R51.9 - Headache, unspecified doxycycline hyclate 100 mg PO BID 14 caps 0RF Coding Level of Care Code Est Pt Level 3 (53230) Diagnoses Cellulitis of foot L03.119 Acute nonintractable headache, unspecified headache type R51.9 Headache type: unspecified Headache chronicity pattern: acute headache Intractability: not intractable Time Spent (min) 25
== END 2024-03-16 15:23 | disposition home or self-care (01) ==
PROVIDERS: PCP Internal Medicine; Visit Provider Physician Assistant
DX: L03.119 Cellulitis of unspecified part of limb (principal); R51.9 Headache, unspecified
CPT/HCPCS: 99213

== ENCOUNTER 2024-03-19 11:33 | Outpatient (AMB) | payer MEDICARE, OTHER, SELFPAY ==
--- NOTE | 2024-03-19 12:01 | AM.OFFWIN_ITS ---
Intake Vital Signs 03/19/24 12:02 Height 5 ft 3 in BP 132/70 Blood Pressure Location Rt brachial Position Sitting Pulse 70 Pulse Source Pulse Oximeter Temp 97.8 F Temp Source Oral Pulse Oximetry (%) 96 Oxygen Delivery Method Room Air Intake Visit Reasons: EP allergic reaction to medication Intake Note: pt is here for concern of reaction to doxycycline and foot pain Patient Tobacco Use Status: Never used Tobacco Allergies amoxicillin [AMOXICILLIN] Allergy (Unknown, Verified 03/19/24 12:36) UNKNOWN Medication List - Last Reconciled 03/19/24 by Leo Dewitt MD acetaminophen (Tylenol) 650 mg PO QID PRN alendronate 70 mg PO QWEEK calcitonin (salmon) 200 unit/actuation 1 spray intranasal (ALT) DAILY NS cholecalciferol (vitamin D3) 25 mcg PO DAILY folic acid 1 mg PO DAILY furosemide 40 mg PO DAILY hydroxychloroquine 200 mg PO BID losartan 25 mg PO DAILY methotrexate sodium 15 mg (6 x 2.5 mg) PO QWEEK metoprolol succinate ER 25 mg PO DAILY multivitamin 1 tab PO DAILY oxybutynin chloride ER 15 mg PO DAILY Do you need a note to return to daycare/school/sports/work: No HPI EP allergic reaction to medication HPI Details 83 yr old female presents to the office for a sick visit. Patient was given doxycycline for the infection on her foot. She believes she has a rash on her left thigh from it and her tongue is affected too. Able to tolerate hot fluids and cold liquids without any difficulty. [facility] Medical History Chronic lower back pain Chronic heart failure with preserved ejection fraction (HFpEF) Essential hypertension LBBB (left bundle branch block) Acute diverticulitis TIA (transient ischemic attack) HTN (hypertension) Surgical History History of appendectomy (06/16/23) History of cataract surgery H/O hernia repair Family History Father No problems noted. Mother No problems noted. Social History Household Members: None Housing: Apartment Do you presently have visiting nurse or other home services: No Alcohol intake: current Alcohol intake frequency: a few times a month Patient Tobacco Use Status: Never used Tobacco e-Cigarette/Vaping Use: Never Used Second Hand Smoke Exposure: No Advance Directives Date on File: 08/18/21 service: No Current occupational status: retired Current occupational exposures/hazards: No Cognitive needs: No Hearing needs: Yes Vision needs: No Physical Exam Vital Signs: Last Vital Signs Temp 97.8 F 03/19/24 12:02 Pulse 70 03/19/24 12:02 BP 132/70 03/19/24 12:02 Pulse Ox 96 03/19/24 12:02 Oxygen Delivery Method Room Air 03/19/24 12:02 Const General: cooperative and healthy appearing Nutritional Appearance: well nourished Orientation/consciousness: patient oriented x3 Limitations: no limitations HEENT Head: Yes normal to inspection Eyes General: appearance normal, both eyes and all related structures Neck Neck: Yes normal visual inspection Chest Chest palpation & inspection: normal palpation of entire chest wall Resp Effort & Inspection: normal respiratory effort Skin Other: Right foot: Lesion on the sole is healing, no erythema. No tenderness. Left thigh: erythematous area with a bullous lesion. Oral Cavity: Tongue: erythema on the side of the tongue. Neuro General: patient oriented x3 Assessment & Plan Assessment & Plan (1) Cellulitis of foot: Code(s): L03.119 - Cellulitis of unspecified part of limb Plan: Advised patient to stop all antibiotics. Rash could be a drug reaction. BW has been ordered. Orders: Orders Basic Metabolic Panel Today L03.119 - Cellulitis of unspecified part of limb Complete Blood Count no Diff Today L03.119 - Cellulitis of unspecified part of limb Erythrocyte Sedimentation Rate Today L03.119 - Cellulitis of unspecified part of limb Liver Panel Today L03.119 - Cellulitis of unspecified part of limb Coding Level of Care Code Est Pt Level 4 (28321) Diagnoses Cellulitis of foot L03.119
[2024-03-19 12:02] VITALS: BP 132/70; PULSE 70; TEMP 36.6; O2SAT 96
== END 2024-03-19 12:46 | disposition home or self-care (01) ==
PROVIDERS: PCP Internal Medicine; Visit Provider Internal Medicine
DX: L03.119 Cellulitis of unspecified part of limb (principal)
CPT/HCPCS: 99214

== ENCOUNTER 2024-03-19 12:34 | Outpatient (REF) | payer MEDICARE, OTHER, SELFPAY ==
[2024-03-19 16:16] LABS: Hematocrit 36.3 % (37.0-47.0); Hemoglobin 11.5 g/dl (12.0-16.0); Mean Corpuscular HGB Conc 31.7 g/dl (31.0-35.0); Mean Corpuscular Hemoglobin 29.6 pg (27.0-33.0); Mean Corpuscular Volume 93.6 fL (80.0-98.0); Mean Platelet Volume 10.8 fL (9.4-12.3); Platelet Count 183 X10*3/uL (160-400); Red Blood Count 3.88 X10*6/uL (4.20-5.50); Red Cell Distribution Width 15.4 % (11.0-16.0); White Blood Count 3.8 X10*3/uL (4.8-10.8)
[2024-03-19 16:43] LABS: Alanine Aminotransferase 18 U/L (0-31); Albumin Level 3.7 g/dL (3.5-5.0); Alkaline Phosphatase 110 U/L (39-117); Anion Gap 13 (12-20); Aspartate Amino Transferase 24 U/L (5-31); Bilirubin Direct 0.2 mg/dL (0.0-0.5); Bilirubin Total 0.5 mg/dL (0.0-1.0); Blood Urea Nitrogen 19 mg/dL (9-16); Calcium 9.3 mg/dL (8.4-10.2); Carbon Dioxide 23 mmol/L (22-29); Chloride 106 mmol/L (96-108); Estimated Glomerular Filt Rate > 60; Glucose Random 91 mg/dL (60-115); Potassium 4.5 mmol/L (3.3-5.1); Sodium 137 mmol/L (135-145)
[2024-03-19 19:49] LABS: Erythrocyte Sedimentation Rate 9 MM/HR (0-20)
== END 2024-03-19 12:35 | disposition home or self-care (01) ==
LOC: HO.HMGCLDS 12:34
PROVIDERS: PCP Internal Medicine; Visit Provider Internal Medicine
DX: L03.119 Cellulitis of unspecified part of limb (principal)
CPT/HCPCS: 36415; 80048; 80076; 85027; 85652

== ENCOUNTER 2024-03-28 09:42 | Outpatient (AMB) | payer MEDICARE, OTHER, SELFPAY ==
--- NOTE | 2024-03-28 09:51 | A.OFFPC_ITS ---
Vital Signs 03/28/24 09:53 Height 5 ft 3 in Weight 166 lb BMI 29.4 BP 110/60 Blood Pressure Location Lt brachial Position Sitting Pulse 66 Pulse Source Pulse Oximeter Pulse Oximetry (%) 96 Oxygen Delivery Method Room Air Intake Visit Reasons: red rash/ possible side effect to medication Intake Note: Patient is here to follow up on red rash, possible side effect to medication. Quality Controller Required: No Gore Seamer: Not Required per policy Accompanied by: Self / Same As Patient Allergies amoxicillin [AMOXICILLIN] Allergy (Unknown, Verified 04/13/24 16:13) UNKNOWN Medication List - Last Reconciled 04/13/24 by Leo Dewitt MD alendronate 70 mg PO QWEEK calcitonin (salmon) 200 unit/actuation 1 spray intranasal (ALT) DAILY NS cholecalciferol (vitamin D3) 25 mcg PO DAILY folic acid 1 mg PO DAILY furosemide 40 mg PO DAILY hydroxychloroquine 200 mg PO BID losartan 25 mg PO DAILY methotrexate sodium 15 mg (6 x 2.5 mg) PO QWEEK multivitamin 1 tab PO DAILY oxybutynin chloride ER 15 mg PO DAILY Tobacco use date assessed: 03/28/24 Fall risk assessment: No Falls in past year Last assessed Fall Risk: 03/28/24 Dental Screening Dental Screen Date: 01/19/24 HPI red rash/ possible side effect to medication HPI Details 83-year-old female presents to the [facility] for a follow-up visit. She wanted the rash to be rechecked. The rash is fading and patient has no symptoms of itching. [facility] Medical History Chronic lower back pain Chronic heart failure with preserved ejection fraction (HFpEF) Essential hypertension LBBB (left bundle branch block) Acute diverticulitis TIA (transient ischemic attack) HTN (hypertension) Surgical History History of appendectomy (06/16/23) History of cataract surgery H/O hernia repair Family History Father No problems noted. Mother No problems noted. Social History Household Members: None Housing: Apartment Do you presently have visiting nurse or other home services: No Alcohol intake: current Alcohol intake frequency: a few times a month Patient Tobacco Use Status: Never used Tobacco e-Cigarette/Vaping Use: Never Used Second Hand Smoke Exposure: No Advance Directives Date on File: 08/18/21 service: No Current occupational status: retired Current occupational exposures/hazards: No Cognitive needs: No Hearing needs: Yes Vision needs: No Questionnaire Thrive Questionnaire Date Thrive assessed: 11/24/23 VERONICA-7 AMB Questionnaire VERONICA-7 Date VERONICA - 7 assessed: 11/24/23 Source: Developed by Drs. Chad Gramajo, Amalia Brewer, Duane Small and colleagues, with an educational edward from [employer]. Physical exam (Primary Care) Vital Signs: Last Vital Signs Pulse 66 03/28/24 09:53 BP 110/60 03/28/24 09:53 Pulse Ox 96 03/28/24 09:53 Oxygen Delivery Method Room Air 03/28/24 09:53 BMI result Body Mass Index 29.4 Tobacco/Smoking Status: Tobacco use Status Tobacco use date assessed 03/28/24 03/28/24 10:00 Patient Tobacco Use Status Never used Tobacco 03/28/24 10:00 e-Cigarette/Vaping Use Never Used 03/28/24 10:00 Thrive Assessment: Date of Thrive Assessment Date Thrive assessed 11/24/23 03/28/24 10:00 Skin Other: Fading erythematous rash in her lower extremity. Assessment and Plan Assessment & Plan (1) Rash: Code(s): R21 - Rash and other nonspecific skin eruption Plan: No further medications needed. Reassurance. Coding Level of Care Code Est Pt Level 3 (42744) Complex EM visit Add On G2211 Diagnoses Rash R21
[2024-03-28 09:53] VITALS: BP 110/60; PULSE 66; O2SAT 96; BMI 29.4
== END 2024-03-28 16:16 | disposition home or self-care (01) ==
PROVIDERS: PCP Internal Medicine; Visit Provider Internal Medicine
DX: R21 Rash and other nonspecific skin eruption (principal)
CPT/HCPCS: 99213; G2211

== ENCOUNTER 2024-03-28 12:50 | Outpatient (AMB) | payer MEDICARE, OTHER, SELFPAY ==
[2024-03-28 13:28] VITALS: BP 109/59; PULSE 60; BMI 26.7
--- NOTE | 2024-03-28 13:28 | MHC.OFFVIS ---
Vital Signs 03/28/24 13:28 Height 5 ft 6 in Weight 165 lb 5.547 oz BMI 26.7 BP 109/59 L Blood Pressure Location Lt brachial Position Sitting Pulse 60 Pulse Source Pulse Oximeter Intake Visit Reasons: 1 year fu Impregnator Electrolytic Capacitors Required: No Accompanied by: Self / Same As Patient Allergies amoxicillin [AMOXICILLIN] Allergy (Unknown, Verified 03/28/24 09:52) UNKNOWN Medication List - Last Reconciled 03/28/24 by Jose Ramey MD alendronate 70 mg PO QWEEK calcitonin (salmon) 200 unit/actuation 1 spray intranasal (ALT) DAILY NS cholecalciferol (vitamin D3) 25 mcg PO DAILY folic acid 1 mg PO DAILY furosemide 40 mg PO DAILY hydroxychloroquine 200 mg PO BID losartan 25 mg PO DAILY methotrexate sodium 15 mg (6 x 2.5 mg) PO QWEEK metoprolol succinate ER 25 mg PO DAILY multivitamin 1 tab PO DAILY oxybutynin chloride ER 15 mg PO DAILY HPI Comments Details: Isha is here for follow up regarding her cardiac issues. Overall, she states she is doing fine. No complaints like angina or shortness of breath or any other cardiac concerns. [facility] Medical History Chronic lower back pain Chronic heart failure with preserved ejection fraction (HFpEF) Essential hypertension LBBB (left bundle branch block) Acute diverticulitis TIA (transient ischemic attack) HTN (hypertension) Surgical History History of appendectomy (06/16/23) History of cataract surgery H/O hernia repair Family History Father No problems noted. Mother No problems noted. Social History Household Members: None Housing: Apartment Do you presently have visiting nurse or other home services: No Alcohol intake: current Alcohol intake frequency: a few times a month Patient Tobacco Use Status: Never used Tobacco e-Cigarette/Vaping Use: Never Used Second Hand Smoke Exposure: No Advance Directives Date on File: 08/18/21 service: No Current occupational status: retired Current occupational exposures/hazards: No Cognitive needs: No Hearing needs: Yes Vision needs: No Review of Systems Const Denies chills, Denies fatigue, Denies fever(s), Denies frequent falls, Denies weakness, Denies weight gain and Denies weight loss ENT Denies dizziness Card Denies chest pain, Denies leg edema, Denies lightheadedness, Denies palpitations, Denies dyspnea and Denies dyspnea on exertion Resp Denies cough, Denies dyspnea and Denies dyspnea on exertion GI Denies hematochezia Musc Denies abnormal gait, Denies muscle weakness, Denies numbness, Denies radiating pain into limb and Denies tingling Neuro Denies abnormal gait, Denies dizziness, Denies frequent falls, Denies numbness, Denies tingling and Denies weakness Endo Denies fatigue and Denies palpitations Physical Exam Vital Signs: Last Vital Signs Pulse 60 03/28/24 13:28 BP 109/59 L 03/28/24 13:28 BMI result Body Mass Index 26.7 Const General: comfortable and no acute distress Orientation/consciousness: patient oriented x3 HEENT Other: Unremarkable Head: Yes normal to inspection Neck Neck: Yes normal visual inspection Chest Chest palpation & inspection: normal inspection of the chest Resp Auscultation: clear to auscultation bilaterally Cardio Palpation: normal PMI Heart sounds: S1 normal heart sound present, S2 normal heart sound present, no gallops, Murmur heart sound present systolic II/ and at the right sternal border and no rubs GI Palpation (GI): Soft to palpation Back/Spine/Pelvis Other: unremarkable Skin General skin exam: no rashes or lesions noted Neuro General: patient oriented x3 Extrem General: Yes normal to inspection Psych Mental Status: mental status grossly normal Assessment & Plan Assessment & Plan (1) Chronic heart failure with preserved ejection fraction (HFpEF): Code(s): I50.32 - Chronic diastolic (congestive) heart failure Category: Medical (2) LBBB (left bundle branch block): Code(s): I44.7 - Left bundle-branch block, unspecified Category: Medical (3) Essential hypertension: Code(s): I10 - Essential (primary) hypertension Category: Medical Plan Cardiac testing summary- Pharmacological stress test in 2015 - medium-sized anterior/anterior septal defect, predominantly reversible. Per patient, she never underwent cardiac catheterization. This has been repeated and shows no clear ischemia, but rather fixed defect in the septum from left bundle-branch block. Echocardiogram from 2021 with LVEF of 48%. Wall motion abnormality suspected to be from left bundle-branch block. Mild tricuspid regurgitation. Overall, stable cardiac status. Continue current diuretic regimen. For blood pressure, she is on Losartan. No absolute need to continue beta-blockers that she has taken for many years. We can try to stop it. If blood pressure does go up, may increase the Losartan dose. We discussed about this today. She will let us know. Follow-up in 1 year with another echocardiogram. Orders: Orders CA echo transthoracic complete 1 Year I50.32 - Chronic diastolic (congestive) heart failure Medications: Discontinued metoprolol succinate ER Take 1 whole tab daily as directed Discontinued Reason: Doctor's Order 25 mg PO DAILY 90 tabs 3RF I10 - Essential (primary) hypertension Coding Level of Care Code Est Pt Level 4 (40025) Diagnoses Chronic heart failure with preserved ejection fraction (HFpEF) I50.32 LBBB (left bundle branch block) I44.7 Essential hypertension I10
== END 2024-03-28 13:44 | disposition home or self-care (01) ==
PROVIDERS: PCP Internal Medicine; Visit Provider Internal Medicine
DX: I50.32 Chronic diastolic (congestive) heart failure (principal); I44.7 Left bundle-branch block, unspecified; I10 Essential (primary) hypertension
CPT/HCPCS: 99214

== ENCOUNTER → 2024-03-28 12:50 | Outpatient (BNVA) | payer MEDICARE, OTHER, SELFPAY | PROVIDERS: PCP Internal Medicine; Visit Provider Internal Medicine | DX: I11.0 Hypertensive heart disease with heart failure (principal); I50.32 Chronic diastolic (congestive) heart failure; I44.7 Left bundle-branch block, unspecified | CPT/HCPCS: 99212 ==

== ENCOUNTER 2024-04-24 09:55 | Outpatient (AMB) | payer MEDICARE, OTHER, SELFPAY ==
--- NOTE | 2024-04-24 10:08 | MHC.OFFVIS ---
Vital Signs 04/24/24 10:09 Height 5 ft 6 in Weight 165 lb 2.02 oz BMI 26.6 BP 122/64 Blood Pressure Location Rt brachial Position Sitting Pulse 82 Pulse Source Pulse Oximeter Pulse Oximetry (%) 97 Oxygen Delivery Method Room Air Intake Visit Reasons: cutaneous lupus/Osteoporosis Intake Note: Pt reports rashes have cleared up, denies joint pain. Health Facilities Surveyor Required: No Accompanied by: Self / Same As Patient Allergies amoxicillin [AMOXICILLIN] Allergy (Unknown, Verified 04/24/24 10:17) UNKNOWN Medication List - Last Reconciled 04/24/24 by Love Avitia MD alendronate 70 mg PO QWEEK calcitonin (salmon) 200 unit/actuation 1 spray intranasal (ALT) DAILY NS cholecalciferol (vitamin D3) 25 mcg PO DAILY folic acid 1 mg PO DAILY furosemide 40 mg PO DAILY hydroxychloroquine 200 mg PO BID losartan 25 mg PO DAILY methotrexate sodium 15 mg (6 x 2.5 mg) PO QWEEK multivitamin 1 tab PO DAILY oxybutynin chloride ER 15 mg PO DAILY HPI Comments Details: 83-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 On methotrexate 15 mg weekly, folic acid 1 mg daily and alendronate 70 mg weekly. Patient denies any complaints today. Tolerating meds well. Will be going to [place] for 1 week soon. 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 She had been on hydroxychloroquine for the last 5 years and intermittently gets prednisone. She stated that she started having a flare of discoid lupus over the last 6-9 months. She was started on prednisone g daily. Prednisone dose was recently increased to 10 mg daily. Of note patient was admitted to the hospital about 2 weeks ago for a perforated appendicitis, she had open appendectomy. Patient has healed well. The stitches are out. Currently she is complaining of diffuse skin rashes on her back, chest, arms. The rashes are not itchy or painful. Patient avoids the sun. [facility] Medical History Chronic lower back pain Chronic heart failure with preserved ejection fraction (HFpEF) Essential hypertension LBBB (left bundle branch block) Acute diverticulitis TIA (transient ischemic attack) HTN (hypertension) Surgical History History of appendectomy (06/16/23) History of cataract surgery H/O hernia repair Family History Father No problems noted. Mother No problems noted. Social History Household Members: None Housing: Apartment Do you presently have visiting nurse or other home services: No Alcohol intake: current Alcohol intake frequency: a few times a month Patient Tobacco Use Status: Never used Tobacco e-Cigarette/Vaping Use: Never Used Second Hand Smoke Exposure: No Advance Directives Date on File: 08/18/21 service: No Current occupational status: retired Current occupational exposures/hazards: No Cognitive needs: No Hearing needs: Yes Vision needs: No Review of Systems Musc Denies back pain and Denies arthralgias Physical Exam Vital Signs: Last Vital Signs Pulse 82 04/24/24 10:09 BP 122/64 04/24/24 10:09 Pulse Ox 97 04/24/24 10:09 Oxygen Delivery Method Room Air 04/24/24 10:09 BMI result Body Mass Index 26.6 Const General: cooperative, healthy appearing and in distress mild Nutritional Appearance: obese Orientation/consciousness: patient oriented x3 Limitations: no limitations HEENT Head: Yes normocephalic and Yes atraumatic Resp Effort & Inspection: normal respiratory effort and able to speak in complete sentences Skin Other: Subacute cutaneous lupus rash on neck, upper chest, upper back. 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
[2024-04-24 10:09] VITALS: BP 122/64; PULSE 82; O2SAT 97; BMI 26.6
== END 2024-04-24 10:45 | disposition home or self-care (01) ==
PROVIDERS: PCP Internal Medicine; Visit Provider Student in an Organized Health Care Education/Training Program
DX: L93.2 Other local lupus erythematosus (principal); M80.08XA Age-related osteoporosis with current pathological fracture, vertebra(e), initial encounter for fracture; Z79.631 Long term (current) use of antimetabolite agent; Z79.899 Other long term (current) drug therapy
CPT/HCPCS: 99214; G2211

== ENCOUNTER → 2024-04-24 09:55 | Outpatient (BNVA) | payer MEDICARE, OTHER, SELFPAY | PROVIDERS: PCP Internal Medicine; Visit Provider Student in an Organized Health Care Education/Training Program | DX: L93.2 Other local lupus erythematosus (principal); M80.08XA Age-related osteoporosis with current pathological fracture, vertebra(e), initial encounter for fracture; Z79.631 Long term (current) use of antimetabolite agent; Z79.899 Other long term (current) drug therapy | CPT/HCPCS: 99212 ==

== ENCOUNTER 2024-04-27 03:42 | Inpatient (IN) | payer MEDICARE, OTHER, SELFPAY ==
[2024-04-27] VITALS (11 sets, daily range): BP systolic 93–165; BP diastolic 50–70; PULSE 62–178; RESP 17–20; TEMP 36.1–37; O2SAT 94–99; BMI 27.8; BMI 29.1; BMI 28.9
--- NOTE | 2024-04-27 | ECG_ITS ---
Test Reason : HIGH HR Blood Pressure : / mmHG Vent. Rate : 158 BPM Atrial Rate : 000 BPM P-R Int : 000 ms QRS Dur : 126 ms QT Int : 328 ms P-R-T Axes : 000 -51 119 degrees QTc Int : 531 ms Atrial fibrillation with rapid ventricular response Left axis deviation Left bundle branch block Abnormal ECG When compared with ECG of 16-JUN-2023 13:47, Atrial fibrillation has replaced Sinus rhythm Vent. rate has increased BY [address] now depressed in Anterior leads Referred By: Generic ED Physician Electronically Signed By:Kannan Morrow
--- NOTE | ~2024-04-27 | CT_ITS ---
EXAMINATION: CT ABDOMEN AND PELVIS WITH CONTRAST CLINICAL INFORMATION: Abdominal pain. Rapid atrial fibrillation. COMPARISON: 06/16/2023. TECHNIQUE: Multidetector volumetric images were obtained from the superior aspect of the liver through the pubic symphysis following administration 85 mL of Omnipaque 350 intravenous contrast. Sagittal and coronal reformatted images were obtained on the technologist's workstation. Oral contrast: No This CT examination was performed using dose optimization techniques as appropriate, variously including the following: *Automated exposure control *Adjustment of mA and/or kV according to patient size (this includes techniques or standardized protocols for targeted exams where dose is matched to indication/reason for exam; i.e. extremities or head) *Use of iterative reconstruction technique DLP: 550 mGy-cm FINDINGS: LUNG BASES: There is scarring and/or subsegmental atelectasis at the lung bases. LIVER, GALLBLADDER, AND BILIARY TREE: There is a 3.3 cm cyst left lobe of the liver. No intrahepatic biliary duct dilatation. There is a 2.3 cm gallstone. PANCREAS: There are stable cystic structures along the body of the pancreas measuring up to 1.5 cm. SPLEEN: Unremarkable. ADRENAL GLANDS: Unremarkable. KIDNEYS AND URETERS: The kidneys are normal in size, shape, and attenuation. No hydronephrosis, hydroureter, or calculi seen. No perinephric stranding. There are scattered small bilateral renal cysts measuring up to 1 cm lower pole right kidney. BLADDER: Unremarkable. GASTROINTESTINAL TRACT: There are diverticula throughout the colon without diverticulitis. The appendix is not identified. ABDOMINAL WALL: There is a lower abdominal wall defect/hernia containing portions of bowel without bowel obstruction. There is also smaller mid to lower abdominal wall hernia containing fat. LYMPH NODES: Normal. VASCULAR: There is atherosclerotic plaque of the abdominal aorta. PELVIC VISCERA: Unremarkable. OSSEOUS STRUCTURES: There are compression fractures of L1, L4 and L5 which were present previously. CT/CT abdomen pelvis w IV con IMPRESSION: 1. Lower abdominal wall hernia containing portions of bowel without evidence of obstruction. 2. Smaller mid to lower abdominal wall hernia containing fat. 3. Diverticulosis without diverticulitis. 4. Cholelithiasis. 5. Stable cystic structures along the body of the pancreas. 6. Compression fractures of L1, L4 and L5. 7. Atherosclerotic plaque of the abdominal aorta. 8. Hepatic and renal cysts. Fleischner guidelines were followed.
--- NOTE | ~2024-04-27 | XR_ITS ---
EXAMINATION: XR CHEST CLINICAL INFORMATION: Chest pain. Shortness of breath. COMPARISON: 01/31/2024. TECHNIQUE: Frontal view of the chest was obtained. FINDINGS: The cardiomediastinal silhouette is stable. There is no focal lung consolidation or pleural effusions. The bony structures and soft tissues are unremarkable. XR/XR chest 1V IMPRESSION: No acute cardiopulmonary process.
--- NOTE | 2024-04-27 04:17 | ED_ITS ---
HPI - Abdominal Pain General Chief Complaint: Weakness Stated Complaint: dizziness, n/v Time Seen by Provider: 04/27/24 04:17 Source: patient and family (Son) Mode of arrival: ambulatory Limitations: no limitations History of Present Illness ED Provider: Dr. Eugene Babb HPI narrative: 83-year-old female with a history of chronic lower back pain, HFpEF, hypertension, left bundle-branch block, diverticulitis, TIA, hypertension, appendectomy who presents emergency department for evaluation of epigastric pain. Patient states that she ate spinach and turnip soup yesterday at 12:00 hours she states she then developed abdominal pain associated with nausea and vomiting. At around 19:00 hours she states there symptoms got worse . She took some inzb-aip-nepwacj medications with no improvement of her symptoms she then was feeling dizzy and weak therefore her son brought her to the emergency department for evaluation. The patient was found to be in atrial fibrillation with a rapid ventricular response ranging from 150 to 180 beats per minute. Patient states that she has not had atrial fibrillation in a long time and her doctor stopped her metoprolol. She states that her physical therapist clinic director recently started her on methotrexate. She denied chest pain, neck pain, jaw pain, arm pain, back pain, fever, chills, cough. Related Data Home Medications ?Medication ?Instructions ?Recorded ?Confirmed multivitamin 1 tab PO DAILY 03/10/21 04/24/24 Previous Rx's ?Medication ?Instructions ?Recorded folic acid 1 mg tablet 1 mg PO DAILY #90 tabs 11/02/23 furosemide 40 mg tablet 40 mg PO DAILY #90 tabs 11/15/23 losartan 25 mg tablet 25 mg PO DAILY #90 tabs 01/31/24 calcitonin (salmon) 200 1 spray intranasal (ALT) DAILY 02/02/24 unit/actuation nasal spray #3.7 mL alendronate 70 mg tablet 70 mg PO QWEEK #12 tabs 02/21/24 cholecalciferol (vitamin D3) 25 25 mcg PO DAILY #90 caps 02/21/24 mcg (1,000 unit) capsule oxybutynin chloride 15 mg 15 mg PO DAILY #30 tabs 03/14/24 tablet,extended release 24 hr hydroxychloroquine 200 mg tablet 200 mg PO BID #180 tabs 04/24/24 methotrexate sodium 2.5 mg tablet 20 mg (8 x 2.5 mg) PO QWEEK #96 04/24/24 tabs Allergies Allergy/AdvReac Type Severity Reaction Status Date / Time amoxicillin [AMOXICILLIN] Allergy Unknown UNKNOWN Verified 04/27/24 03:46 Review of Systems Review of Systems Yes all other systems are reviewed and are negative [facility] Past Medical History [facility] Narrative: Social history: She denies tobacco, alcohol and drug use Medical History Chronic lower back pain Chronic heart failure with preserved ejection fraction (HFpEF) Essential hypertension LBBB (left bundle branch block) Acute diverticulitis TIA (transient ischemic attack) HTN (hypertension) Surgical History History of appendectomy (06/16/23) History of cataract surgery H/O hernia repair Family History Family History Father No problems noted. Mother No problems noted. Social History Social History Household Members: None Housing: Apartment Do you presently have visiting nurse or other home services: No Alcohol intake: current Alcohol intake frequency: a few times a month Patient Tobacco Use Status: Never used Tobacco Smoked in Last 30 Days: No e-Cigarette/Vaping Use: Never Used Second Hand Smoke Exposure: No Use of substances other than those prescribed or required for medical reasons: No Advance Directives: Yes Advance Directives on File: Yes Advance Directives Date on File: 08/18/21 service: No Current occupational status: retired Current occupational exposures/hazards: No Cognitive needs: No Hearing needs: Yes Vision needs: No Physical Exam ED Vital Signs: Vital Signs - 24 hr 04/27/24 03:46 04/27/24 04:20 04/27/24 06:40 Temperature 97.7 F 97.5 F Pulse Rate 156 H 178 H 77 Respiratory Rate 18 19 17 Blood Pressure 93/64 103/60 142/60 H Pulse Oximetry 96 97 96 Oxygen Delivery Method Room Air Room Air Room Air BMI result Body Mass Index 29.1 Vital signs revealed a rapid heart rate of 156 otherwise unremarkable Exam: General: Awake, alert in no distress Head: Normocephalic, atraumatic EENT: PERRL, Lids normal, sclera normal, conjunctiva normal, nose normal , ears normal, throat without erythema or exudates Neck: Supple, no adenopathy Lung: breath sounds symmetric, no wheezing, rales or rhonchi Chest: symmetric movement, nontender Heart: Irregularly irregular, rapid rate with a normal S1-S2 no murmurs rubs or gallops Abdomen: soft, moderate epigastric tenderness, nondistended, normal bowel sounds Back: no vertebral tenderness, no CVAT Extremities: no deformities, moves all extremities symmetrically Neuro: Awake, alert, oriented, normal speech, cranial nerves intact, moves all extremities symmetrically Psych: Pleasant, cooperative Medical Decision Making Medical Decision Making MDM Narrative: 83-year-old female with a history of chronic lower back pain, HFpEF, hypertension, left bundle-branch block, diverticulitis, TIA, hypertension, appendectomy presents emergency department for evaluation of epigastric pain which started yesterday at noon after she ate spinach and turnip soup yesterday. She then developed nausea, vomiting, lightheadedness and weakness. Her symptoms persisted therefore her son brought her to the emergency department this morning for evaluation. The patient was found to be in atrial fibrillation with a rapid ventricular response ranging from 150 to 180 beats per minute. Patient states that she has not had atrial fibrillation in a long time and her doctor stopped her metoprolol. Her rheumatology recently started her on methotrexate. She had no other associated symptoms such as chest pain, jaw, neck, arm or back pain. Vital signs did reveal rapid heart rate of 150 beats per minute and a low systolic blood pressure in the 90s. Patient's abdominal exam did reveal epigastric tenderness otherwise was unremarkable. Differential diagnosis: ?Includes but is not limited to myocardial infarction, myocardial ischemia, atrial fibrillation with rapid ventricular response, ischemic bowel, gastritis, pancreatitis, electrolyte abnormalities, anemia Following evaluation was ordered: CBC, CMP, PT/INR, PTT, troponin, BNP, lipase, EKG, chest x-ray one view Patient was initially treated with the following: Digoxin 0.5 mg IV, normal saline x1 L Course: 05:29 My interpretation patient's laboratory evaluation is as follows: WBC was low 3700-this is chronic. Anemia with an H&H of 12.2 and 36.3-chronic. PTT was normal. BUN elevated 19. Glucose elevated 123. High sensitive troponin I was elevated 146.5. BNP elevated 102. My interpretation patient's chest x-ray is as follows: Cardiomegaly with mild increased interstitial markings bilaterally Initial 12 EKG was consistent with atrial fibrillation with a rapid ventricular response. Shortly after receiving the digoxin the patient did spontaneously convert to a sinus rhythm with a left bundle-branch block. The patient had a 7 beat run of V-tach at 04:54 hours which was asymptomatic. Patient most likely has paroxysmal atrial fibrillation and is currently not on rate control medications, given her elevated troponin I suspect that she has type 2 myocardial injury. I did discuss the patient's presentation with the covering hospitalist, Dr. Severiano Mcarthur requested CT scan of the abdomen pelvis with IV contrast to further evaluate her abdominal pain and he will admit the patient after CT scan results are available. Patient will be started on NSTEMI heparin protocol. 06:54 CT scan of the patient's abdomen pelvis IV contrast did not reveal any abnormality to explain the patient's abdominal pain. I did discuss the patient's presentation over tiger text with the covering hospitalist Dr. Barragan and the patient will be admitted to the hospitalist service for further management Admission/Observation Consideration of admission/observation: Escalation of care including admission/observation considered Consult Healthcare Provider Management of the patient was discussed with: Hospitalist Lab Data MDM Lab Attestation statement: I reviewed the patient's lab results. 04/27/24 04:15 04/27/24 04:15 Labs: Lab Results 04/27/24 Range/Units 04:15 WBC 3.7 L (4.8-10.8) X10*3/uL RBC 4.06 L (4.20-5.50) X10*6/uL Hgb 12.2 (12.0-16.0) g/dl Hct 36.3 L (37.0-47.0) % MCV 89.4 (80.0-98.0) fL MCH 30.0 (27.0-33.0) pg MCHC 33.6 (31.0-35.0) g/dl RDW 16.0 (11.0-16.0) % Plt Count 205 (160-400) X10*3/uL MPV 9.8 (9.4-12.3) fL Immature Gran % (Auto) 0.3 (0.0-0.4) % Neut % (Auto) 64.5 (45-73) % Lymph % (Auto) 21.1 (20-40) % Ralls % (Auto) 13.0 H (2-11) % Eos % (Auto) 0.8 (0-4) % Baso % (Auto) 0.3 (0-2) % Lymph # (Auto) 0.8 L (1.2-4.9) X10*3/uL Ralls # (Auto) 0.5 (0.1-1.2) X10*3/uL Eos # (Auto) 0.0 (0.0-0.4) X10*3/uL Baso # (Auto) 0.0 (0.0-0.2) X10*3/uL Abs Immat Gran (auto) 0.01 (0.00-0.03) X10*3/uL Absolute Neuts (auto) 2.4 (2.0-8.3) x10*3/uL Absolute Nucleated RBC 0.000 (0.0-0.012) X10*3/uL Nucleated RBC % (auto) 0.0 (0.0-0.2) /100WBC Hold Purple Top SEE NOTE PT 11.5 D (11.1-13.3) SEC INR 0.9 (0.9-1.1) APTT 30.0 (26.0-36.8) SEC Hold Blue Top SEE NOTE Sodium 138 (135-145) mmol/L Potassium 3.8 (3.3-5.1) mmol/L Chloride 104 (96-108) mmol/L Carbon Dioxide 23 (22-29) mmol/L Anion Gap 15 (12-20) BUN 19 H (9-16) mg/dL Creatinine 0.82 (0.5-1.4) mg/dL Estim Creat Clear Calc 50.2 Estimated GFR > 60 Random Glucose 123 H (60-115) mg/dL Calcium 9.7 (8.4-10.2) mg/dL Total Bilirubin 0.6 (0.0-1.0) mg/dL AST 31 (5-31) U/L ALT 26 (0-31) U/L Alkaline Phosphatase 105 (39-117) U/L Troponin I High Sens 146.5 H* D (<3.5-17.0) ng/L B-Natriuretic Peptide 102 H (<100) pg/mL Total Protein 7.0 (6.5-8.0) g/dL Albumin 3.8 (3.5-5.0) g/dL Lipase 35 (8-78) U/L Independent Interpretation I performed an independent interpretation of an: EKG Interpretation: My independent interpretation patient's 12 EKG done at 04:10 hours is as follows: Atrial fibrillation with a rapid ventricular response of 158 beats per minute, prolonged QRS of 126 milliseconds prolonged QTC of 531 milliseconds, no ST segment elevation, 2-[address] segment depression V4 through V6. My independent interpretation the patient's 12 EKG done at 04:24 hours is as follows: Normal sinus rhythm with a rate of 78, normal WI interval, prolonged QRS duration of 142 milliseconds, prolonged QTC duration of 483 milliseconds, left bundle-branch block, inverted T-waves in lead 1 and aVL, no ST segment elevation, no ST segment depression My independent interpretation of a rhythm strip done at 04:54 hours is as follows: Normal sinus rhythm with a 7 beat run of V-tach. The patient was asymptomatic during this time interval. Radiology Impression Discussion of test interpretation with radiology: I have reviewed the radiologist's reading. Radiologist Impression: CT abdomen pelvis w IV con IMPRESSION: 1. Lower abdominal wall hernia containing portions of bowel without evidence of obstruction. 2. Smaller mid to lower abdominal wall hernia containing fat. 3. Diverticulosis without diverticulitis. 4. Cholelithiasis. 5. Stable cystic structures along the body of the pancreas. 6. Compression fractures of L1, L4 and L5. 7. Atherosclerotic plaque of the abdominal aorta. 8. Hepatic and renal cysts. Fleischner guidelines were followed. Dictated By: Chad Hernandez Independent Historian Clinical information obtained from an independent historian. History obtained from or confirmed by: Other (Son) Chronic Conditions Patient?s care impacted by: Hypertension and Other (Paroxysmal atrial fibrillation) Medications Administered Generic Name Dose Route Start Last Admin Trade Name Freq PRN Reason Stop Dose Admin Heparin Sodium/Sodium Chloride 25,000 unit in 250 mls @ 0 mls/hr 04/27/24 06:15 04/27/24 06:18 Heparin Sodium,Porcine/1/2ns IVCONT 12 units/kg/hr .Q0M KATE 9.24 mls/hr Administration Protocol Per Protocol Discontinued Medications Generic Name Dose Route Start Last Admin Trade Name Royce PRN Reason Stop Dose Admin Aspirin 162 mg 04/27/24 05:16 04/27/24 05:44 Aspirin 81 Mg Tab.Chew PO 04/27/24 05:17 162 mg ONCE STA Administration Digoxin 0.25 mg 04/27/24 04:17 04/27/24 04:22 Digoxin 0.5 Mg/2 Ml Ampul IVPUSH 04/27/24 04:18 0.25 mg ONCE ONE Administration Heparin Sodium (Porcine) 4,000 unit 04/27/24 05:16 04/27/24 05:44 Heparin Sodium,Porcine 5,000 Unit/Ml Vial IVPUSH 04/27/24 05:17 4,000 unit ONCE ONE Administration Sodium Chloride 1,000 mls @ 999 mls/hr 04/27/24 04:17 04/27/24 05:27 Ns IV 04/27/24 05:17 Infused .Q1H1M STA Infusion Critical Care Time Critical Care Time Critical Care Time: Yes Total Critical Care Time: 45 Attestation: Critical Care: The patient was critically ill with a high probability of imminent or life threatening deterioration. I spent greater than 30 minutes of discontinuous time evaluating the patient,delivering critical care at the bedside, discussing and evaluating pertinent data with consultants. Critical care time does not include time spent performing separately billable procedures or teaching. Total time spent performing critical care was 45 minutes. Discharge Plan Discharge Print Language: Gambian
[2024-04-27 04:22] LABS: MANUAL DIFF FLAG NO
[2024-04-27] MEDS: Digoxin 0.5 MG/2 ML AMPUL 0.25 MG IVPUSH (04:22)
[2024-04-27 04:23] LABS: Basophils Percent Auto 0.3 % (0-2); Eosinophils Percent Auto 0.8 % (0-4); Hematocrit 36.3 % (37.0-47.0); Hemoglobin 12.2 g/dl (12.0-16.0); Imm Gran Abs Auto 0.01 X10*3/uL (0.00-0.03); Imm Gran Pct Auto 0.3 % (0.0-0.4); Lymphocytes Absolute Auto 0.8 X10*3/uL (1.2-4.9); Lymphocytes Percent Auto 21.1 % (20-40); Mean Corpuscular HGB Conc 33.6 g/dl (31.0-35.0); Mean Corpuscular Volume 89.4 fL (80.0-98.0); Mean Platelet Volume 9.8 fL (9.4-12.3); Monocytes Absolute Auto 0.5 X10*3/uL (0.1-1.2); Neutrophils Absolute Auto 2.4 x10*3/uL (2.0-8.3); Neutrophils Percent Auto 64.5 % (45-73); Platelet Count 205 X10*3/uL (160-400); Red Blood Count 4.06 X10*6/uL (4.20-5.50); White Blood Count 3.7 X10*3/uL (4.8-10.8)
[2024-04-27] MEDS: 0.9 % Sodium Chloride 1,000 ML 999 ML IV (04:24)
[2024-04-27 04:45] LABS: Troponin-I High Sensitivity 146.5 ng/L (<3.5-17.0)
[2024-04-27 04:50] LABS: Alanine Aminotransferase 26 U/L (0-31); Albumin Level 3.8 g/dL (3.5-5.0); Alkaline Phosphatase 105 U/L (39-117); Anion Gap 15 (12-20); Aspartate Amino Transferase 31 U/L (5-31); Bilirubin Total 0.6 mg/dL (0.0-1.0); Blood Urea Nitrogen 19 mg/dL (9-16); Calcium 9.7 mg/dL (8.4-10.2); Carbon Dioxide 23 mmol/L (22-29); Chloride 104 mmol/L (96-108); Creatinine Clr Calc Pharmacy 50.2; Estimated Glomerular Filt Rate > 60; Glucose Random 123 mg/dL (60-115); Potassium 3.8 mmol/L (3.3-5.1); Sodium 138 mmol/L (135-145)
[2024-04-27 04:55] LABS: B Type Natriuretic Peptide 102 pg/mL (<100)
[2024-04-27 05:25] LABS: INTERNATIONAL NORM RATIO 0.9 (0.9-1.1); Prothrombin Time 11.5 SEC (11.1-13.3)
[2024-04-27] MEDS: Heparin Sodium,Porcine 5,000 UNIT/ML VIAL 4000 UNIT IVPUSH (05:44)
[2024-04-27] MEDS: Aspirin 81 MG TAB.CHEW 162 MG PO (05:44)
[2024-04-27 05:54] LABS: Lipase 35 U/L (8-78)
[2024-04-27] MEDS: Heparin Sodium,Porcine/1/2NS 25,000 UNIT/250 ML IV.SOLN 9.24 UNIT IVCONT (06:18)
--- NOTE | 2024-04-27 06:45 | ECG_ITS ---
Test Reason : RE DO Blood Pressure : / mmHG Vent. Rate : 078 BPM Atrial Rate : 078 BPM P-R Int : 156 ms QRS Dur : 142 ms QT Int : 424 ms P-R-T Axes : 060 -41 104 degrees QTc Int : 483 ms Normal sinus rhythm with sinus arrhythmia Left axis deviation Left bundle branch block Abnormal ECG When compared with ECG of 27-APR-2024 04:10, Sinus rhythm has replaced Atrial fibrillation Vent. rate has decreased BY 80 BPM Referred By: Eugene Babb Electronically Signed By:Kannan Morrow
--- NOTE | 2024-04-27 07:48 | PC.NURSE ---
Resumed care of pt at 0700. 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 Repeat trop being drawn, vss and up to date. Pt aware of ongoing plan of care, call [facility] within reach.
--- NOTE | 2024-04-27 08:21 | PHA.MEDREC ---
Pharmacy Consult ? Medication Reconciliation Pharmacy has completed the medication reconciliation. spoke with patient to confirm medications. She confirmed methotrexate 6 tablets every tuesday and alendronate every Tuesday. Patients daughter over the phone confirmed she was taken off of metoprolol about a month ago. Patient confirmed she takes hydroxychloroquine once daily instead of BID.
[2024-04-27 08:24] LABS: Troponin-I High Sensitivity 555.1 ng/L (<3.5-17.0)
--- NOTE | 2024-04-27 08:44 | PM.IMHP ---
History of Present Illness Date of Service: 04/27/24 Chief Complaint: Abdominal pain 83 year female with HTN, Chronic lower back pain, Chronic heart failure with preserved ejection fraction (HFpEF), LBBB, history of TIA. She had a Pharmacological stress test in 2014 - medium-sized anterior/anterior septal defect, predominantly reversible. Per patient, she never underwent cardiac catheterization. This has been repeated and shows no clear ischemia, but rather fixed defect in the septum from left bundle-branch block. Echocardiogram from 2021 with LVEF of 48%. Wall motion abnormality suspected to be from left bundle-branch block. Mild tricuspid regurgitation. She presents with abdominal discomfort that started around lunch yesterday, associated with nausea and vomitting. The symptoms persisted until the evening and she took OTC antiacid without relief. She has been feeling weak and dizzy, but no shortness of breath or chest pain. Work up in the ED has revealed NSTEMI with initial troponin of 146 trending up to 555, ECG showed AFIB with RVR and LBBB. CT of abdomen show hernia without incarceration, L1, 4 and 5 compression fractures. She is presently feeing better. Hemodynamically stable. Treatment initiated with IV heparin, ASA, lipitor and metoprolol [facility] Medical History Chronic lower back pain Chronic heart failure with preserved ejection fraction (HFpEF) Essential hypertension LBBB (left bundle branch block) Acute diverticulitis TIA (transient ischemic attack) HTN (hypertension) Family History Father No problems noted. Mother No problems noted. Surgical History History of appendectomy (06/16/23) History of cataract surgery H/O hernia repair Social History Household Members: None Housing: Apartment Do you presently have visiting nurse or other home services: No Alcohol intake: current Alcohol intake frequency: a few times a month Patient Tobacco Use Status: Never used Tobacco Smoked in Last 30 Days: No e-Cigarette/Vaping Use: Never Used Second Hand Smoke Exposure: No Use of substances other than those prescribed or required for medical reasons: No Advance Directives: Yes Advance Directives on File: Yes Advance Directives Date on File: 08/18/21 service: No Current occupational status: retired Current occupational exposures/hazards: No Cognitive needs: No Hearing needs: Yes Vision needs: No Meds Allergies Allergy/AdvReac Type Severity Reaction Status Date / Time amoxicillin [AMOXICILLIN] Allergy Unknown UNKNOWN Verified 04/27/24 03:46 Active Medications: Current Medications Acetaminophen (Acetaminophen 325 Mg Tablet) 650 mg PO Q6H PRN PRN Reason: Pain, Mild (Pain Scale 1-3), fever or headache Aspirin (Aspirin Enteric Coated 81 Mg Tablet.Dr) 81 mg PO DAILY [facility] Atorvastatin Calcium (Atorvastatin Calcium 40 Mg Tablet) 40 mg PO DAILY [facility] Calcium Carbonate (Calcium Carbonate 750 Mg Tab.Chew) 750 mg PO Q4H PRN PRN Reason: Heartburn Folic Acid (Folic Acid 1 Mg Tablet) 1 mg PO DAILY [facility] Furosemide (Furosemide 40 Mg Tablet) 40 mg PO DAILY [facility]; Protocol Heparin Sodium (Porcine) (Heparin Sodium,Porcine 5,000 Unit/Ml Vial) 3,100 unit 40 unit/kg (3100 unit) IVPUSH PROTOCOL BOLUS PRN; Protocol PRN Reason: 40 unit/kg - Heparin Protocol Heparin Sodium (Porcine) (Heparin Sodium,Porcine 5,000 Unit/Ml Vial) 6,200 unit 80 unit/kg (6200 unit) IVPUSH PROTOCOL BOLUS PRN; Protocol PRN Reason: 80 unit/kg - Heparin Protocol Hydroxychloroquine Sulfate (Hydroxychloroquine Sulfate 200 Mg Tablet) 200 mg PO DAILY [facility] Heparin Sodium/Sodium Chloride (Heparin Sodium,Porcine/1/2ns) 25,000 unit in 250 mls @ 0 mls/hr IVCONT .Q0M [facility]; Protocol Last Admin: 04/27/24 06:18 Dose: 12 units/kg/hr, 9.24 mls/hr Losartan Potassium (Losartan Potassium 25 Mg Tablet) 25 mg PO DAILY [facility]; Protocol Magnesium Hydroxide (Milk Of Magnesia 30 Ml Oral.Susp) 30 ml PO DAILY PRN PRN Reason: Constipation Melatonin (Melatonin 3 Mg Tablet) 6 mg PO BEDTIME PRN PRN Reason: Insomnia Methotrexate (Methotrexate Sodium 2.5 Mg Tablet) 15 mg PO QWEEK [facility] Multivitamins/Vitamin C (Multivitamin Tablet) 1 tab PO DAILY [facility] Non-Formulary Medication (Alendronate) 70 mg PO TU [facility] Sodium Chloride (0.9 % Sodium Chloride Flush 3 Ml Syringe) 3 ml IVFLUSH QSHIFT [facility] Vitamin D (Cholecalciferol (Vitamin D3) 25 Mcg Tablet) 25 mcg PO DAILY [facility] Home Medications ?Medication ?Instructions ?Recorded ?Confirmed ?Last Taken ?Type multivitamin 1 tab PO DAILY 03/10/21 04/27/24 08/17/21 08:00 History alendronate 70 mg tablet 70 mg PO TU 04/27/24 04/27/24 Unknown History hydroxychloroquine 200 mg tablet 200 mg PO DAILY 04/27/24 04/27/24 Unknown History methotrexate sodium 2.5 mg tablet 15 mg PO QWEEK 04/27/24 04/27/24 Unknown History Physical Exam Vital Signs and Narrative: Vital Signs: Last Vital Signs Temp 97.7 F 04/27/24 08:04 Pulse 70 04/27/24 08:04 Resp 17 04/27/24 08:04 BP 143/53 H 04/27/24 08:04 Pulse Ox 99 04/27/24 08:04 O2 Del Method Room Air 04/27/24 08:04 BMI result Body Mass Index 29.1 Constitutional: Alert, in no distress, Mental Status: Oriented to person, place and time. Eyes: Pupils are equal, round and reactive to light. Ear, Nose and Throat: Oropharynx clear, mucous membranes moist. Ears and nose without deformities. Trachea midline. Respiratory: Clear to auscultation. No wheezing, rales or rhonchi. Cardiovascular: S1 S2 regular. No murmurs, rubs or gallops. Gastrointestinal: Abdomen soft, non-tender, non-distended. Normal bowel sounds.? Neurologic: Cranial nerves II-XII grossly intact. No focal neurological deficits. Moves all extremities spontaneously.? Skin: No rashes or lesions.? Musculoskeletal: No cyanosis or clubbing. Psychiatric: Normal mood and affect? Results Labs 04/27/24 04:15 04/27/24 04:15 Labs: Laboratory Results - last 24 hr 04/27/24 04/27/24 04:15 07:54 MCV 89.4 MCH 30.0 MCHC 33.6 RDW 16.0 Plt Count 205 MPV 9.8 Immature Gran % (Auto) 0.3 Neut % (Auto) 64.5 Lymph % (Auto) 21.1 Boundary % (Auto) 13.0 H Eos % (Auto) 0.8 Baso % (Auto) 0.3 Lymph # (Auto) 0.8 L Boundary # (Auto) 0.5 Eos # (Auto) 0.0 Baso # (Auto) 0.0 Abs Immat Gran (auto) 0.01 Absolute Neuts (auto) 2.4 Absolute Nucleated RBC 0.000 Nucleated RBC % (auto) 0.0 Hold Purple Top SEE NOTE PT 11.5 D INR 0.9 APTT 30.0 Hold Blue Top SEE NOTE Anion Gap 15 Estim Creat Clear Calc 50.2 Estimated GFR > 60 Random Glucose 123 H Calcium 9.7 Total Bilirubin 0.6 AST 31 ALT 26 Alkaline Phosphatase 105 Troponin I High Sens 146.5 H* D 555.1 H* D B-Natriuretic Peptide 102 H Total Protein 7.0 Albumin 3.8 Lipase 35 Imaging Radiologist's Impressions: Impressions Chest X-Ray 04/27/24 04:33 IMPRESSION: No acute cardiopulmonary process. Abdomen/Pelvis CT 04/27/24 05:42 IMPRESSION: 1. Lower abdominal wall hernia containing portions of bowel without evidence of obstruction. 2. Smaller mid to lower abdominal wall hernia containing fat. 3. Diverticulosis without diverticulitis. 4. Cholelithiasis. 5. Stable cystic structures along the body of the pancreas. 6. Compression fractures of L1, L4 and L5. 7. Atherosclerotic plaque of the abdominal aorta. 8. Hepatic and renal cysts. Fleischner guidelines were followed. Assessment and Plan (1) NSTEMI (non-ST elevated myocardial infarction): Status: Acute Plan Full Code DVT prophylaxis: heparin admission for at least 2 midnights for management of NSTEMI on IV heparin and may need invasive intervention Quality Stroke Does the patient have a stroke diagnosis?: No VTE Prior VTE?: No VTE Risk Level:: Medical - moderate - high VTE Device Contraindication: Treatment Not Indicated VTE Drug Contraindication: N/A - Med Ordered
[2024-04-27] MEDS: Furosemide 40 MG TABLET PO (10:16)
[2024-04-27] MEDS: Folic Acid 1 MG TABLET PO (10:17)
[2024-04-27] MEDS: Metoprolol Tartrate 12.5 MG HALFTAB PO ×2 (10:17→21:32)
[2024-04-27] MEDS: Multivitamin TABLET 1 TAB PO (10:17)
[2024-04-27] MEDS: Hydroxychloroquine Sulfate 200 MG TABLET PO (10:17)
[2024-04-27] MEDS: Atorvastatin Calcium 40 MG TABLET PO (10:17)
[2024-04-27] MEDS: Cholecalciferol (Vitamin D3) 25 MCG TABLET PO (10:17)
[2024-04-27] MEDS: Losartan Potassium 25 MG TABLET PO (10:18)
--- NOTE | 2024-04-27 10:53 | PC.NURSE ---
Pt one assisted to commode, steady gait.
--- NOTE | 2024-04-27 10:54 | P.CONCA_ITS ---
History of Present Illness History of Present Illness Date of Service: 04/27/24 Chief complaint: NSTEMI Narrative: [age] year female who presented to the emergency department with abdominal pain and constipation. She was noticed to have AFib with RVR. She said she was not feeling well and could not pass to and then while walking she started feeling somewhat unsteady and decided to come to the emergency department. In the ER she was noticed to be in AFib. Her daughter also added that she has been complaining of some fatigue for few weeks. She since then has converted back to sinus rhythm. She has left bundle-branch block and previously had an abnormal stress test which was thought to be related to left bundle-branch block. Previous echocardiography showed EF of 48% and she was due to get a repeat echocardiogram after recent visit with Cardiology. No chest discomfort shortness of breath. She has saying she's been walking around without any symptoms. She has currently on a heparin drip. She is on methotrexate and hydroxychloroquine for lupus. [facility] Past Medical History Medical History Chronic lower back pain Chronic heart failure with preserved ejection fraction (HFpEF) Essential hypertension LBBB (left bundle branch block) Acute diverticulitis TIA (transient ischemic attack) HTN (hypertension) Family History Family History Father No problems noted. Mother No problems noted. Surgical History Surgical History History of appendectomy (06/16/23) History of cataract surgery H/O hernia repair Social History Social History Household Members: None Housing: Apartment Do you presently have visiting nurse or other home services: No Alcohol intake: current Alcohol intake frequency: a few times a month Patient Tobacco Use Status: Never used Tobacco Smoked in Last 30 Days: No e-Cigarette/Vaping Use: Never Used Second Hand Smoke Exposure: No Use of substances other than those prescribed or required for medical reasons: No Have you been hit, kicked, punched, or otherwise hurt by someone within the past year? If so, by whom?: No Do you feel safe in your current relationship?: No Current Relationship Is there a partner from a previous relationship who is making you feel unsafe now?: No Are you made to feel afraid or neglected: No Restorationist Healthcare Practices: Yazdanism Advance Directives: Yes Advance Directives on File: Yes Advance Directives Date on File: 08/18/21 Do you have a plan to hurt others: No Plan Recently lost weight without trying: No How much weight loss: Not applicable Eating poorly because of decreased appetite: No Nutrition screen score: 0 Nutrition Risks: No Nutritional Risk Patient : No : No Poor oral hygiene: No service: No Current occupational status: retired Current occupational exposures/hazards: No Cognitive needs: No Hearing needs: Yes Vision needs: No Meds Allergies Allergy/AdvReac Type Severity Reaction Status Date / Time amoxicillin [AMOXICILLIN] Allergy Unknown UNKNOWN Verified 04/27/24 03:46 Active Medications: Current Medications Acetaminophen (Acetaminophen 325 Mg Tablet) 650 mg PO Q6H PRN PRN Reason: Pain, Mild (Pain Scale 1-3), fever or headache Aspirin (Aspirin Enteric Coated 81 Mg Tablet.Dr) 81 mg PO DAILY [facility] Atorvastatin Calcium (Atorvastatin Calcium 40 Mg Tablet) 40 mg PO DAILY [facility] Last Admin: 04/27/24 10:17 Dose: 40 mg Calcium Carbonate (Calcium Carbonate 750 Mg Tab.Chew) 750 mg PO Q4H PRN PRN Reason: Heartburn Folic Acid (Folic Acid 1 Mg Tablet) 1 mg PO DAILY [facility] Last Admin: 04/27/24 10:17 Dose: 1 mg Furosemide (Furosemide 40 Mg Tablet) 40 mg PO DAILY [facility]; Protocol Last Admin: 04/27/24 10:16 Dose: 40 mg Heparin Sodium (Porcine) (Heparin Sodium,Porcine 5,000 Unit/Ml Vial) 3,100 unit 40 unit/kg (3100 unit) IVPUSH PROTOCOL BOLUS PRN; Protocol PRN Reason: 40 unit/kg - Heparin Protocol Heparin Sodium (Porcine) (Heparin Sodium,Porcine 5,000 Unit/Ml Vial) 6,200 unit 80 unit/kg (6200 unit) IVPUSH PROTOCOL BOLUS PRN; Protocol PRN Reason: 80 unit/kg - Heparin Protocol Hydroxychloroquine Sulfate (Hydroxychloroquine Sulfate 200 Mg Tablet) 200 mg PO DAILY [facility] Last Admin: 04/27/24 10:17 Dose: 200 mg Heparin Sodium/Sodium Chloride (Heparin Sodium,Porcine/1/2ns) 25,000 unit in 250 mls @ 0 mls/hr IVCONT .Q0M [facility]; Protocol Last Admin: 04/27/24 06:18 Dose: 12 units/kg/hr, 9.24 mls/hr Losartan Potassium (Losartan Potassium 25 Mg Tablet) 25 mg PO DAILY [facility]; Protocol Last Admin: 04/27/24 10:18 Dose: 25 mg Magnesium Hydroxide (Milk Of Magnesia 30 Ml Oral.Susp) 30 ml PO DAILY PRN PRN Reason: Constipation Melatonin (Melatonin 3 Mg Tablet) 6 mg PO BEDTIME PRN PRN Reason: Insomnia Methotrexate (Methotrexate Sodium 2.5 Mg Tablet) 15 mg PO [facility] Metoprolol Tartrate (Metoprolol Tartrate 12.5 Mg Halftab) 12.5 mg PO BID [facility]; Protocol Last Admin: 04/27/24 10:17 Dose: 12.5 mg Multivitamins/Vitamin C (Multivitamin Tablet) 1 tab PO DAILY [facility] Last Admin: 04/27/24 10:17 Dose: 1 tab Sodium Chloride (0.9 % Sodium Chloride Flush 3 Ml Syringe) [facility] Vitamin D (Cholecalciferol (Vitamin D3) 25 Mcg Tablet) 25 mcg PO DAILY [facility] Last Admin: 04/27/24 10:17 Dose: 25 mcg Home Medications ?Medication ?Instructions ?Recorded ?Confirmed ?Last Taken ?Type multivitamin 1 tab PO DAILY 03/10/21 04/27/24 08/17/21 08:00 History alendronate 70 mg tablet 70 mg PO TU 04/27/24 04/27/24 Unknown History hydroxychloroquine 200 mg tablet 200 mg PO DAILY 04/27/24 04/27/24 Unknown History methotrexate sodium 2.5 mg tablet 15 mg PO QWEEK 04/27/24 04/27/24 04/25/24 History Physical Exam 2 Vital Signs: Vital Signs: Last Vital Signs Temp 97.7 F 04/27/24 08:04 Pulse 70 04/27/24 08:04 Resp 17 04/27/24 08:04 BP 165/56 H 04/27/24 10:18 Pulse Ox 99 04/27/24 08:04 O2 Del Method Room Air 04/27/24 08:04 BMI result Body Mass Index 29.1 GENERAL APPEARANCE: in no acute distress, pleasant. NECK: no carotid bruit, no jugular venous distention. SKIN: no suspicious lesions, warm and dry. HEART: no murmurs, regular rate and rhythm. LUNGS: clear to auscultation bilaterally. ABDOMEN: soft, nontender. EXTREMITIES: no edema. PERIPHERAL PULSES: equal. NEUROLOGIC: No gross deficits, AAO X 3 Objective Labs and Meds 04/27/24 04:15 04/27/24 04:15 Lab results: Laboratory Results - last 24 hr 04/27/24 04/27/24 04:15 07:54 WBC 3.7 L RBC 4.06 L Hgb 12.2 Hct 36.3 L MCV 89.4 MCH 30.0 MCHC 33.6 RDW 16.0 Plt Count 205 MPV 9.8 Immature Gran % (Auto) 0.3 Neut % (Auto) 64.5 Lymph % (Auto) 21.1 Avery % (Auto) 13.0 H Eos % (Auto) 0.8 Baso % (Auto) 0.3 Lymph # (Auto) 0.8 L Avery # (Auto) 0.5 Eos # (Auto) 0.0 Baso # (Auto) 0.0 Abs Immat Gran (auto) 0.01 Absolute Neuts (auto) 2.4 Absolute Nucleated RBC 0.000 Nucleated RBC % (auto) 0.0 Hold Purple Top SEE NOTE PT 11.5 D INR 0.9 APTT 30.0 Hold Blue Top SEE NOTE Sodium 138 Potassium 3.8 Chloride 104 Carbon Dioxide 23 Anion Gap 15 BUN 19 H Creatinine 0.82 Estim Creat Clear Calc 50.2 Estimated GFR > 60 Random Glucose 123 H Calcium 9.7 Total Bilirubin 0.6 AST 31 ALT 26 Alkaline Phosphatase 105 Troponin I High Sens 146.5 H* D 555.1 H* D B-Natriuretic Peptide 102 H Total Protein 7.0 Albumin 3.8 Lipase 35 Imaging Radiologist's impression: Impressions Chest X-Ray 04/27/24 04:33 IMPRESSION: No acute cardiopulmonary process. Abdomen/Pelvis CT 04/27/24 05:42 IMPRESSION: 1. Lower abdominal wall hernia containing portions of bowel without evidence of obstruction. 2. Smaller mid to lower abdominal wall hernia containing fat. 3. Diverticulosis without diverticulitis. 4. Cholelithiasis. 5. Stable cystic structures along the body of the pancreas. 6. Compression fractures of L1, L4 and L5. 7. Atherosclerotic plaque of the abdominal aorta. 8. Hepatic and renal cysts. Fleischner guidelines were followed. Assessment and Plan (1) NSTEMI (non-ST elevated myocardial infarction): Status: Acute (2) Atrial fibrillation with RVR: Status: Acute Plan Pleasant 83 year female who is presenting for abdominal discomfort and constipation. She also had unsteady feeling while walking and came to the ER and was noted to be in AFib with RVR. She is since then has converted back to sinus rhythm. Due to AFib with RVR she has mild troponin elevation which I think is a type 2 injury. She does not have any chest discomfort or shortness of breath. Clinically not in heart failure. Recommend echocardiography to assess LV function. If LV function is reduced then we will adjust medications and do further workup as outpatient. My initial plan was to start amiodarone but this has an interaction with hydroxychloroquine. Would decide about arrhythmic therapy based on echocardiography. We may have an option of sotalol or Tikosyn. Not sure she is ready to stay in the hospital for 3 days because she has been asking when can she go home. Heparin can be changed to apixaban 5 mg twice a day. We will follow along with you. Procedures Date of Service Date of Service: 04/27/24
[2024-04-27 13:35] LABS: PTT Heparin Drip 90.7 SEC (53-77.9)
--- NOTE | 2024-04-27 15:18 | HO.SKINPHOTO ---
Location: Upper back, neck, chest Category: Stage: Length: Width: Depth: cm Location: Category: Stage: Length: Width: Depth: cm Location: Category: Stage: Length: Width: Depth: cm Location: Category: Stage: Length: Width: Depth: cm Location: Category: Stage: Length: Width: Depth: cm Location: Category: Stage: Length: Width: Depth: cm
[2024-04-27 15:48] LABS: Troponin-I High Sensitivity 592.6 ng/L (<3.5-17.0)
--- NOTE | 2024-04-27 18:00 | CA_ITS ---
Transthoracic Echocardiogram Patient (Last, First, Middle): Isha Izquierdo M Gender: Female Date of : 1940 Age: 83 Procedure Date: 04/27/2024 Procedure Type: Transthoracic Echocardiogram [place] [facility] [place]: 162.56 cm Weight: 76.66 kg BSA: 1.82 m2 Heart Rate: 69 bpm BP: 164 / 56 mmHg Gas Maker Helper: SB Referring MD: Kannan Morrow MD Symptoms: NSTEMI, LBBB Study Quality: Adequate ECG Rhythm: Sinus Conclusions: - Mildly increased left ventricular cavity size. There is mildly increased left ventricular wall thickness. The left ventricular systolic function is low normal. The visually estimated ejection fraction is between 50-55%. - Normal right ventricular cavity size and systolic function. - The left atrium is moderately dilated. - Significantly elevated right atrial pressure. - Mild pulmonary hypertension is present. - There is mild dilatation of the ascending aorta measuring 3.80 cm. - Septal and apical RWMA due to LBBB. Findings Left Ventricle Mildly increased left ventricular cavity size. There is mildly increased left ventricular wall thickness. The left ventricular systolic function is low normal. The visually estimated ejection fraction is between 50-55%. There is paradoxical septal motion consistent with a left bundle branch block. Diastolic function is indeterminate on the basis of available data. There is severe septal asymmetric hypertrophy. Right Ventricle Normal right ventricular cavity size and systolic function. Atria The left atrium is moderately dilated. The right atrium is normal in size. Aortic Valve Normal aortic valve structure and function. There is no aortic valve stenosis. There is no aortic valve regurgitation. Mitral Valve There is moderate mitral annular calcification. There is mild mitral valve regurgitation. There is no mitral valve stenosis. Pulmonic Valve The pulmonic valve is normal. There is no pulmonic valve regurgitation. Tricuspid Valve Normal tricuspid valve structure. There is trace tricuspid valve regurgitation. The right ventricular systolic pressure is 44 mmHg. Significantly elevated right atrial pressure. Mild pulmonary hypertension is present. Great Vessels There is mild dilatation of the ascending aorta measuring 3.80 cm. The visualized portions of the pulmonary artery and branches are normal. Venous The inferior vena cava is dilated and collapses less than 50% with inspiration. Pericardium/Pleural There is no evidence of pericardial effusion. Prior Study Comparison No significant change compared to prior study dated: 08/25/2022. Measurements 2D Linear Measurements IVSd: 1.11 0.6-0.9/0.6-1.0 cm LVIDd: 5.97 3.9-5.3/4.2-5.9 cm LVIDd Index: 3.28 2.4-3.2/2.2-3.1 cm/m2 LVIDs: 4.05 2.0-3.6 cm LVPWd: 0.80 0.7-1.1 cm LA Diam: 4.60 2.7-3.8/3.0-4.0 cm LAIDs Index: 2.53 1.5-2.3 cm/m2 LV Mass: 287.59 67-162/88-224 g LV Mass Index: 158.02 43-95/49-115 g/m2 LVOT Diam: 2.00 3.0+(-)1.3 cm 2D Systolic Function EF 4C: 48.80 >55% EF 2C: 60.90 >55% EF BiP: 52.80 >55% Mitral Valve MV Pk E: 0.66 MV PK A: 1.02 MV Decel Time: 341.00 E/A: 0.60 E'Lateral: 3.59 E'Medial: 4.24 E/E' Med: 15.60 E/E' Lat: 18.40 PHT: 100.00 MVA PHT: 2.20 Decel [place]: 1.94 Aortic Valve AoV Pk Barber: 1.44 AoV Pk Grad: 8.00 CHILO: 3.52 LVOT LVOT Pk Barber: 1.57 LVOT Mn Barber: 1.10 LVOT VTI: 0.31 LVOT Pk Grad: 10.00 LVOT Mn Grad: 5.00 LVOT Diam: 2.00 LVOT Area: 3.14 Diastolic Function MV Pk E: 0.66 MV Pk A: 1.02 E/A: 0.60 E'Medial: 4.24 E/E' Med: 15.60 E' Laterial: 3.59 E/E' Lat: 18.40 Right Ventricle TAPSE (mm): 21.30 TVS' Barber: 14.90 Tricuspid Valve TR Pk Barber: 2.70 TR Pk Grad: 29.00 RA Press: 15.00 RVSP: 44.00 Great Vessels Aorta Sinus of Valsalva: 3.20 2.0-3.5 cm Ao Asc: 3.80 2.1-3.4 cm Ao Arch: 2.50 Pulmonary Valve PV Pk Barber: 0.74 Peak PV Grad: 2.00 Updated in Other Vendor System with Status of Final Kannan Morrow MD electronically signed on 04/27/2024 5:04:40 PM with status of Final
[2024-04-27 20:40] LABS: PTT Heparin Drip 44.1 SEC (53-77.9)
[2024-04-27] MEDS: Heparin Sodium,Porcine 5,000 UNIT/ML VIAL 3100 UNIT IVPUSH (21:25)
[2024-04-27] MEDS: 0.9 % Sodium Chloride Flush 3 ML SYRINGE IVFLUSH (21:39)
[2024-04-28] VITALS: BP 130/62; PULSE 63; RESP 20; TEMP 36.8; O2SAT 95
[2024-04-28 03:58] VITALS: BP 166/70; PULSE 60; RESP 20; TEMP 36.4; O2SAT 97
[2024-04-28 03:58] LABS: PTT Heparin Drip 48.9 SEC (53-77.9)
[2024-04-28] MEDS: Heparin Sodium,Porcine 5,000 UNIT/ML VIAL 3100 UNIT IVPUSH (04:38)
[2024-04-28 07:57] LABS: Hematocrit 32.8 % (37.0-47.0); Mean Corpuscular HGB Conc 33.5 g/dl (31.0-35.0); Mean Corpuscular Hemoglobin 30.5 pg (27.0-33.0); Mean Corpuscular Volume 90.9 fL (80.0-98.0); Mean Platelet Volume 9.7 fL (9.4-12.3); Platelet Count 155 X10*3/uL (160-400); Red Blood Count 3.61 X10*6/uL (4.20-5.50); Red Cell Distribution Width 15.9 % (11.0-16.0)
[2024-04-28 07:58] VITALS: BP 170/82; PULSE 65; RESP 17; TEMP 36.6; O2SAT 96
[2024-04-28] MEDS: Folic Acid 1 MG TABLET PO (08:02)
[2024-04-28] MEDS: Aspirin Enteric Coated 81 MG TABLET.DR PO (08:02)
[2024-04-28] MEDS: Multivitamin TABLET 1 TAB PO (08:02)
[2024-04-28] MEDS: Furosemide 40 MG TABLET PO (08:02)
[2024-04-28] MEDS: Hydroxychloroquine Sulfate 200 MG TABLET PO (08:02)
[2024-04-28] MEDS: Metoprolol Tartrate 12.5 MG HALFTAB PO (08:02)
[2024-04-28] MEDS: Atorvastatin Calcium 40 MG TABLET PO (08:02)
[2024-04-28] MEDS: Losartan Potassium 25 MG TABLET PO (08:02)
[2024-04-28] MEDS: Cholecalciferol (Vitamin D3) 25 MCG TABLET PO (08:02)
[2024-04-28] MEDS: 0.9 % Sodium Chloride Flush 3 ML SYRINGE IVFLUSH (08:02)
[2024-04-28 08:28] LABS: Prothrombin Time 11.9 SEC (11.1-13.3)
[2024-04-28 08:35] LABS: Alanine Aminotransferase 20 U/L (0-31); Alkaline Phosphatase 87 U/L (39-117); Anion Gap 13 (12-20); Aspartate Amino Transferase 30 U/L (5-31); Bilirubin Total 0.5 mg/dL (0.0-1.0); Blood Urea Nitrogen 15 mg/dL (9-16); Calcium 8.5 mg/dL (8.4-10.2); Carbon Dioxide 18 mmol/L (22-29); Chloride 111 mmol/L (96-108); Creatinine Clr Calc Pharmacy 61.5; Estimated Glomerular Filt Rate > 60; Glucose Random 82 mg/dL (60-115); Potassium 4.2 mmol/L (3.3-5.1); Sodium 138 mmol/L (135-145)
--- NOTE | 2024-04-28 08:56 | MHC.CM.PN ---
CM met with Patient at bedside and addressed IMM with her, providing Patient with the original and a copy has been placed on the chart. Patient lives alone in an apartment and she required no services nor DME LICENSED MARRIAGE AND FAMILY THERAPIST. Home/self care is the goal and CM has initiated and will follow for dc planning. PCP is Dr. Dewitt and Daughter/Daria is the HCP(copy on chart).
[2024-04-28] MEDS: Apixaban 5 MG TABLET PO (10:14)
--- NOTE | 2024-04-28 11:30 | P.DS_ITS ---
DS: Providers Provider Date of Service: 04/28/24 Date of admission: 04/27/24 08:39 Primary care physician: Leo Dewitt MD Consults: 04/27/24 08:39 Consult to Cardiology Stat Consulting Provider: [facility] Reason for consultation: Heart attack Has provider been notified: Yes DS: Diagnosis Discharge Diagnosis (1) NSTEMI (non-ST elevated myocardial infarction): Status: Acute (2) Atrial fibrillation with RVR: Status: Acute DS: Summary Hospital Course Hospital Course: from initial hpi: 83 year female with HTN, Chronic lower back pain, Chronic heart failure with preserved ejection fraction (HFpEF), LBBB, history of TIA. She had a Pharmacological stress test in 2014 - medium-sized anterior/anterior septal defect, predominantly reversible. Per patient, she never underwent cardiac catheterization. This has been repeated and shows no clear ischemia, but rather fixed defect in the septum from left bundle-branch block. Echocardiogram from 2021 with LVEF of 48%. Wall motion abnormality suspected to be from left bundle-branch block. Mild tricuspid regurgitation. She presents with abdominal discomfort that started around lunch yesterday, associated with nausea and vomitting. The symptoms persisted until the evening and she took OTC antiacid without relief. She has been feeling weak and dizzy, but no shortness of breath or chest pain. Work up in the ED has revealed NSTEMI with initial troponin of 146 trending up to 555, ECG showed AFIB with RVR and LBBB. CT of abdomen show hernia without incarceration, L1, 4 and 5 compression fractures. She is presently feeing better. Hemodynamically stable. Treatment initiated with IV heparin, ASA, lipitor and metoprolol hospital course: Patient was admitted for new onset atrial fibrillation with rapid ventricular response complicated by a type 2 NSTEMI. She was initially treated with IV heparin, she converted spontaneously to sinus rhythm. She was seen by C ardiology recommended changing to p.o. Eliquis, continue metoprolol 25 mg b.i.d. and outpatient follow up. Patient is feeling better will be discharged home. For history of CHF with reduced ejection fraction she was shown to have recovered EF echo, 4 history of lupus was continued on Plaquenil and is on methotrexate at home. For hypertension we will continue losartan and metoprolol. For osteoporosis will continue on alendronate. Patient is feeling better will be discharged home. Time Attestation Discharge Coordination Time (in mins): 35 Quality: Safe Use of Opioids Does Pt have an Active Cancer Diagnosis on the Problem List?: No Quality: Stroke Does the patient have a stroke diagnosis?: No Physical Exam Vital Signs: Vital Signs: Last Vital Signs Temp 97.8 F 04/28/24 07:58 Pulse 65 04/28/24 07:58 Resp 17 04/28/24 07:58 BP 170/82 H 04/28/24 07:58 Pulse Ox 96 04/28/24 07:58 O2 Del Method Room Air 04/28/24 07:58 BMI result Body Mass Index 28.9 GENERAL APPEARANCE: in no acute distress, pleasant. NECK: no carotid bruit, no jugular venous distention. SKIN: no suspicious lesions, warm and dry. HEART: no murmurs, regular rate and rhythm. LUNGS: clear to auscultation bilaterally. ABDOMEN: soft, nontender. EXTREMITIES: no edema. PERIPHERAL PULSES: equal. NEUROLOGIC: No gross deficits, AAO X 3 DS: Data Data Completed and Pending Completed studies during hospitalization [Text1]: Procedures Release Peritoneum, Open Approach (06/16/23) Resection of Appendix, Open Approach (06/16/23) Labs on day of discharge: Laboratory Results - last 24 hr 04/27/24 04/27/24 04/27/24 12:25 14:33 20:05 WBC RBC Hgb Hct MCV MCH MCHC RDW Plt Count MPV Absolute Nucleated RBC Nucleated RBC % (auto) PT INR aPTT Heparin Protocol 90.7 H 44.1 L D Sodium Potassium Chloride Carbon Dioxide Anion Gap BUN Creatinine Estim Creat Clear Calc Estimated GFR Random Glucose Calcium Total Bilirubin AST ALT Alkaline Phosphatase Troponin I High Sens 592.6 H* Total Protein Albumin 04/28/24 04/28/24 04/28/24 03:36 07:47 07:48 WBC 2.0 L RBC 3.61 L Hgb 11.0 L Hct 32.8 L MCV 90.9 MCH 30.5 MCHC 33.5 RDW 15.9 Plt Count 155 L MPV 9.7 Absolute Nucleated RBC 0.000 Nucleated RBC % (auto) 0.0 PT Cancelled 11.9 INR Cancelled 1.0 aPTT Heparin Protocol 48.9 L 177.9 H* D Sodium 138 Potassium 4.2 Chloride 111 H Carbon Dioxide 18 L Anion Gap 13 BUN 15 Creatinine 0.68 Estim Creat Clear Calc 61.5 Estimated GFR > 60 Random Glucose 82 Calcium 8.5 D Total Bilirubin 0.5 AST 30 ALT 20 Alkaline Phosphatase 87 Troponin I High Sens Total Protein 6.0 L Albumin 3.0 L Discharge Plan Discharge Anticipated Discharge Date/Time: 04/28/24 11:25 Patient Disposition: Home, Self-Care Discharge Diagnosis: afib, type 2 nstemi Referrals: Leo Dewitt MD [Primary Care Provider] - 1 Week Discharge Medications: New Eliquis 5 mg Tablet 5 mg PO BID Qty: 180 0RF metoprolol tartrate 25 mg Tablet 25 mg PO BID Qty: 180 0RF Protocol: Hold for SBP/HR < HOLD for SBP < : 90 HOLD for HR < : 60 Continued furosemide 40 mg tablet 40 mg PO DAILY Qty: 90 1RF losartan 25 mg tablet 25 mg PO DAILY Qty: 90 0RF alendronate 70 mg tablet 70 mg PO TU Rx Instructions: Take 1 tab once weekly, 1st thing in the morning, on an empty stomach, with a large glass of water (at least 6 oz) and stay upright for 30 minutes methotrexate sodium 2.5 mg tablet 15 mg PO QWEEK hydroxychloroquine 200 mg tablet 200 mg PO DAILY multivitamin Tablet 1 tab PO DAILY folic acid 1 mg tablet 1 mg PO DAILY Qty: 90 1RF cholecalciferol (vitamin D3) 25 mcg (1,000 unit) capsule 25 mcg PO DAILY Qty: 90 1RF Discharge Orders: Discharge Order (Routine); Ordered 04/28/24 Ordered By: Hollis Moe Diet: Advance to usual diet Activity on Discharge: As tolerated Stand Alone Forms: Patient Portal Discharge page Print Language: Macedonian Care Plan Goals: manage afib Health Concerns: afib Plan of Treatment: metoprolol restarted, start eliquis Assessment: see above
--- NOTE | 2024-04-28 11:35 | MHC.CM.PN ---
Patient has been medically cleared for dc to home today, self care.
--- NOTE | 2024-04-28 11:59 | PM.PNCARD ---
Subjective Subjective Date of Service: 04/28/24 Interval history: Seen and examined at bedside. No further episodes of atrial fibrillation. Asymptomatic. Physical Exam Vital Signs: Last Vital Signs Temp 97.8 F 04/28/24 07:58 Pulse 65 04/28/24 07:58 Resp 17 04/28/24 07:58 BP 170/82 H 04/28/24 07:58 Pulse Ox 96 04/28/24 07:58 O2 Del Method Room Air 04/28/24 07:58 BMI result Body Mass Index 28.9 GENERAL APPEARANCE: in no acute distress, pleasant. NECK: no carotid bruit, no jugular venous distention. SKIN: no suspicious lesions, warm and dry. HEART: no murmurs, regular rate and rhythm. LUNGS: clear to auscultation bilaterally. ABDOMEN: soft, nontender. EXTREMITIES: no edema. PERIPHERAL PULSES: equal. NEUROLOGIC: No gross deficits, AAO X 3 Objective Labs and Meds 04/28/24 07:48 04/28/24 07:48 Lab results: Laboratory Results - last 24 hr 04/27/24 04/27/24 04/27/24 12:25 14:33 20:05 WBC RBC Hgb Hct MCV MCH MCHC RDW Plt Count MPV Absolute Nucleated RBC Nucleated RBC % (auto) PT INR aPTT Heparin Protocol 90.7 H 44.1 L D Sodium Potassium Chloride Carbon Dioxide Anion Gap BUN Creatinine Estim Creat Clear Calc Estimated GFR Random Glucose Calcium Total Bilirubin AST ALT Alkaline Phosphatase Troponin I High Sens 592.6 H* Total Protein Albumin 04/28/24 04/28/24 04/28/24 03:36 07:47 07:48 WBC 2.0 L RBC 3.61 L Hgb 11.0 L Hct 32.8 L MCV 90.9 MCH 30.5 MCHC 33.5 RDW 15.9 Plt Count 155 L MPV 9.7 Absolute Nucleated RBC 0.000 Nucleated RBC % (auto) 0.0 PT Cancelled 11.9 INR Cancelled 1.0 aPTT Heparin Protocol 48.9 L 177.9 H* D Sodium 138 Potassium 4.2 Chloride 111 H Carbon Dioxide 18 L Anion Gap 13 BUN 15 Creatinine 0.68 Estim Creat Clear Calc 61.5 Estimated GFR > 60 Random Glucose 82 Calcium 8.5 D Total Bilirubin 0.5 AST 30 ALT 20 Alkaline Phosphatase 87 Troponin I High Sens Total Protein 6.0 L Albumin 3.0 L Progress Note: A&P Assessment and plan (1) NSTEMI (non-ST elevated myocardial infarction): Status: Acute (2) Atrial fibrillation with RVR: Status: Acute (3) LBBB (left bundle branch block): Status: Acute Plan 83-year-old year female with low normal ejection fraction by echocardiography and left bundle-branch block who presented with abdominal pain due to constipation and was noticed to be in AFib with RVR. This was self-limiting and she is back in sinus rhythm. She is on hydroxychloroquine for cutaneous lupus. My plan was to start her on amiodarone for rhythm control strategy but there is a serious interaction between amiodarone and hydroxychloroquine. I have discussed with her about adding sotalol or Tikosyn but that will require her staying in the hospital for 3 days. She does not want to stay in the hospital currently. She has been in sinus rhythm. Continue metoprolol 25 mg twice a day. Apixaban for anticoagulation. We will arrange follow-up in the office. Thank you for allowing me to participate in the care of your patient. Please feel free to contact me if you have any questions. Time Spent With Patient Time: Total time managing care of this patient today ____ minutes. Progress Note: Quality Stroke Does the patient have a stroke diagnosis?: No Procedures Date of Service Date of Service: 04/28/24
[2024-04-28 12:00] VITALS: BP 114/56; PULSE 62; RESP 18; TEMP 36.4; O2SAT 95
[2024-04-28 12:36] LABS: PTT Heparin Drip 177.9 SEC (53-77.9)
== END 2024-04-28 13:09 | disposition home or self-care (01) | DRG 281 ==
LOC: HO.ED 05:40 → HO.EDOVER 08:48 → HO.IMC 12:01
PROVIDERS: Student in an Organized Health Care Education/Training Program; Admitting Provider Internal Medicine; Emergency Provider Emergency Medicine Emergency Medical Services; PCP Internal Medicine; Visit Provider Internal Medicine
DX: I48.91 Unspecified atrial fibrillation (principal); I50.32 Chronic diastolic (congestive) heart failure; I21.A1 Myocardial infarction type 2; I44.7 Left bundle-branch block, unspecified; I11.0 Hypertensive heart disease with heart failure; K59.00 Constipation, unspecified; Z79.631 Long term (current) use of antimetabolite agent; Z79.899 Other long term (current) drug therapy
CPT/HCPCS: 36415; 71045; 74177; 80053; 83690; 83880; 84484; 85025; 85027; 85610; 85730; 93005; 93306; 99285; J1160; J1644; Q9957

== ENCOUNTER → 2024-04-27 08:39 | Outpatient (BNV) | payer MEDICARE, OTHER, SELFPAY | PROVIDERS: Admitting Provider Internal Medicine; Emergency Provider Emergency Medicine Emergency Medical Services; PCP Internal Medicine; Visit Provider Internal Medicine Cardiovascular Disease | DX: I21.4 Non-ST elevation (NSTEMI) myocardial infarction (principal); I48.91 Unspecified atrial fibrillation; I44.7 Left bundle-branch block, unspecified | CPT/HCPCS: 93010; 93306; 99223; 99233 ==

== ENCOUNTER → 2024-04-27 08:39 | Outpatient (BNV) | payer MEDICARE, OTHER, SELFPAY | PROVIDERS: Admitting Provider Internal Medicine; Emergency Provider Emergency Medicine Emergency Medical Services; PCP Internal Medicine; Visit Provider Internal Medicine | DX: I21.4 Non-ST elevation (NSTEMI) myocardial infarction (principal); I48.91 Unspecified atrial fibrillation | CPT/HCPCS: 99223; 99239 ==

== ENCOUNTER 2024-05-02 17:08 | Outpatient (AMB) | payer MEDICARE, OTHER, SELFPAY ==
[2024-05-02 17:10] VITALS: BP 160/82; PULSE 66; O2SAT 97; BMI 28.2
--- NOTE | 2024-05-02 17:10 | A.OFFPC_ITS ---
Vital Signs 05/02/24 17:10 Height 5 ft 4 in Weight 164 lb 8 oz BMI 28.2 BP 160/82 H Blood Pressure Location Lt brachial Position Sitting Pulse 66 Pulse Source Pulse Oximeter Pulse Oximetry (%) 97 Oxygen Delivery Method Room Air Intake Visit Reasons: [facility] 04/27 NSTEMI Housing Assistant Required: No Accompanied by: Daughter Allergies amoxicillin [AMOXICILLIN] Allergy (Unknown, Verified 05/03/24 06:52) UNKNOWN Medication List - Last Reconciled 05/03/24 by Leo Dewitt MD alendronate 70 mg PO TU apixaban (Eliquis) 5 mg PO BID cholecalciferol (vitamin D3) 25 mcg PO DAILY folic acid 1 mg PO DAILY furosemide 40 mg PO DAILY hydroxychloroquine 200 mg PO DAILY losartan 25 mg PO DAILY methotrexate sodium 15 mg PO QWEEK metoprolol tartrate 25 mg See Protocol PO BID multivitamin 1 tab PO DAILY Tobacco use date assessed: 03/28/24 Dental Screening Dental Screen Date: 01/19/24 HPI [facility] [place] 04/27 NSTEMI HPI Details 83-year-old female presentsthe office fo r a TCM visit. Date of admission: 04/27/2024, date of discharge 04/28/2024. Discharge d iagnosis: Non ST elevation myocardial infarction. 83-year-old female presents to the office after recent hospital discharge. Patient had presented to the emergency room with vomiting. Blood work done in the emergency room confirmed rising troponins. She was admitted to the hospitalnd monitored. The troponins and patient started feeling better. She has a cardiology follow-up appointment. Patient comes to the office with her daughter. She reports has returned to her baseline state of health. She is traveling next week and has no intentions on cancelling her travel plans. Reports no shortness of breath, chest pains. [facility] Medical History Chronic lower back pain Chronic heart failure with preserved ejection fraction (HFpEF) Essential hypertension LBBB (left bundle branch block) Acute diverticulitis TIA (transient ischemic attack) HTN (hypertension) Surgical History History of appendectomy (06/16/23) History of cataract surgery H/O hernia repair Family History Father No problems noted. Mother No problems noted. Social History Household Members: None Housing: Apartment Do you presently have visiting nurse or other home services: No Alcohol intake: current Alcohol intake frequency: a few times a month Patient Tobacco Use Status: Never used Tobacco e-Cigarette/Vaping Use: Never Used Second Hand Smoke Exposure: No Advance Directives Date on File: 08/18/21 service: No Current occupational status: retired Current occupational exposures/hazards: No Cognitive needs: No Hearing needs: Yes Vision needs: No Questionnaire Thrive Questionnaire Date Thrive assessed: 04/28/24 VERONICA-7 AMB Questionnaire VERONICA-7 Date VERONICA - 7 assessed: 11/24/23 Source: Developed by Drs. Chad Gramajo, Amalia Brewer, Duane Small and colleagues, with an educational edward from [employer]. Physical exam (Primary Care) Vital Signs: Last Vital Signs Pulse 66 05/02/24 17:10 BP 160/82 H 05/02/24 17:10 Pulse Ox 97 05/02/24 17:10 Oxygen Delivery Method Room Air 05/02/24 17:10 BMI result Body Mass Index 28.2 Tobacco/Smoking Status: Tobacco use Status Tobacco use date assessed 03/28/24 05/02/24 17:16 Patient Tobacco Use Status Never used Tobacco 05/02/24 17:16 e-Cigarette/Vaping Use Never Used 05/02/24 17:16 Thrive Assessment: Date of Thrive Assessment Date Thrive assessed 04/28/24 05/02/24 17:16 Const General: cooperative and healthy appearing Nutritional Appearance: well nourished Orientation/consciousness: patient oriented x3 Limitations: no limitations HENMT Head: Yes normal to inspection Eyes General: appearance normal, both eyes and all related structures Neck Neck: Yes normal visual inspection Chest Chest palpation & inspection: normal palpation of entire chest wall Resp Effort & Inspection: normal respiratory effort Neuro General: patient oriented x3 Assessment and Plan Assessment & Plan (1) NSTEMI (non-ST elevated myocardial infarction): Code(s): I21.4 - Non-ST elevation (NSTEMI) myocardial infarction Plan: Hospital discharge summary reviewed. Medications at discharge reconciled with patient.he is currently taking a blood thinner and understands how to take the medication. A nuclear scanas done in the hospital and the report was reviewed. Patient understands the event of the hospitalization. All questions pertaining to this was answered to patient and daughter's satisfaction. Continue other medications. (2) Atrial fibrillation with RVR: Code(s): I48.91 - Unspecified atrial fibrillation Coding Level of Care Code TCM Mod MDM <= 7 Days Diagnoses NSTEMI (non-ST elevated myocardial infarction) I21.4 Atrial fibrillation with RVR I48.91
== END 2024-05-02 17:29 | disposition home or self-care (01) ==
PROVIDERS: PCP Internal Medicine; Visit Provider Internal Medicine
DX: I25.2 Old myocardial infarction (principal); I48.91 Unspecified atrial fibrillation
CPT/HCPCS: 99495

== ENCOUNTER 2024-05-21 13:18 | Outpatient (REF) | payer SELFPAY | END 2024-05-21 13:19 | disposition home or self-care (01) | LOC: HO.HAP 13:18 | PROVIDERS: Visit Provider Internal Medicine | DX: Z13.89 Encounter for screening for other disorder (principal) ==

== ENCOUNTER 2024-05-21 14:14 | Outpatient (AMB) | payer MEDICARE, OTHER, SELFPAY ==
[2024-05-21 14:26] VITALS: BP 114/52; PULSE 62; BMI 28.5
--- NOTE | 2024-05-21 14:26 | MHC.OFFVIS ---
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 Allergies amoxicillin [AMOXICILLIN] Allergy (Unknown, Verified 05/21/24 14:29) UNKNOWN Medication List - Last Reconciled 05/21/24 by Haley Garcia NP-C alendronate 70 mg PO QWEEK apixaban (Eliquis) 5 mg PO BID cholecalciferol (vitamin D3) 25 mcg PO DAILY folic acid 1 mg PO DAILY furosemide 40 mg PO DAILY hydroxychloroquine 200 mg PO DAILY losartan 25 mg PO DAILY methotrexate sodium 15 mg PO QWEEK metoprolol tartrate 25 mg See Protocol PO BID multivitamin 1 tab PO DAILY HPI HPI [facility] ED F/u: Details: Isha is an 83-year-old female with past medical history of hypertension, left bundle branch block, heart failure with preserved EF, who was recently admitted to [facility] with new onset atrial fibrillation. She was treated for rate control and converted back to sinus rhythm. She was put on metoprolol for rate control and Eliquis for anticoagulation. Her troponin was elevated and felt to be related to type 2 event. Today she reports that she has been doing well since her hospital discharge last month. She just came back from a cruise to [place]. She is upset today because she left her credit card at the grocery store and she needs to go back there to get it. She has not been noticing any heart palpitations, no lightheadedness, presyncope, syncope, falls. No chest discomfort at rest or with activity. No shortness of breath, PND, orthopnea or edema. No bleeding issues reported. Taking all meds as directed. Tells me she will be going to [place] in a few weeks. She leads a very busy schedule. [facility] Medical History Chronic lower back pain Chronic heart failure with preserved ejection fraction (HFpEF) Essential hypertension LBBB (left bundle branch block) Acute diverticulitis TIA (transient ischemic attack) HTN (hypertension) Surgical History History of appendectomy (06/16/23) History of cataract surgery H/O hernia repair Family History Father No problems noted. Mother No problems noted. Social History Household Members: None Housing: Apartment Do you presently have visiting nurse or other home services: No Alcohol intake: current Alcohol intake frequency: a few times a month Patient Tobacco Use Status: Never used Tobacco e-Cigarette/Vaping Use: Never Used Second Hand Smoke Exposure: No Advance Directives Date on File: 08/18/21 service: No Current occupational status: retired Current occupational exposures/hazards: No Cognitive needs: No Hearing needs: Yes Vision needs: No Review of Systems Const All systems reviewed & are unremarkable except as noted in HPI and below ENT Denies dizziness Card Denies chest pain, Denies chest pain at rest, Denies chest pain with activity, Denies rapid heart rate, Denies pedal edema, Denies edema, Denies leg edema, Denies lightheadedness, Denies palpitations, Denies dyspnea, Denies dyspnea on exertion and Denies orthopnea Resp Denies cough, Denies dyspnea and Denies dyspnea on exertion GI Denies hematochezia and Denies change in stool character Musc Denies abnormal gait, Denies limited range of motion, Denies muscle cramps, Denies muscle weakness, Denies numbness, Denies radiating pain into limb, Denies stiffness and Denies tingling Neuro Denies abnormal gait, Denies dizziness, Denies numbness and Denies tingling Endo Denies palpitations Physical Exam Vital Signs: Last Vital Signs Pulse 62 05/21/24 14:26 BP 114/52 L 05/21/24 14:26 BMI result Body Mass Index 28.5 Const General: cooperative, healthy appearing, comfortable and no acute distress Orientation/consciousness: patient oriented x3 Neck Neck: Yes normal visual inspection and Yes no JVD Resp Effort & Inspection: normal respiratory effort Auscultation: clear to auscultation bilaterally, no rales, no rhonchi and no wheezes Cardio Jugular venous distension: no JVD Rate: regular rate Rhythm: regular rhythm Heart sounds: S1 normal heart sound present, S2 normal heart sound present, no murmurs and no rubs Neuro General: patient oriented x3 Extrem General: Yes normal to inspection and No no pedal edema Psych Appearance: grossly normal Mental Status: mental status grossly normal Speech and movement: Normal speech and movement present Office Procedures EKG Details: today, read by me, normal sinus rhythm, left axis deviation, left bundle branch block, rate 62, QTC 456 milliseconds [id number], Complete Assessment & Plan Assessment & Plan (1) Atrial fibrillation with RVR: Code(s): I48.91 - Unspecified atrial fibrillation Category: Medical Plan: New finding of atrial fibrillation with RVR when she presented to the [facility] emergency room on 04/27 with vague abdominal discomfort, nausea and vomiting. She had been on metoprolol which was stopped a few weeks prior. An EKG confirmed atrial fib with rapid ventricular response. Her rate 150-180 beats per minute. She was treated for heart rate control and converted back to normal sinus rhythm. She was put on metoprolol 25 mg b.i.d.. She was started on Eliquis 5 mg b.i.d. which is the appropriate dose for her weight and creatinine. an echocardiogram was done showing EF 50-55%, mild LVH, normal RV, left atrium moderately dilated and mild pulmonary hypertension. She did not have recurrent atrial fibrillation during her admission. Since her hospital discharge she denies having any heart palpitations. She does not recall having heart palpitations when she had AFib. No bleeding issues reported with the use of Eliquis. She is agreeable to wear a Holter monitor for 3 days. Plan to call her with results. At this time continue on current metoprolol and Eliquis. Cardiology follow-up in 3 months, sooner if needed. (2) NSTEMI (non-ST elevated myocardial infarction): Code(s): I21.4 - Non-ST elevation (NSTEMI) myocardial infarction Category: Medical Plan: Troponin elevation during AFib RVR admission. Peak troponin 592.6. She does have a history of a left bundle branch block so EKGs are nondiagnostic for ischemia. She did not have reports of chest discomfort. Her echocardiogram showed low normal EF and no regional wall motion abnormalities. She was felt to have a secondary type NSTEMI. She has done well since her hospital discharge and even 1 on a cruise to [place]. She has no anginal sounding symptoms. She is good activity tolerance. Will check with her traffic operations engineer regarding need for stress testing Verses clinical monitoring at this time. (3) LBBB (left bundle branch block): Code(s): I44.7 - Left bundle-branch block, unspecified Category: Medical Plan: History of a left bundle branch block. A nuclear stress test was done 03/02/2021 showing no clear evidence of any ischemia, fixed defect in the septum likely related to left bundle branch block, normal EF (4) Essential hypertension: Code(s): I10 - Essential (primary) hypertension Category: Medical Plan: well controlled at this time. No medication changes made. (5) Hospital discharge follow-up: Code(s): Z09 - Encounter for follow-up examination after completed treatment for conditions other than malignant neoplasm Category: Medical Plan: As above Plan time spent on chart review, documentation, interview and assessment Orders: Orders ECG 3 day holter monitor 05/28/24 I48.91 - Unspecified atrial fibrillation Coding Level of Care Code Est Pt Level 4 (98684) Diagnoses Atrial fibrillation with RVR I48.91 NSTEMI (non-ST elevated myocardial infarction) I21.4 LBBB (left bundle branch block) I44.7 Essential hypertension I10 Hospital discharge follow-up Z09 CPT Codes EKG - CPT: [id number], Complete ([id number]) Time Spent (min) 35
== END 2024-05-21 15:24 | disposition home or self-care (01) ==
PROVIDERS: PCP Internal Medicine; Visit Provider Nurse Practitioner Family
DX: I48.91 Unspecified atrial fibrillation (principal); I21.4 Non-ST elevation (NSTEMI) myocardial infarction; I44.7 Left bundle-branch block, unspecified; I10 Essential (primary) hypertension; Z09 Encounter for follow-up examination after completed treatment for conditions other than malignant neoplasm
CPT/HCPCS: 93010; 99214

== ENCOUNTER → 2024-05-21 14:14 | Outpatient (BNVA) | payer MEDICARE, OTHER, SELFPAY | PROVIDERS: PCP Internal Medicine; Visit Provider Nurse Practitioner Family | DX: Z09 Encounter for follow-up examination after completed treatment for conditions other than malignant neoplasm (principal); I48.91 Unspecified atrial fibrillation; I21.4 Non-ST elevation (NSTEMI) myocardial infarction; I44.7 Left bundle-branch block, unspecified; I10 Essential (primary) hypertension | CPT/HCPCS: 93005; 99212 ==

== ENCOUNTER 2024-05-21 16:14 | Outpatient (REF) | payer SELFPAY | END 2024-05-21 16:15 | disposition home or self-care (01) | LOC: HO.HAP 16:14 | PROVIDERS: Visit Provider Internal Medicine | DX: Z46.1 Encounter for fitting and adjustment of hearing aid (principal); H90.3 Sensorineural hearing loss, bilateral | CPT/HCPCS: 92592 ==

== ENCOUNTER 2024-06-05 07:51 | Outpatient (AMB) | payer MEDICARE, OTHER, SELFPAY ==
[2024-06-05 08:10] VITALS: BP 140/68; PULSE 59; O2SAT 98; BMI 27.5
--- NOTE | 2024-06-05 08:10 | A.OFFPC_ITS ---
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 Required: No Allergies amoxicillin [AMOXICILLIN] Allergy (Unknown, Verified 06/05/24 08:43) UNKNOWN Medication List - Last Reconciled 06/05/24 by Leo Dewitt MD alendronate 70 mg PO QWEEK apixaban (Eliquis) 5 mg PO BID cholecalciferol (vitamin D3) 25 mcg PO DAILY folic acid 1 mg PO DAILY furosemide 40 mg PO DAILY hydroxychloroquine 200 mg PO DAILY losartan 25 mg PO DAILY methotrexate sodium 15 mg PO QWEEK metoprolol tartrate 25 mg See Protocol PO BID multivitamin 1 tab PO DAILY Tobacco use date assessed: 03/28/24 Fall risk assessment: No Falls in past year Last assessed Fall Risk: 06/05/24 Dental Screening Dental Screen Date: 01/19/24 HPI leg tightness bilateral HPI Details 83-year-old female presents [facility] for [facility]. Patient is complaining of swelling and tightness in the left leg for the past month. Symptoms started around the time she travel to [place] on a flight. The flight duration was greater than 3 hours. She feels her legs feel tight in the morning and subside during the day. Able to walk without a limp. No history of fall or injury prior to the onset of symptoms. [facility] Medical History Chronic lower back pain Chronic heart failure with preserved ejection fraction (HFpEF) Essential hypertension LBBB (left bundle branch block) Acute diverticulitis TIA (transient ischemic attack) HTN (hypertension) Surgical History History of appendectomy (06/16/23) History of cataract surgery H/O hernia repair Family History Father No problems noted. Mother No problems noted. Social History Household Members: None Housing: Apartment Do you presently have visiting nurse or other home services: No Alcohol intake: current Alcohol intake frequency: a few times a month Patient Tobacco Use Status: Never used Tobacco e-Cigarette/Vaping Use: Never Used Second Hand Smoke Exposure: No Advance Directives Date on File: 08/18/21 service: No Current occupational status: retired Current occupational exposures/hazards: No Cognitive needs: No Hearing needs: Yes Vision needs: No Questionnaire Thrive Questionnaire Date Thrive assessed: 04/28/24 AUDIT C Alcohol Use Questionnaire (AUDIT-C) 1. How often do you have a drink containing alcohol?: Never 3. How often do you have six or more drinks on one occasion?: Never Total Score: 0 VERONICA-7 AMB Questionnaire VERONICA-7 Date VERONICA - 7 assessed: 11/24/23 Source: Developed by Drs. Chad Gramajo, Amalia Brewer, Duane Small and colleagues, with an educational edward from [employer]. Physical exam (Primary Care) Vital Signs: Last Vital Signs Pulse 59 06/05/24 08:10 BP 140/68 H 06/05/24 08:10 Pulse Ox 98 06/05/24 08:10 Oxygen Delivery Method Room Air 06/05/24 08:10 BMI result Body Mass Index 27.5 Tobacco/Smoking Status: Tobacco use Status Tobacco use date assessed 03/28/24 06/05/24 08:16 Patient Tobacco Use Status Never used Tobacco 06/05/24 08:16 e-Cigarette/Vaping Use Never Used 06/05/24 08:16 Thrive Assessment: Date of Thrive Assessment Date Thrive assessed 04/28/24 06/05/24 08:16 Extrem Other: Left leg: No visible swelling or bruising. Internal and external rotation at the hip is normal. Full range of motion at the knee. No erythema or tenderness. Assessment and Plan Assessment & Plan (1) Deep vein thrombosis: Code(s): I82.409 - Acute embolism and thrombosis of unspecified deep veins of unspecified lower extremity Plan: Clinically very unlikely, but patient had a risk factor of recent travel. She is on anticoagulants. An ultrasound of the leg has been requested. If the ultrasound is negative, reassurance and symptoms should resolve spontaneously. Coding Level of Care Code Est Pt Level 4 (06831) Complex EM visit Add On G2211 Diagnoses Deep vein thrombosis I82.409
== END 2024-06-05 12:34 | disposition home or self-care (01) ==
PROVIDERS: PCP Internal Medicine; Visit Provider Internal Medicine
DX: I82.409 Acute embolism and thrombosis of unspecified deep veins of unspecified lower extremity (principal)
CPT/HCPCS: 99214; G2211

== ENCOUNTER 2024-06-05 08:50 | Outpatient (REF) | payer MEDICARE, OTHER, SELFPAY ==
--- NOTE | ~2024-06-05 | US_ITS ---
EXAMINATION: US VENOUS ULTRASOUND WITH DOPPLER LOWER EXTREMITY, LEFT CLINICAL INFORMATION: Pain and swelling. COMPARISON: Duplex Doppler ultrasound exam bilateral lower extremity August 02, 2022 TECHNIQUE: Ultrasound of the deep veins is performed from the hip to the calf with compression sonography and color and pulse Doppler assessment. Spectral analysis with color-flow imaging is performed. FINDINGS: There is normal venous compression and respiratory variation and augmented flow. The visualized common femoral vein, superficial femoral vein, profunda femoral vein, popliteal vein, and the trifurcation region shows no evidence of deep venous thrombosis. There is no significant popliteal fossa cyst. If the patient's symptoms persist, followup ultrasound in 5 days 7 days might be of value to exclude proximal propagation from a non-visualized calf vein. US/US venous duplex LE IMPRESSION: No DVT demonstrated in the left lower extremity.
[2024-06-05 09:26] LABS: Basophils Percent Auto 0.4 % (0-2); Eosinophils Percent Auto 1.8 % (0-4); Hemoglobin 10.9 g/dl (12.0-16.0); Imm Gran Abs Auto 0.01 X10*3/uL (0.00-0.03); Imm Gran Pct Auto 0.4 % (0.0-0.4); Lymphocytes Absolute Auto 0.7 X10*3/uL (1.2-4.9); Lymphocytes Percent Auto 30.1 % (20-40); MANUAL DIFF FLAG SCAN; Mean Corpuscular HGB Conc 32.1 g/dl (31.0-35.0); Mean Corpuscular Hemoglobin 29.9 pg (27.0-33.0); Mean Corpuscular Volume 93.2 fL (80.0-98.0); Mean Platelet Volume 9.5 fL (9.4-12.3); Monocytes Absolute Auto 0.5 X10*3/uL (0.1-1.2); Monocytes Percent Auto 19.9 % (2-11); Neutrophils Absolute Auto 1.1 x10*3/uL (2.0-8.3); Neutrophils Percent Auto 47.4 % (45-73); Platelet Count 230 X10*3/uL (160-400); Red Blood Count 3.65 X10*6/uL (4.20-5.50); Red Cell Distribution Width 16.4 % (11.0-16.0); SCAN SMEAR FLAG 1
[2024-06-05 09:37] LABS: White Blood Count 2.3 X10*3/uL (4.8-10.8)
[2024-06-05 09:49] LABS: Alanine Aminotransferase 26 U/L (0-31); Albumin Level 3.7 g/dL (3.5-5.0); Alkaline Phosphatase 105 U/L (39-117); Anion Gap 10 (12-20); Aspartate Amino Transferase 29 U/L (5-31); Bilirubin Total 0.5 mg/dL (0.0-1.0); Blood Urea Nitrogen 18 mg/dL (9-16); Calcium 9.5 mg/dL (8.4-10.2); Carbon Dioxide 26 mmol/L (22-29); Chloride 108 mmol/L (96-108); Estimated Glomerular Filt Rate > 60; Glucose Random 84 mg/dL (60-115); Potassium 4.1 mmol/L (3.3-5.1); Sodium 140 mmol/L (135-145)
[2024-06-05 10:39] LABS: SLIDE REVIEW VERIFIED
[2024-06-08 12:03] LABS: Vitamin D 25-OH, D2 <4 ng/mL; Vitamin D 25-OH, D3 34 ng/mL; Vitamin D 25-OH, Total 34 ng/mL (30-100)
== END 2024-06-05 08:51 | disposition home or self-care (01) ==
LOC: HO.LAB 08:50
PROVIDERS: PCP Internal Medicine; Visit Provider Student in an Organized Health Care Education/Training Program
DX: M79.605 Pain in left leg (principal); E55.9 Vitamin D deficiency, unspecified; I82.409 Acute embolism and thrombosis of unspecified deep veins of unspecified lower extremity; Z79.631 Long term (current) use of antimetabolite agent
CPT/HCPCS: 36415; 80053; 82306; 85025; 93971

== ENCOUNTER 2024-06-19 07:29 | Outpatient (AMB) | payer MEDICARE, OTHER, SELFPAY ==
--- NOTE | 2024-06-19 07:35 | A.OFFVIS_ITS ---
Vital Signs 06/19/24 07:39 Height 5 ft 4 in Weight 162 lb 4.163 oz BMI 27.8 BP 115/56 L Blood Pressure Location Lt brachial Position Sitting Pulse 59 Pulse Source Pulse Oximeter Pulse Oximetry (%) 98 Oxygen Delivery Method Room Air Intake Visit Reasons: cutaneous lupus/osteoporosis/MF Intake Note: Patient presents for Cutaneous lupus/osteoporosis. 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 On methotrexate 20 mg weekly, folic acid 1 mg daily hydroxychloroquine 200 mg daily and alendronate 70 mg weekly. She was admitted to the hospital 2 months ago and was found to have new onset AFib, started on Eliquis. Today she is complaining of poor walking , her lupus rashes are stable Initial history: This is an 83-year-old female who 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 She had been on hydroxychloroquine for the last 5 years and intermittently gets prednisone. She stated that she started having a flare of discoid lupus over the last 6-9 months. She was started on prednisone g daily. Prednisone dose was recently increased to 10 mg daily. Of note patient was admitted to the hospital about 2 weeks ago for a perforated appendicitis, she had open appendectomy. Patient has healed well. The stitches are out. Currently she is complaining of diffuse skin rashes on her back, chest, arms. The rashes are not itchy or painful. Patient avoids the sun. [facility] Medical History Chronic lower back pain Chronic heart failure with preserved ejection fraction (HFpEF) Essential hypertension LBBB (left bundle branch block) Acute diverticulitis TIA (transient ischemic attack) HTN (hypertension) Surgical History History of appendectomy (06/16/23) History of cataract surgery H/O hernia repair Family History Father No problems noted. Mother No problems noted. Social History Household Members: None Housing: Apartment Do you presently have visiting nurse or other home services: No Alcohol intake: current Alcohol intake frequency: a few times a month Patient Tobacco Use Status: Never used Tobacco e-Cigarette/Vaping Use: Never Used Second Hand Smoke Exposure: No Advance Directives Date on File: 08/18/21 service: No Current occupational status: retired Current occupational exposures/hazards: No Cognitive needs: No Hearing needs: Yes Vision needs: No Review of Systems Musc Denies back pain and Denies arthralgias Physical Exam Vital Signs: Last Vital Signs Pulse 59 06/19/24 07:39 BP 115/56 L 06/19/24 07:39 Pulse Ox 98 06/19/24 07:39 Oxygen Delivery Method Room Air 06/19/24 07:39 BMI result Body Mass Index 27.8 Const General: cooperative and healthy appearing Nutritional Appearance: obese Orientation/consciousness: patient oriented x3 Limitations: no limitations HEENT Head: Yes normocephalic and Yes atraumatic Mouth: moist mucous membranes Resp Effort & Inspection: normal respiratory effort and able to speak in complete sentences Auscultation: clear to auscultation bilaterally Cardio Rhythm: abnormal rhythm irregularly irregular Skin Other: Subacute cutaneous lupus rash on neck, upper chest, upper back. Neuro General: patient oriented x3 Extrem Other: Inability to fully extend knees while walking Bilateral knee crepitus and pain with flexion and extension No active synovitis Normal nailfold capillaroscopy Assessment & Plan Assessment & Plan (1) Cutaneous lupus erythematosus: Comment: +++SSa +++SSb SCLE. 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 She continues to have mildly active rashes on neck, upper chest and back, the rashes are stable however, not particularly symptomatic. I would not increase methotrexate at this time as patient has some leukopenia. 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 I will refer her to PT Plan I spent 36 minutes reviewing patient's chart, evaluating patient, ordering diagnostic workup, counseling patient and documenting in the chart Orders: Orders PT Evaluation and Treatment Today M17.0 - Bilateral primary osteoarthritis of knee Complete Blood Count Auto Diff 2 Months L93.2 - Other local lupus erythematosus, Z79.631 - group home (current) use of antimetabolite agent Comprehensive Met. 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
[2024-06-19 07:39] VITALS: BP 115/56; PULSE 59; O2SAT 98; BMI 27.8
== END 2024-06-19 08:03 | disposition home or self-care (01) ==
PROVIDERS: PCP Internal Medicine; Visit Provider Student in an Organized Health Care Education/Training Program
DX: L93.2 Other local lupus erythematosus (principal); M80.08XA Age-related osteoporosis with current pathological fracture, vertebra(e), initial encounter for fracture; Z79.631 Long term (current) use of antimetabolite agent; Z79.899 Other long term (current) drug therapy; M17.0 Bilateral primary osteoarthritis of knee
CPT/HCPCS: 99214; G2211

== ENCOUNTER → 2024-06-19 07:29 | Outpatient (BNVA) | payer MEDICARE, SELFPAY | PROVIDERS: PCP Internal Medicine; Visit Provider Student in an Organized Health Care Education/Training Program | DX: L93.2 Other local lupus erythematosus (principal); M80.08XA Age-related osteoporosis with current pathological fracture, vertebra(e), initial encounter for fracture; X58.XXXA Exposure to other specified factors, initial encounter; Y93.9 Activity, unspecified; Y92.9 Unspecified place or not applicable; Y99.9 Unspecified external cause status; M17.0 Bilateral primary osteoarthritis of knee; Z79.631 Long term (current) use of antimetabolite agent; Z79.83 Long term (current) use of bisphosphonates; Z79.899 Other long term (current) drug therapy | CPT/HCPCS: 99212 ==

== ENCOUNTER 2024-06-25 09:54 | Outpatient (AMB) | payer MEDICARE, OTHER, SELFPAY ==
--- NOTE | 2024-06-25 10:03 | A.OFFVIS_ITS ---
Intake Vital Signs 06/25/24 10:11 Height 5 ft 4 in Weight 167 lb 2 oz BMI 28.7 BP 140/56 H Blood Pressure Location Lt brachial Position Sitting Pulse 66 Pulse Source Pulse Oximeter Pulse Oximetry (%) 97 Oxygen Delivery Method Room Air Intake Visit Reasons: AWV [id number] Intake Note: Patient is here for an Annual Wellness Visit. Computer Bookkeeper Required: No Accompanied by: Self / Same As Patient Allergies amoxicillin [AMOXICILLIN] Allergy (Unknown, Verified 06/25/24 16:29) UNKNOWN Medication List - Last Reconciled 06/25/24 by Leo Dewitt MD alendronate 70 mg PO QWEEK apixaban (Eliquis) 5 mg PO BID cholecalciferol (vitamin D3) 25 mcg PO DAILY folic acid 1 mg PO DAILY furosemide 40 mg PO DAILY hydroxychloroquine 200 mg PO DAILY losartan 25 mg PO DAILY methotrexate sodium 15 mg PO QWEEK metoprolol tartrate 25 mg See Protocol PO BID multivitamin 1 tab PO DAILY HPI AWV g0438 HPI Details 84-year-old female presents to the [facility] for an annual wellness exam. [facility] Medical History Chronic lower back pain Chronic heart failure with preserved ejection fraction (HFpEF) Essential hypertension LBBB (left bundle branch block) Acute diverticulitis TIA (transient ischemic attack) HTN (hypertension) Surgical History History of appendectomy (06/16/23) History of cataract surgery H/O hernia repair Family History Father No problems noted. Mother No problems noted. Social History Household Members: None Housing: Apartment Do you presently have visiting nurse or other home services: No Alcohol intake: current Alcohol intake frequency: a few times a month Patient Tobacco Use Status: Never used Tobacco e-Cigarette/Vaping Use: Never Used Second Hand Smoke Exposure: No Advance Directives Date on File: 08/18/21 service: No Current occupational status: retired Current occupational exposures/hazards: No Cognitive needs: No Hearing needs: Yes Vision needs: No Questionnaire Medicare Wellness Checkup What is your age?: 80 or older What gender do you identify with?: female During the past 4 weeks, how much have you been bothered by emotional problems such as feeling anxious, depressed, irritable, sad or downhearted, and blue?: not at all During the past 4 weeks, has your physical & emotional health limited your social activities with family, friends, neighbors, or groups?: slightly During the past 4 weeks, how much bodily pain have you generally had?: mild pain During the past 4 weeks, was someone available to help you if you needed & wanted help?: yes, a little During the past 4 weeks, what was the hardest physical activity you could do for at least 2 minutes?: moderate Can you get to places out of walking distance without help? (For eg., can you travel alone on buses, taxis or drive your car?): Yes Can you go shopping for groceries or clothes without someone's help?: Yes Can you prepare your own meals?: Yes Can you do your housework without help?: Yes Because of any health problems, do you need the help of another person with your personal care needs such as eating, bathing, dressing or getting around the house?: No Can you handle your own money without help?: Yes During the past 4 weeks, how would you rate your health in general?: fair During the past 4 weeks how have things been going for you?: good & bad parts about equal Are you having difficulties driving your car?: no Do you always fasten your seat belt when you are in a car?: yes, usually During past 4 weeks, have you been bothered by the following: never: Falling or dizzy when standing up, Sexual problems?, Trouble eating well?, Teeth or denture problems? and Problems using the telephone? and seldom: Tiredness or fatigue? Have you fallen 2 or more times in the past year?: No Are you afraid of falling?: No Are you a smoker?: no During the past 4 weeks, how many drinks of wine, beer, or other alcoholic beverages did you have?: 1 drink or less per week Do you exercise for about 20 minutes 3 or more times a week?: yes, most of the time Have you been given information to help with the following?: yes: Keeping track of your medications? and no: Hazards in your house that might hurt you? How often do you have trouble taking medicines the way you have been told to take them?: I always take medicine as prescribed How confident are you that you can control & manage most of your health problems?: very confident What is your race?: White Mini Mental State Exam (MMSE) Orientation What is the (year) (season) (date) (day) (month)?: year, season, date and day Where are we (state) (county) (town or city) (hospital) (floor)?: state, town or city and hospital/clinic Registration Name of 3 unrelated objects clearly and slowly, then ask patient to repeat all 3 of them. (1st repeat determines score. Make sure they can repeat all three): object 1, object 2 and object 3 Score Score: 10 Activity of Daily Living Bathing - sponge bath, tub bath or shower: receives no assistance (gets in/out by self, if usual bathing means Dressing - getting clothes from closets & drawers, including inner/outer garments & fasteners.: gets clothes & gets completely dressed without help Toileting - going to the 'toilet room' for urine/bowel elimination & cleaning self/arranging clothes: goes to toilet room, cleans self, arranges clothes without help Transfer: moves in & out of bed and chair without help (may use support object) Continence: controls urination/bowel movements completely by self Feeding: feeds self without help Total Score: 0 Information obtained from: patient Using telephone: independent Traveling: independent Shopping: independent Preparing meals: independent Housework: independent Taking medicine: independent Managing money: independent PHQ-9 Over the last 2 weeks, how often have you been bothered by any of the following problems? 1. Little interest or pleasure in doing things: not at all 2. Feeling down, depressed, or hopeless: not at all 3. Trouble falling or staying asleep, or sleeping too much: not at all 4. Feeling tired or having little energy: not at all 5. Poor appetite or overeating: not at all 6. Feeling bad about yourself - or that you are a failure or have let yourself or your family down: not at all 7. Trouble concentrating on things, such as reading the newspaper or watching television: not at all 8. Moving or speaking so slowly that other people could have noticed. Or the opposite - being so fidgety or restless that you have been moving around a lot more than usual: not at all 9. Thoughts that you would be better off or of hurting yourself in some way: not at all Total score: 0 Depression Screening Interpretation: Negative Depression Screening Done: Yes 23243 - PHQ-9 Billing: Yes Source: Developed by Drs. Chad Gramajo, Amalia Brewer, Duane Small and colleagues, with an educational edward from [employer]. Physical Exam Vital Signs: Last Vital Signs Pulse 66 06/25/24 10:11 BP 140/56 H 06/25/24 10:11 Pulse Ox 97 06/25/24 10:11 Oxygen Delivery Method Room Air 06/25/24 10:11 BMI result Body Mass Index 28.7 Balance: Normal Romberg: Negative Tandem Walk: Able to Walk and Turn: Able to Rise from sit to stand: Able to Hearing Whisper test: Pass [place] of care charted and plan for appropriate screening of chronic disease given to the patient. Const General: cooperative and healthy appearing Nutritional Appearance: well nourished Orientation/consciousness: patient oriented x3 Limitations: no limitations HEENT Head: Yes normal to inspection Eyes General: appearance normal, both eyes and all related structures Neck Neck: Yes normal visual inspection Chest Chest palpation & inspection: normal palpation of entire chest wall Resp Effort & Inspection: normal respiratory effort Neuro General: patient oriented x3 Assessment & Plan Assessment & Plan (1) Essential hypertension: Code(s): I10 - Essential (primary) hypertension Plan: Blood pressure is in range. Continue medications at same dosage. (2) Lower back pain: Code(s): M54.5 - Low back pain Plan: Continue current medications. (3) Lupus: Code(s): M32.9 - Systemic lupus erythematosus, unspecified Plan: Patient sees a chemical process operator who has her on disease modifying agents. (4) Chronic heart failure with preserved ejection fraction (HFpEF): Code(s): I50.32 - Chronic diastolic (congestive) heart failure Plan: Patient sees a revolving field assembler and continue current medications. (5) Annual physical exam: Code(s): Z00.00 - Encounter for general adult medical examination without abnormal findings Plan: As above. Quality Reporting (2019) Depression/Bipolar (159/160/161/177) PHQ-9: Total score: 0 Coding Level of Care Code Medicare Subsequent (G0439) Diagnoses Essential hypertension I10 Lower back pain M54.5 Lupus M32.9 Chronic heart failure with preserved ejection fraction (HFpEF) I50.32 Annual physical exam Z00.00 CPT Codes Advance Care Planning - Time spent: 1-15 minutes, not on file ([id number]) Advance Care Planning Advance Care Planning discussion: Exists, not on file Date of discussion: 06/25/24 Who was present: Patient Forms completed: Health Care Proxy Time spent: 1-15 minutes, not on file Actual minutes spent: 5
[2024-06-25 10:11] VITALS: BP 140/56; PULSE 66; O2SAT 97; BMI 28.7
== END 2024-06-25 12:23 | disposition home or self-care (01) ==
PROVIDERS: PCP Internal Medicine; Visit Provider Internal Medicine
DX: Z00.00 Encounter for general adult medical examination without abnormal findings (principal); I11.0 Hypertensive heart disease with heart failure; I50.32 Chronic diastolic (congestive) heart failure; M32.9 Systemic lupus erythematosus, unspecified; M54.50 Low back pain, unspecified
CPT/HCPCS: 1124F; G0439

== ENCOUNTER → 2024-06-26 08:08 | Outpatient (REF) | payer MEDICARE, OTHER, SELFPAY ==
--- NOTE | 2024-06-26 08:15 | HM_ITS ---
* Total monitoring time 3 days. * Underlying rhythm is sinus with an average ventricular rate 67/Min. * Rare supraventricular ectopy. Very brief runs noted. * Rare ventricular ectopy with short runs. Longest episode is 31 beats. Monomorphic. (cannot exclude supraventricular event). * No significant pauses or AV blocks. * No patient markers or diary events. MTDD
== END ==
LOC: HO.CARD 08:08
PROVIDERS: PCP Internal Medicine; Visit Provider Nurse Practitioner Family
DX: I48.91 Unspecified atrial fibrillation (principal)
CPT/HCPCS: 93242

== ENCOUNTER → 2024-06-26 08:15 | Outpatient (BNV) | payer MEDICARE, OTHER, SELFPAY | PROVIDERS: PCP Internal Medicine; Visit Provider Internal Medicine | DX: I47.10 Supraventricular tachycardia, unspecified (principal) | CPT/HCPCS: 93244 ==

== ENCOUNTER 2024-08-02 14:25 | Outpatient (AMB) | payer MEDICARE, OTHER, SELFPAY ==
--- NOTE | 2024-08-02 14:37 | MHC.PC.OV ---
Vital Signs 08/02/24 14:42 Height 5 ft 4 in Weight 162 lb 8 oz BMI 27.9 BP 110/78 Blood Pressure Location Lt brachial Position Sitting Pulse 61 Pulse Source Pulse Oximeter Pulse Oximetry (%) 96 Oxygen Delivery Method Room Air Intake Visit Reasons: 3 month follow up - see comments Intake Note: Patient is here to follow up on Afib, HTN, CHF, Low back pain. Freelance Data Entry Required: No Concert Or Lecture Hall Manager: Not Required per policy Accompanied by: Self / Same As Patient Allergies amoxicillin [AMOXICILLIN] Allergy (Unknown, Verified 08/03/24 14:35) UNKNOWN Medication List - Last Reconciled 08/03/24 by Leo Dewitt MD alendronate 70 mg PO QWEEK apixaban (Eliquis) 5 mg PO BID cholecalciferol (vitamin D3) 25 mcg PO DAILY folic acid 1 mg PO DAILY furosemide 40 mg PO DAILY hydroxychloroquine 200 mg PO DAILY losartan 25 mg PO DAILY methotrexate sodium 15 mg PO QWEEK metoprolol tartrate 25 mg See Protocol PO BID multivitamin 1 tab PO DAILY Tobacco use date assessed: 08/02/24 Fall risk assessment: No Falls in past year Last assessed Fall Risk: 08/02/24 Dental Screening Dental Screen Date: 01/19/24 HPI 3 month follow up - see comments HPI Details 84-year-old female presents to the office to discuss her chronic medical conditions. Patient is at baseline state of health. Has resumed going to the [employer]. Able to function and do all activities of daily living. Sleeping well. Back pain symptoms are at baseline. Occasionally she does get lower back pain. The legs continue to feel tight and she wonders if it is the medications for lupus. [facility] Medical History Chronic lower back pain Chronic heart failure with preserved ejection fraction (HFpEF) Essential hypertension LBBB (left bundle branch block) Acute diverticulitis TIA (transient ischemic attack) HTN (hypertension) Surgical History History of appendectomy (06/16/23) History of cataract surgery H/O hernia repair Family History Father No problems noted. Mother No problems noted. Social History Household Members: None Housing: Apartment Do you presently have visiting nurse or other home services: No Alcohol intake: current Alcohol intake frequency: a few times a month Patient Tobacco Use Status: Never used Tobacco e-Cigarette/Vaping Use: Never Used Second Hand Smoke Exposure: No Advance Directives Date on File: 08/18/21 service: No Current occupational status: retired Current occupational exposures/hazards: No Cognitive needs: No Hearing needs: Yes Vision needs: No Questionnaire Thrive Questionnaire Date Thrive assessed: 04/28/24 Are you currently unemployed and looking for a job?: Yes VERONICA-7 AMB Questionnaire VERONCIA-7 Date VERONICA - 7 assessed: 11/24/23 Source: Developed by Drs. Chad Gramajo, Amalia Brewer, Duane Small and colleagues, with an educational edward from [employer]. Physical exam (Primary Care) Vital Signs: Last Vital Signs Pulse 61 08/02/24 14:42 BP 110/78 08/02/24 14:42 Pulse Ox 96 08/02/24 14:42 Oxygen Delivery Method Room Air 08/02/24 14:42 BMI result Body Mass Index 27.9 Tobacco/Smoking Status: Tobacco use Status Tobacco use date assessed 08/02/24 08/02/24 14:47 Patient Tobacco Use Status Never used Tobacco 08/02/24 14:39 e-Cigarette/Vaping Use Never Used 08/02/24 14:39 Thrive Assessment: Date of Thrive Assessment Date Thrive assessed 04/28/24 08/02/24 14:39 Const General: cooperative and healthy appearing Nutritional Appearance: well nourished Orientation/consciousness: patient oriented x3 Limitations: no limitations HENMT Head: Yes normal to inspection Eyes General: appearance normal, both eyes and all related structures Neck Neck: Yes normal visual inspection Chest Chest palpation & inspection: normal palpation of entire chest wall Resp Effort & Inspection: normal respiratory effort Neuro General: patient oriented x3 Assessment and Plan Assessment & Plan (1) Bilateral primary osteoarthritis of knee: Code(s): M17.0 - Bilateral primary osteoarthritis of knee Plan: Condition is stable. Continue current medications. (2) Cutaneous lupus erythematosus: Comment: +++SSa +++SSb SCLE. dx around 2018 HCQ throughout PDN throughout flare 2023 MTX 08/2023 very effective Code(s): L93.2 - Other local lupus erythematosus Plan: Condition is stable. Continue medications recommended by the pipe bowls paint trimmer. Stiffness in the leg is not related to the medications. (3) Essential hypertension: Code(s): I10 - Essential (primary) hypertension Plan: Blood pressure is in range. Continue current medications. Coding Level of Care Code Est Pt Level 4 (55447) Complex EM visit Add On G2211 Diagnoses Bilateral primary osteoarthritis of knee M17.0 Cutaneous lupus erythematosus L93.2 Essential hypertension I10
[2024-08-02 14:42] VITALS: BP 110/78; PULSE 61; O2SAT 96; BMI 27.9
== END 2024-08-02 15:22 | disposition home or self-care (01) ==
PROVIDERS: PCP Internal Medicine; Visit Provider Internal Medicine
DX: M17.0 Bilateral primary osteoarthritis of knee (principal); L93.2 Other local lupus erythematosus; I10 Essential (primary) hypertension

== ENCOUNTER → 2024-08-02 14:25 | Outpatient (BNVA) | payer MEDICARE, OTHER, SELFPAY | PROVIDERS: PCP Internal Medicine; Visit Provider Internal Medicine | DX: M17.0 Bilateral primary osteoarthritis of knee (principal); I10 Essential (primary) hypertension; L93.2 Other local lupus erythematosus | CPT/HCPCS: 99212 ==

== ENCOUNTER 2024-08-13 09:49 | Outpatient (REF) | payer MEDICARE, OTHER, SELFPAY ==
[2024-08-13 11:10] LABS: Eosinophils Absolute Auto 0.1 X10*3/uL (0.0-0.4); Eosinophils Percent Auto 3.2 % (0-4); Hematocrit 33.4 % (37.0-47.0); Hemoglobin 10.7 g/dl (12.0-16.0); Imm Gran Abs Auto 0.03 X10*3/uL (0.00-0.03); Lymphocytes Absolute Auto 0.7 X10*3/uL (1.2-4.9); MANUAL DIFF FLAG SCAN; Mean Corpuscular Hemoglobin 30.1 pg (27.0-33.0); Mean Corpuscular Volume 94.1 fL (80.0-98.0); Mean Platelet Volume 10.6 fL (9.4-12.3); Monocytes Absolute Auto 0.7 X10*3/uL (0.1-1.2); Monocytes Percent Auto 22.3 % (2-11); Neutrophils Absolute Auto 1.5 x10*3/uL (2.0-8.3); Neutrophils Percent Auto 49.5 % (45-73); Platelet Count 159 X10*3/uL (160-400); Red Blood Count 3.55 X10*6/uL (4.20-5.50); Red Cell Distribution Width 17.3 % (11.0-16.0); SCAN SMEAR FLAG 1; White Blood Count 3.1 X10*3/uL (4.8-10.8)
[2024-08-13 11:38] LABS: SLIDE REVIEW VERIFIED
[2024-08-13 11:48] LABS: Alanine Aminotransferase 37 U/L (0-31); Albumin Level 3.7 g/dL (3.5-5.0); Alkaline Phosphatase 89 U/L (39-117); Anion Gap 10 (12-20); Aspartate Amino Transferase 36 U/L (5-31); Bilirubin Total 0.4 mg/dL (0.0-1.0); Blood Urea Nitrogen 23 mg/dL (9-16); C Reactive Protein 0.19 mg/dL (< or = 0.50); Calcium 9.8 mg/dL (8.4-10.2); Carbon Dioxide 27 mmol/L (22-29); Chloride 106 mmol/L (96-108); Estimated Glomerular Filt Rate > 60; Glucose Random 84 mg/dL (60-115); Potassium 4.2 mmol/L (3.3-5.1); Sodium 139 mmol/L (135-145)
[2024-08-13 11:49] LABS: Erythrocyte Sedimentation Rate 14 MM/HR (0-20)
== END 2024-08-13 09:50 | disposition home or self-care (01) ==
LOC: HO.LAB 09:49
PROVIDERS: PCP Internal Medicine; Visit Provider Student in an Organized Health Care Education/Training Program
DX: L93.2 Other local lupus erythematosus (principal); Z79.631 Long term (current) use of antimetabolite agent
CPT/HCPCS: 36415; 80053; 85025; 85652; 86140

== ENCOUNTER 2024-08-21 08:00 | Outpatient (RCR) | payer MEDICARE, OTHER, SELFPAY ==
--- NOTE | 2024-07-16 11:53 | MHC.PT.EP ---
[facility] [facility] Home Office [place] [facility] [address] [place] [address] [phone] F: [phone] F: [phone] F: [phone] F: [phone] Physical Therapy Plan of Care Date of Evaluation: 07/16/24 Date of Surgery: Diagnosis: BILAT PRIMARY OA Assessment: 84 YO FEMALE REF TO PT FOR Lt KNEE OA PAIN, INCR OVER LAST 2-3 MONTHS- SHE RESIDES ALONE AT [facility], HER SON AND DTR ASSIST W TRASH/ GROCERIES. THE Pt NOTES SHE TRIES NOT TO USE HER CANE SO SHE CAN STRENGTHEN HER LEs, SHE STAYS ACTIVE AT THE [facility]. OBJECTIVE FINDINGS: YUMIKO TERMINAL KNEE EXT AND Lt KNEE FLE TO 112*; (+) STRENGTH DEFICITS IN YUMIKO LEs, ALTERED GAIT, AND Lt KNEE JOINT PAIN. FUNCTIONALLY, SHE HAS ALTERED GAIT, INCR UEs COMPENSATION W TRANSFERS, AND DECR MILLI TO STANDING AND INCR STAIR NEGOTIATION. WE DISCUSSED PT POC AND Pt GOALS AND SHE AGREES AND WE PLAN TO ADDRESS THE ABOVE FINDINGS. Frequency and Duration: The patient will be seen 2x WK x 5 WKS Short Term Goals: DECR PAIN Lt KNEE TO 2-3/10 INCREASE TERMINAL KNEE EXT YUMIKO INITIATE HEP IMPROVE GAIT MECH INCR LEs FLEXIB Penitentiary Goals: Pt INDEP W HEP AND SELF SX MGMT TECHN Pt RESUME REG ADLs AND IMPROVED FUNCT MOB MILLI EVIDENT W IMPROVED LEFI SCORE, AT EVAL 61/80 LEs STRENGTH INCR BY AT LEAST 1 GRADE IMPROVED TUG , AT EVAL 22 SEC Treatment Plan: Modalities to reduce pain, spasms and effusion. Manual therapy to restore motion and function. Therapeutic exercise to improve strength and flexibility. Neuromuscular re-education for posture and balance. Therapeutic activities to return to functional activities of daily living. Electronically signed by: GIANLUCA WATSON,PT Please sign and return to therapist. Thank you for your referral.
--- NOTE | 2024-08-21 09:17 | MHC.PT.DC ---
[facility] [place] [facility] [place] [facility] [place] [facility] [address] [place] 140 [facility] [phone] F: [phone] F: [phone] F: [phone] F: [phone] Physical Therapy Discharge Report Diagnosis: BILAT PRIMARY OA Date of Surgery: Date of Evaluation: 07/16/24 Date of Discharge: 08/21/24 Treatments to Date: 6 Cancellations to Date: 1 No Shows to Date: Discharge Status: Achieved Goals Improved Function Independent with HEP Patient Elected to Stop Discharge Summary: ILDA HAS PROGRESSED IN PT EVIDENT W IMPROVED TUG TEST AND LEFI- SHE HAS IMPROVED STRENGTH AND FLEXIBILITY IN HER Lt LE, ALLOWING FOR MORE EFFICIENT AMB/ TRANSFERS, AND STAIR NAVIGATION. HER Lt KNEE PAIN HAS RELATIVELY RESOLVED AND SHE HAS BEEN ABLE TO RESUME REG ADLs- SHE REQUESTED D/C AT THIS TIME W HER THOROUGH HEP. Electronically signed by: GIANLUCA WATSON,PT Please sign and return to therapist. Thank you for your referral.
== END 2024-08-21 09:17 | disposition home or self-care (01) ==
LOC: HO.PT 08:00
PROVIDERS: PCP Internal Medicine; Visit Provider Student in an Organized Health Care Education/Training Program
DX: M17.0 Bilateral primary osteoarthritis of knee (principal)
CPT/HCPCS: 97110; 97162

== ENCOUNTER 2024-08-31 07:44 | Outpatient (AMB) | payer MEDICARE, OTHER, SELFPAY ==
--- NOTE | 2024-08-31 07:45 | MHC.OFFVIS ---
Vital Signs 08/31/24 07:49 Height 5 ft 4 in Weight 162 lb 0.636 oz BMI 27.8 BP 122/70 Blood Pressure Location Rt brachial Position Sitting Pulse 59 Pulse Source Pulse Oximeter Pulse Oximetry (%) 98 Oxygen Delivery Method Room Air Intake Visit Reasons: SLE/lm Intake Note: Patient presents for SLE. 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 On methotrexate 15 mg weekly, folic acid 1 mg daily hydroxychloroquine 200 mg daily and alendronate 70 mg weekly. Her main complaint is her poor walking due to left knee and thigh pain. She did 6 sessions of PT which she believes helped but she is still disappointed with her ability to walk well. She thinks it may be related to her meds. Discussed with patient that this is likely due to knee OA and unrelated to her meds. 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 She had been on hydroxychloroquine for the last 5 years and intermittently gets prednisone. She stated that she started having a flare of discoid lupus over the last 6-9 months. She was started on prednisone g daily. Prednisone dose was recently increased to 10 mg daily. Of note patient was admitted to the hospital about 2 weeks ago for a perforated appendicitis, she had open appendectomy. Patient has healed well. The stitches are out. Currently she is complaining of diffuse skin rashes on her back, chest, arms. The rashes are not itchy or painful. Patient avoids the sun. [facility] Medical History Chronic lower back pain Chronic heart failure with preserved ejection fraction (HFpEF) Essential hypertension LBBB (left bundle branch block) Acute diverticulitis TIA (transient ischemic attack) HTN (hypertension) Surgical History History of appendectomy (06/16/23) History of cataract surgery H/O hernia repair Family History Father No problems noted. Mother No problems noted. Social History Household Members: None Housing: Apartment Do you presently have visiting nurse or other home services: No Alcohol intake: current Alcohol intake frequency: a few times a month Patient Tobacco Use Status: Never used Tobacco e-Cigarette/Vaping Use: Never Used Second Hand Smoke Exposure: No Advance Directives Date on File: 08/18/21 service: No Current occupational status: retired Current occupational exposures/hazards: No Cognitive needs: No Hearing needs: Yes Vision needs: No Review of Systems Musc Reports arthralgias Skin/Breast Denies rash Physical Exam Vital Signs: Last Vital Signs Pulse 59 08/31/24 07:49 BP 122/70 08/31/24 07:49 Pulse Ox 98 08/31/24 07:49 Oxygen Delivery Method Room Air 08/31/24 07:49 BMI result Body Mass Index 27.8 Const General: cooperative and healthy appearing Nutritional Appearance: obese Orientation/consciousness: patient oriented x3 Limitations: no limitations HEENT Head: Yes normocephalic and Yes atraumatic Mouth: moist mucous membranes Resp Effort & Inspection: normal respiratory effort and able to speak in complete sentences Auscultation: clear to auscultation bilaterally Cardio Rhythm: abnormal rhythm irregularly irregular Skin Other: Very subtle lupus rashes on her neck. Neuro General: patient oriented x3 Extrem Other: Inability to fully extend knees while walking Left knee is held in semi-flexed position while lying down. Left knee warmth and mild swelling Bilateral knee crepitus and pain with flexion and extension Normal nailfold capillaroscopy Assessment & Plan Assessment & Plan (1) Cutaneous lupus erythematosus: Comment: +++SSa +++SSb SCLE. 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 Rashes are very well controlled today. Patient is on methotrexate 15 mg weekly, hydroxychloroquine 200 mg daily folic acid 1 mg daily Patient has mild transaminitis. 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 She has on a multivitamin which contains vitamin-D 1200 units daily. 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 That seems to be her main complaint. Patient has done PT which provided some improvement. She is concerned about her upcoming trip [place] [facility] [place]. Discussed possible cortisone injections. Patient will stop by the office in 2 weeks for left knee cortisone injection prior to her trip Plan I spent 36 minutes reviewing patient's chart, evaluating patient, ordering diagnostic workup, counseling patient and documenting in the chart Orders: Orders Comprehensive Met. 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 - keno terminal operator (current) use of antimetabolite agent Erythrocyte Sedimentation Rate 2 Months L93.2 - Other local lupus erythematosus, Z79.631 - keno terminal operator (current) use of antimetabolite agent Complete Blood Count Auto Diff 2 Months L93.2 - Other local lupus erythematosus, Z79.631 - keno terminal operator (current) use of antimetabolite agent C Reactive Protein 2 Months L93.2 - Other local lupus erythematosus, Z79.631 - [facility] (current) use of antimetabolite agent Vitamin D 25-OH (D2 and D3) 2 Months E55.9 - Vitamin D deficiency, unspecified Coding Level of Care Code Est Pt Level 4 (99192) Complex EM visit Add On G2211 Diagnoses Cutaneous lupus erythematosus L93.2 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
[2024-08-31 07:49] VITALS: BP 122/70; PULSE 59; O2SAT 98; BMI 27.8
== END 2024-08-31 08:17 | disposition home or self-care (01) ==
PROVIDERS: PCP Internal Medicine; Visit Provider Student in an Organized Health Care Education/Training Program
DX: L93.2 Other local lupus erythematosus (principal); M80.08XA Age-related osteoporosis with current pathological fracture, vertebra(e), initial encounter for fracture; Z79.631 Long term (current) use of antimetabolite agent; Z79.899 Other long term (current) drug therapy; M17.0 Bilateral primary osteoarthritis of knee
CPT/HCPCS: 99214; G2211

== ENCOUNTER → 2024-08-31 07:44 | Outpatient (BNVA) | payer MEDICARE, OTHER, SELFPAY | PROVIDERS: PCP Internal Medicine; Visit Provider Student in an Organized Health Care Education/Training Program | DX: L93.2 Other local lupus erythematosus (principal); M80.08XA Age-related osteoporosis with current pathological fracture, vertebra(e), initial encounter for fracture; M17.0 Bilateral primary osteoarthritis of knee; Z79.631 Long term (current) use of antimetabolite agent; Z79.899 Other long term (current) drug therapy; Z79.52 Long term (current) use of systemic steroids | CPT/HCPCS: 99212 ==

== ENCOUNTER 2024-09-12 07:44 | Outpatient (AMB) | payer MEDICARE, OTHER, SELFPAY ==
--- NOTE | 2024-09-12 07:47 | MHC.OFFVIS ---
Vital Signs 09/12/24 07:52 Height 5 ft 4 in Weight 161 lb 13.109 oz BMI 27.8 BP 120/70 Blood Pressure Location Rt brachial Position Sitting Pulse 60 Pulse Source Pulse Oximeter Pulse Oximetry (%) 97 Oxygen Delivery Method Room Air Intake Visit Reasons: knee pain/inj/CM Intake Note: Patient presents for knee pain/injection. Allergies amoxicillin [AMOXICILLIN] Allergy (Unknown, Verified 09/12/24 07:51) UNKNOWN Medication List - Last Reconciled 09/12/24 by Love Avitia MD alendronate 70 mg PO QWEEK apixaban (Eliquis) 5 mg PO BID cholecalciferol (vitamin D3) (Vitamin D3) 25 mcg PO DAILY folic acid 1 mg PO DAILY furosemide 40 mg PO DAILY hydroxychloroquine 200 mg PO DAILY losartan 25 mg PO DAILY methotrexate sodium 10 mg (4 x 2.5 mg) PO QWEEK metoprolol tartrate 25 mg See Protocol PO BID multivitamin 1 tab PO DAILY HPI Comments Details: Patient presents for left knee cortisone injection [facility] Medical History Chronic lower back pain Chronic heart failure with preserved ejection fraction (HFpEF) Essential hypertension LBBB (left bundle branch block) Acute diverticulitis TIA (transient ischemic attack) HTN (hypertension) Surgical History History of appendectomy (06/16/23) History of cataract surgery H/O hernia repair Family History Father No problems noted. Mother No problems noted. Social History Household Members: None Housing: Apartment Do you presently have visiting nurse or other home services: No Alcohol intake: current Alcohol intake frequency: a few times a month Patient Tobacco Use Status: Never used Tobacco e-Cigarette/Vaping Use: Never Used Second Hand Smoke Exposure: No Advance Directives Date on File: 08/18/21 service: No Current occupational status: retired Current occupational exposures/hazards: No Cognitive needs: No Hearing needs: Yes Vision needs: No Review of Systems Musc Reports arthralgias Physical Exam Vital Signs: Last Vital Signs Pulse 60 09/12/24 07:52 BP 120/70 09/12/24 07:52 Pulse Ox 97 09/12/24 07:52 Oxygen Delivery Method Room Air 09/12/24 07:52 BMI result Body Mass Index 27.8 Const General: cooperative and healthy appearing Nutritional Appearance: obese Limitations: no limitations HEENT Head: Yes normocephalic and Yes atraumatic Mouth: moist mucous membranes Resp Effort & Inspection: normal respiratory effort and able to speak in complete sentences Extrem Other: Inability to fully extend knees while walking Left knee is held in semi-flexed position while lying down. Left knee warmth and mild swelling Bilateral knee crepitus and pain with flexion and extension Normal nailfold capillaroscopy Office Procedures AMB Joint Injection/Aspiration Joint Injection/Aspiration Primary Site: left knee Prep: site was prepped using sterile technique Injected: 40 mg of, Kenalog, with 1 mL of, 1% plain lidocaine and in the joint Approach Used: medial parapatellar Procedure: The patient tolerated the procedure well Coding Details: With the patient's consent the left knee was prepped with ChloraPrep and alcohol. The skin was anesthetized with 2 cc of 1% lidocaine. The knee was then injected with 40 mg of triamcinolone and 1 cc of I % lidocaine. The patient tolerated the procedure with no immediate adverse effects. 67245 - Large joint Procedure code (CPT) selection complete Office Meds Kenalog 40 mg/mL suspension for injection Performing Provider: Love Avitia MD Performing Location: [facility] [place] Rheumatology Administered by: Love Avitia MD on 09/12/24 08:07 Dose Route Admin Location Dispensed Lot Number Expiration Date [facility] [employer] 40 mg intra-articular 1 mL [id number] 05/07/26 [address]-2 [employer] lidocaine (PF) 10 mg/mL (1 %) injection solution Performing Provider: Love Avitia MD Performing Location: [facility] [place] Rheumatology Administered by: Love Avitia MD on 09/12/24 08:07 Dose Route Admin Location Dispensed Lot Number Expiration Date [facility] [employer] 20 mg Infiltration 2 mL [id number] 02/05/27 90525-941-17 [facility] Assessment & Plan Assessment & Plan (1) Bilateral primary osteoarthritis of knee: Code(s): M17.0 - Bilateral primary osteoarthritis of knee Category: Medical Plan: More symptomatic in the left knee. Patient has done physical therapy, with little improvement. Patient elected to proceed with cortisone injection. With patient's consent. Left knee was injected with Kenalog. Orders: Orders AMB Joint Injection/Aspiration Today M17.0 - Bilateral primary osteoarthritis of knee Medications: New Kenalog (triamcinolone acetonide) 40 mg intra-articular ONCE 1 mL 0RF NS M17.0 - Bilateral primary osteoarthritis of knee lidocaine (PF) 20 mg (2 mL) Infiltration ONCE 2 mL 0RF M17.0 - Bilateral primary osteoarthritis of knee Coding Level of Care Code Procedure Only Diagnoses Bilateral primary osteoarthritis of knee M17.0 CPT Codes Coding - 56122 Large joint: 94149 - Large joint ([id number])
[2024-09-12 07:52] VITALS: BP 120/70; PULSE 60; O2SAT 97; BMI 27.8
== END 2024-09-12 08:05 | disposition home or self-care (01) ==
LOC: HO.RHE 07:44
PROVIDERS: PCP Internal Medicine; Visit Provider Student in an Organized Health Care Education/Training Program
DX: M17.0 Bilateral primary osteoarthritis of knee (principal)
CPT/HCPCS: 20610

== ENCOUNTER → 2024-09-12 07:44 | Outpatient (BNVA) | payer MEDICARE, OTHER, SELFPAY | PROVIDERS: PCP Internal Medicine; Visit Provider Student in an Organized Health Care Education/Training Program | DX: M17.0 Bilateral primary osteoarthritis of knee (principal) | CPT/HCPCS: 20610; J2003; J3300 ==

== ENCOUNTER 2024-10-01 10:27 | Outpatient (REF) | payer MEDICARE, OTHER, SELFPAY ==
[2024-10-01 11:37] LABS: Basophils Percent Auto 0.6 % (0-2); Eosinophils Absolute Auto 0.2 X10*3/uL (0.0-0.4); Eosinophils Percent Auto 5.5 % (0-4); Hematocrit 35.6 % (37.0-47.0); Hemoglobin 11.4 g/dl (12.0-16.0); Imm Gran Abs Auto 0.02 X10*3/uL (0.00-0.03); Imm Gran Pct Auto 0.6 % (0.0-0.4); Lymphocytes Absolute Auto 0.7 X10*3/uL (1.2-4.9); MANUAL DIFF FLAG SCAN; Mean Corpuscular Hemoglobin 30.1 pg (27.0-33.0); Mean Corpuscular Volume 93.9 fL (80.0-98.0); Mean Platelet Volume 10.3 fL (9.4-12.3); Monocytes Absolute Auto 0.8 X10*3/uL (0.1-1.2); Monocytes Percent Auto 23.9 % (2-11); Neutrophils Absolute Auto 1.7 x10*3/uL (2.0-8.3); Neutrophils Percent Auto 48.4 % (45-73); Platelet Count 169 X10*3/uL (160-400); Red Blood Count 3.79 X10*6/uL (4.20-5.50); Red Cell Distribution Width 16.4 % (11.0-16.0); SCAN SMEAR FLAG 1; White Blood Count 3.5 X10*3/uL (4.8-10.8)
[2024-10-01 12:13] LABS: Alanine Aminotransferase 27 U/L (0-31); Alkaline Phosphatase 97 U/L (39-117); Anion Gap 9 (12-20); Aspartate Amino Transferase 32 U/L (5-31); Bilirubin Total 0.7 mg/dL (0.0-1.0); Blood Urea Nitrogen 23 mg/dL (9-16); C Reactive Protein 0.21 mg/dL (< or = 0.50); Calcium 9.4 mg/dL (8.4-10.2); Carbon Dioxide 29 mmol/L (22-29); Chloride 103 mmol/L (96-108); Estimated Glomerular Filt Rate 58; Glucose Random 79 mg/dL (60-115); Potassium 4.4 mmol/L (3.3-5.1); Sodium 137 mmol/L (135-145); Total Protein 7.3 g/dL (6.5-8.0)
[2024-10-01 12:29] LABS: Erythrocyte Sedimentation Rate 12 MM/HR (0-20)
[2024-10-01 13:58] LABS: SLIDE REVIEW VERIFIED
[2024-10-08 16:23] LABS: Vitamin D 25-OH, D2 <4 ng/mL; Vitamin D 25-OH, D3 40 ng/mL; Vitamin D 25-OH, Total 40 ng/mL (30-100)
== END 2024-10-01 10:28 | disposition home or self-care (01) ==
LOC: HO.LAB 10:27
PROVIDERS: PCP Internal Medicine; Visit Provider Student in an Organized Health Care Education/Training Program
DX: L93.2 Other local lupus erythematosus (principal); Z79.631 Long term (current) use of antimetabolite agent; E55.9 Vitamin D deficiency, unspecified
CPT/HCPCS: 36415; 80053; 82306; 85025; 85652; 86140

== ENCOUNTER 2024-10-25 08:37 | Outpatient (AMB) | payer MEDICARE, OTHER, SELFPAY ==
--- NOTE | 2024-10-25 08:41 | MHC.OFFVIS ---
Vital Signs 10/25/24 08:45 Height 5 ft 4 in Weight 157 lb 6.561 oz BMI 27.0 BP 122/70 Blood Pressure Location Rt brachial Position Sitting Pulse 69 Pulse Source Pulse Oximeter Pulse Oximetry (%) 97 Oxygen Delivery Method Room Air Intake Visit Reasons: SLE Intake Note: Patient presents for SLE. 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 On methotrexate 10 mg weekly, folic acid 1 mg daily hydroxychloroquine 200 mg daily and alendronate 70 mg weekly. She has been doing quite well recently. They left knee injection done last visit was helpful. Has not had any rashes recently Initial history: This is an 83-year-old female who 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 She had been on hydroxychloroquine for the last 5 years and intermittently gets prednisone. She stated that she started having a flare of discoid lupus over the last 6-9 months. She was started on prednisone g daily. Prednisone dose was recently increased to 10 mg daily. Of note patient was admitted to the hospital about 2 weeks ago for a perforated appendicitis, she had open appendectomy. Patient has healed well. The stitches are out. Currently she is complaining of diffuse skin rashes on her back, chest, arms. The rashes are not itchy or painful. Patient avoids the sun. [facility] Medical History Chronic lower back pain Chronic heart failure with preserved ejection fraction (HFpEF) Essential hypertension LBBB (left bundle branch block) Acute diverticulitis TIA (transient ischemic attack) HTN (hypertension) Surgical History History of appendectomy (06/16/23) History of cataract surgery H/O hernia repair Family History Father No problems noted. Mother No problems noted. Social History Household Members: None Housing: Apartment Do you presently have visiting nurse or other home services: No Alcohol intake: current Alcohol intake frequency: a few times a month Patient Tobacco Use Status: Never used Tobacco e-Cigarette/Vaping Use: Never Used Second Hand Smoke Exposure: No Advance Directives Date on File: 08/18/21 service: No Current occupational status: retired Current occupational exposures/hazards: No Cognitive needs: No Hearing needs: Yes Vision needs: No Review of Systems Musc Reports arthralgias Physical Exam Vital Signs: Last Vital Signs Pulse 69 10/25/24 08:45 BP 122/70 10/25/24 08:45 Pulse Ox 97 10/25/24 08:45 Oxygen Delivery Method Room Air 10/25/24 08:45 BMI result Body Mass Index 27.0 Const General: cooperative and healthy appearing Nutritional Appearance: obese Limitations: no limitations HEENT Head: Yes normocephalic and Yes atraumatic Mouth: moist mucous membranes Resp Effort & Inspection: normal respiratory effort and able to speak in complete sentences Skin General skin exam: no rashes or lesions noted Extrem Other: Inability to fully extend knees while walking Bilateral knee crepitus and pain with flexion and extension, no warmth or swelling today Normal nailfold capillaroscopy Assessment & Plan Assessment & Plan (1) Cutaneous lupus erythematosus: Comment: +++SSa +++SSb SCLE. 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 Rashes are very well controlled today. 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 She has on a multivitamin which contains vitamin-D 1200 units daily. 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 PT provided little help, left knee injected with Kenalog 09/2024 with improvement. Injections can be repeated periodically as needed Plan I spent 36 minutes reviewing patient's chart, evaluating patient, ordering diagnostic workup, counseling patient and documenting in the chart Orders: Orders Erythrocyte Sedimentation Rate 10 Weeks M32.9 - Systemic lupus erythematosus, unspecified Complete Blood Count Auto Diff 10 Weeks M32.9 - Systemic lupus erythematosus, unspecified Comprehensive Met. 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
[2024-10-25 08:45] VITALS: BP 122/70; PULSE 69; O2SAT 97; BMI 27.0
--- OUTSIDE RECORDS SUMMARY | 2024-10-25 08:53 | XMS_ITS | Patient Health Record ---
Author Organization [facility] Address [address] [place] [address] Care Team Providers Care Teaching Artist Name Role Phone Cassidy Corley Primary Care Provider Jamie Contreras Unavailable [phone] Allergies Allergen (clinical drug ingredient) Drug/Non Drug Allergy documented on EMR Reaction Allergy Type Onset Date Status amoxicillin Amoxicillin Unknown Drug Allergy Act matthew Reason For Referral No Information Medications Medication SIG (Take, Route, Frequency, Duration) Notes Start Date End Date Status Metoprolol Succinate 25 MG 1 capsule Ora lly Once a day Active Losartan Potassium A ctive Hydroxychloroquine Sulfate Active Custom Orthotics as directed 01/06/2021 Active Furosemide 40 MG 1 tablet Orally Once a day for 30 day(s) Active Social History Tobacco Use: Social History Observation Description Date Details (start date - stop date) Never Smoker NA - NA Tobacco Use/Smoking Question Answer Notes Are you a: nonsmoker Additional Findings: Tobacco Non-User Current no n-smoker Alcohol Screen Question Answer Notes Did you have a drink contain ing alcohol in the past year? Yes How often did you have a dri nk containing alcohol in the past year? Monthly or less (1 point) Points 1 Interpretation Negative Tobacco use other than smoking: Question Answer Notes Are you an other tobacco user? No Plan Of Treatment No Information Insurance Providers Payer Name Payer Address Payer Phone Subscriber Number Group Number Insured Name Patient Relationship to Insured Coverage Start Date Coverage End Date Medicare National [employer] [address] [place] [address] [phone] [id number] Isha Izquierdo Self - patient is the insured [facility] [address] [place] [address] [id number] Isha Izquierdo Self - patient is the insured Medical (General) History Medical History History ICD Code Arthritis Chicken pox Heart disease Lupus Measles Mumps Transfusions Surgical History Surgery Date(Month/Year) hernia Tooth extraction
== END 2024-10-25 09:04 | disposition home or self-care (01) ==
PROVIDERS: PCP Internal Medicine; Visit Provider Student in an Organized Health Care Education/Training Program
DX: L93.2 Other local lupus erythematosus (principal); M80.08XA Age-related osteoporosis with current pathological fracture, vertebra(e), initial encounter for fracture; Z79.631 Long term (current) use of antimetabolite agent; Z79.899 Other long term (current) drug therapy; M17.0 Bilateral primary osteoarthritis of knee
CPT/HCPCS: 99214; G2211

== ENCOUNTER → 2024-10-25 08:37 | Outpatient (BNVA) | payer MEDICARE, OTHER, SELFPAY | PROVIDERS: PCP Internal Medicine; Visit Provider Student in an Organized Health Care Education/Training Program | DX: L93.2 Other local lupus erythematosus (principal); M80.08XA Age-related osteoporosis with current pathological fracture, vertebra(e), initial encounter for fracture; M17.0 Bilateral primary osteoarthritis of knee; Z79.631 Long term (current) use of antimetabolite agent; Z79.899 Other long term (current) drug therapy; Z79.83 Long term (current) use of bisphosphonates | CPT/HCPCS: 99212 ==

== ENCOUNTER → 2024-11-13 07:53 | Outpatient (REF) | payer MEDICARE, OTHER, SELFPAY ==
--- NOTE | ~2024-11-13 | NM_ITS ---
Lexiscan Myocardial perfusion study Indication: NSTEMI Technique: The patient was brought in for a Lexiscan perfusion study on 11/13/2024 and was injected 0.4 mg of Lexiscan intravenously. Within a minute of this injection 25 mCi of sestamibi was given intravenously. Images were obtained using the SPECT gamma camera interlaced with the gating device. Images were obtained in supine position. Resting perfusion study was performed on 11/15/2024. Patient was administered 25 mCi of sestamibi intravenously at rest. Images were then obtained in supine position. Total DLP 86 mGy-cm. Images were processed with the software and compared side to side in short axis, horizontal long axis and vertical long axis views. Findings: Raw aquisition reviewed. Arms by the patient's site. The stress perfusion study showed diminished tracer uptake in the distal part of lateral wall. There is some improvement with CT attenuation correction and hence could indicate components of soft tissue attenuation artifact. The gated study shows diminished LV systolic function with calculated LVEF of 27%. LV cavity is normal in size. The gated study shows globally reduced wall thickening and contraction of segments. Resting study shows decreased tracer uptake in the distal part of anteroseptal wall and basal inferolateral wall. There is improvement with CT attenuation correction and hence this could all be artifactual. Gating at rest reveals normal wall motion with ejection fraction at 55% The findings are consistent with no clear reversible or fixed perfusion defects. NM/NM cardiolite stress test Impression: 1. Myocardial perfusion imaging study shows probably normal myocardial perfusion. 2. Gated LVEF is 27% during stress and 55% during rest. Correlate with echocardiogram. 3. Transient ischemic dilatation not present. EKG component of the test reported separately. Electronically signed by: Jose Ramey MD 11/18/2024 01:17 PM [facility]
--- NOTE | 2024-11-13 07:57 | CA_ITS ---
Acquisition Time: 2024-11-13 08:12:30 Total Exercise Time: 00:02:00 Test Indications: Abnormal ECG AFIB LBBB ELEVATED TROPONIN Medications: SEE H&P Protocol: LEXISCAN Max HR: 81 BPM 60% of Pred: 135 BPM Max BP: 160/74 mmHG Max Work Load: 1.0 METS Pharmacologic Stress Test with Lexiscan while pt marches in the chair, without any anginal symptoms, with isolated PVCs, with normotensive response to injection. Nondiagnostic EKG for ischemia. In recovery, pt feeling back to baseline. Nuclear images pending. Test reviewed with Dr. Ramey. Referred By: Haley Garcia Electronically Signed By: Dimitrios Sutton
--- OUTSIDE RECORDS SUMMARY | 2024-11-13 07:57 | XMS_ITS | Patient Health Record ---
Author Organization [facility] Address [address] [place] [address] Care Team Providers Care Sleep Technologist Name Role Phone Cassidy Corley Primary Care Provider Jamie Contreras Unavailable [phone] Allergies Allergen (clinical drug ingredient) Drug/Non Drug [...] Medicare National Govt Sv[employer] [address] [facility] [place] [address] [phone] [id number] Isha Izquierdo Self - patient is the insured [facility] [address] [place] [address] [id number] Isha Izquierdo Self - patient is the insured Medical (General) History Medical History History ICD Code Arthritis Chicken pox Heart disease Lupus Measles Mumps Transfusions Surgical History Surgery Date(Month/Year) hernia Tooth extraction
--- OUTSIDE RECORDS SUMMARY | 2024-11-13 07:57 | XMS_ITS | Clinical Summary ---
Author Organization Unknown Care Team Providers [facility] Former Name Role Phone PHILLIP BLANCAS, THOMAS Unavailable Unavailab Mercedes VALENZUELA, MARLENE Unavailable Unavailable ENMA BLOOMN, ANASTACIO Unavailable Unavailable SERGIO PT, ANGIE Unavailable Unavailable GERARDO [employer] ADMINISTRATOR, NAZARIO Unavailable Unavailable Payers Payer Name Policy Type Policy Number Effective Date Expira tion Date MEDICARE.NGS.PDGM [id number] Problems Condition Name Condition Details Condition Category Status Onset Date Resolution Date Last Treatment Date Treating Clinician Comments ENCNTR FOR SURGICAL AFTCR FOLLOWING SURGERY ON THE DGSTV SYS Active 06-21 00:00: 00 HYPERTENSIVE HEART DISEASE WITH HEART FAILURE Active 11-07 00:00: 00 CHRONIC DIASTOLIC (CONGESTIVE) HEART FAILURE Active 11-07 00:00: 00 LEFT BUNDLE-BRANC H BLOCK, UNSPECIFIED Active 11-07 00:00: 00 OTHER SPONDYLOSIS WITH MYELOPATHY, LUMBAR REGION Active 11-07 00:00: 00 OTHER INTERVERTEBR AL DISC DEGENERATION , LUMBAR REGION Active 11-07 00:00: 00 SYSTEMIC LUPUS ERYTHEMATOSU S, UNSPECIFIED Active 11-07 00:00: 00 FREQUENCY OF MICTURITION Active 11-07 00:00: 00 UNSPECIFIED URINARY INCONTINENCE Active 11-07 00:00: 00 DVRTCLOS OF INTEST, PART UNSP, W/O PERF OR ABSCESS W/O BLEED Active 11-07 00:00: 00 MIGRAINE, UNSP, NOT INTRACTABLE, WITHOUT STATUS MIGRAINOSUS Active 11-07 00:00: 00 ACQUIRED ABSENCE OF OTHER SPECIFIED PARTS OF DIGESTIVE TRACT Active 06-21 00:00: 00 RECEIVING TELLER (CURRENT) USE OF OPIATE ANALGESIC Active 8-15 00:00: 00 PERSONAL HISTORY OF PNEUMONIA (RECURRENT) Active 11-07 00:00: 00 PERSONAL HISTORY OF URINARY (TRACT) INFECTIONS Active 11-07 00:00: 00 PRSNL HX OF TIA (TIA), AND CEREB INFRC W/O RESID DEFICITS Active 11-07 00:00: 00 FPC (CURRENT) USE OF SYSTEMIC STEROIDS Active 11-07 00:00: 00 Allergies, Adverse Reactions, Alerts Allergy Name Allergy Type Status Severity Reaction(s) Onset Date Inactive Date Treating Clinician Comments AMOXICILL IN.... Propensity to adverse reactions Active 2023-06 12:38:0 9 Medications Ordered Medication Name Filled Medication Name Start Date Stop Date Current Medication? Ordering Clinician Indication Dosage Frequency Signature (SIG) Comments Components furosemide 40 mg tablet 06-01 00:00: 00 11-04 23:59 :00 No [id number] DIURETIC 40 mg DAILY 40 mg DAILY (route: oral) Med Classific ation: Cardiovas cular Therapy Agents doxycycline hyclate 100 mg capsule -24 00:00: 00 08-26 23:59 :00 No [id number] ANTIBIOTIC 100 mg 2 TIMES DAILY 100 mg 2 TIMES DAILY (route: oral) Med Classific ation: Anti-Infe ctive Agents doxycycline monohydrate 100 mg tablet 2020-11 0-14 00:00: 00 08-22 00:00 :00 No [id number] Per instruc tions Per instructio ns (route: oral) Med Classific ation: Anti-Infe ctive Agents metoprolol succinate ER 25 mg tablet,exte nded release 24 hr 9-24 00:00: 00 08-22 00:00 :00 No [id number] Per instruc tions DAILY Per instructio ns DAILY (route: oral) Med Classific ation: Cardiovas cular Therapy Agents losartan 25 mg tablet 8-27 00:00: 00 11-04 23:59 :00 No [id number] TREATS B/P 25 mg DAILY 25 mg DAILY (route: oral) Med Classific ation: Cardiovas cular Therapy Agents cefuroxime axetil 250 mg tablet 2020-11 0-14 00:00: 00 08-24 23:59 :00 No [id number] ANTIBIOTIC 250 mg 2 TIMES DAILY 250 mg 2 TIMES DAILY (route: oral) Med Classific ation: Anti-Infe ctive Agents hydroxychlo roquine 200 mg tablet 7-20 00:00: 00 11-04 23:59 :00 No [id number] TREATS SKIN LUPUS 200 mg 2 TIMES DAILY 200 mg 2 TIMES DAILY (route: oral) Med Classific ation: Anti-Infe ctive Agents Aspirin Childrens 81 mg chewable tablet 1- 00:00: 00 09-04 23:59 :00 No [id number] PREVENTS C.P. 81 mg DAILY 81 mg DAILY (route: oral) Med Classific ation: Hematolog ical Agents metoprolol succinate ER 25 mg tablet,exte nded release 24 hr - 00:00: 00 11-04 23:59 :00 No [id number] TREATS B/P 25 mg DAILY 25 mg DAILY (route: oral) Med Classific ation: Cardiovas cular Therapy Agents Multivitami n 50 Plus tablet 2020-1112 00:00: 00 11-04 23:59 :00 No [id number] SUPPLEMENT 1 tablet DAILY 1 tablet DAILY (route: oral) Med Classific ation: Electroly te Balance-N utritiona l Products clobetasol 0.05 % topical ointment 2021-11 00:00: 00 11-12 00:00 :00 No [id number] SKIN LUPUS Per instruc tions DAILY Per instructio ns DAILY (route: topical) Med Classific ation: Dermatolo gical oxybutynin chloride ER 15 mg tablet,exte nded release 24 hr 2021-11 00:00: 00 06-16 23:59 :00 No [id number] BLADDER 1 tablet DAILY 1 tablet DAILY (route: oral) Med Classific ation: Genitouri nary Therapy losartan 25 mg tablet 2021-11-16 00:00: 00 06-16 23:59 :00 No [id number] BLOOD PRESSURE 1 tablet DAILY 1 tablet DAILY (route: oral) Med Classific ation: Cardiovas cular Therapy Agents furosemide 40 mg tablet 11-11 00:00: 00 06-16 23:59 :00 No [id number] DIURETIC 1 tablet DAILY 1 tablet DAILY (route: oral) Med Classific ation: Cardiovas cular Therapy Agents hydroxychlo roquine 200 mg tablet 11-11 00:00: 00 06-16 23:59 :00 No [id number] LUPUS 1 tablet 2 TIMES DAILY 1 tablet 2 TIMES DAILY (route: oral) Med Classific ation: Anti-Infe ctive Agents metoprolol succinate ER 25 mg tablet,exte nded release 24 hr 11-11 00:00: 00 06-16 23:59 :00 No [id number] HEART RATE AND BLOOD PRESSURE 1 tablet DAILY 1 tablet DAILY (route: oral) Med Classific ation: Cardiovas cular Therapy Agents prednisone 10 mg tablet 06-15 00:00: 00 06-16 23:59 :00 No [id number] LUPUS 1 tablet DAILY 1 tablet DAILY (route: oral) Med Classific ation: Endocrine prednisone 5 mg tablet 06-04 00:00: 00 Yes [id number] LUPUS 1 tablet DAILY 1 tablet DAILY (route: oral) Med Classific ation: Endocrine docusate sodium 100 mg capsule 06-16 00:00: 00 Yes [id number] CONSTIPATIO N 1 capsule 2 TIMES DAILY 1 capsule 2 TIMES DAILY (route: oral) Med Classific ation: Gastroint estinal Therapy Agents furosemide 40 mg tablet 06-21 00:00: 00 Yes [id number] CHF 1 tablet DAILY 1 tablet DAILY (route: oral) Med Classific ation: Cardiovas cular Therapy Agents hydroxychlo roquine 200 mg tablet 06-21 00:00: 00 Yes [id number] LUPUS 1 tablet 2 TIMES DAILY 1 tablet 2 TIMES DAILY (route: oral) Med Classific ation: Anti-Infe ctive Agents levofloxaci n 500 mg tablet - 00:00: 00 06-26 23:59 :00 No [id number] ANTIBIOTIC 1 tablet DAILY 1 tablet DAILY (route: oral) Med Classific ation: Anti-Infe ctive Agents losartan 25 mg tablet 06-21 00:00: 00 Yes [id number] BLOOD PRESSURE 1 tablet DAILY 1 tablet DAILY (route: oral) Med Classific ation: Cardiovas cular Therapy Agents metoprolol succinate ER 25 mg tablet,exte nded release 24 hr 06-21 00:00: 00 Yes [id number] HTN 0.5 tablet DAILY 0.5 tablet DAILY (route: oral) Med Classific ation: Cardiovas cular Therapy Agents metronidazo le 500 mg tablet 06-19 00:00: 00 06-26 23:59 :00 No [id number] ANTIBIOTIC 1 tablet EVERY 8 HOURS 1 tablet EVERY 8 HOURS (route: oral) Med Classific ation: Anti-Infe ctive Agents multivitami n tablet 06-21 00:00: 00 Yes [id number] SUPPLEMENT 1 tablet DAILY 1 tablet DAILY (route: oral) Med Classific ation: Electroly te Balance-N utritiona l Products oxycodone 5 mg tablet 06-21 00:00: 00 Yes [id number] PAIN 1 tablet EVERY 4 HOURS 1 tablet EVERY 4 HOURS (route: oral) Med Classific ation: Analgesic , Anti-infl ammatory or Antipyret ic Tylenol 325 mg tablet 06-21 00:00: 00 Yes [id number] PAIN 2 tablet 4 TIMES DAILY 2 tablet 4 TIMES DAILY (route: oral) Med Classific ation: Analgesic , Anti-infl ammatory or Antipyret ic Vital Signs Vital Name Observation Time Observation Value Commen ts Temperature 2023-06-24 09:02:00.000 97.1 [degF] Temperature 2023-06-22 10:32:00.000 97.8 [degF] Temperature 2023-06-21 09:36:00.000 98 [degF] BMI (%) 2023-06-21 09:36:00.000 32 kg/m2 Height 2023-06-21 09:36:00.000 65 [in_us] Pulse 2023-06-24 09:02:00.000 76 /min Pulse 2023-06-22 10:32:00.000 68 /min Pulse 2023-06-21 09:36:00.000 70 /min O2 Saturation (%) 2023-06-24 09:02:00.000 98 % O2 Saturation (%) 2023-06-21 09:45:00.000 94 % Respirations 2023-06-24 09:02:00.000 18 /min Respirations 2023-06-22 10:32:00.000 18 /min Respirations 2023-06-21 09:36:00.000 20 /min Weight (lbs) 2023-06-24 09:03:00.000 191 [lb_av] Weight (lbs) 2023-06-22 10:32:00.000 192.2 [lb_av] Weight (lbs) 2023-06-21 09:36:00.000 192.4 [lb_av] Systolic Blood Pressure 2023-06-24 09:02:00.000 126 mm [Hg] Systolic Blood Pressure 2023-06-22 10:32:00.000 134 mm [Hg] Systolic Blood Pressure 2023-06-21 09:36:00.000 138 mm [Hg] Diastolic Blood Pressure 2023-06-24 09:02:00.000 62 mm [Hg] Diastolic Blood Pressure 2023-06-22 10:32:00.000 78 mm [Hg] Diastolic Blood Pressure 2023-06-21 09:36:00.000 76 mm [Hg] Plan of Treatment Planned Activity Planned Date Details Comments Future Scheduled Test RN TO OBSE RVE, ASSESS, EVALUATE, AND DEVELOP AN INDIVIDUALIZED PLAN OF CARE. AGENCY MAY ACCEPT ORDERS FROM CONSULTING PHYSICIANS DR SCANLON. RN TO OBSERVE AND ASSESS, JOURNALISM INTERNS[employer]IP TO OBSERVE FOR RISK FOR FALLS AND INSTRUCT IN FALL PREVENTION, HOME SAFETY, MEDICATION MANAGEMENT, INFECTION PREVENTION, AND NUTRITION MANAGEMENT. SN MAY PERFORM O2 SATURATION LEVEL ON ADMISSION AND PRN FOR SOB TO ASSESS PATIENT, WITH NOTIFICATION TO THE PHYSICIAN IF SATURATION IS 90% IN THE ABSENCE OF MORE SPECIFIC PARAMETERS FROM THE PHYSICIAN. AGENCY MAY PERFORM A RESUMPTION OF CARE VISIT FOLLOWING ANY HOSPITAL ADMISSION. SKILLED NURSE TO MONITOR CO-MORBID CONDITIONS LISTED ON THE PLAN OF CARE AND ANY NEW CONDITIONS THAT PRESENT THEMSELVES DURING THIS EPISODE TO IDENTIFY CHANGES AND INTERVENE TO MINIMIZE COMPLICATIONS. [code = RN TO OBSERVE, ASSESS, EVALUATE, AND DEVELOP AN INDIVIDUALIZED PLAN OF CARE. AGENCY MAY ACCEPT ORDERS FROM CONSULTING PHYSICIANS DR SCANLON. RN TO OBSERVE AND ASSESS, JOURNALISM INTERNSHIP TO OBSERVE FOR RISK FOR FALLS AND INSTRUCT IN FALL PREVENTION, HOME SAFETY, MEDICATION MANAGEMENT, INFECTION PREVENTION, AND NUTRITION MANAGEMENT. SN MAY PERFORM O2 SATURATION LEVEL ON ADMISSION AND PRN FOR SOB TO ASSESS PATIENT, WITH NOTIFICATION TO THE PHYSICIAN IF SATURATION IS 90% IN THE ABSENCE OF MORE SPECIFIC PARAMETERS FROM THE PHYSICIAN. AGENCY MAY PERFORM A RESUMPTION OF CARE VISIT FOLLOWING ANY HOSPITAL ADMISSION. SKILLED NURSE TO MONITOR CO-MORBID CONDITIONS LISTED ON THE PLAN OF CARE AND ANY NEW CONDITIONS THAT PRESENT THEMSELVES DURING THIS EPISODE TO IDENTIFY CHANGES AND INTERVENE TO MINIMIZE COMPLICATIONS.] Future Scheduled Test MEDICATION MANAGEMENT; SKILLED NURSE TO REVIEW MEDICATIONS FOR INTERACTIONS, EFFECTIVENESS OF DRUG THERAPY, AND SIGNS/SYMPTOMS OF ADVERSE REACTIONS. MAY INSTRUCT AND REINFORCE MEDICATION TEACHING RELATED TO THE USE OF MEDICATIONS, DOSAGE, FREQUENCY, PURPOSE, SIDE EFFECTS, AND TO REPORT COMPLICATIONS. [code = MEDICATION MANAGEMENT; SKILLED NURSE TO REVIEW MEDICATIONS FOR INTERACTIONS, EFFECTIVENESS OF DRUG THERAPY, AND SIGNS/SYMPTOMS OF ADVERSE REACTIONS. MAY INSTRUCT AND REINFORCE MEDICATION TEACHING RELATED TO THE USE OF MEDICATIONS, DOSAGE, FREQUENCY, PURPOSE, SIDE EFFECTS, AND TO REPORT COMPLICATIONS.] Future Scheduled Test RISK FOR H OSPITALIZATION; SKILLED NURSE TO INSTRUCT PATIENT/CAREGIVER ON RISK FOR HOSPITALIZATION/EMERGENCY ROOM VISITS, TEACH SIGNS AND SYMPTOMS THAT PUT PATIENT AT RISK, WHEN TO NOTIFY NURSE/PHYSICIAN OF COMPLICATIONS/DECLINE, AND WHEN TO CALL 911. [code = RISK FOR HOSPITALIZATION; SKILLED NURSE TO INSTRUCT PATIENT/CAREGIVER ON RISK FOR HOSPITALIZATION/EMERGENCY ROOM VISITS, TEACH SIGNS AND SYMPTOMS THAT PUT PATIENT AT RISK, WHEN TO NOTIFY NURSE/PHYSICIAN OF COMPLICATIONS/DECLINE, AND WHEN TO CALL 911.] Future Scheduled Test CARDIOVASC ULAR SYSTEM; SKILLED NURSE TO ASSESS AND TEACH RELATED TO ALTERED CARDIOVASCULAR STATUS TO MINIMIZE COMPLICATIONS AND REDUCE HOSPITALIZATION. [code = CARDIOVASCULAR SYSTEM; SKILLED NURSE TO ASSESS AND TEACH RELATED TO ALTERED CARDIOVASCULAR STATUS TO MINIMIZE COMPLICATIONS AND REDUCE HOSPITALIZATION.] Future Scheduled Test SKIN INTEG RITY - SN OBSERVE AND ASSESS INTEGUMENTARY STATUS TO IDENTIFY CHANGES AND INTERVENE TO MINIMIZE COMPLICATIONS. PROVIDE SKILLED TEACHING OF GENERAL WOUND AND SKIN CARE AND PREVENTION RELATED TO POTENTIAL FOR OR ACTUAL ALTERED SKIN INTEGRITY. [code = SKIN INTEGRITY - SN OBSERVE AND ASSESS INTEGUMENTARY STATUS TO IDENTIFY CHANGES AND INTERVENE TO MINIMIZE COMPLICATIONS. PROVIDE SKILLED TEACHING OF GENERAL WOUND AND SKIN CARE AND PREVENTION RELATED TO POTENTIAL FOR OR ACTUAL ALTERED SKIN INTEGRITY.] Future Scheduled Test SKILLED NU RSE TO PERFORM/TEACH INCISION CARE TO R LOWER ABDOMEN: IRRIGATE/CLEANSE WITH WOUND CLEANSER, COVER WITH DCD, SECURE WITH TAPE, CHANGE DRESSING PRN FOR DRAINAGE. [code = SKILLED NURSE TO PERFORM/TEACH INCISION CARE TO R LOWER ABDOMEN: IRRIGATE/CLEANSE WITH WOUND CLEANSER, COVER WITH DCD, SECURE WITH TAPE, CHANGE DRESSING PRN FOR DRAINAGE.] Future Scheduled Test PAIN MANAG EMENT; SKILLED NURSE TO OBSERVE, ASSESS, AND PROVIDE EDUCATION ON PAIN MANAGEMENT TECHNIQUES. [code = PAIN MANAGEMENT; SKILLED NURSE TO OBSERVE, ASSESS, AND PROVIDE EDUCATION ON PAIN MANAGEMENT TECHNIQUES.] Future Scheduled Test FALL REDUC TION MANAGEMENT; NURSING TO PROVIDE SKILLED ASSESSMENT, EDUCATION, AND INTERVENTION TO IDENTIFY FALL RISK FACTORS SUCH MEDICATIONS THAT MAY CAUSE DIZZINESS, CHRONIC DISEASES, PSYCHOLOGICAL FACTORS, AND EMPOWER/EDUCATE PATIENT/CAREGIVER TO MINIMIZE FALL RISK. [code = FALL REDUCTION MANAGEMENT; NURSING TO PROVIDE SKILLED ASSESSMENT, EDUCATION, AND INTERVENTION TO IDENTIFY FALL RISK FACTORS SUCH MEDICATIONS THAT MAY CAUSE DIZZINESS, CHRONIC DISEASES, PSYCHOLOGICAL FACTORS, AND EMPOWER/EDUCATE PATIENT/CAREGIVER TO MINIMIZE FALL RISK.] Future Scheduled Test PHYSICAL T HERAPIST TO EVALUATE FOR STRENGTHENING AND SAFETY. [code = PHYSICAL THERAPIST TO EVALUATE FOR STRENGTHENING AND SAFETY.] Future Scheduled Test PT EVALUAT ION PERFORMED. NO ADDITIONAL VISITS REQUIRED. PROVIDED SKILLED INTERVENTION INCLUDING STRENGTH, MOBILITY AND HOME SAFETY ASSESSMENT [code = PT EVALUATION PERFORMED. NO ADDITIONAL VISITS REQUIRED. PROVIDED SKILLED INTERVENTION INCLUDING STRENGTH, MOBILITY AND HOME SAFETY ASSESSMENT ] Goal 2023-06-24 Patient Goal - T O HEAL AND BE ABLE TO DRIVE AGAIN Goal Provider Goal - A PLAN OF CARE WILL BE ESTABLISHED THAT MEETS THE PATIENTS NEEDS. PATIENT WILL DEMONSTRATE OXYGEN SATURATION WITHIN NORMAL LIMITS OR PATIENTS OPTIMAL LEVEL ESTABLISHED BY THE PHYSICIAN THROUGHOUT CARE. CHANGES TO CO-MORBID CONDITIONS AND ANY NEW CONDITIONS WILL BE IDENTIFIED AND REPORTED TO THE PHYSICIAN. Goal Provider Goal - PATIENT/CAREGIVER TO VERBALIZE, AND CONSISTENTLY DEMONSTRATE EFFECTIVE, SAFE MANAGEMENT OF MEDICATION INCLUDING KNOWLEDGE OF EFFECTIVENESS, POTENTIAL SIDE EFFECTS AND DRUG REACTIONS AND WHEN TO CONTACT THE APPROPRIATE CARE PROVIDER. PATIENT/CAREGIVER WILL BE ABLE TO VERBALIZE UNDERSTANDING OF MEDICATION REGIMEN AND ACCURATELY TAKE MEDICATIONS PRESCRIBED WITHOUT ADVERSE EFFECTS BY 08/19/2023. Goal Provider Goal - PATIENT/CAREGIVER WILL VERBALIZE UNDERSTANDING OF SIGNS AND SYMPTOMS THAT PUT THE PATIENT AT RISK FOR HOSPITALIZATION /EMERGENCY ROOM VISITS, WHEN TO NOTIFY NURSE/PHYSICIAN OF COMPLICATIONS/DECLINE AND WHEN TO CALL 911. Goal Provider Goal - PATIENT / CAREGIVER WILL VERBALIZE/DEMONSTRATE UNDERSTANDING OF MEASURES TO MANAGE ALTERED CARDIOVASCULAR STATUS BY 08/19/2023. Goal Provider Goal - CHANGES IN SKIN INTEGRITY STATUS WILL BE IDENTIFIED AND REPORTED TO THE PHYSICIAN FOR PROMPT INTERVENTION. PATIENT / CAREGIVER WILL VERBALIZE/DEMONSTRATE ADEQUATE KNOWLEDGE OF INTEGUMENTARY STATUS AND APPROPRIATE MEASURES TO PROMOTE SKIN INTEGRITY AND PREVENT INJURY BY 08/19/2023. Goal Provider Goal - PATIENT / CAREGIVER WILL VERBALIZE / DEMONSTRATE ABILITY TO PERFORM WOUND CARE. WOUND STATUS WILL IMPROVE EVIDENCED BY A DECREASE IN SIZE, DRAINAGE, ABSENCE OF INFECTION, AND DECREASED PAIN BY 08/19/2023. Goal Provider Goal - PATIENT / CAREGIVER WILL VERBALIZE / DEMONSTRATE UNDERSTANDING OF PAIN CONTROL MEASURES BY 08/19/2023. Goal Provider Goal - PATIENT/CAREGIVER ABLE TO IDENTIFY FALL RISK FACTORS AND IMPLEMENT STRATEGIES TO MINIMIZE FALL RISK. PATIENT/CAREGIVER WILL VERBALIZE/DEMONSTRATE AN ABILITY TO ADHERE TO FALL REDUCTION SELF MANAGEMENT AND LIFE-STYLE CHANGES AT DISCHARGE. PERSONAL GOAL(S) STATED BY PATIENT/CAREGIVER WILL BE MET BY 08/19/2023. Goal Provider Goal - Goal Provider Goal - Reason for Visit [facility] Encounters Start Date/Time End Date/Time Encounter Type Admission Type Attending [facility] Care Department Encounter ID Discharge Date Discharge Status Discharge Condition Discharge Reason Percent Goals Met 2023-06-21 00:00:00 2023-06-24 00:00:00 Outpatient MARLENE LUTZ [facility] [id number] 2023-06-24 00:00:00 DISCHARGE TO HOME OR SELF CARE INDEPENDEN T IN THE COMMUNITY HH OR [facility]- GOALS MET 100.00
--- OUTSIDE RECORDS SUMMARY | 2024-11-13 07:57 | XMS_ITS | Clinical Summary ---
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 Active 8-15 00:00: 00 PERSONAL HISTORY OF PNEUMONIA (RECURRENT) Active 11-07 00:00: 00 PERSONAL HISTORY OF URINARY (TRACT) INFECTIONS Active 11-07 00:00: 00 PRSNL HX OF TIA (TIA), AND CEREB INFRC W/O RESID DEFICITS Active 11-07 00:00: 00 LONGTERM (CURRENT) USE OF SYSTEMIC STEROIDS Active 11-07 [...] 06-01 00:00: 00 11-04 23:59 :00 No [id number] DIURETIC 40 mg DAILY 40 mg DAILY (route: oral) Med Classific ation: Cardiovas cular Therapy Agents doxycycline hyclate 100 mg capsule -24 00:00: 00 08-26 23:59 :00 No [id number] ANTIBIOTIC 100 mg 2 TIMES DAILY 100 mg 2 TIMES DAILY (route: oral) Med Classific ation: Anti-Infe ctive Agents doxycycline monohydrate 100 mg tablet 2020-11 0-14 00:00: 00 08-22 00:00 :00 No [id number] Per instruc tions Per instructio ns (route: oral) Med Classific ation: Anti-Infe ctive Agents metoprolol succinate ER 25 mg tablet,exte nded release 24 hr 9-24 00:00: 00 08-22 00:00 :00 No [id number] Per instruc tions DAILY Per instructio ns DAILY (route: oral) Med Classific ation: Cardiovas cular Therapy Agents losartan 25 mg tablet 8-27 00:00: 00 11-04 23:59 :00 No [id number] TREATS B/P 25 mg DAILY 25 mg DAILY (route: oral) Med Classific ation: Cardiovas cular Therapy Agents cefuroxime axetil 250 mg tablet 2020-11 0-14 00:00: 00 08-24 23:59 :00 No [id number] ANTIBIOTIC 250 mg 2 TIMES DAILY 250 mg 2 TIMES DAILY (route: oral) Med Classific ation: Anti-Infe ctive Agents hydroxychlo roquine 200 mg tablet 7-20 00:00: 00 11-04 23:59 :00 No [id number] TREATS SKIN LUPUS 200 mg 2 TIMES DAILY 200 mg 2 TIMES DAILY (route: oral) Med Classific ation: Anti-Infe ctive Agents Aspirin Childrens 81 mg chewable tablet 1- 00:00: 00 09-04 23:59 :00 No [id number] PREVENTS C.P. 81 mg DAILY 81 mg DAILY (route: oral) Med Classific ation: Hematolog ical Agents metoprolol succinate ER 25 mg tablet,exte nded release 24 hr - 00:00: 00 11-04 23:59 :00 No [id number] TREATS B/P 25 mg DAILY 25 mg DAILY (route: oral) Med Classific ation: Cardiovas cular Therapy Agents Multivitami n 50 Plus tablet 2020-1112 00:00: 00 11-04 23:59 :00 No [id number] SUPPLEMENT 1 tablet DAILY 1 tablet DAILY (route: oral) Med Classific ation: Electroly te Balance-N utritiona l Products clobetasol 0.05 % topical ointment 2021-11 00:00: 00 11-12 00:00 :00 No [id number] SKIN LUPUS Per instruc tions DAILY Per instructio ns DAILY (route: topical) Med Classific ation: Dermatolo gical oxybutynin chloride ER 15 mg tablet,exte nded release 24 hr 2021-11 00:00: 00 06-16 23:59 :00 No [id number] BLADDER 1 tablet DAILY 1 tablet DAILY (route: oral) Med Classific ation: Genitouri nary Therapy losartan 25 mg tablet 2021-11-16 00:00: 00 06-16 23:59 :00 No [id number] BLOOD PRESSURE 1 tablet DAILY 1 tablet DAILY (route: oral) Med Classific ation: Cardiovas cular Therapy Agents furosemide 40 mg tablet 11-11 00:00: 00 06-16 23:59 :00 No [id number] DIURETIC 1 tablet DAILY 1 tablet DAILY (route: oral) Med Classific ation: Cardiovas cular Therapy Agents hydroxychlo roquine 200 mg tablet 11-11 00:00: 00 06-16 23:59 :00 No [id number] LUPUS 1 tablet 2 TIMES DAILY 1 tablet 2 TIMES DAILY (route: oral) Med Classific ation: Anti-Infe ctive Agents metoprolol succinate ER 25 mg tablet,exte nded release 24 hr 11-11 00:00: 00 06-16 23:59 :00 No [id number] HEART RATE AND BLOOD PRESSURE 1 tablet DAILY 1 tablet DAILY (route: oral) Med Classific ation: Cardiovas cular Therapy Agents prednisone 10 mg tablet 06-15 00:00: 00 06-16 23:59 :00 No [id number] LUPUS 1 tablet DAILY 1 tablet DAILY (route: oral) Med Classific ation: Endocrine prednisone 5 mg tablet 06-04 00:00: 00 Yes [id number] LUPUS 1 tablet DAILY 1 tablet DAILY (route: oral) Med Classific ation: Endocrine docusate sodium 100 mg capsule 06-16 00:00: 00 Yes [id number] CONSTIPATIO N 1 capsule 2 TIMES DAILY 1 capsule 2 TIMES DAILY (route: oral) Med Classific ation: Gastroint estinal Therapy Agents furosemide 40 mg tablet 06-21 00:00: 00 Yes [id number] CHF 1 tablet DAILY 1 tablet DAILY (route: oral) Med Classific ation: Cardiovas cular Therapy Agents hydroxychlo roquine 200 mg tablet 06-21 00:00: 00 Yes [id number] LUPUS 1 tablet 2 TIMES DAILY 1 tablet 2 TIMES DAILY (route: oral) Med Classific ation: Anti-Infe ctive Agents levofloxaci n 500 mg tablet - 00:00: 00 06-26 23:59 :00 No [id number] ANTIBIOTIC 1 tablet DAILY 1 tablet DAILY (route: oral) Med Classific ation: Anti-Infe ctive Agents losartan 25 mg tablet 06-21 00:00: 00 Yes [id number] BLOOD PRESSURE 1 tablet DAILY 1 tablet DAILY (route: oral) Med Classific ation: Cardiovas cular Therapy Agents metoprolol succinate ER 25 mg tablet,exte nded release 24 hr 06-21 00:00: 00 Yes [id number] HTN 0.5 tablet DAILY 0.5 tablet DAILY (route: oral) Med Classific ation: Cardiovas cular Therapy Agents metronidazo le 500 mg tablet 06-19 00:00: 00 06-26 23:59 :00 No [id number] ANTIBIOTIC 1 tablet EVERY 8 HOURS 1 tablet EVERY 8 HOURS (route: oral) Med Classific ation: Anti-Infe ctive Agents multivitami n tablet 06-21 00:00: 00 Yes [id number] SUPPLEMENT 1 tablet DAILY 1 tablet DAILY (route: oral) Med Classific ation: Electroly te Balance-N utritiona l Products oxycodone 5 mg tablet 06-21 00:00: 00 Yes [id number] PAIN 1 tablet EVERY 4 HOURS 1 tablet EVERY 4 HOURS (route: oral) Med Classific ation: Analgesic , Anti-infl ammatory or Antipyret ic Tylenol 325 mg tablet 06-21 00:00: 00 Yes [id number] PAIN 2 tablet 4 TIMES DAILY 2 [...] DR SCANLON. RN TO OBSERVE AND ASSESS, SCHOOL AGE LEAD TEACHER TO OBSERVE FOR RISK FOR FALLS AND [...] DR SCANLON. RN TO OBSERVE AND ASSESS, SCHOOL AGE LEAD TEACHER TO OBSERVE FOR RISK FOR FALLS AND [...] End Date/Time Encounter Type Admission Type Attending [facility] Care Department Encounter ID Discharge Date Discharge Status Discharge Condition Discharge Reason Percent Goals Met 2023-06-21 00:00:00 2023-06-24 00:00:00 Outpatient MARLENE LUTZ [facility] [id number] 2023-06-24 00:00:00 DISCHARGE TO HOME OR SELF CARE INDEPENDEN T IN THE COMMUNITY HH OR [facility]- GOALS MET 100.00
== END ==
LOC: HO.CARD 07:53
PROVIDERS: PCP Internal Medicine; Visit Provider Nurse Practitioner Family
DX: I21.4 Non-ST elevation (NSTEMI) myocardial infarction (principal); I48.91 Unspecified atrial fibrillation
CPT/HCPCS: 78452; 93017; A9500; J0280; J2785

== ENCOUNTER → 2024-11-13 07:57 | Outpatient (BNV) | payer MEDICARE, OTHER, SELFPAY | PROVIDERS: PCP Internal Medicine | DX: I49.3 Ventricular premature depolarization (principal) | CPT/HCPCS: 78452; 93016; 93018 ==

== ENCOUNTER 2024-11-15 09:11 | Outpatient (AMB) | payer MEDICARE, OTHER, SELFPAY ==
--- NOTE | 2024-11-15 09:21 | MHC.PC.OV ---
Vital Signs 11/15/24 09:22 Height 5 ft 4 in Weight 158 lb 6 oz BMI 27.2 BP 109/60 Blood Pressure Location Lt brachial Position Sitting Pulse 76 Pulse Source Pulse Oximeter Pulse Oximetry (%) 97 Oxygen Delivery Method Room Air Intake Visit Reasons: Hypertension Intake Note: Patient is here to follow up on HTN. Fringe Weaver Required: No Remedial Teacher: Not Required per policy Accompanied by: Self / Same As Patient Allergies amoxicillin [AMOXICILLIN] Allergy (Unknown, Verified 11/15/24 09:51) UNKNOWN Medication List - Last Reconciled 11/15/24 by Leo Dewitt MD alendronate 70 mg PO QWEEK apixaban (Eliquis) 5 mg PO BID cholecalciferol (vitamin D3) (Vitamin D3) 25 mcg PO DAILY folic acid 1 mg PO DAILY furosemide 40 mg PO DAILY hydroxychloroquine 200 mg PO DAILY losartan 25 mg PO DAILY methotrexate sodium 10 mg (4 x 2.5 mg) PO QWEEK metoprolol tartrate 25 mg See Protocol PO BID multivitamin 1 tab PO DAILY Tobacco use date assessed: 11/15/24 Fall risk assessment: No Falls in past year Last assessed Fall Risk: 11/15/24 Dental Screening Dental Screen Date: 11/15/24 Did you have a dental visit in the last 12 months?: No Did you have a dental problem in the last 6 months where you did not have access to dental care?: No Was dental information given to patient?: No (Dentures) [facility] Medical History Chronic lower back pain Chronic heart failure with preserved ejection fraction (HFpEF) Essential hypertension LBBB (left bundle branch block) Acute diverticulitis TIA (transient ischemic attack) HTN (hypertension) Surgical History History of appendectomy (06/16/23) History of cataract surgery H/O hernia repair Family History Father No problems noted. Mother No problems noted. Social History Household Members: None Housing: Apartment Do you presently have visiting nurse or other home services: No Alcohol intake: current Alcohol intake frequency: a few times a month Patient Tobacco Use Status: Never used Tobacco e-Cigarette/Vaping Use: Never Used Second Hand Smoke Exposure: No Advance Directives Date on File: 08/18/21 service: No Current occupational status: retired Current occupational exposures/hazards: No Cognitive needs: No Hearing needs: Yes Vision needs: No Questionnaire PHQ-9 Over the last 2 weeks, how often have you been bothered by any of the following problems? 1. Little interest or pleasure in doing things: not at all 2. Feeling down, depressed, or hopeless: not at all 3. Trouble falling or staying asleep, or sleeping too much: not at all 4. Feeling tired or having little energy: not at all 5. Poor appetite or overeating: not at all 6. Feeling bad about yourself - or that you are a failure or have let yourself or your family down: not at all 7. Trouble concentrating on things, such as reading the newspaper or watching television: not at all 8. Moving or speaking so slowly that other people could have noticed. Or the opposite - being so fidgety or restless that you have been moving around a lot more than usual: not at all 9. Thoughts that you would be better off or of hurting yourself in some way: not at all Total score: 0 Depression Screening Interpretation: Negative Depression Screening Done: Yes Source: Developed by Drs. Chad Gramajo, Amalia Brewer, Duane Small and colleagues, with an educational edward from [employer]. Thrive Questionnaire Date Thrive assessed: 11/15/24 I am a: Patient What is your living situation today?: I have a steady place to live Within the past 12 months, did the food you bought not last and you didn't have the money to get more?: Never true Within the past 12 months, did you worry whether your food would run out before you got money to buy more?: Never true Do you have trouble paying for medicines?: No Do you have trouble getting transportation to medical appointments?: No Do you have trouble paying your heating and electricity bill?: No Do you have trouble taking care of your child, family member or friend?: No Do you have trouble with day-to-day activities such as bathing, preparing meals, shopping, managing finances, etc.?: No Are you currently unemployed and looking for a job?: No Are you interested in more education?: No Please select the resources that you would like help with: None Currently or been in a relationship where the following occur: No concerns reported THRIVE Score: 0 AUDIT C Alcohol Use Questionnaire (AUDIT-C) 1. How often do you have a drink containing alcohol?: Never Total Score: 0 VERONICA-7 AMB Questionnaire VERONICA-7 Date VERONICA - 7 assessed: 11/15/24 Feeling nervous, anxious, or on edge: 0 = Not at all Not being able to stop or control worryin = Not at all Worrying too much about different things: 0 = Not at all Trouble relaxin = Not at all Being so restless that it is hard to sit still: 0 = Not at all Becoming easily annoyed or irritable: 0 = Not at all Feeling afraid as if something awful might happen: 0 = Not at all Total VERONICA-7 score (0-4 normal; 5-9 mild; 10-14 moderate; 15-21 severe): 0 Source: Developed by Drs. Chad Gramajo, Amalia Brewer, Duane Small and colleagues, with an educational edward from [employer]. Physical exam (Primary Care) Vital Signs: Last Vital Signs Pulse 76 11/15/24 09:22 BP 109/60 11/15/24 09:22 Pulse Ox 97 11/15/24 09:22 Oxygen Delivery Method Room Air 11/15/24 09:22 Care Plan Goal for BP management: BP is in range BMI result Body Mass Index 27.2 Tobacco/Smoking Status: Tobacco use Status Tobacco use date assessed 11/15/24 11/15/24 09:28 Patient Tobacco Use Status Never used Tobacco 11/15/24 09:28 e-Cigarette/Vaping Use Never Used 11/15/24 09:28 PHQ-9: PHQ-9 Score PHQ-9: Total score 0 11/15/24 09:28 Depression Screening Interpretation: Negative Thrive Assessment: Date of Thrive Assessment Date Thrive assessed 11/15/24 11/15/24 09:28 Currently or been in a relationship where the following occur: No concerns reported Advance Care Planning discussion: Exists, not on file Date of discussion: 11/15/24 Who was present: Patient Forms completed: Health Care Proxy and MOLST Coding Level of Care Code Est Pt Level 4 (74895) Complex EM visit Add On G2211 Diagnoses HTN (hypertension) I10 Chronic heart failure with preserved ejection fraction (HFpEF) I50.32 Atrial fibrillation with RVR I48.91 NSTEMI (non-ST elevated myocardial infarction) I21.4 Lupus M32.9 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 Continue current medications (2) Chronic heart failure with preserved ejection fraction (HFpEF): Code(s): I50.32 - Chronic diastolic (congestive) heart failure Category: Medical Plan: Condition is stable (3) Atrial fibrillation with RVR: Code(s): I48.91 - Unspecified atrial fibrillation Category: Medical Plan: Patient is currently in sinus rhythm. Continue anticoagulants. 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 Plan History of Present Illness The patient is an 84-year-old female presenting with systemic lupus erythematosus, adverse reactions potentially due to medication, and atrial fibrillation. She reports tingling in her fingers, which she suspects is related to her medication regimen that includes hydroxychloroquine. The symptoms have been present frequently. She denies any symptoms affecting her feet and associates the tingling with the prescribed lupus treatment. She also expresses concern about taking diuretics, specifically Furosemide, which has been increasing her urinary frequency and disrupting her daily life. She has a history of atrial fibrillation and is currently taking Eliquis. The patient inquires whether all her medications are necessary and questions the dosage and timing of her Furosemide, suggesting an alternative dosing regimen of using it every other day to reduce the frequency of urination. Social History - The patient maintains an active lifestyle, frequently walking and climbing stairs at a senior center. - She resides in a stable family environment and enjoys regular contact with her daughters, although her youngest daughter faces challenges due to a child's health condition. - Her social activities include maintaining friendships and family interactions, and she reports having a supportive network. Review of Systems - Neurological: Reports tingling in the fingers. - Genitourinary: Reports increased urinary frequency. Physical Exam General: Appearance normal, both eyes and all related structures Nutritional Appearance: Well nourished Orientation/consciousness: Patient oriented x3 Limitations: Tingling in the hands Head: Normal to inspection Neck: Normal visual inspection Chest: Normal palpation of entire chest wall Respiratory: Normal respiratory effort Neurology: Tingling in the hands Results Plan - Continue hydroxychloroquine for lupus management while monitoring for adverse reactions. - Maintain Eliquis therapy for atrial fibrillation management. - Discuss the potential adjustment of the diuretic regimen, considering a reduced frequency of Furosemide to manage urinary side effects. - Monitor for further adverse effects related to the medication regimen and adjust as necessary in future visits. Patient was informed and verbally consented to the use of an ambient scribe for clinic note documentation during this visit. Discussion Notes During the visit, I discussed the patient's current medication regimen, specifically addressing concerns about the side effects of hydroxychloroquine, which is associated with tingling sensations in the fingers. We reviewed the necessity of continuing hydroxychloroquine to prevent lupus flare-ups. I acknowledged the adverse impact of Furosemide on urinary frequency and advised consideration of modifying the dosing schedule to improve the patient's quality of life. We also confirmed the ongoing necessity of Eliquis for atrial fibrillation management. We discussed the importance of lifestyle balance and encouraged the patient to continue her physical activities. We planned a follow-up to evaluate the effectiveness of any medication adjustments and to further assess her symptoms. Patient Instructions - Continue taking hydroxychloroquine as prescribed for lupus management. - Maintain your current Eliquis regimen for atrial fibrillation. - Consider an adjusted dosing schedule for Furosemide, potentially taking it every other day, and monitor symptoms. - Stay active with regular walking and exercise while monitoring for symptoms. - Report any persistent or worsening tingling sensations or other side effects. - Contact the office if you experience any new or concerning symptoms.
[2024-11-15 09:22] VITALS: BP 109/60; PULSE 76; O2SAT 97; BMI 27.2
--- OUTSIDE RECORDS SUMMARY | 2024-11-15 09:26 | XMS_ITS | Clinical Summary ---
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 OF OPIATE ANALGESIC Active 8-15 00:00: 00 PERSONAL HISTORY OF PNEUMONIA (RECURRENT) Active 11-07 00:00: 00 PERSONAL HISTORY OF URINARY (TRACT) INFECTIONS Active 11-07 00:00: 00 PRSNL HX OF TIA (TIA), AND CEREB INFRC W/O RESID DEFICITS Active 11-07 00:00: 00 RESIDENTIAL (CURRENT) USE OF SYSTEMIC STEROIDS Active 11-07 [...] 06-01 00:00: 00 11-04 23:59 :00 No [id number] DIURETIC 40 mg DAILY 40 mg DAILY (route: oral) Med Classific ation: Cardiovas cular Therapy Agents doxycycline hyclate 100 mg capsule -24 00:00: 00 08-26 23:59 :00 No [id number] ANTIBIOTIC 100 mg 2 TIMES DAILY 100 mg 2 TIMES DAILY (route: oral) Med Classific ation: Anti-Infe ctive Agents doxycycline monohydrate 100 mg tablet 2020-11 0-14 00:00: 00 08-22 00:00 :00 No [id number] Per instruc tions Per instructio ns (route: oral) Med Classific ation: Anti-Infe ctive Agents metoprolol succinate ER 25 mg tablet,exte nded release 24 hr 9-24 00:00: 00 08-22 00:00 :00 No [id number] Per instruc tions DAILY Per instructio ns DAILY (route: oral) Med Classific ation: Cardiovas cular Therapy Agents losartan 25 mg tablet 8-27 00:00: 00 11-04 23:59 :00 No [id number] TREATS B/P 25 mg DAILY 25 mg DAILY (route: oral) Med Classific ation: Cardiovas cular Therapy Agents cefuroxime axetil 250 mg tablet 2020-11 0-14 00:00: 00 08-24 23:59 :00 No [id number] ANTIBIOTIC 250 mg 2 TIMES DAILY 250 mg 2 TIMES DAILY (route: oral) Med Classific ation: Anti-Infe ctive Agents hydroxychlo roquine 200 mg tablet 7-20 00:00: 00 11-04 23:59 :00 No [id number] TREATS SKIN LUPUS 200 mg 2 TIMES DAILY 200 mg 2 TIMES DAILY (route: oral) Med Classific ation: Anti-Infe ctive Agents Aspirin Childrens 81 mg chewable tablet 1- 00:00: 00 09-04 23:59 :00 No [id number] PREVENTS C.P. 81 mg DAILY 81 mg DAILY (route: oral) Med Classific ation: Hematolog ical Agents metoprolol succinate ER 25 mg tablet,exte nded release 24 hr - 00:00: 00 11-04 23:59 :00 No [id number] TREATS B/P 25 mg DAILY 25 mg DAILY (route: oral) Med Classific ation: Cardiovas cular Therapy Agents Multivitami n 50 Plus tablet 2020-1112 00:00: 00 11-04 23:59 :00 No [id number] SUPPLEMENT 1 tablet DAILY 1 tablet DAILY (route: oral) Med Classific ation: Electroly te Balance-N utritiona l Products clobetasol 0.05 % topical ointment 2021-11 00:00: 00 11-12 00:00 :00 No [id number] SKIN LUPUS Per instruc tions DAILY Per instructio ns DAILY (route: topical) Med Classific ation: Dermatolo gical oxybutynin chloride ER 15 mg tablet,exte nded release 24 hr 2021-11 00:00: 00 06-16 23:59 :00 No [id number] BLADDER 1 tablet DAILY 1 tablet DAILY (route: oral) Med Classific ation: Genitouri nary Therapy losartan 25 mg tablet 2021-11-16 00:00: 00 06-16 23:59 :00 No [id number] BLOOD PRESSURE 1 tablet DAILY 1 tablet DAILY (route: oral) Med Classific ation: Cardiovas cular Therapy Agents furosemide 40 mg tablet 11-11 00:00: 00 06-16 23:59 :00 No [id number] DIURETIC 1 tablet DAILY 1 tablet DAILY (route: oral) Med Classific ation: Cardiovas cular Therapy Agents hydroxychlo roquine 200 mg tablet 11-11 00:00: 00 06-16 23:59 :00 No [id number] LUPUS 1 tablet 2 TIMES DAILY 1 tablet 2 TIMES DAILY (route: oral) Med Classific ation: Anti-Infe ctive Agents metoprolol succinate ER 25 mg tablet,exte nded release 24 hr 11-11 00:00: 00 06-16 23:59 :00 No [id number] HEART RATE AND BLOOD PRESSURE 1 tablet DAILY 1 tablet DAILY (route: oral) Med Classific ation: Cardiovas cular Therapy Agents prednisone 10 mg tablet 06-15 00:00: 00 06-16 23:59 :00 No [id number] LUPUS 1 tablet DAILY 1 tablet DAILY (route: oral) Med Classific ation: Endocrine prednisone 5 mg tablet 06-04 00:00: 00 Yes [id number] LUPUS 1 tablet DAILY 1 tablet DAILY (route: oral) Med Classific ation: Endocrine docusate sodium 100 mg capsule 06-16 00:00: 00 Yes [id number] CONSTIPATIO N 1 capsule 2 TIMES DAILY 1 capsule 2 TIMES DAILY (route: oral) Med Classific ation: Gastroint estinal Therapy Agents furosemide 40 mg tablet 06-21 00:00: 00 Yes [id number] CHF 1 tablet DAILY 1 tablet DAILY (route: oral) Med Classific ation: Cardiovas cular Therapy Agents hydroxychlo roquine 200 mg tablet 06-21 00:00: 00 Yes [id number] LUPUS 1 tablet 2 TIMES DAILY 1 tablet 2 TIMES DAILY (route: oral) Med Classific ation: Anti-Infe ctive Agents levofloxaci n 500 mg tablet - 00:00: 00 06-26 23:59 :00 No [id number] ANTIBIOTIC 1 tablet DAILY 1 tablet DAILY (route: oral) Med Classific ation: Anti-Infe ctive Agents losartan 25 mg tablet 06-21 00:00: 00 Yes [id number] BLOOD PRESSURE 1 tablet DAILY 1 tablet DAILY (route: oral) Med Classific ation: Cardiovas cular Therapy Agents metoprolol succinate ER 25 mg tablet,exte nded release 24 hr 06-21 00:00: 00 Yes [id number] HTN 0.5 tablet DAILY 0.5 tablet DAILY (route: oral) Med Classific ation: Cardiovas cular Therapy Agents metronidazo le 500 mg tablet 06-19 00:00: 00 06-26 23:59 :00 No [id number] ANTIBIOTIC 1 tablet EVERY 8 HOURS 1 tablet EVERY 8 HOURS (route: oral) Med Classific ation: Anti-Infe ctive Agents multivitami n tablet 06-21 00:00: 00 Yes [id number] SUPPLEMENT 1 tablet DAILY 1 tablet DAILY (route: oral) Med Classific ation: Electroly te Balance-N utritiona l Products oxycodone 5 mg tablet 06-21 00:00: 00 Yes [id number] PAIN 1 tablet EVERY 4 HOURS 1 tablet EVERY 4 HOURS (route: oral) Med Classific ation: Analgesic , Anti-infl ammatory or Antipyret ic Tylenol 325 mg tablet 06-21 00:00: 00 Yes [id number] PAIN 2 tablet 4 TIMES DAILY 2 [...] DR SCANLON. RN TO OBSERVE AND ASSESS, MANAGER INTEGRITY TO OBSERVE FOR RISK FOR FALLS AND [...] DR SCANLON. RN TO OBSERVE AND ASSESS, MANAGER INTEGRITY TO OBSERVE FOR RISK FOR FALLS AND [...] End Date/Time Encounter Type Admission Type Attending [facility] Care Department Encounter ID Discharge Date Discharge Status Discharge Condition Discharge Reason Percent Goals Met 2023-06-21 00:00:00 2023-06-24 00:00:00 Outpatient MARLENE LUTZ [facility] [id number] 2023-06-24 00:00:00 DISCHARGE TO HOME OR SELF CARE INDEPENDEN T IN THE [facility]- GOALS MET 100.00
--- OUTSIDE RECORDS SUMMARY | 2024-11-15 09:26 | XMS_ITS | Patient Health Record ---
Author Organization [facility] Address [address] [place] [address] Care Team Providers Care Ambulance Assistant Name Role Phone Cassidy Corley Primary Care Provider Jamie Contreras Unavailable [phone] Allergies Allergen (clinical drug ingredient) Drug/Non Drug [...] Medicare [employer] [address] [place] [address] [id number] Isha Izquierdo Self - patient is the insured [facility] [address] [place] [address] [id number] Isha Izquierdo Self - patient is the insured Medical (General) History Medical History History ICD Code Arthritis Chicken pox Heart disease Lupus Measles Mumps Transfusions Surgical History Surgery Date(Month/Year) hernia Tooth extraction
--- OUTSIDE RECORDS SUMMARY | 2024-11-15 09:26 | XMS_ITS | Clinical Summary ---
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) USE OF OPIATE ANALGESIC Active 8-15 00:00: 00 PERSONAL HISTORY OF PNEUMONIA (RECURRENT) Active 11-07 00:00: 00 PERSONAL HISTORY OF URINARY (TRACT) INFECTIONS Active 11-07 00:00: 00 PRSNL HX OF TIA (TIA), AND CEREB INFRC W/O RESID DEFICITS Active 11-07 00:00: 00 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 OF SYSTEMIC STEROIDS Active 11-07 [...] 06-01 00:00: 00 11-04 23:59 :00 No [id number] DIURETIC 40 mg DAILY 40 mg DAILY (route: oral) Med Classific ation: Cardiovas cular Therapy Agents doxycycline hyclate 100 mg capsule -24 00:00: 00 08-26 23:59 :00 No [id number] ANTIBIOTIC 100 mg 2 TIMES DAILY 100 mg 2 TIMES DAILY (route: oral) Med Classific ation: Anti-Infe ctive Agents doxycycline monohydrate 100 mg tablet 2020-11 0-14 00:00: 00 08-22 00:00 :00 No [id number] Per instruc tions Per instructio ns (route: oral) Med Classific ation: Anti-Infe ctive Agents metoprolol succinate ER 25 mg tablet,exte nded release 24 hr 9-24 00:00: 00 08-22 00:00 :00 No [id number] Per instruc tions DAILY Per instructio ns DAILY (route: oral) Med Classific ation: Cardiovas cular Therapy Agents losartan 25 mg tablet 8-27 00:00: 00 11-04 23:59 :00 No [id number] TREATS B/P 25 mg DAILY 25 mg DAILY (route: oral) Med Classific ation: Cardiovas cular Therapy Agents cefuroxime axetil 250 mg tablet 2020-11 0-14 00:00: 00 08-24 23:59 :00 No [id number] ANTIBIOTIC 250 mg 2 TIMES DAILY 250 mg 2 TIMES DAILY (route: oral) Med Classific ation: Anti-Infe ctive Agents hydroxychlo roquine 200 mg tablet 7-20 00:00: 00 11-04 23:59 :00 No [id number] TREATS SKIN LUPUS 200 mg 2 TIMES DAILY 200 mg 2 TIMES DAILY (route: oral) Med Classific ation: Anti-Infe ctive Agents Aspirin Childrens 81 mg chewable tablet 1- 00:00: 00 09-04 23:59 :00 No [id number] PREVENTS C.P. 81 mg DAILY 81 mg DAILY (route: oral) Med Classific ation: Hematolog ical Agents metoprolol succinate ER 25 mg tablet,exte nded release 24 hr - 00:00: 00 11-04 23:59 :00 No [id number] TREATS B/P 25 mg DAILY 25 mg DAILY (route: oral) Med Classific ation: Cardiovas cular Therapy Agents Multivitami n 50 Plus tablet 2020-1112 00:00: 00 11-04 23:59 :00 No [id number] SUPPLEMENT 1 tablet DAILY 1 tablet DAILY (route: oral) Med Classific ation: Electroly te Balance-N utritiona l Products clobetasol 0.05 % topical ointment 2021-11 00:00: 00 11-12 00:00 :00 No [id number] SKIN LUPUS Per instruc tions DAILY Per instructio ns DAILY (route: topical) Med Classific ation: Dermatolo gical oxybutynin chloride ER 15 mg tablet,exte nded release 24 hr 2021-11 00:00: 00 06-16 23:59 :00 No [id number] BLADDER 1 tablet DAILY 1 tablet DAILY (route: oral) Med Classific ation: Genitouri nary Therapy losartan 25 mg tablet 2021-11-16 00:00: 00 06-16 23:59 :00 No [id number] BLOOD PRESSURE 1 tablet DAILY 1 tablet DAILY (route: oral) Med Classific ation: Cardiovas cular Therapy Agents furosemide 40 mg tablet 11-11 00:00: 00 06-16 23:59 :00 No [id number] DIURETIC 1 tablet DAILY 1 tablet DAILY (route: oral) Med Classific ation: Cardiovas cular Therapy Agents hydroxychlo roquine 200 mg tablet 11-11 00:00: 00 06-16 23:59 :00 No [id number] LUPUS 1 tablet 2 TIMES DAILY 1 tablet 2 TIMES DAILY (route: oral) Med Classific ation: Anti-Infe ctive Agents metoprolol succinate ER 25 mg tablet,exte nded release 24 hr 11-11 00:00: 00 06-16 23:59 :00 No [id number] HEART RATE AND BLOOD PRESSURE 1 tablet DAILY 1 tablet DAILY (route: oral) Med Classific ation: Cardiovas cular Therapy Agents prednisone 10 mg tablet 06-15 00:00: 00 06-16 23:59 :00 No [id number] LUPUS 1 tablet DAILY 1 tablet DAILY (route: oral) Med Classific ation: Endocrine prednisone 5 mg tablet 06-04 00:00: 00 Yes [id number] LUPUS 1 tablet DAILY 1 tablet DAILY (route: oral) Med Classific ation: Endocrine docusate sodium 100 mg capsule 06-16 00:00: 00 Yes [id number] CONSTIPATIO N 1 capsule 2 TIMES DAILY 1 capsule 2 TIMES DAILY (route: oral) Med Classific ation: Gastroint estinal Therapy Agents furosemide 40 mg tablet 06-21 00:00: 00 Yes [id number] CHF 1 tablet DAILY 1 tablet DAILY (route: oral) Med Classific ation: Cardiovas cular Therapy Agents hydroxychlo roquine 200 mg tablet 06-21 00:00: 00 Yes [id number] LUPUS 1 tablet 2 TIMES DAILY 1 tablet 2 TIMES DAILY (route: oral) Med Classific ation: Anti-Infe ctive Agents levofloxaci n 500 mg tablet - 00:00: 00 06-26 23:59 :00 No [id number] ANTIBIOTIC 1 tablet DAILY 1 tablet DAILY (route: oral) Med Classific ation: Anti-Infe ctive Agents losartan 25 mg tablet 06-21 00:00: 00 Yes [id number] BLOOD PRESSURE 1 tablet DAILY 1 tablet DAILY (route: oral) Med Classific ation: Cardiovas cular Therapy Agents metoprolol succinate ER 25 mg tablet,exte nded release 24 hr 06-21 00:00: 00 Yes [id number] HTN 0.5 tablet DAILY 0.5 tablet DAILY (route: oral) Med Classific ation: Cardiovas cular Therapy Agents metronidazo le 500 mg tablet 06-19 00:00: 00 06-26 23:59 :00 No [id number] ANTIBIOTIC 1 tablet EVERY 8 HOURS 1 tablet EVERY 8 HOURS (route: oral) Med Classific ation: Anti-Infe ctive Agents multivitami n tablet 06-21 00:00: 00 Yes [id number] SUPPLEMENT 1 tablet DAILY 1 tablet DAILY (route: oral) Med Classific ation: Electroly te Balance-N utritiona l Products oxycodone 5 mg tablet 06-21 00:00: 00 Yes [id number] PAIN 1 tablet EVERY 4 HOURS 1 tablet EVERY 4 HOURS (route: oral) Med Classific ation: Analgesic , Anti-infl ammatory or Antipyret ic Tylenol 325 mg tablet 06-21 00:00: 00 Yes [id number] PAIN 2 tablet 4 TIMES DAILY 2 [...] DR SCANLON. RN TO OBSERVE AND ASSESS, BILLING MANAGER TO OBSERVE FOR RISK FOR FALLS AND [...] DR SCANLON. RN TO OBSERVE AND ASSESS, BILLING MANAGER TO OBSERVE FOR RISK FOR FALLS AND [...] End Date/Time Encounter Type Admission Type Attending [facility] Care Department Encounter ID Discharge Date Discharge Status Discharge Condition Discharge Reason Percent Goals Met 2023-06-21 00:00:00 2023-06-24 00:00:00 Outpatient MARLENE LUTZ [facility] [id number] 2023-06-24 00:00:00 DISCHARGE TO HOME OR SELF CARE INDEPENDEN T IN THE [facility] OR [facility]- GOALS MET 100.00
== END 2024-11-15 10:33 | disposition home or self-care (01) ==
PROVIDERS: PCP Internal Medicine; Visit Provider Internal Medicine
DX: I10 Essential (primary) hypertension (principal); I50.32 Chronic diastolic (congestive) heart failure; I48.91 Unspecified atrial fibrillation; I21.4 Non-ST elevation (NSTEMI) myocardial infarction; M32.9 Systemic lupus erythematosus, unspecified; M80.08XA Age-related osteoporosis with current pathological fracture, vertebra(e), initial encounter for fracture; Z00.00 Encounter for general adult medical examination without abnormal findings

== ENCOUNTER → 2024-11-15 09:11 | Outpatient (BNVA) | payer MEDICARE, OTHER, SELFPAY | PROVIDERS: PCP Internal Medicine; Visit Provider Internal Medicine | DX: I11.0 Hypertensive heart disease with heart failure (principal); I50.32 Chronic diastolic (congestive) heart failure; I48.91 Unspecified atrial fibrillation; I21.4 Non-ST elevation (NSTEMI) myocardial infarction; M32.9 Systemic lupus erythematosus, unspecified; M80.08XA Age-related osteoporosis with current pathological fracture, vertebra(e), initial encounter for fracture | CPT/HCPCS: 96127; 99212 ==

== ENCOUNTER 2025-01-10 12:03 | Outpatient (REF) | payer MEDICARE, OTHER, SELFPAY ==
--- OUTSIDE RECORDS SUMMARY | 2025-01-10 14:38 | XMS_ITS | Patient Health Record ---
Author Organization [facility] Address [address] [facility] [place] [address] Care Team Providers Care Compounding Scaler Name Role Phone Cassidy Corley Primary Care Provider Jamie Contreras Unavailable [phone] Allergies Allergen (clinical drug ingredient) Drug/Non Drug [...] Medicare National [employer] [address] [place] [address] [phone] [id number] Isha Izquierdo Self - patient is the insured [facility] [address] [place] [address] [phone] [id number] Isha Izquierdo Self - patient is the insured Medical (General) History Medical History History ICD Code Arthritis Chicken pox Heart disease Lupus Measles Mumps Transfusions Surgical History Surgery Date(Month/Year) hernia Tooth extraction
[2025-01-10 16:45] LABS: Basophils Percent Auto 0.9 % (0-2); Eosinophils Absolute Auto 0.1 X10*3/uL (0.0-0.4); Eosinophils Percent Auto 4.9 % (0-4); Hematocrit 35.9 % (37.0-47.0); Hemoglobin 11.6 g/dl (12.0-16.0); Imm Gran Abs Auto 0.01 X10*3/uL (0.00-0.03); Imm Gran Pct Auto 0.4 % (0.0-0.4); Lymphocytes Absolute Auto 0.8 X10*3/uL (1.2-4.9); Lymphocytes Percent Auto 35.4 % (20-40); MANUAL DIFF FLAG SCAN; Mean Corpuscular HGB Conc 32.3 g/dl (31.0-35.0); Mean Corpuscular Hemoglobin 29.9 pg (27.0-33.0); Mean Corpuscular Volume 92.5 fL (80.0-98.0); Mean Platelet Volume 9.6 fL (9.4-12.3); Monocytes Absolute Auto 0.5 X10*3/uL (0.1-1.2); Monocytes Percent Auto 20.8 % (2-11); Neutrophils Absolute Auto 0.9 x10*3/uL (2.0-8.3); Neutrophils Percent Auto 37.6 % (45-73); Platelet Count 174 X10*3/uL (160-400); Red Blood Count 3.88 X10*6/uL (4.20-5.50); Red Cell Distribution Width 15.3 % (11.0-16.0); SCAN SMEAR FLAG 1
[2025-01-10 16:57] LABS: White Blood Count 2.3 X10*3/uL (4.8-10.8)
[2025-01-10 17:19] LABS: Erythrocyte Sedimentation Rate 14 MM/HR (0-20)
[2025-01-10 17:34] LABS: Alanine Aminotransferase 25 U/L (0-31); Albumin Level 3.9 g/dL (3.5-5.0); Alkaline Phosphatase 100 U/L (39-117); Anion Gap 10 (12-20); Aspartate Amino Transferase 31 U/L (5-31); Bilirubin Total 0.6 mg/dL (0.0-1.0); Blood Urea Nitrogen 10 mg/dL (9-16); C Reactive Protein < 0.10 mg/dL (< or = 0.50); Calcium 8.8 mg/dL (8.4-10.2); Carbon Dioxide 26 mmol/L (22-29); Chloride 106 mmol/L (96-108); Estimated Glomerular Filt Rate > 60; Glucose Random 86 mg/dL (60-115); Potassium 4.2 mmol/L (3.3-5.1); Sodium 138 mmol/L (135-145); Total Protein 7.5 g/dL (6.5-8.0)
[2025-01-10 17:47] LABS: SLIDE REVIEW VERIFIED
== END 2025-01-10 12:04 | disposition home or self-care (01) ==
LOC: HO.LAB 12:03
PROVIDERS: PCP Internal Medicine; Visit Provider Student in an Organized Health Care Education/Training Program
DX: M32.9 Systemic lupus erythematosus, unspecified (principal)
CPT/HCPCS: 36415; 80053; 85025; 85652; 86140

== ENCOUNTER 2025-02-05 09:05 | Outpatient (AMB) | payer MEDICARE, OTHER, SELFPAY ==
--- NOTE | 2025-02-05 09:31 | AM.OFFWIN_ITS ---
Intake Vital Signs 02/05/25 09:33 BP 126/78 Blood Pressure Location Rt brachial Position Sitting Pulse 66 Pulse Source Pulse Oximeter Temp 97.5 F Temp Source Oral Pulse Oximetry (%) 97 Oxygen Delivery Method Room Air Intake Visit Reasons: EP Head cold Intake Note: Patient here for cough, headaches, runny nose that has been present for about 1 week. Patient Tobacco Use Status: Never used Tobacco Allergies amoxicillin [AMOXICILLIN] Allergy (Unknown, Verified 11/15/24 09:51) UNKNOWN Do you need a note to return to daycare/school/sports/work: No HPI HPI Comments History of Present Illness Details History - The patient is an 84-year-old female p resenting with one week of head congestion with significant nasal discharge. - Denies fever and reports feeling simil ar to past pneumonia episodes, though she lacks confirmation of such an infection. - History of seasonal allergies many yea rs ago - Does not take a daily allergy med - No ear pain, throat pain, cough, or si nus tenderness - Self-managed with [id number] med ications such as Tylenol unsuccessfully. Physical Exam General: Cooperative, healthy appearing, comfortable and no acute distress Orientation/consciousness: Patient oriented x3 Limitations: No limitations Head: Normal to inspection Ears: Hearing grossly normal bilaterally, external ears normal and TM's normal bilaterally Nose: Normal external nose present, Normal nares present and Nasal discharge present Face and sinus: Normal facial exam and Yes sinuses nontender Mouth: Normal oral and palatal mucosa present and moist mucous membranes Throat: Yes tonsils normal, Yes uvula midline. Posterior oropharynx erythema w/cobblestoning Eyes: Appearance normal, both eyes and all related structures Neck: Normal visual inspection Respiratory: Clear to auscultation bilaterally. Normal respiratory effort, able to speak in complete sentences, no respiratory distress, not tachypneic, no tripod positioning and no use of accessory muscles Cardiovascular: Regular rate and rhythm. Normal S1 and S2 Skin: No rashes or lesions noted Neuro: Patient oriented x3 Extremities: Normal to inspection and Yes no clubbing, cyanosis or edema [facility] Medical History Chronic lower back pain Chronic heart failure with preserved ejection fraction (HFpEF) Essential hypertension LBBB (left bundle branch block) Acute diverticulitis TIA (transient ischemic attack) HTN (hypertension) Surgical History History of appendectomy (06/16/23) History of cataract surgery H/O hernia repair Family History Father No problems noted. Mother No problems noted. Social History Household Members: None Housing: Apartment Do you presently have visiting nurse or other home services: No Alcohol intake: current Alcohol intake frequency: a few times a month Patient Tobacco Use Status: Never used Tobacco e-Cigarette/Vaping Use: Never Used Second Hand Smoke Exposure: No Advance Directives Date on File: 08/18/21 service: No Current occupational status: retired Current occupational exposures/hazards: No Cognitive needs: No Hearing needs: Yes Vision needs: No Review of Systems Const All systems reviewed & are unremarkable except as noted in HPI and below Physical Exam Vital Signs: Last Vital Signs Temp 97.5 F 02/05/25 09:33 Pulse 66 02/05/25 09:33 BP 126/78 02/05/25 09:33 Pulse Ox 97 02/05/25 09:33 Oxygen Delivery Method Room Air 02/05/25 09:33 Assessment & Plan Assessment & Plan (1) Seasonal allergic rhinitis: Code(s): J30.2 - Other seasonal allergic rhinitis Qualifiers: Allergic rhinitis trigger: unspecified Qualified Code(s): J30.2 - Other seasonal allergic rhinitis Plan: VSS, pt well appearing and PE remarkable for posterior oropharynx cobblestoning. I did send a flu COVID RSV test to be thorough but anticipate these will be negative. The patient is advised to start a daily oral antihistamine for Allergic Rhinitis symptoms and has been instructed on using Flonase nasal spray to alleviate nasal congestion. Short-term use of Benadryl at bedtime is advised for its drying effects. Follow-up with the primary care physician is recommended should symptoms persist beyond a couple of weeks. Instructions on medication use and potential sedation from Benadryl were discussed in detail. Patient was informed and verbally consented to the use of an ambient scribe for clinic note documentation during this visit Orders: Orders SARS-CoV2/FLU/RSV Today R09.89 - Other specified symptoms and signs involving the circulatory and respiratory systems Medications: New fluticasone propionate 50 mcg/actuation administer into each nostril 1 spray intranasal Q12H PRN 16 grams 0RF nasal congestion Coding Level of Care Code Est Pt Level 3 (22454) Diagnoses Seasonal allergic rhinitis, unspecified trigger J30.2 Allergic rhinitis trigger: unspecified
[2025-02-05 09:33] VITALS: BP 126/78; PULSE 66; TEMP 36.4; O2SAT 97
--- OUTSIDE RECORDS SUMMARY | 2025-02-05 09:54 | XMS_ITS | Patient Health Record ---
Author Organization [facility] Address [address] [facility] [facility] [place] [address] Care Team Providers Care Water Resources Program Director Name Role Phone Cassidy Corley Primary Care Provider Jamie Contreras Unavailable [phone] Allergies Allergen (clinical drug ingredient) Drug/Non Drug [...] Medicare National [employer] [address] [facility] [place] [address] [phone] [id number] Isha Izquierdo Self - patient is the insured [facility] [address] [place] [address] [id number] Isha Izquierdo Self - patient is the insured Medical (General) History Medical History History ICD Code Arthritis Chicken pox Heart disease Lupus Measles Mumps Transfusions Surgical History Surgery Date(Month/Year) hernia Tooth extraction
== END 2025-02-05 09:54 | disposition home or self-care (01) ==
PROVIDERS: Visit Provider Physician Assistant
DX: J30.2 Other seasonal allergic rhinitis (principal)

== ENCOUNTER 2025-02-05 09:05 | Outpatient (REF) | payer MEDICARE, OTHER, SELFPAY ==
[2025-02-05 14:08] LABS: Influenza A PCR NEGATIVE (Negative); Influenza B PCR NEGATIVE (Negative); Resp Syncy Virus RNA Qual PCR NEGATIVE (Negative); SARS COV2 PCR INHOUSE NEGATIVE (Negative)
== END 2025-02-05 09:06 | disposition home or self-care (01) ==
LOC: HO.LAB 09:05
PROVIDERS: Physician Assistant; PCP Internal Medicine
DX: J30.2 Other seasonal allergic rhinitis (principal); R09.89 Other specified symptoms and signs involving the circulatory and respiratory systems
CPT/HCPCS: 0241U; 99212

== ENCOUNTER 2025-03-06 08:27 | Outpatient (AMB) | payer MEDICARE, OTHER, SELFPAY ==
--- NOTE | 2025-03-06 08:34 | MHC.OFFVIS ---
Vital Signs 03/06/25 08:43 Height 5 ft 4 in Weight 160 lb 4.417 oz BMI 27.5 BP 164/70 H Blood Pressure Location Rt brachial Position Sitting Pulse 52 Pulse Source Pulse Oximeter Pulse Oximetry (%) 96 Oxygen Delivery Method Room Air Intake Visit Reasons: Discoid Intake Note: Patient presents for Discoid follow up. Allergies amoxicillin [AMOXICILLIN] Allergy (Unknown, Verified 03/06/25 08:40) UNKNOWN Medication List - Last Reconciled 03/06/25 by Ally Zacarias MD alendronate 70 mg PO QWEEK apixaban (Eliquis) 5 mg PO BID cholecalciferol (vitamin D3) (Vitamin D3) 25 mcg PO DAILY fluticasone propionate 50 mcg/actuation 1 spray intranasal Q12H folic acid 1 mg PO DAILY furosemide 40 mg PO DAILY hydroxychloroquine 200 mg PO DAILY losartan 25 mg PO DAILY methotrexate sodium 10 mg (4 x 2.5 mg) PO QWEEK metoprolol tartrate 25 mg See Protocol PO BID multivitamin 1 tab PO DAILY HPI Comments Details: Patient is an 84-year-old female with hypertension complicated by NSTEMI, AFib on Eliquis, osteoporosis with history of pathological fracture, 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 Avitia. At that time she was following up for her cutaneous lupus and osteoporosis. She was on methotrexate 10 mg weekly, folic acid 1 mg daily and hydroxychloroquine 200 mg daily. She was also on alendronate 70 mg weekly. She reported that she was doing well overall with no rashes Today patient is doing well No falls or fractures No return of her rash No inflammatory type joint pain Rheumatologic History: +++SSa +++SSb SCLE. 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 She had been on hydroxychloroquine for the last 5 years and intermittently gets prednisone. She stated that she started having a flare of discoid lupus over the last 6-9 months. She was started on prednisone g daily. Prednisone dose was recently increased to 10 mg daily. Of note patient was admitted to the hospital about 2 weeks ago for a perforated appendicitis, she had open appendectomy. Patient has healed well. The stitches are out. Currently she is complaining of diffuse skin rashes on her back, chest, arms. The rashes are not itchy or painful. Patient avoids the sun. DEXA 02/2024 Left femur neck T-score-2.6 Left femur total-2.2 L-spine T-score -2.4 T6 fracture 01/2024 Alendronate started 04/2024 Current Rheumatology Medication(s): Alendronate 70 mg weekly Methotrexate 10 mg weekly Folic acid 1 mg daily Hydroxychloroquine 200 mg daily [facility], [facility] Medical History Chronic lower back pain Chronic heart failure with preserved ejection fraction (HFpEF) Essential hypertension LBBB (left bundle branch block) Acute diverticulitis TIA (transient ischemic attack) HTN (hypertension) Surgical History History of appendectomy (06/16/23) History of cataract surgery H/O hernia repair Family History Father No problems noted. Mother No problems noted. Social History Household Members: None Housing: Apartment Do you presently have visiting nurse or other home services: No Alcohol intake: current Alcohol intake frequency: a few times a month Patient Tobacco Use Status: Never used Tobacco e-Cigarette/Vaping Use: Never Used Second Hand Smoke Exposure: No Advance Directives Date on File: 08/18/21 service: No Current occupational status: retired Current occupational exposures/hazards: No Cognitive needs: No Hearing needs: Yes Vision needs: No Review of Systems Const Details: Review of Systems Constitutional: Denies fever, chills, weight loss ENT: Denies vision changes, eye pain or eye redness, dental caries, dry mouth GI: Denies nausea, vomiting, diarrhea, abdominal pain, change in BM Pulm: Denies SOB, VEGA, hemoptysis, wheezing Cards: Denies chest pain, palpitations Skin: Denies Raynaud's, rash, nail changes, photosensitivity, FUEL ISLAND ATTENDANT: Denies headaches, weakness, paresthesias, recurrent falls MSK: as per HPI All other systems reviewed and are unremarkable except noted above Physical Exam Vital Signs: Last Vital Signs Pulse 52 03/06/25 08:43 BP 164/70 H 03/06/25 08:43 Pulse Ox 96 03/06/25 08:43 Oxygen Delivery Method Room Air 03/06/25 08:43 BMI result Body Mass Index 27.5 Vital signs reviewed Physical Examination CONSTITUITIONAL Patient alert and cooperative. Well appearing and in no apparent painful distress HEENT Conjunctiva and sclera clear. ?Pupils equal round and reactive to light. ?No lymphadenopathy. ? CHEST/RESPIRATORY SYSTEM Normal respiratory effort and able to speak in complete sentences. ?Clear to auscultation bilaterally. ?No crackles, rales, rhonchi, wheezes heard. CARDIAC SYSTEM Regular rate and rhythm. ?S1 and S2 heard no murmurs. ?Radial pulses intact bilaterally MSK Hands: ?Able to make a fist. No synovitis noted to the MCPs, PIPs or DIPs. ?No tenderness to palpation of these joints. Herbeden's nodes? Wrists: ?Full range of motion at the wrists without pain. ?No tenderness to palpation or synovitis noted to the wrists. Elbows: Full range of motion without pain. No tenderness, weakness, swelling, increased warmth or erythema. Shoulders: Full range of active range of motion without pain. No tenderness, weakness, swelling, increased warmth or erythema. Knees: ?Full range of motion. ?Mild swelling bilaterally without warmth or TTP. Bilateral crepitations felt Ankles: Full range of motion. ?No tenderness, swelling, increased warmth or erythema.?Bilateral dependent edema Feet: ?Negative squeeze test. ?No tenderness to palpation or swelling of the MTPs. Tender points:?No tenderness to palpation of the bilateral trapezius, supraspinatus, greater trochanters, anterior costochondral junctions, bilateral gluteal areas, bilateral suboccipital muscle insertions SKIN Skin intact without rashes. Results Reviewed Results Reviewed: Laboratory Tests 01/10/25 16:28 WBC 2.3 L RBC 3.88 L Hgb 11.6 L Hct 35.9 L Plt Count 174 ESR 14 Sodium 138 Potassium 4.2 Chloride 106 Carbon Dioxide 26 BUN 10 Creatinine 0.81 AST 31 ALT 25 C-Reactive Protein < 0.10 10/01/24 10:43 25-OH Vitamin D Total 40 Immunology labs 08/30/23 13:21 SS-A/Ro Antibody >8.0 POS A SS-B/La Antibody >8.0 POS A Sm ([place]) Antibody <1.0 NEG SM/COVER OPERATOR IgG Antibody <1.0 NEG Double Strand DNA Ab <1 Complement C3 93 Complement C4 21 Assessment & Plan Assessment & Plan (1) Cutaneous lupus erythematosus: Comment: +++SSa +++SSb SCLE. dx around 2018 HCQ throughout PDN throughout flare 2022 MTX 08/2023 very effective Code(s): L93.2 - Other local lupus erythematosus Category: Medical Plan: #Cutaneous lupus Patient is an 84-year-old female with cutaneous lupus here today for follow up. Currently in remission on methotrexate and Plaquenil. Plan - Methotrexate 10mg weekly - Folic acid 1mg - Plaquenil 200mg daily - RTC 6 months - Labs before visit: CBC, CMP, ESR, CRP, C3, C4, dsDNA, UA, UPC (2) Osteoporosis with pathological fracture of cervical vertebra: Comment: DEXA 02/2024: Left femur neck -2.6, Left femur total -2.2, L-spine T-score -2.4 T6 fracture 01/2024 Alendronate started 04/2024 Code(s): M80.08XA - Age-related osteoporosis with current pathological fracture, vertebra(e), initial encounter for fracture Category: Medical Plan: #Osteoporosis Patient with osteoporosis. No falls or fractures since the last visit. Continue alendronate. Repeat bone density in 2025 Plan - DEXA 2025 - Labs in 6 months with vitamin D (3) Bilateral primary osteoarthritis of knee: Code(s): M17.0 - Bilateral primary osteoarthritis of knee Category: Medical Plan: #Bilateral Knee OA Patient continues to do well and does not require a repeat injection today States she walks when she goes to the [employer] and does alot of activities which she believes helps (4) Long-term use of hydroxychloroquine: Code(s): Z79.899 - Other nursing home (current) drug therapy Category: Medical Plan: #Long-term Use of Hydroxychloroquine Discussed with patient the risks and benefits of hydroxychloroquine in managing the rheumatic condition Benefits include: - Reduced pain, reduce mortality, maintenance of remission and reduction of flares Risks include: - GI upset, skin hyperpigmentation, retinal toxicity (especially after more than 5 years of use), myopathy Advised yearly ophthalmology visits (5) jail methotrexate user: Code(s): Z79.631 - jail (current) use of antimetabolite agent Category: Medical Plan: #Long-term Current Use of Methotrexate Discussed with patient the benefits and risks of methotrexate for managing their rheumatic condition Benefits include reduced pain, reduced mortality, maintenance of remission and reduction of flares Risks include oral ulcers, photosensitivity, hepatotoxicity, hematologic toxicity, pneumonitis, flu-like symptoms (especially day after administration), nodulosis, lymphomas ? Limit alcohol and avoid Bactrim ? Monitoring: ?CBC, BMP, LFTs every 3-4 months and hepatitis serologies as needed (6) Encounter for monitoring bisphosphonate therapy: Code(s): Z51.81 - Encounter for therapeutic drug level monitoring; Z79.83 - jail (current) use of bisphosphonates Plan: #Long-term Use of Bisphosphonates Risks and benefits of bisphosphonates in the management of osteoporosis Benefits include improved bone density, decreased fracture risk Risks include atypical femoral fractures, GI upset, esophageal strictures Contraindicated in patients with a creatinine clearance < 30 to 35 ml/min Keep vitamin-D at least 35 ng/mL Plan I spent 32 minutes reviewing the record and labs, taking a history, examining the patient, discussing the treatment plan, ordering diagnostic work up and documenting in the medical record Orders: Orders Complete Blood Count Auto Diff 6 Months E55.9 - Vitamin D deficiency, unspecified, L93.2 - Other local lupus erythematosus Comprehensive Met. Panel 6 Months E55.9 - Vitamin D deficiency, unspecified, L93.2 - Other local lupus erythematosus Vitamin D 25-OH (D2 and D3) 6 Months E55.9 - Vitamin D deficiency, unspecified, L93.2 - Other local lupus erythematosus Anti DNA DS Antibody 6 Months L93.2 - Other local lupus erythematosus UA w Microscopic 6 Months L93.2 - Other local lupus erythematosus Protein Creatinine Ratio, Ur 6 Months L93.2 - Other local lupus erythematosus C Reactive Protein 6 Months E55.9 - Vitamin D deficiency, unspecified, L93.2 - Other local lupus erythematosus Erythrocyte Sedimentation Rate 6 Months E55.9 - Vitamin D deficiency, unspecified, L93.2 - Other local lupus erythematosus Complement C3 6 Months L93.2 - Other local lupus erythematosus Complement C4 6 Months L93.2 - Other local lupus erythematosus Medications: Changed From methotrexate sodium 10 mg (4 x 2.5 mg) PO QWEEK 48 tabs 1RF L93.2 - Other local lupus erythematosus To methotrexate sodium 10 mg (4 x 2.5 mg) PO QWEEK 90 days 52 tabs 1RF L93.2 - Other local lupus erythematosus From alendronate 70 mg PO QWEEK 12 tabs 1RF M80.08XA - Age-related osteoporosis with current pathological fracture, vertebra(e), initial encounter for fracture To alendronate 70 mg PO QWEEK 90 days 13 tabs 1RF M80.08XA - Age-related osteoporosis with current pathological fracture, vertebra(e), initial encounter for fracture Refilled folic acid 1 mg PO DAILY 90 tabs 1RF hydroxychloroquine 200 mg PO DAILY 90 tabs 1RF L93.2 - Other local lupus erythematosus Coding Level of Care Code Est Pt Level 4 (62501) Complex EM visit Add On G2211 Diagnoses Cutaneous lupus erythematosus L93.2 Osteoporosis with pathological fracture of cervical vertebra M80.08XA Bilateral primary osteoarthritis of knee M17.0 Long-term use of hydroxychloroquine Z79.899 prosthetic technician methotrexate user Z79.631 Encounter for monitoring bisphosphonate therapy Z51.81; Z79.83
[2025-03-06 08:43] VITALS: BP 164/70; PULSE 52; O2SAT 96; BMI 27.5
== END 2025-03-06 09:20 | disposition home or self-care (01) ==
LOC: HO.RHE 08:28
PROVIDERS: Visit Provider Student in an Organized Health Care Education/Training Program
DX: L93.2 Other local lupus erythematosus (principal); M80.08XA Age-related osteoporosis with current pathological fracture, vertebra(e), initial encounter for fracture; M17.0 Bilateral primary osteoarthritis of knee; Z79.899 Other long term (current) drug therapy; Z79.631 Long term (current) use of antimetabolite agent; Z51.81 Encounter for therapeutic drug level monitoring; Z79.83 Long term (current) use of bisphosphonates
CPT/HCPCS: 99214; G2211

== ENCOUNTER → 2025-03-06 08:27 | Outpatient (BNVA) | payer MEDICARE, OTHER, SELFPAY | PROVIDERS: Visit Provider Student in an Organized Health Care Education/Training Program | DX: M80.08XA Age-related osteoporosis with current pathological fracture, vertebra(e), initial encounter for fracture (principal); M17.0 Bilateral primary osteoarthritis of knee; L93.2 Other local lupus erythematosus; Z79.899 Other long term (current) drug therapy; Z79.631 Long term (current) use of antimetabolite agent; Z51.81 Encounter for therapeutic drug level monitoring; Z79.83 Long term (current) use of bisphosphonates | CPT/HCPCS: 99212 ==

== ENCOUNTER → 2025-03-07 08:54 | Outpatient (REF) | payer MEDICARE, OTHER, SELFPAY ==
--- OUTSIDE RECORDS SUMMARY | 2025-03-07 09:23 | XMS_ITS | Patient Health Record ---
Author Organization [facility] Address [address] [place] [address] Care Team Providers Care Sanitarian Inspector Name Role Phone Cassidy Corley Primary Care Provider Jamie Contreras Unavailable [phone] Allergies Allergen (clinical drug ingredient) Drug/Non Drug [...] Medicare National Gov[employer] [address] [facility] [place] [address] [id number] Isha Izquierdo Self - patient is the insured [facility] [address] [place] [address] [phone] [id number] Isha Izquierdo Self - patient is the insured Medical (General) History Medical History History ICD Code Arthritis Chicken pox Heart disease Lupus Measles Mumps Transfusions Surgical History Surgery Date(Month/Year) hernia Tooth extraction
== END ==
LOC: HO.CARD 08:54
PROVIDERS: PCP Internal Medicine; Visit Provider Internal Medicine
DX: I50.32 Chronic diastolic (congestive) heart failure (principal)
CPT/HCPCS: 93306

== ENCOUNTER → 2025-03-07 08:59 | Outpatient (BNV) | payer MEDICARE, OTHER, SELFPAY | PROVIDERS: PCP Internal Medicine; Visit Provider Internal Medicine Cardiovascular Disease | DX: I42.2 Other hypertrophic cardiomyopathy (principal); I50.32 Chronic diastolic (congestive) heart failure; I27.20 Pulmonary hypertension, unspecified; I51.7 Cardiomegaly; I44.7 Left bundle-branch block, unspecified; I36.1 Nonrheumatic tricuspid (valve) insufficiency | CPT/HCPCS: 93306 ==

== ENCOUNTER 2025-04-06 10:59 | Outpatient (AMB) | payer MEDICARE, OTHER, SELFPAY ==
[2025-04-06 11:13] VITALS: BP 132/60; PULSE 63; RESP 18; TEMP 36.8; O2SAT 92; BMI 27.6
--- NOTE | 2025-04-06 11:13 | MHC.OFFWIV ---
Intake Vital Signs 04/06/25 11:13 Height 5 ft 4 in Weight 161 lb BMI 27.6 BP 132/60 Blood Pressure Location Rt brachial Position Sitting Respiration 18 Pulse 63 Pulse Source Pulse Oximeter Temp 98.3 F Temp Source Oral Pulse Oximetry (%) 92 Oxygen Delivery Method Room Air Intake Visit Reasons: EP ? pneumonia, cough, SOB Intake Note: Pt is here today c/o cough and SOB ? pneumonia Patient Tobacco Use Status: Never used Tobacco Allergies amoxicillin [AMOXICILLIN] Allergy (Unknown, Verified 04/06/25 11:37) UNKNOWN Medication List - Last Reconciled 04/06/25 by Jamee Guadarrama, [facility]- alendronate 70 mg PO QWEEK 90 days apixaban (Eliquis) 5 mg PO BID 90 days cholecalciferol (vitamin D3) (Vitamin D3) 25 mcg PO DAILY fluticasone propionate 50 mcg/actuation 1 spray intranasal Q12H folic acid 1 mg PO DAILY furosemide 40 mg PO DAILY hydroxychloroquine 200 mg PO DAILY losartan 25 mg PO DAILY methotrexate sodium 10 mg (4 x 2.5 mg) PO QWEEK 90 days metoprolol tartrate 25 mg See Protocol PO BID multivitamin 1 tab PO DAILY HPI HPI Comments History of Present Illness Details History of Present Illness - The patient is an 84-year-old female with Afib and CHF presenting with cough and shortness of breath. - Cough ongoing for several weeks - however she tells me she is not worried about the cough as much as she is concerned about inability to get her eliquis for her Afib. States [facility] is her pharmacy. When she went to pick it up, they were out and called 5 other stores who also did not have any. She is completely out and not sure what to do. In regards to the cough, she states she is fine. She does not have any fever, chills, runny nose, sore throat, chest pain or swelling in lower ext. States her dtr advised for her to take Mucinex today but she did not as she does not thinks she needs it. I put on a pagent the other day and felt fine Physical Exam General: Well developed, well nourished, in no acute distress. Appears stated age. Head: Normocephalic, atraumatic. Eyes: Pupils are equal, round and reactive to light and accommodation. Conjunctivae are clear. Lungs: Clear to auscultation bilaterally. No rales, rhonchi or wheeze noted. Good air flow in all nuno. No cough. Heart: Regular rate and rhythm. + 2/6 murmur, RSB, Echo 03/2025 reviewed. Pulses/Ext: chronic vascular changes BLE, no edema, Peripheral pulses are equal and palpable bilaterally. Discussion Notes I discussed the possibility of obtaining a prescription for Eliquis that can be filled at another pharmacy if the patient's regular [facility] is unable to provide it. I recommended visiting alternative pharmacies such as [facility] or [facility] in case of ongoing shortages. The patient also discussed considering an x-ray if her symptoms do not improve. I indicated that the order for a chest x-ray has been placed should she decide to follow up at the hospital for further assessment. The discussion was centered around appropriate management of her symptoms and ensuring she could access her heart medication. Assessment and Plan 1. Cough and shortness of breath - Respiratory infection likely. Lungs clear on exam. - Chest x-ray placed on standby if symptoms persist. 2. Heart murmur and medication issue (Eliquis) - Advised alternative pharmacy for Eliquis due to shortage. I printed this RX for her and edu on ways to obtain her rx. -Active w/ [facility], advised to fu as scheduled. - Take all meds as directed. Patient Instructions - Check alternative pharmacies like [facility] or [facility] for Eliquis if [facility] is out of stock. - Follow up with a chest x-ray if symptoms of cough and shortness of breath do not improve. - Continue to monitor symptoms and seek medical care if they worsen. - Take all meds as prescribed - FU with Cards and PCP Consent Patient was informed and verbally consented to the use of an ambient scribe for clinic note documentation during this visit. [facility] Medical History Chronic lower back pain Chronic heart failure with preserved ejection fraction (HFpEF) Essential hypertension LBBB (left bundle branch block) Acute diverticulitis TIA (transient ischemic attack) HTN (hypertension) Surgical History History of appendectomy (06/16/23) History of cataract surgery H/O hernia repair Family History Father No problems noted. Mother No problems noted. Social History Household Members: None Housing: Apartment Do you presently have visiting nurse or other home services: No Alcohol intake: current Alcohol intake frequency: a few times a month Patient Tobacco Use Status: Never used Tobacco e-Cigarette/Vaping Use: Never Used Second Hand Smoke Exposure: No Advance Directives Date on File: 08/18/21 service: No Current occupational status: retired Current occupational exposures/hazards: No Cognitive needs: No Hearing needs: Yes Vision needs: No Physical Exam Vital Signs: Last Vital Signs Temp 98.3 F 04/06/25 11:13 Pulse 63 04/06/25 11:13 Resp 18 04/06/25 11:13 BP 132/60 04/06/25 11:13 Pulse Ox 92 04/06/25 11:13 Oxygen Delivery Method Room Air 04/06/25 11:13 BMI result Body Mass Index 27.6 Assessment & Plan Assessment & Plan (1) Cough: Code(s): R05.9 - Cough, unspecified Qualifiers: Cough type: subacute Qualified Code(s): R05.2 - Subacute cough (2) Chronic heart failure with preserved ejection fraction (HFpEF): Code(s): I50.32 - Chronic diastolic (congestive) heart failure (3) Afib: Comment: WITH SECONDARY HYPERCOAGUABILITY, ON ELIQUIS Code(s): I48.91 - Unspecified atrial fibrillation Qualifiers: Atrial fibrillation type: paroxysmal Qualified Code(s): I48.0 - Paroxysmal atrial fibrillation (4) Secondary hypercoagulability disorder: Comment: DUE TO AFIB ON ELIQUIS Code(s): D68.69 - Other thrombophilia Plan . Orders: Orders XR chest 2V Today R05.9 - Cough, unspecified Medications: Refilled apixaban (Eliquis) 5 mg PO BID 90 days 180 tabs 0RF Coding Level of Care Code Est Pt Level 4 (55986) Diagnoses Subacute cough R05.2 Cough type: subacute Chronic heart failure with preserved ejection fraction (HFpEF) I50.32 Paroxysmal atrial fibrillation I48.0 Atrial fibrillation type: paroxysmal Secondary hypercoagulability disorder D68.69
== END 2025-04-06 12:21 | disposition home or self-care (01) ==
PROVIDERS: PCP Internal Medicine; Visit Provider Nurse Practitioner Family
DX: R05.2 Subacute cough (principal); I50.32 Chronic diastolic (congestive) heart failure; I48.0 Paroxysmal atrial fibrillation; D68.69 Other thrombophilia

== ENCOUNTER → 2025-04-06 10:59 | Outpatient (BNVA) | payer MEDICARE, OTHER, SELFPAY | PROVIDERS: PCP Internal Medicine; Visit Provider Nurse Practitioner Family | DX: R05.2 Subacute cough (principal); I50.32 Chronic diastolic (congestive) heart failure; I48.0 Paroxysmal atrial fibrillation; D68.69 Other thrombophilia | CPT/HCPCS: 99212 ==

== ENCOUNTER 2025-04-24 15:47 | Outpatient (REF) | payer MEDICARE, OTHER, SELFPAY ==
--- OUTSIDE RECORDS SUMMARY | 2025-04-24 17:54 | XMS_ITS | Patient Health Record ---
Author Organization [facility] Address [address] [place] [address] Care Team Providers Care Share Dairy Farmer Name Role Phone Cassidy Corley Primary Care Provider Jamie Contreras Unavailable [phone] Allergies Allergen (clinical drug ingredient) Drug/Non Drug [...] Medicare National Govt Sv[employer] [address] [facility] [place] [address] [phone] [id number] Isha Izquierdo Self - patient is the insured [facility] [address] [place] [address] [id number] Isha Izquierdo Self - patient is the insured Medical (General) History Medical History History ICD Code Arthritis Chicken pox Heart disease Lupus Measles Mumps Transfusions Surgical History Surgery Date(Month/Year) hernia Tooth extraction
--- NOTE | 2025-04-25 09:37 | MHC.AU.HA3 ---
Hearing Instrument Follow-Up- Binaural Date of Visit: 04/25/25 Right Ear: Azam, Model, Color, Serial Number: Henri Caldera 2 Pro miniRITE SN [id number] Flat Finisher Repair Warranty: 10/2018 Flat Finisher Loss and Damage Warranty: 10/2017 Battery Size: 312 Lamp Shades Supervisor/Slim Tube: Size 3 85 gain Earmold/Dome/CShell/SlimTip:8 mm power Type of Wax Guard: Prowax minifit Dispensed By: [facility] Date of Fitting: Per Oticon, purchased 09/12/2015 Left Ear: Azam, Model, Color, Serial Number: Henri Caldera 2 Pro SN [id number] Flat Finisher Repair Warranty: 10/2018 Flat Finisher Loss and Damage Warranty: 10/2017 Battery Size: 312 Lamp Shades Supervisor/Slim Tube: Size 3 85 gain Earmold/Dome/CShell/SlimTip: 8 mm power double hillman Type of Wax Guard: Prowax minifit Dispensed By: [facility] Date of Fitting: Per Oticon, purchased 09/12/2015 Follow-Up Summary: Both aids dropped off 04/24 c/o left aid . Found both aids with significant wax build up on domes, wax guards clogged. Cleaned aids. Replaced domes, wax guards, tails. Listening check positive. Recommendations: Recommendations: Hearing instrument follow-up or maintenance as needed. Diagnosis Code(s): Primary Diagnosis: H90.3 Bilateral Sensorineural Hearing Loss Signature: Provider: Mode Dorman, CCC-A
== END 2025-04-24 15:48 | disposition home or self-care (01) ==
LOC: HO.SH 15:47
PROVIDERS: Visit Provider Internal Medicine
DX: Z13.89 Encounter for screening for other disorder (principal)

== ENCOUNTER 2025-04-25 11:33 | Outpatient (REF) | payer SELFPAY | END 2025-04-25 11:34 | disposition home or self-care (01) | LOC: HO.HAP 11:33 | PROVIDERS: Visit Provider Internal Medicine | DX: Z46.1 Encounter for fitting and adjustment of hearing aid (principal); H90.3 Sensorineural hearing loss, bilateral | CPT/HCPCS: 92593 ==

== ENCOUNTER 2025-07-03 10:16 | Outpatient (AMB) | payer MEDICARE, OTHER, SELFPAY ==
--- NOTE | 2025-07-03 10:29 | AM.OFFVISMDC ---
Intake Vital Signs 07/03/25 10:30 Height 5 ft 4 in Weight 158 lb BMI 27.1 BP 118/62 Blood Pressure Location Lt brachial Position Sitting Pulse 57 Pulse Source Pulse Oximeter Temp 97.3 F Temp Source Temporal Artery Scan Pulse Oximetry (%) 98 Oxygen Delivery Method Room Air Intake Visit Reasons: AWV - see comments Intake Note: Patient is here for an Annual Wellness Visit. Digital Sales Director Required: No Spinning Mule Operator: Spinning Mule Operator offered & declined Accompanied by: Self / Same As Patient Allergies amoxicillin (AMOXICILLIN) Allergy (Unknown, Verified 07/03/25 11:17) UNKNOWN HPI AWV - see comments HPI Details 85-year-old female presents to the office for an annual wellness exam. [facility] Medical History Chronic lower back pain Chronic heart failure with preserved ejection fraction (HFpEF) Essential hypertension LBBB (left bundle branch block) Acute diverticulitis TIA (transient ischemic attack) HTN (hypertension) Surgical History History of appendectomy (06/16/23) History of cataract surgery H/O hernia repair Family History Father No problems noted. Mother No problems noted. Social History Household Members: None Housing: Apartment Do you presently have visiting nurse or other home services: No Alcohol intake: current Alcohol intake frequency: a few times a month Patient Tobacco Use Status: Never used Tobacco e-Cigarette/Vaping Use: Never Used Second Hand Smoke Exposure: No Advance Directives Date on File: 08/18/21 service: No Current occupational status: retired Current occupational exposures/hazards: No Cognitive needs: No Hearing needs: Yes Vision needs: No Questionnaire Medicare Wellness Checkup What is your age?: 80 or older What gender do you identify with?: female During the past 4 weeks, how much have you been bothered by emotional problems such as feeling anxious, depressed, irritable, sad or downhearted, and blue?: not at all During the past 4 weeks, has your physical & emotional health limited your social activities with family, friends, neighbors, or groups?: not at all During the past 4 weeks, how much bodily pain have you generally had?: mild pain During the past 4 weeks, was someone available to help you if you needed & wanted help?: no, not at all During the past 4 weeks, what was the hardest physical activity you could do for at least 2 minutes?: moderate Can you get to places out of walking distance without help? (For eg., can you travel alone on buses, taxis or drive your car?): Yes Can you go shopping for groceries or clothes without someone's help?: Yes Can you prepare your own meals?: Yes Can you do your housework without help?: Yes Because of any health problems, do you need the help of another person with your personal care needs such as eating, bathing, dressing or getting around the house?: No Can you handle your own money without help?: Yes During the past 4 weeks, how would you rate your health in general?: good During the past 4 weeks how have things been going for you?: pretty well Are you having difficulties driving your car?: no Do you always fasten your seat belt when you are in a car?: yes, usually During past 4 weeks, have you been bothered by the following: never: Falling or dizzy when standing up, Sexual problems?, Trouble eating well?, Teeth or denture problems?, Problems using the telephone? and Tiredness or fatigue? Have you fallen 2 or more times in the past year?: No Are you afraid of falling?: No Are you a smoker?: no During the past 4 weeks, how many drinks of wine, beer, or other alcoholic beverages did you have?: 1 drink or less per week Do you exercise for about 20 minutes 3 or more times a week?: yes, some of the time Have you been given information to help with the following?: no: Hazards in your house that might hurt you? and no: Keeping track of your medications? How often do you have trouble taking medicines the way you have been told to take them?: I always take medicine as prescribed How confident are you that you can control & manage most of your health problems?: very confident What is your race?: White Mini Mental State Exam (MMSE) Orientation What is the (year) (season) (date) (day) (month)?: year, season and date Where are we (state) (county) (town or city) (hospital) (floor)?: state, county and town or city Score Score: 6 Activity of Daily Living Bathing - sponge bath, tub bath or shower: receives no assistance (gets in/out by self, if usual bathing means Dressing - getting clothes from closets & drawers, including inner/outer garments & fasteners.: gets clothes & gets completely dressed without help Toileting - going to the 'toilet room' for urine/bowel elimination & cleaning self/arranging clothes: goes to toilet room, cleans self, arranges clothes without help Transfer: moves in & out of bed and chair without help (may use support object) Continence: controls urination/bowel movements completely by self Feeding: feeds self without help Total Score: 0 Information obtained from: patient Using telephone: independent Traveling: independent Shopping: independent Preparing meals: independent Housework: independent Taking medicine: independent Managing money: independent PHQ-9 Over the last 2 weeks, how often have you been bothered by any of the following problems? 1. Little interest or pleasure in doing things: not at all 2. Feeling down, depressed, or hopeless: not at all 3. Trouble falling or staying asleep, or sleeping too much: not at all 4. Feeling tired or having little energy: not at all 5. Poor appetite or overeating: not at all 6. Feeling bad about yourself - or that you are a failure or have let yourself or your family down: not at all 7. Trouble concentrating on things, such as reading the newspaper or watching television: not at all 8. Moving or speaking so slowly that other people could have noticed. Or the opposite - being so fidgety or restless that you have been moving around a lot more than usual: not at all 9. Thoughts that you would be better off or of hurting yourself in some way: not at all Total score: 0 Depression Screening Interpretation: Negative Depression Screening Done: Yes Source: Developed by Drs. Chad Gramajo, Amalia Brewer, Duane Small and colleagues, with an educational edward from [employer]. Thrive Questionnaire Date Thrive assessed: 11/15/24 VERONICA-7 AMB Questionnaire VERONICA-7 Date VERONICA - 7 assessed: 11/15/24 Source: Developed by Drs. Chad Gramajo, Amalia Brewer, Duane Small and colleagues, with an educational edward from [employer]. Physical Exam Vital Signs: Last Vital Signs Temp 97.3 F 07/03/25 10:30 Pulse 57 07/03/25 10:30 BP 118/62 07/03/25 10:30 Pulse Ox 98 07/03/25 10:30 Oxygen Delivery Method Room Air 07/03/25 10:30 BMI result Body Mass Index 27.1 Balance: Normal Romberg: Negative Tandem Walk: Not able to Walk and Turn: Able to Rise from sit to stand: Able to Hearing Whisper test:Pass Individulized screening provided to patient. [place] of care complete Assessment & Plan Assessment & Plan (1) Bilateral primary osteoarthritis of knee: Code(s): M17.0 - Bilateral primary osteoarthritis of knee Plan: Steroid injection suggested (2) Encounter for annual wellness exam in Medicare patient: Code(s): Z00.00 - Encounter for general adult medical examination without abnormal findings Plan: See note Medications: Refilled cholecalciferol (vitamin D3) (Vitamin D3) 25 mcg PO DAILY 90 caps 1RF E55.9 - Vitamin D deficiency, unspecified Quality Reporting (2019) Depression/Bipolar (159/160/161/177) PHQ-9: Total score: 0 Coding Level of Care Code Medicare Subsequent (G0439) Diagnoses Bilateral primary osteoarthritis of knee M17.0 Encounter for annual wellness exam in Medicare patient Z00.00
[2025-07-03 10:30] VITALS: BP 118/62; PULSE 57; TEMP 36.3; O2SAT 98; BMI 27.1
--- OUTSIDE RECORDS SUMMARY | 2025-07-03 11:05 | XMS_ITS | Clinical Summary ---
Author Organization [facility] Address [address] [place] [address] Phone Care Team Providers Care Section Gang Worker Name Role Phone Cassidy Corley MD Primary Care Provider [phone] Allergies Active Allergy Reactions Criticality Noted Date Comments Amoxicillin Rash Low 10/19/2012 Amoxicillin Trihydrate Rash Low 06/15/2006 Medications hydroxychloroqui ne (PLAQUENIL) 200 mg tablet TAKE 1 TABLET(200 MG) BY MOUTH TWICE DAILY 180 tablet 3 05/26/2018 Active aspirin-calcium carbonate 81 mg-300 mg calcium(777 mg) Tab Take 81 mg by mouth. Active furosemide (LASIX) 40 MG tablet Take 40 mg by mouth. 08/14/2018 Active losartan (COZAAR) 25 MG tablet Take 25 mg by mouth. 08/14/2018 Active metoprolol succinate (TOPROL-XL) 25 MG 24 hr tablet Take 25 mg by mouth. 01/24/2019 Active Social History Tobacco Use Types Packs/Day Years Used Date Smoking Tobacco: Never Smokeless Tobacco: Never Education Answer Date Recorded Are you interested in more education? Not on keagan e 03/04/2023 Are you concerned about learning? Not on file 03/04/2023 No 03/04/2023 No 03/04/2023 Digital Access Answer Date Recorded No 04/02/2023 No 04/02/2023 Reliable internet access at home? Not on file 04/02/2023 Device with a working camera? Not on file Comments Unknown Sex and Gender Information Value Date Recorded Sex Assigned at Not on file Legal Sex Female 10:38 PM EDT Gender Identity Not on file Sexual Orientation Not on file Last Filed Vital Signs Vital Sign Reading Time Taken Comments Blood Pressure 139/63 10/19/2012 9:55 AM EST Pulse - - Temperature - - Respiratory Rate - - Oxygen Saturation - - Inhaled Oxygen Concentration - - Weight 100.2 kg (221 lb) 10/19/2012 9:55 AM EST Height 165.7 cm (5' 5.25 ) 10/19/2012 9:55 AM ES T Body Mass Index 36.5 10/19/2012 9:55 AM EST Plan of Treatment Health Maintenance Due Date Last Done Comments CREATININE LEVEL 1939 POTASSIUM LEVEL 1939 DEPRESSION SCREENING 1951 ZOSTER VACCINES (1 of 2) 1989 OSTEOPOROSIS SCREENING INITI AL (ONE-TIME) 2004 RSV VACCINE (1 - 1-dose 75+ series) 2014 Adult Td,Tdap Booster 03/01/2022 03/01/2012 , 01/26/2008, 02/05/1998 COVID-19 VACCINE (3 2023-2 5 season) 2024 12/24/2020, 12/03/2020 PNEUMOCOCCAL VACCINES (50+ years) Completed 09/21/2020, 08/14/2018 HEPATITIS A VACCINES Aged Out No long er eligible based on patient's age to complete this topic HIB VACCINES Aged Out No longer eligi ble based on patient's age to complete this topic MENINGOCOCCAL VACCINES (ACWY) Aged Out No longer eligible based on patient's age to complete this topic MENINGOCOCCAL VACCINES (B) Aged Out N o longer eligible based on patient's age to complete this topic Medical Devices Not on file Insurance [employer] MEDEX SUPPLEMENT MEDICARE PART A & B [employer] MEDICARE SUPPLEMENT [facility] Address: [address] [address] [facility] MEDEX SUPPLEMENT MEDICARE PART A & B FOR LIFE MEDICARE SUPPLEMENT [facility] Address: [address] [place] [address] [facility] MEDEX SUPPLEMENT MEDICARE PART A & B FOR LIFE MEDICARE SUPPLEMENT [employer] MEDEX SUPPLEMENT MEDICARE PART A & B [facility] MEDICARE SUPPLEMENT [facility] Address: [address] [place] [address] [employer] MEDEX SUPPLEMENT MEDICARE PART A & B [facility] MEDICARE SUPPLEMENT [facility] Address: [facility] [address] [place] [address] [facility] MEDEX SUPPLEMENT MEDICARE PART A & B FOR LIFE MEDICARE SUPPLEMENT [facility] Address[facility] [address] [place] [address] [facility] MEDEX SUPPLEMENT MEDICARE PART A & B FOR LIFE MEDICARE SUPPLEMENT [facility] MEDEX SUPPLEMENT MEDICARE PART A & B FOR LIFE MEDICARE SUPPLEMENT [facility] Address: [address] [place] [address] [employer] MEDEX SUPPLEMENT MEDICARE PART A & B FOR LIFE MEDICARE SUPPLEMENT Care Teams Section Gang Worker Relationship Specialty Start Date End Date Cassidy Corley MD [address] [place] [address] PCP - General Internal Medicine 05/25/18 Additional Source Comments The information contained in this document represents components of the legal health record. It is not the complete legal health record.[facility]
--- OUTSIDE RECORDS SUMMARY | 2025-07-03 11:05 | XMS_ITS | Encounter Summary ---
Author Organization [facility] Address [address] [place] [address] Care Team Providers Care Computer System Validation Specialist Name Role Phone Cassidy Corley MD Primary Care Provider [phone] Colin Painter MD Unavailable Encounter Details Date Type Department Care Team Description 10/24/2018 Manufacturing Technician Report Medical Records [address] [place] [address] Randy Mcginnis MD Social History Tobacco Use Types Packs/Day Years Used Date Smoking Tobacco: Never Smokeless Tobacco: Never Alcohol Use Standard Drinks/Week Comments Yes 0 (1 standard drink = 0.6 oz pur e alcohol) 1 drink per mo @ most Sex Assigned at Date Recorded Not on file documented as of this encounter Plan of Treatment Not on file documented as of this encounter Visit Diagnoses Not on filedocumented in this encounter Care Teams Computer System Validation Specialist Relationship Specialty Start Date End Date Cassidy Corley MD [address] [place] [address] PCP - General 05/07/1991 Colin Painter MD [address] [place] [address] Specialist Cardiovascular Disease 11/26/20 documented as of this encounter
--- OUTSIDE RECORDS SUMMARY | 2025-07-03 11:05 | XMS_ITS | Encounter Summary ---
Author Organization [facility] Address [address] [place] [address] Care Team Providers Care 21 Dealer Name Role Phone Cassidy Corley MD Primary Care Provider [phone] Colin Painter MD Unavailable Encounter Details Date Type Department Care Team Description 06/14/2011 Autocad Operator Report Medical Records [address] [place] [address] Tari Frank Social History Tobacco Use Types Packs/Day Years Used Date Smoking Tobacco: Never Alcohol Use Standard Drinks/Week Comments Yes 0 (1 standard drink = 0.6 oz pur e alcohol) SOC Sex Assigned at Date Recorded Not on file documented as of this encounter Plan of Treatment Not on file documented as of this encounter Visit Diagnoses Not on filedocumented in this encounter Care Teams 21 Dealer Relationship Specialty Start Date End Date Cassidy Corley MD [address] [place] [address] PCP - General 05/07/1991 Colin Painter MD [address] [place] [address] Specialist Cardiovascular Disease 11/26/20 documented as of this encounter
--- OUTSIDE RECORDS SUMMARY | 2025-07-03 11:05 | XMS_ITS | Encounter Summary ---
Author Organization [facility] Address [address] [place] [address] Care Team Providers Care Director Regulatory Affairs Name Role Phone Cassidy Corley MD Primary Care Provider [phone] Colin Painter MD Unavailable Encounter Details Date Type Department Care Team Description 06/09/2015 Automotive Sales Representative Report Medical Records [address] [place] [address] Karen Pope Social History Tobacco Use Types Packs/Day Years [...] on filedocumented in this encounter Care Teams Director Regulatory Affairs Relationship Specialty Start Date End Date Cassidy Corley MD [address] [place] [address] [phone] PCP - General 05/07/1991 Colin Painter MD [address] [place] [address] [phone] Specialist Cardiovascular Disease 11/26/20 documented as of this encounter
--- OUTSIDE RECORDS SUMMARY | 2025-07-03 11:06 | XMS_ITS | Encounter Summary ---
Author Organization [facility] Address [address] [place] [address] Care Team Providers Care Global Clinical Leader Name Role Phone Cassidy Corley MD Primary Care Provider [phone] Colin Painter MD Unavailable Encounter Details Date Type Department Care Team Description 09/14/2012 Powder Operator Report Medical Records [address] [place] [address] Manuelito Manning MD Social History Tobacco Use Types Packs/Day [...] on filedocumented in this encounter Care Teams Global Clinical Leader Relationship Specialty Start Date End Date Cassidy Corley MD [address] [place] [address] PCP - General 05/07/1991 Colin Painter MD [address] [place] [address] Specialist Cardiovascular Disease 11/26/20 documented as of this encounter
--- OUTSIDE RECORDS SUMMARY | 2025-07-03 11:06 | XMS_ITS | Encounter Summary ---
Author Organization [facility] Address [address] [place] [address] Care Team Providers Care Velocity Shooter Name Role Phone Cassidy Corley MD Primary Care Provider [phone] Colin Painter MD Unavailable Encounter Details Date Type Department Care Team Description 06/20/2013 Release of Information Medical Records [address] [place] [address] Abstract, Provider Social History Tobacco Use Types Packs/Day Years [...] on filedocumented in this encounter Care Teams Velocity Shooter Relationship Specialty Start Date End Date Cassidy Corley MD [address] [place] [address] [phone] PCP - General 05/07/1991 Colin Painter MD [address] [place] [address] [phone] Specialist Cardiovascular Disease 11/26/20 documented as of this encounter
--- OUTSIDE RECORDS SUMMARY | 2025-07-03 11:06 | XMS_ITS | Encounter Summary ---
Author Organization [facility] Address [address] [place] [address] Care Team Providers Care Plasterer Foreman Name Role Phone Cassidy Corley MD Primary Care Provider [phone] Colin Painter MD Unavailable Encounter Details Date Type Department Care Team Description 12/05/2017 Bolt Man Report Medical Records [address] [place] [address] Carol Perez MD Social History Tobacco Use Types Packs/Day [...] on filedocumented in this encounter Care Teams Plasterer Foreman Relationship Specialty Start Date End Date Cassidy Corley MD [address] [place] [address] PCP - General 05/07/1991 Colin Painter MD [address] [place] [address] [phone] Specialist Cardiovascular Disease 11/26/20 documented as of this encounter
--- OUTSIDE RECORDS SUMMARY | 2025-07-03 11:06 | XMS_ITS | Encounter Summary ---
Author Organization [facility] Address [address] [place] [address] Care Team Providers Care Injection Molding Supervisor Name Role Phone Cassidy Corley MD Primary Care Provider [phone] Colin Painter MD Unavailable Encounter Details Date Type Department Care Team Description 01/09/2020 Marriage And Family Teacher Report Medical Records [address] [place] [address] Benjamin Thayer MD Social History Tobacco Use Types Packs/Day [...] on filedocumented in this encounter Care Teams Injection Molding Supervisor Relationship Specialty Start Date End Date Cassidy Corley MD [address] [place] [address] PCP - General 05/07/1991 Colin Painter MD [address] [place] [address] Specialist Cardiovascular Disease 11/26/20 documented as of this encounter
--- OUTSIDE RECORDS SUMMARY | 2025-07-03 11:06 | XMS_ITS | Encounter Summary ---
Author Organization [facility] Address [address] [place] [address] Care Team Providers Care Order Builder Name Role Phone Cassidy Corley MD Primary Care Provider [phone] Colin Painter MD Unavailable Encounter Details Date Type Department Care Team Description 09/18/2018 Hospital Medical Records [address] [place] [address] Randy Mcginnis MD Social History Tobacco Use [...] on filedocumented in this encounter Care Teams Order Builder Relationship Specialty Start Date End Date Cassidy Corley MD [address] [place] [address] [phone] PCP - General 05/07/1991 Colin Painter MD [address] [place] [address] [phone] Specialist Cardiovascular Disease 11/26/20 documented as of this encounter
--- OUTSIDE RECORDS SUMMARY | 2025-07-03 11:06 | XMS_ITS | Encounter Summary ---
Author Organization [facility] Address [address] [place] [address] Care Team Providers Care Volunteer Services Supervisor Name Role Phone Cassidy Corley MD Primary Care Provider [phone] Colin Painter MD Unavailable Encounter Details Date Type Department Care Team Description 09/11/2015 Plater Printed Circuit Board Panels Report Medical Records [address] [place] [address] Liz Miramontes [facility] [address] [phone] Social History Tobacco Use Types Packs/Day Years [...] on filedocumented in this encounter Care Teams Volunteer Services Supervisor Relationship Specialty Start Date End Date Cassidy Corley MD [address] [place] [address] [phone] PCP - General 05/07/1991 Colin Painter MD [address] [place] [address] [phone] Specialist Cardiovascular Disease 11/26/20 documented as of this encounter
--- OUTSIDE RECORDS SUMMARY | 2025-07-03 11:06 | XMS_ITS | Encounter Summary ---
Author Organization [facility] Address [address] [place] [address] Care Team Providers Care Metalworker Name Role Phone Cassidy Corley MD Primary Care Provider [phone] Colin Painter MD Unavailable Encounter Details Date Type Department Care Team Description 01/22/2020 Radiology Supervisor Report Medical Records [address] [place] [address] Celia Glass Social History Tobacco Use Types Packs/Day Years [...] on filedocumented in this encounter Care Teams Metalworker Relationship Specialty Start Date End Date Cassidy Corley MD [address] [place] [address] [phone] PCP - General 05/07/1991 Colin Painter MD [address] [place] [address] Specialist Cardiovascular Disease 11/26/20 documented as of this encounter
--- OUTSIDE RECORDS SUMMARY | 2025-07-03 11:06 | XMS_ITS | Encounter Summary ---
Author Organization [facility] Address [address] [place] [address] Care Team Providers Care Siding Mechanic Name Role Phone Cassidy Corley MD Primary Care Provider [phone] Colin Painter MD Unavailable Encounter Details Date Type Department Care Team Description 2019 Hospice Rn Report Medical Records [address], Primary [facility] Social History Tobacco Use Types Packs/Day Years [...] on filedocumented in this encounter Care Teams Siding Mechanic Relationship Specialty Start Date End Date Cassidy Corley MD [address] [place], [place] [phone] PCP - General 05/07/1991 Colin Painter MD [address] [place] [address] [phone] Specialist Cardiovascular Disease 11/26/20 documented as of this encounter
--- OUTSIDE RECORDS SUMMARY | 2025-07-03 11:06 | XMS_ITS | Encounter Summary ---
Author Organization [facility] Address [address] [place] [address] Care Team Providers Care Linux Consultant Name Role Phone Cassidy Corley MD Primary Care Provider [phone] Colin Painter MD Unavailable Encounter Details Date Type Department Care Team Description 07/23/2022 Clinical Trainer Report Medical Records [address] [place] [phone] Benjamin Thayer MD Social History Tobacco Use [...] on filedocumented in this encounter Care Teams Linux Consultant Relationship Specialty Start Date End Date Cassidy Corley MD [address] [place] [phone] PCP - General 05/07/1991 Colin Painter MD [address] [place] [phone] Specialist Cardiovascular Disease 11/26/20 documented as of this encounter
--- OUTSIDE RECORDS SUMMARY | 2025-07-03 11:06 | XMS_ITS | Encounter Summary ---
Author Organization [facility] Address [address] [place] [address] Care Team Providers Care Manager Wastewater Name Role Phone Cassidy Corley MD Primary Care Provider [phone] Colin Painter MD Unavailable Encounter Details Date Type Department Care Team Description 05/07/2010 Forester Silviculture Report Medical Records [address] [place] [address] Manuelito Manning MD Social History Tobacco Use [...] on filedocumented in this encounter Care Teams Manager Wastewater Relationship Specialty Start Date End Date Cassidy Corley MD [address] [place] [address] [phone] PCP - General 05/07/1991 Colin Painter MD [address] [place] [address] [phone] Specialist Cardiovascular Disease 11/26/20 documented as of this encounter
--- OUTSIDE RECORDS SUMMARY | 2025-07-03 11:06 | XMS_ITS | Encounter Summary ---
Author Organization [facility] Address [address] [place] [address] Care Team Providers Care Product Controller Name Role Phone Cassidy Corley MD Primary Care Provider [phone] Colin Painter MD Unavailable Reason for Visit * Reason Onset Date Comments TEST RESULTS 01/03/2017 Encounter Details Date Type Department Care Team Description 01/03/2017 Telephone Adult Medicine [address] [phone] Cassidy Corley MD [address] [place] [address] [phone] TEST RESULTS Social History Tobacco Use Types Packs/Day Years Used Date Smoking Tobacco: Never Smokeless Tobacco: Never Alcohol Use Standard Drinks/Week Comments Yes 0 (1 standard drink = 0.6 oz pur e alcohol) SOC Sex Assigned at Date Recorded Not on file documented as of this encounter Miscellaneous Notes * Telephone Encounter - Chichi Reyes M.A. - 01/04/2017 5:22 PM EST Wireless customer is not availabe will try later Notes Recorded by Olive Zhang PA-C on 01/04/2017 at 8:26 AM Please call this patient and let her know that all of her testing is normal including her heart testing * Telephone Encounter - Trinity No - 01/03/2017 4:33 PM EST Inform patient: ANY URGENT OR ABNORMAL RESULTS WIILL RESULT IN A CALL BACK TO THE PATIENT [facility]. Type of test: : bloodwork Date test was performed: 01/04/17 Where was the test performed: [facility] Who ordered this test?: Olive zhang Is the doctor here today?: YES Can the message wait until the doctor returns?: YES IF PATIENT'S PCP IS NOT IN INSTRUCT PATIENT THAT THEY WILL RECEIVE A CALL BACK WHEN THE PCP IS IN THE OFFICE NEXT. documented in this encounter Plan of Treatment Not on file documented as of this encounter Visit Diagnoses Not on filedocumented in this encounter Care Teams Product Controller Relationship Specialty Start Date End Date Cassidy Corley MD [address] [place] [address] [phone] PCP - General 05/07/1991 Colin Painter MD [address] [place] [address] [phone] Specialist Cardiovascular Disease 11/26/20 documented as of this encounter
--- OUTSIDE RECORDS SUMMARY | 2025-07-03 11:06 | XMS_ITS | Encounter Summary ---
Author Organization [facility] Address [address] [place] [address] Care Team Providers Care Mold Maker Apprentice Name Role Phone Cassidy Corley MD Primary Care Provider [phone] Colin Painter MD Unavailable Encounter Details Date Type Department Care Team Description 09/15/2018 Hospital Medical Records [address] [place] [address] Randy Mcginnis MD Social History Tobacco Use [...] on filedocumented in this encounter Care Teams Mold Maker Apprentice Relationship Specialty Start Date End Date Cassidy Corley MD [address] [place] [address] [phone] PCP - General 05/07/1991 Colin Painter MD [address] [place] [address] [phone] Specialist Cardiovascular Disease 11/26/20 documented as of this encounter
--- OUTSIDE RECORDS SUMMARY | 2025-07-03 11:06 | XMS_ITS | Encounter Summary ---
Author Organization [facility] Address [address] [place] [address] Care Team Providers Care Upper Shaper Name Role Phone Cassidy Corley MD Primary Care Provider [phone] Colin Painter MD Unavailable Encounter Details Date Type Department Care Team Description 09/14/2018 Hospital Medical Records [address] [place] [address] Mauro Garza MD Social History Tobacco Use Types Packs/Day [...] on filedocumented in this encounter Care Teams Upper Shaper Relationship Specialty Start Date End Date Cassidy Corley MD [address] [place] [address] [phone] PCP - General 05/07/1991 Colin Painter MD [address] [place] [address] [phone] Specialist Cardiovascular Disease 11/26/20 documented as of this encounter
--- OUTSIDE RECORDS SUMMARY | 2025-07-03 11:06 | XMS_ITS | Encounter Summary ---
Author Organization [facility] Address [address] [place] [address] Care Team Providers Care Foreign Banknote Teller Name Role Phone Cassidy Corley MD Primary Care Provider [phone] Colin Painter MD Unavailable Encounter Details Date Type Department Care Team Description 08/22/2015 Meter Supervisor Report Medical Records [address] [place] [phone] Benjamin Thayer MD Social History Tobacco Use [...] on filedocumented in this encounter Care Teams Foreign Banknote Teller Relationship Specialty Start Date End Date Cassidy Corley MD [address] [place] [address] [phone] PCP - General 05/07/1991 Colin Painter MD [address] [place] [phone] Specialist Cardiovascular Disease 11/26/20 documented as of this encounter
--- OUTSIDE RECORDS SUMMARY | 2025-07-03 11:06 | XMS_ITS | Encounter Summary ---
Author Organization [facility] Address [address] [place] [address] Care Team Providers Care Technology Intern Name Role Phone Cassidy Corley MD Primary Care Provider [phone] oClin Painter MD Unavailable Encounter Details Date Type Department Care Team Description 09/23/2009 Hospital Medical Records 4 [place] [address] Manuelito Manning MD Social History Tobacco Use [...] on filedocumented in this encounter Care Teams Technology Intern Relationship Specialty Start Date End Date Cassidy Corley MD [address] [place] [address] [phone] PCP - General 05/07/1991 Colin Painter MD [address] [place] [address] [phone] Specialist Cardiovascular Disease 11/26/20 documented as of this encounter
--- OUTSIDE RECORDS SUMMARY | 2025-07-03 11:06 | XMS_ITS | Clinical Summary ---
Author Organization [facility] Address [address] [place] [address] Care Team Providers Care Sock Lining Examiner Name Role Phone Cassidy Corley MD Primary Care Provider [phone] Colin Painter MD Unavailable Allergies Active Allergy Reactions Severity Noted Date Comments Amoxicillin Trihydrate Rash/Dermatitis 06/15/20 06 Medications Medication Sig Dispensed Refills Start Date End Date Status aspirin 81 MG tablet Take 81 mg by mouth daily. 0 Active hydroxychloroquine (PLAQUENIL) 200 MG tablet Take 200-400 mg by mouth daily. 0 Active ibuprofen (ADVIL,MOTRIN) 800 MG tablet Take 1 Tab by mouth every 8 hours as needed for Pain for up to 30 days. 30 Tab 0 09/29/2020 Active metoprolol (TOPROL-XL) 25 MG 24 hr tablet Take 1 Tab by mouth daily. 90 Tab 1 12/01/2020 Active losartan (COZAAR) 25 MG tablet Take 1 Tab by mouth daily. 90 Tab 1 12/01/2020 Active furosemide (LASIX) 40 MG tablet Take 1 Tab by mouth daily. 90 Tab 1 12/01/2020 Active Active Problems Patient Care Coordination No te Formatting of this note is d ifferent from the original. Checking Your Weight Please check your weight every day. Please make sure to check your weight at the same time every day. Your Weight Goal Your weight should not change more than 2-3 pounds in a day or 5 pounds in a week Use the Results Write your weight down on a log sheet or record book. Bring them to your appointments Your Results and your Goals Your Result / Date of Completion Your Goal / How Often to Assess BP Readings from Last 1 Encounters: 12/17/13 144/80 Less than 130/80--- once per year Component Value Date LDL 93 02/22/2011 LDL less than 100--- once per year Wt Readings from Last 1 Encounters: 12/17/13 216 lb (97.977 kg) Dry Weight: 227---- daily Heart Ultrasound (Echocardiogram) Every 2 years (discuss with your physician) Health Maintenance Due Topic Date Due Chf Care Plan 02/01/2013 Your Action Plan Symptoms Action No shortness of breath, weight gain, chest pain, worsening leg swelling or change in your usual symptoms Continue to weigh yourself daily, take your medicines, eat a low salt diet and go to your doctor appointments Any of These Findings or Symptoms Action Weight gain of 2-3 pounds in a day Weight gain of 5 pounds in a week Increased leg swelling or cough Increased number of pillows to sleep Shortness of breath with activity Call your doctor for instructions Any of These Findings or Symptoms Action Weight gain of more than 5 lbs in 1 week Dizziness or falling Waking at night due to shortness of breath Shortness of breath at rest Chest tightness or wheezing Call your doctor today to report your symptoms and request an appointment Your congestive heart failure is well controlled and no changes are required to your current plan. Check your weight daily. Write down results. Contact me if you experience any barriers to care such as inability to purchase your medication, difficulty getting to your appointments or difficulty understanding your care plan Please get your yearly flu shot Educational Resources [employer] (www.heart.org) This care plan was created in collaboration with Isha Izquierdo on 12/17/2013 Problem Noted Date History of cataract 09/17/2021 Migraine headache 09/17/2021 Abdominal hernia 09/25/2018 Overview: Ventral wall hernia with incarceration, gangrenous small bowel with resection, adhesion lysis 09/24 History of colon polyps 04/12/2018 Overview: Small tubular adenoma removed 2006, negative exam 2009, negative exam 2017, no colon cancer screening indicated until 2027. Hypertriglyceridemia 12/16/2017 Abnormal stress test 03/10/2017 Depression 05/22/2015 Tricuspid valve regurgitation 10/02/2014 Overview: Mild to mod MR, echo 09/2014 History of TIA (transient ischemic attac k) 09/20/2014 Overview: episode dysarthria 09/2014 Moderate Degenerative arthritis of left knee 07/23/2011 Thyroid nodule 12/26/2009 Diverticulitis 09/25/2009 Overview: Acute 07/06/2021. s/p resection, ileostomy 09/2009 - post op CHF and fluid overload. 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 Pos RICKIE, Anti ROCK MASON, RF, SS-A , SS- B. Neg Anti DNA. 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 Negative colonoscopy 07/07/2010, no colon cancer screening needed for 5 years. Immunizations Name Administration Dates Next Due Influenza (> 6 Months) 08/08/2019,2010,08/31/2010,2005 Influenza Flu (PT Reported) 07/29/2017,1 ,08/13/2014,2012 Influenza H1N1 Pandemic Flu Vaccine 12/26/2009 Influenza vaccine high dose age 65 and over 07/28/2020,08/09/2016 Pneumococcal Conjugate PCV-13 08/14/2018 TD (STATE SUPPLIED FOR ADULT S AND CHILDREN) 01/26/2008,02/05/1998 Tdap 03/01/2012 Family History Medical History Relation Name Comments leonora's thyroiditis Daughter Alcohol Abuse Father [place] Ovarian Mother [place], widespread facial skin cancer, melanoma, 88 Cancer of the Lung Sister 1 thalassemia Sister 2 Relation Name Status Comments Daughter Father Mother Sister 1 Sister 2 Social History Tobacco Use Types Packs/Day Years Used Date Smoking Tobacco: Never Smokeless Tobacco: Never Alcohol Use Standard Drinks/Week Comments Yes 0 (1 standard drink = 0.6 oz pur e alcohol) 1 drink per mo @ most Sex Assigned at Date Recorded Not on file Last Filed Vital Signs Vital Sign Reading Time Taken Comments Blood Pressure 122/66 09/29/2020 1:09 PM EST Pulse 72 09/29/2020 1:09 PM EST Temperature 36.7 C (98.1 F) 09/29/2020 1:09 PM EST Respiratory Rate 14 09/29/2020 1:09 PM EST Oxygen Saturation 98% 11/13/2018 3:04 PM EST Inhaled Oxygen Concentration - - Weight 89.4 kg (197 lb) 09/29/2020 1:09 PM EST Height 167.6 cm (5' 6 ) 09/29/2020 1:09 PM EST Body Mass Index 31.8 09/29/2020 1:09 PM EST Plan of Treatment Health Maintenance Due Date Last Done Comments Covid-19 Vaccine (#1) 1940 SHINGLES VACCINE (1 of 2) 1989 DEPRESSION SCREEN 03/28/2018 03/28/2017 FALL RISK ASSESSMENT 08/23/2020 08/23/2019, 04/12/20 18, 03/28/2017 MAMMOGRAM 08/23/2020 08/23/2019 (Refu sed), 02/28/2015, 02/26/2014, Additional history exists BONE DENSITY SCREENING 08/23/2021 9 (Refused), 06/14/2013 (Refused), 08/31/2010 (Refused), Additional history exists DTAP/TDAP/TD (2 - Td or Tdap) 03/01/2022 03/01/2012, 01/26/2008, 02/05/1998 COLON CANCER SCREENING 07/11/2023 8, 07/07/2010, 07/07/2010, Additional history exists BMI CHECK/ADVISE 11/07/2024 04/02/2021, 10/2020, 10/19/2019, Additional history exists INFLUENZA (#1) 2025 07/28/2020, 07/09, 08/08/2019, Additional history exists CHOLESTEROL SCREENING 08/18/2025 08/18/2020 , 04/13/2018, 09/21/2014, Additional history exists PNEUMOCOCCAL VACCINE Completed 09/21/2020, 08/14/20 18 Care Teams Sock Lining Examiner Relationship Specialty Start Date End Date Cassidy Corley MD [address] [place] [address] [phone] PCP - General 05/07/1991 Colin Painter MD [address] [place] [phone] Specialist Cardiovascular Disease 11/26/20
--- OUTSIDE RECORDS SUMMARY | 2025-07-03 11:06 | XMS_ITS | Encounter Summary ---
Author Organization [facility] Address [address] [place] [address] Care Team Providers Care Pinked Edge Sewing Machine Operator Name Role Phone Cassidy Corley MD Primary Care Provider [phone] Colin Painter MD Unavailable Encounter Details Date Type Department Care Team Description 03/28/2017 Wellness Visit Medical Records [address] [place] [phone] Cassidy Corley MD [address] [place] [address] [phone] Social History Tobacco Use Types Packs/Day Years [...] on filedocumented in this encounter Care Teams Pinked Edge Sewing Machine Operator Relationship Specialty Start Date End Date Cassidy Corley MD [address] [place] [address] [phone] PCP - General 05/07/1991 Colin Painter MD [address] [place] [address] [phone] Specialist Cardiovascular Disease 11/26/20 documented as of this encounter
--- OUTSIDE RECORDS SUMMARY | 2025-07-03 11:06 | XMS_ITS | Encounter Summary ---
Author Organization [facility] Address [address] [place] [address] Care Team Providers Care Branch Customer Service Representative Name Role Phone Cassidy Corley MD Primary Care Provider Colin Painter MD Unavailable Encounter Details Date Type Department Care Team Description 08/30/2014 Academic Hospitalist Report Medical Records [address] [place] [address] Tyler Stack MD Social History Tobacco Use Types Packs/Day [...] on filedocumented in this encounter Care Teams Branch Customer Service Representative Relationship Specialty Start Date End Date Cassidy Corley MD [address] [place] [phone] PCP - General 05/07/1991 Colin Painter MD [address] [place] [address] [phone] Specialist Cardiovascular Disease 11/26/20 documented as of this encounter
--- OUTSIDE RECORDS SUMMARY | 2025-07-03 11:06 | XMS_ITS | Encounter Summary ---
Author Organization [facility] Address [address] [place] [address] Care Team Providers Care Electrician Control Equipment Name Role Phone Cassidy Corley MD Primary Care Provider [phone] Colin Painter MD Unavailable Encounter Details Date Type Department Care Team Description 01/05/2017 Release of Information Medical Records [address] [place] [phone] Abstract, Provider Social History Tobacco Use Types [...] on filedocumented in this encounter Care Teams Electrician Control Equipment Relationship Specialty Start Date End Date Cassidy Corley MD [address] [place] [address] [phone] PCP - General 05/07/1991 Colin Painter MD [address] [place] [address] [phone] Specialist Cardiovascular Disease 11/26/20 documented as of this encounter
--- OUTSIDE RECORDS SUMMARY | 2025-07-03 11:06 | XMS_ITS | Encounter Summary ---
Author Organization [facility] Address [address] [place] [address] Care Team Providers Care Potato Spotter Name Role Phone Cassidy Corley MD Primary Care Provider [phone] Colin Painter MD Unavailable Encounter Details Date Type Department Care Team Description 10/01/2020 Food Crops Farm Hand Report Medical Records [address] [place] [phone] Benjamin Thayer MD Social History Tobacco Use Types Packs/Day Years Used Date Smoking Tobacco: Never Smokeless Tobacco: Never Alcohol Use Standard Drinks/Week Comments Yes 0 (1 standard drink = 0.6 oz pur e alcohol) 1 drink per mo @ most Sex Assigned at Date Recorded Not on file COVID-19 Exposure Response Date Recorded In the last month, have you been in contact with someone who was confirmed or suspected to have Coronavirus / COVID-19? No / Unsure 09/29/2020 12:50 PM EST documented as of this encounter Plan of Treatment Not on file documented as of this encounter Visit Diagnoses Not on filedocumented in this encounter Care Teams Potato Spotter Relationship Specialty Start Date End Date Cassidy Corley MD [address] [place] [phone] PCP - General 05/07/1991 Colin Painter MD [address] [place] [address] [phone] Specialist Cardiovascular Disease 11/26/20 documented as of this encounter
--- OUTSIDE RECORDS SUMMARY | 2025-07-03 11:06 | XMS_ITS | Encounter Summary ---
Author Organization [facility] Address [address] [place] [address] Care Team Providers Care Quality Control Associate Name Role Phone Cassidy Corley MD Primary Care Provider [phone] Colin Painter MD Unavailable Reason for Visit * Reason Onset Date Comments Provider Call Back 09/21/2021 Encounter Details Date Type Department Care Team Description 09/21/2021 Telephone [address]erm[address] [place] [address] [phone] Juan Carmichael PA-C Provider Call Back Social History Tobacco Use Types Packs/Day Years Used Date Smoking Tobacco: Never Smokeless Tobacco: Never Alcohol Use Standard Drinks/Week Comments Yes 0 (1 standard drink = 0.6 oz pur e alcohol) 1 drink per mo @ most Sex Assigned at Date Recorded Not on file documented as of this encounter Miscellaneous Notes * Telephone Encounter - Juan Carmichael PA-C - 09/23/2021 7:25 AM EST Thank you so much for the effort that you put into this ..... I do appreciate it ..... thanks * Telephone Encounter - Jeanna Oliver - 09/21/2021 4:14 PM EST I called patient to relay message from Mr. Carmichael. She told me she would leave it be then when I told her that she should first see her primary care physician, and thanked me for calling. I told herthat Mr. Carmichael said that he would be happy to come take a look while she was there if need be and she said thank you very much and how much she has appreciated his care through the years. I reiterated that she really should contact Dr. Corley's office and to let us know once she does, and she again thanked me. * Telephone Encounter - Juan Carmichael PA-C - 09/21/2021 3:45 PM EST Please encourage this patient to contact her primary care physician and to be evaluated in adult medicine and if needed I would be more than happy to go up to adult medicine while she is here to evaluate the rash. * Telephone Encounter - Jeanna Oliver - 09/21/2021 2:35 PM EST Caller requesting call back from provider: Is the caller the patient? YES If caller is not the patient, what is the callers name? N/A Callers relationship to patient? N/A If person calling is not the patient themselves, is there a verbal release in FYI or permanent comments for this person: N/A Reason for call back: Patient called stating that she is broken out. 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 Carmichael, or shingles. She doesn't know if she should have an office visit, prescription, etc. I told her I would send message over to Mr. Carmichael, but she mayalso want to contact PCP in the meanwhile as well. Please advise. Caller offered to speak with the nurse for assistance: YES Response: Patient offered to speak with nurse for assistance and patient agreed. Message forwarded to nurse. documented in this encounter Plan of Treatment Not on file documented as of this encounter Visit Diagnoses Not on filedocumented in this encounter Care Teams Quality Control Associate Relationship Specialty Start Date End Date Cassidy Corley MD [address] [place] [address] PCP - General 05/07/1991 Colin Painter MD [address] [place] [address] [phone] Specialist Cardiovascular Disease 11/26/20 documented as of this encounter
--- OUTSIDE RECORDS SUMMARY | 2025-07-03 11:06 | XMS_ITS | Encounter Summary ---
Author Organization [facility] Address [address] [place] [address] Care Team Providers Care Coat Check Attendant Name Role Phone Cassidy Corley MD Primary Care Provider [phone] Colin Painter MD Unavailable Reason for Visit * Reason Onset Date Comments Provider Call Back 11/29/2017 Encounter Details Date Type Department Care Team Description 11/29/2017 Telephone Dermatology - [address] [phone] Juan Carmichael PA-C Provider Call Back Social History Tobacco Use Types Packs/Day Years Used Date Smoking Tobacco: Never Smokeless Tobacco: Never Alcohol Use Standard Drinks/Week Comments Yes 0 (1 standard drink = 0.6 oz pur e alcohol) SOC Sex Assigned at Date Recorded Not on file documented as of this encounter Miscellaneous Notes * Telephone Encounter - Nila Lewis - 11/29/2017 12:00 PM EST Patient states she is broken out all over and was told in the past that Alexsander would get her in [place] for an appointment. She would like a call back at [phone]. documented in this encounter Plan of Treatment Not on file documented as of this encounter Visit Diagnoses Not on filedocumented in this encounter Care Teams Coat Check Attendant Relationship Specialty Start Date End Date Cassidy Corley MD [address] [place] [phone] PCP - General 05/07/1991 Colin Painter MD [address] [place] [address] [phone] Specialist Cardiovascular Disease 11/26/20 documented as of this encounter
== END 2025-07-03 12:15 | disposition home or self-care (01) ==
LOC: HO.HMCH 10:17
PROVIDERS: PCP Internal Medicine; Visit Provider Internal Medicine
DX: Z00.00 Encounter for general adult medical examination without abnormal findings (principal); M17.0 Bilateral primary osteoarthritis of knee

== ENCOUNTER 2025-07-10 21:20 | Emergency (ER) | payer MEDICARE, OTHER, SELFPAY ==
[2025-07-10 21:31] VITALS: BP 185/75; PULSE 59; RESP 20; TEMP 36.9; O2SAT 96; BMI 27.1
[2025-07-10 21:50] LABS: MANUAL DIFF FLAG NO
[2025-07-10 22:07] LABS: Alanine Aminotransferase 18 U/L (0-31); Albumin Level 4.1 g/dL (3.5-5.0); Alkaline Phosphatase 79 U/L (39-117); Anion Gap 9 (12-20); Aspartate Amino Transferase 30 U/L (5-31); Blood Urea Nitrogen 28 mg/dL (9-16); Calcium 9.4 mg/dL (8.4-10.2); Carbon Dioxide 24 mmol/L (22-29); Chloride 108 mmol/L (96-108); Creatinine Clr Calc Pharmacy 46.7; Estimated Glomerular Filt Rate > 60; Lipase 61 U/L (8-78); Potassium 4.4 mmol/L (3.3-5.1); Sodium 137 mmol/L (135-145); Total Protein 7.4 g/dL (6.5-8.0)
[2025-07-10 22:27] LABS: Hematocrit 33.8 % (37.0-47.0); Hemoglobin 11.4 g/dl (12.0-16.0); Imm Gran Abs Auto 0.01 X10*3/uL (0.00-0.03); Imm Gran Pct Auto 0.3 % (0.0-0.4); Lymphocytes Absolute Auto 1.1 X10*3/uL (1.2-4.9); Mean Corpuscular HGB Conc 33.7 g/dl (31.0-35.0); Mean Corpuscular Hemoglobin 30.2 pg (27.0-33.0); Mean Corpuscular Volume 89.4 fL (80.0-98.0); NRBC Abs Auto 0.000 X10*3/uL (0.0-0.012); NRBC Pct Auto 0.0 /100WBC (0.0-0.2); Platelet Count 151 X10*3/uL (160-400); Red Blood Count 3.78 X10*6/uL (4.20-5.50); White Blood Count 2.9 X10*3/uL (4.8-10.8)
--- NOTE | 2025-07-11 00:03 | ED_ITS ---
HPI - General Adult General Chief complaint: Abdominal Pain Stated complaint: strangulated hernin, popped out sent from pcp Time Seen by Provider: 07/10/25 23:27 Source: patient, family (Patient's son), RN notes reviewed and old records reviewed Mode of arrival: ambulatory Limitations: no limitations History of Present Illness ED Provider: Noemi HPI narrative: 85-year-old female with a past medical history significant for coronary artery disease, atrial fibrillation on Eliquis, hypertension, left bundle branch block, previous appendectomy presents for evaluation of a bulge in her abdomen. patient reports that she went to [facility] earlier today. When she got home she lifted her suitcase out of the car onto the ground herself. Usually she has help with this she reports immediately after doing this she felt a pop in her abdomen in the area of her belly button. She went to urgent care and was told that she needs to be evaluated for a strangulated hernia. The patient denies any pain, nausea, vomiting. She is not feel constipated and reports having had multiple recent bowel movements that she describes as fairly large. Denies any other symptoms at this time. She does admit that she feels a swollen lump or ball in her abdomen Related Data Home Medications ?Medication ?Instructions ?Recorded ?Confirmed multivitamin 1 tab PO DAILY 03/10/2103/09 Previous Rx's ?Medication ?Instructions ?Recorded metoprolol tartrate 25 mg tablet 25 mg PO BID #180 tab s 09/28/24 furosemide 40 mg tablet 40 mg PO DAILY #90 tabs 01/01 losartan 25 mg tablet 25 mg PO DAILY #90 tabs 11/07 03/31 fluticasone propionate 50 1 spray intranasal Q12H for 02/27/25 mcg/actuation nasal congestion #48 mL spray,suspension alendronate 70 mg tablet 70 mg PO QWEEK 90 days #13 t abs 03/06/25 folic acid 1 mg tablet 1 mg PO DAILY #90 tabs 03/06 hydroxychloroquine 200 mg tablet 200 mg PO DAILY #90 t abs 03/06/25 apixaban 5 mg tablet (Eliquis) 5 mg PO BID 90 days #18 0 tabs 04/06/25 methotrexate sodium 2.5 mg tablet 10 mg (4 x 2.5 mg) P O QWEEK 90 04/23/25 days #52 tabs cholecalciferol (vitamin D3) 25 25 mcg PO DAILY #90 ca ps 07/03/25 mcg (1,000 unit) capsule (Vitamin D3) Allergies Allergy/AdvReac Type Severity Reaction Status Date / Time amoxicillin (AMOXICILLIN) Allergy Unknown UNKNOWN Verified 07/10/25 21:34 Review of Systems 2 Constitutional: Constitutional: Denies body ache(s), Denies chills and Denies fever(s) Eyes: Eyes: Denies blurry vision ENT: Denies dizziness Cardiovascular: Cardiovascular: Denies chest pain and Denies dyspnea on exertion Respiratory: Respiratory: Denies cough and Denies dyspnea on exertion Gastrointestinal: Gastrointestinal: Denies abdominal pain, Denies constipation, Denies nausea and Denies vomiting Musculoskeletal: Musculoskeletal: Denies back pain Neurologic: Denies dizziness PMFSH Past Medical History Medical History Chronic lower back pain Chronic heart failure with preserved ejection fraction (HFpEF) Essential hypertension LBBB (left bundle branch block) Acute diverticulitis TIA (transient ischemic attack) HTN (hypertension) Surgical History History of appendectomy (06/16/23) History of cataract surgery H/O hernia repair Family History Family History Father No problems noted. Mother No problems noted. Social History Social History Household Members: None Housing: Apartment Do you presently have visiting nurse or other home services: No Alcohol intake: current Alcohol intake frequency: a few times a month Patient Tobacco Use Status: Never used Tobacco e-Cigarette/Vaping Use: Never Used Second Hand Smoke Exposure: No Advance Directives: Yes Advance Directives on File: Yes Advance Directives Date on File: 08/18/21 Do you have a plan to hurt others: No Plan service: No Current occupational status: retired Current occupational exposures/hazards: No Cognitive needs: No Hearing needs: Yes Vision needs: No Physical Exam ED Vital Signs: Vital Signs - 24 hr 07/10/25 21:31 07/11/25 00:20 07/11/25 00:26 Temperature 98.4 F 98.0 F 98.0 F Pulse Rate 59 61 61 Respiratory Rate 20 17 17 Blood Pressure 185/75 H 160/75 H 160/75 H Pulse Oximetry 96 97 97 Oxygen Delivery Method Room Air Room Air Room Air BMI result Body Mass Index 27.1 Const General: healthy appearing, comfortable, no acute distress, alert and awake Nutritional Appearance: well nourished Orientation/consciousness: patient oriented x3 HENMT Head: Yes normocephalic and Yes atraumatic Eyes Eyelids: Yes eyelids normal Conjunctivae: conjunctivae normal Sclerae: sclerae normal Corneas: corneas normal Pupils: Equal, round and reactive pupils present EOM: EOMs intact bilaterally Neck Neck: Yes full ROM Resp Effort & Inspection: normal respiratory effort, able to speak in complete sentences and not labored GI Other: the patient has a large periumbilical hernia palpable. This is soft, nontender to palpation. Inspection: No distended Palpation (GI): Soft to palpation, not firm, nontender, no guarding and not rigid Skin General skin exam: elasticity normal Neuro General: patient oriented x3 Cranial nerves: Yes Equal, round and reactive pupils present and Yes Bilaterally intact EOM present Cognition (Neuro): normal cognition Extrem Other: Moving all extremities well without any obvious deformities Medical Decision Making Medical Decision Making [facility] Narrative: Medically, the patient has a very large umbilical hernia with the patient in a Trendelenburg position I was able to reduce this. The patient has no pain, no overlying skin changes, no nausea or vomiting. She is still having good bowel movements. Given that this is reproducible, there was no concern for strangulated or incarcerated hernia. Less likely bowel obstruction as the patient is still having good bowel movements. Again she has no pain is well- appearing. Her labs are unremarkable and her vital signs are stable. She will be discharged to follow up with General surgery as an outpatient. I consider CT scan of the abdomen pelvis but ultimately given the patient's hernia being reducible and the fact that she is asymptomatic did not feel this was indicated Differential Diagnosis Differential Diagnoses: The differential diagnosis associated with the presentation includes umbilical hernia Incarcerated hernia Strangulated hernia Constipation Bowel obstruction Ileus Lab Data [facility] Lab Attestation statement: I reviewed the patient's lab results. the patient has a chronic pancytopenia. her hematology is quite similar to her baseline. No acute changes. There is no significant left shift. Chemistries again her also consistent with a baseline. She has an elevated BUN which is not abnormal for her, possibly due to poor oral intake. creatinine is within normal limits. Electrolytes are within normal limits. LFTs were obtained and are unremarkable. 07/10/25 21:43 07/10/25 21:43 Labs: Lab Results 07/10/25 Range/Units 21:43 WBC 2.9 L (4.8-10.8) X10*3/uL RBC 3.78 L (4.20-5.50) X10*6/uL Hgb 11.4 L (12.0-16.0) g/dl Hct 33.8 L (37.0-47.0) % MCV 89.4 (80.0-98.0) fL MCH 30.2 (27.0-33.0) pg MCHC 33.7 (31.0-35.0) g/dl RDW 15.6 (11.0-16.0) % Plt Count 151 L (160-400) X10*3/uL MPV 9.9 (9.4-12.3) fL Immature Gran % (Auto) 0.3 (0.0-0.4) % Neut % (Auto) 39.6 L (45-73) % Lymph % (Auto) 36.6 (20-40) % [place] % (Auto) 20.0 H (2-11) % Eos % (Auto) 2.8 (0-4) % Baso % (Auto) 0.7 (0-2) % Lymph # (Auto) 1.1 L (1.2-4.9) X10*3/uL [place] # (Auto) 0.6 (0.1-1.2) X10*3/uL Eos # (Auto) 0.1 (0.0-0.4) X10*3/uL Baso # (Auto) 0.0 (0.0-0.2) X10*3/uL Abs Immat Gran (auto) 0.01 (0.00-0.03) X10*3/uL Absolute Neuts (auto) 1.2 L (2.0-8.3) x10*3/uL Absolute Nucleated RBC 0.000 (0.0-0.012) X10*3/uL Nucleated RBC % (auto) 0.0 (0.0-0.2) /100WBC Sodium 137 (135-145) mmol/L Potassium 4.4 (3.3-5.1) mmol/L Chloride 108 (96-108) mmol/L Carbon Dioxide 24 (22-29) mmol/L Anion Gap 9 L (12-20) BUN 28 H (9-16) mg/dL Creatinine 0.84 (0.5-1.4) mg/dL Estim Creat Clear Calc 46.7 Estimated GFR > 60 Random Glucose 89 (60-115) mg/dL Calcium 9.4 D (8.4-10.2) mg/dL Total Bilirubin 0.5 (0.0-1.0) mg/dL AST 30 (5-31) U/L ALT 18 (0-31) U/L Alkaline Phosphatase 79 (39-117) U/L Total Protein 7.4 (6.5-8.0) g/dL Albumin 4.1 (3.5-5.0) g/dL Lipase 61 (8-78) U/L Tests considered The following testing was considered but not selected: Considered CT scan of the abdomen pelvis as well as a urinalysis but these were ultimately deferred Discharge Plan Discharge Clinical Impression: Hernia, umbilical Patient Disposition: Home, Self-Care Instructions: Umbilical Hernia (ED) Additional Instructions: the bulging her abdomen is consistent with an umbilical hernia. This will likely continue to bulge out. I want you to return to the emergency room if you start to have severe pain, vomiting, are unable to have a bowel movement after 5 days, or if the skin overlying the hernia starts to change color. in the meantime, you may use MiraLax, you may wear an abdominal binder or girdle. you may follow up with General surgery as an outpatient to see if they have any recommendations for surgical fixation from your primary doctor, return for new or worsening symptoms Prescriptions: No Action metoprolol tartrate 25 mg tablet 25 mg PO BID Qty: 180 3RF Protocol: Hold for SBP/HR < HOLD for SBP < : 90 HOLD for HR < : 60 furosemide 40 mg tablet 40 mg PO DAILY Qty: 90 1RF losartan 25 mg tablet 25 mg PO DAILY Qty: 90 1RF fluticasone propionate 50 mcg/actuation spray,suspension 1 spray intranasal Q12H Qty: 48 1RF Eliquis 5 mg tablet 5 mg PO BID 90 Days Qty: 180 1RF methotrexate sodium 2.5 mg tablet 10 mg PO QWEEK 90 Days Qty: 52 1RF multivitamin Tablet 1 tab PO DAILY folic acid 1 mg tablet 1 mg PO DAILY Qty: 90 1RF hydroxychloroquine 200 mg tablet 200 mg PO DAILY Qty: 90 1RF alendronate 70 mg tablet 70 mg PO QWEEK 90 Days Qty: 13 1RF cholecalciferol (vitamin D3) [Vitamin D3] 25 mcg (1,000 unit) capsule 25 mcg PO DAILY Qty: 90 1RF Referrals: [facility] General Surgeons [Provider Group, General Surgery] Referral Note: umbilical hernia Interventions: ED Discharge Assessment Last Done: 07/11/25 00:20 Discharge Date/Time: 07/11/25 00:27 Print Language: Sudanese
--- OUTSIDE RECORDS SUMMARY | 2025-07-11 00:13 | XMS_ITS | Patient Health Record ---
Author Organization [facility] Address [address] [place] [address] Care Team Providers Care [employer] Policy Professor Name Role Phone Cassidy Corley Primary Care Provider Jamie Contreras Unavailable [phone] Allergies Allergen (clinical drug ingredient) Drug/Non Drug [...] 40 MG 1 tablet Orally Once a day; Duration: 30 day(s) Active Social History Tobacco Use: [...] Medicare National [employer] [address] [place] [address] [id number] Isha Izquierdo Self - patient is the insured [facility] [address] [place] [address] [id number] Isha Izquierdo Self - patient is the insured Medical (General) History Medical History History ICD Code Arthritis Chicken pox Heart disease Lupus Measles Mumps Transfusions Surgical History Surgery Date(Month/Year) hernia Tooth extraction
--- OUTSIDE RECORDS SUMMARY | 2025-07-11 00:13 | XMS_ITS | Clinical Summary ---
Author Organization [facility] Address [address] [place] [id number] Phone Care Team Providers Care Ore Bridge Operator Name Role Phone Cassidy Corley MD Primary Care Provider [phone] Allergies Active Allergy Reactions Criticality Noted Date [...] VACCINES (1 of 2) 1989 OSTEOPOROSIS SCREENING INITIAL (ONE-TIME) 2004 RSV VACCINE (1 - 1-dose 75+ series) 2014 Adult Td,Tdap Booster 03/01/2022 03/01/2012 , 01/26/2008, 02/05/1998 INFLUENZA VACCINE (#1) 2025 , 08/10/2019, 08/08/2019, Additional history exists COVID-19 VACCINE ( season) 2025 12/24/2020, 12/03/2020 PNEUMOCOCCAL VACCINES (50+ years) Completed [...] topic Medical Devices Not on file Insurance [facility] MEDEX SUPPLEMENT MEDICARE PART A & B [facility] MEDICARE SUPPLEMENT C. [facility] Address: [id number] [place] [address] [facility] MEDEX SUPPLEMENT MEDICARE PART A & B FOR LIFE MEDICARE SUPPLEMENT C. [facility] Address: [facility] [address] [place] [address] [facility] MEDEX SUPPLEMENT MEDICARE PART A & B FOR LIFE MEDICARE SUPPLEMENT [facility] MEDEX SUPPLEMENT MEDICARE PART A & B Member Subscriber Plan / Payer (Ef fective 2004-Present) Name:TheresaBarbIlda Member ID:[id number] Relation to Subscriber:Self Name:Ilda Cardenas Subscriber ID:[id number] Payer ID:[id number] Group ID:Not on file Type:Medicare Address: [facility] [employer] [facility] [address] [place] [address] [facility] MEDICARE SUPPLEMENT [employer] MEDEX SUPPLEMENT MEDICARE PART A & B [employer] MEDICARE SUPPLEMENT C. [facility] Address: [facility] [address] [place] [address] [employer] MEDEX SUPPLEMENT MEDICARE PART A & B [employer] [facility] MEDICARE SUPPLEMENT C. [facility] Address: [address] [place] [address] [facility] MEDEX SUPPLEMENT MEDICARE PART A & B FOR LIFE MEDICARE SUPPLEMENT C. [facility] Address: [facility] [address] [place] [address] [facility] MEDEX SUPPLEMENT MEDICARE PART A & B FOR LIFE MEDICARE SUPPLEMENT [employer] MEDEX SUPPLEMENT MEDICARE PART A & B [facility] MEDICARE SUPPLEMENT C. [facility] Address: [address] [place] [address] Care Teams Ore Bridge Operator Relationship Specialty Start Date End Date Cassidy Corley MD [address] [place] [address] PCP - General Internal Medicine 05/25/18 Additional Source Comments The information contained in this document represents components of the legal health record. It is not the complete legal health record.[facility]
--- NOTE | 2025-07-11 00:19 | PC.NURSE ---
Met with patient stating the provider is ready to discharge. Patient stating she is not in pain but has to wear her girddle [place]. Patient is awaiting discharge paperwork. Told her i would check in with the doctor.
[2025-07-11 00:20] VITALS: BP 160/75; PULSE 61; RESP 17; TEMP 36.7; O2SAT 97
[2025-07-11 00:26] VITALS: BP 160/75; PULSE 61; RESP 17; TEMP 36.7; O2SAT 97
== END 2025-07-11 00:27 | disposition home or self-care (01) ==
PROVIDERS: Emergency Provider Emergency Medicine Emergency Medical Services; PCP Internal Medicine
DX: K42.9 Umbilical hernia without obstruction or gangrene (principal); I48.91 Unspecified atrial fibrillation; M23.92 Unspecified internal derangement of left knee; I10 Essential (primary) hypertension; I25.10 Atherosclerotic heart disease of native coronary artery without angina pectoris; Z79.01 Long term (current) use of anticoagulants; Z79.899 Other long term (current) drug therapy
CPT/HCPCS: 20610; 36415; 80053; 83690; 85025; 99212; 99283; J2003; J3301

== ENCOUNTER 2025-07-11 15:26 | Outpatient (AMB) | payer MEDICARE, OTHER, SELFPAY ==
--- NOTE | 2025-07-11 15:30 | A.OFFVIS_ITS ---
Vital Signs 07/11/25 15:36 Height 5 ft 4 in Weight 158 lb 4.67 oz BMI 27.2 BP 122/68 Blood Pressure Location Lt brachial Pulse 59 Pulse Source Pulse Oximeter Pulse Oximetry (%) 96 Oxygen Delivery Method Room Air Intake Visit Reasons: knee injection Intake Note: Patient presents for knee Injection follow up. Allergies amoxicillin (AMOXICILLIN) Allergy (Unknown, Verified 07/11/25 15:35) UNKNOWN Medication List - Last Reconciled 07/11/25 by Ally Zacarias MD alendronate 70 mg PO QWEEK 90 days apixaban (Eliquis) 5 mg PO BID 90 days cholecalciferol (vitamin D3) (Vitamin D3) 25 mcg PO DAILY fluticasone propionate 50 mcg/actuation 1 spray intranasal Q12H folic acid 1 mg PO DAILY furosemide 40 mg PO DAILY hydroxychloroquine 200 mg PO DAILY losartan 25 mg PO DAILY methotrexate sodium 10 mg (4 x 2.5 mg) PO QWEEK 90 days metoprolol tartrate 25 mg See Protocol PO BID multivitamin 1 tab PO DAILY HPI Comments Details: Patient is an 85-year-old female with hypertension complicated by NSTEMI, AFib on Eliquis, osteoporosis with history of pathological fracture, 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 She had been on hydroxychloroquine for the last 5 years and intermittently gets prednisone. She stated that she started having a flare of discoid lupus over the last 6-9 months. She was started on prednisone g daily. Prednisone dose was recently increased to 10 mg daily. Of note patient was admitted to the hospital about 2 weeks ago for a perforated appendicitis, she had open appendectomy. Patient has healed well. The stitches are out. Currently she is complaining of diffuse skin rashes on her back, chest, arms. The rashes are not itchy or painful. Patient avoids the sun. DEXA 02/2024 Left femur neck T-score-2.6 Left femur total-2.2 L-spine T-score -2.4 T6 fracture 01/2024 Alendronate started 04/2024 Current Rheumatology Medication(s): Alendronate 70 mg weekly Methotrexate 10 mg weekly Folic acid 1 mg daily Hydroxychloroquine 200 mg daily [facility] Medical History Chronic lower back pain Chronic heart failure with preserved ejection fraction (HFpEF) Essential hypertension LBBB (left bundle branch block) Acute diverticulitis TIA (transient ischemic attack) HTN (hypertension) Surgical History History of appendectomy (06/16/23) History of cataract surgery H/O hernia repair Family History Father No problems noted. Mother No problems noted. Social History Household Members: None Housing: Apartment Do you presently have visiting nurse or other home services: No Alcohol intake: current Alcohol intake frequency: a few times a month Patient Tobacco Use Status: Never used Tobacco e-Cigarette/Vaping Use: Never Used Second Hand Smoke Exposure: No Advance Directives Date on File: 08/18/21 service: No Current occupational status: retired Current occupational exposures/hazards: No Cognitive needs: No Hearing needs: Yes Vision needs: No Review of Systems Const Details: Review of Systems Constitutional: Denies fever, chills, weight loss ENT: Denies vision changes, eye pain or eye redness, dental caries, dry mouth GI: Denies nausea, vomiting, diarrhea, abdominal pain, change in BM Pulm: Denies SOB, VEGA, hemoptysis, wheezing Cards: Denies chest pain, palpitations Skin: Denies Raynaud's, rash, nail changes, photosensitivity, TREE GIRDLER: Denies headaches, weakness, paresthesias, recurrent falls MSK: as per HPI All other systems reviewed and are unremarkable except noted above Physical Exam Exam Exam: Vital signs reviewed Physical Examination CONSTITUITIONAL Patient alert and cooperative. Well appearing and in no apparent painful distress MSK Hands * Right Hand: Able to make a fist. No swelling or tenderness to palpation of the MCPs, PIPs or DIPs. * Left Hand: Able to make a fist. No swelling or tenderness to palpation of the MCPs, PIPs or DIPs. * Herbedens nodes noted bilaterally Wrists * Right Wrist: Full ROM to flexion and extension. No swelling or TTP * Left Wrist: Full ROM to flexion and extension. No swelling or TTP Elbows * Right Elbow: Full ROM. No swelling or TTP. No TTP of the medial epicondyle. No TTP of the lateral epicondyle * Left Elbow: Full ROM. No swelling or TTP. No TTP of the medial epicondyle. No TTP of the lateral epicondyle Shoulders * Right shoulder: Decreased ROM. No swelling noted. No TTP of the AC joint. No TTP of the subacromial bursa. No TTP of the posterior shoulder * Left shoulder: Decreased ROM. No swelling noted. No TTP of the AC joint. No TTP of the subacromial bursa. No TTP of the posterior shoulder Hip bursa: No tenderness to palpation bilaterally Knees * Right knee: Decreased ROM. No swelling noted. No TTP of the knee joint line. No TTP of pes anserine bursa * Left knee: Decreased ROM. Swelling noted. TTP of the knee joint line. No TTP of pes anserine bursa. * Crepitations felt bilaterally Ankles * Right ankle: Good ankle dorsiflexion and plantar flexion. No swelling. No TTP of the ankle joint * Left ankle: Good ankle dorsiflexion and plantar flexion. No swelling. No TTP of the ankle joint Feet * Right foot: Negative squeeze test * Left foot: Negative squeeze test Tender points? * No tenderness to palpation of the bilateral trapezius, supraspinatus, anterior costochondral junctions, bilateral suboccipital muscle insertions SKIN Skin discoloration to the lower legs Vital Signs: Last Vital Signs Pulse 59 07/11/25 15:36 BP 122/68 07/11/25 15:36 Pulse Ox 96 07/11/25 15:36 Oxygen Delivery Method Room Air 07/11/25 15:36 BMI result Body Mass Index 27.2 Office Procedures AMB Joint Injection/Aspiration Coding 15367 - Large joint Procedure code (CPT) selection complete Office Meds lidocaine (PF) 10 mg/mL (1 %) injection solution Performing Provider: Ally Zacarias MD Performing Location: [facility] Administered by: January Eden RN on 07/11/25 16:01 Dose Route Admin Location Dispensed Lot Number Expiration Date [facility] Tape Edge Machine Operator 1 mL Infiltration 2 mL [id number] 02/04/27 78787-099-95 [facility] Total Dispensed Waste 2 mL 50 % Kenalog 40 mg/mL suspension for injection Performing Provider: Ally Zacarias MD Performing Location: [facility] Administered by: January Eden RN on 07/11/25 16:01 Dose Route Admin Location Dispensed Lot Number Expiration Date [facility] T[employer] 40 mg intra-articular 1 mL [id number] 07/07/27 6524-4052-32 [facility] Total Dispensed Waste 1 mL 0 % Results Reviewed Results Reviewed: Laboratory Tests 10/01/24 01/10/25 07/10/25 10:43 16:28 21:43 WBC 2.9 L RBC 3.78 L Hgb 11.4 L Hct 33.8 L Plt Count 174 151 L ESR 14 Sodium 137 Potassium 4.4 Chloride 108 Carbon Dioxide 24 BUN 28 H Creatinine 0.84 AST 30 ALT 18 C-Reactive Protein < 0.10 25-OH Vitamin D Total 40 Assessment & Plan Assessment & Plan (1) Cutaneous lupus erythematosus: Comment: +++SSa +++SSb SCLE. dx around 2017 HCQ throughout PDN throughout flare 2022 MTX 08/2023 very effective Code(s): L93.2 - Other local lupus erythematosus Category: Medical Plan: #Cutaneous lupus Patient is an 85-year-old female with cutaneous lupus here today for follow up. Currently in remission on methotrexate and Plaquenil. Plan - Methotrexate 10mg weekly - Folic acid 1mg - Plaquenil 200mg daily - RTC 6 months - Labs before visit: CBC, CMP, ESR, CRP, C3, C4, dsDNA, UA, UPC (2) Osteoporosis with pathological fracture of cervical vertebra: Comment: DEXA 02/2024: Left femur neck -2.6, Left femur total -2.2, L-spine T-score -2.4 T6 fracture 01/2024 Alendronate started 04/2024 Code(s): M80.08XA - Age-related osteoporosis with current pathological fracture, vertebra(e), initial encounter for fracture Category: Medical Plan: #Osteoporosis Patient with osteoporosis. No falls or fractures since the last visit. Continue alendronate. Repeat bone density in 2025 Plan - DEXA 2025 - Labs in 6 months with vitamin D (3) Bilateral primary osteoarthritis of knee: Comment: Left knee IACS 09/2024 Code(s): M17.0 - Bilateral primary osteoarthritis of knee Category: Medical Plan: #Bilateral Knee OA S/p left knee steroid injection today (4) Long-term use of hydroxychloroquine: Code(s): Z79.899 - Other [facility] (current) drug therapy Category: Medical Plan: #Long-term Use of Hydroxychloroquine Discussed with patient the risks and benefits of hydroxychloroquine in managing the rheumatic condition Benefits include: - Reduced pain, reduce mortality, maintenance of remission and reduction of flares Risks include: - GI upset, skin hyperpigmentation, retinal toxicity (especially after more than 5 years of use), myopathy Advised yearly ophthalmology visits (5) [facility] methotrexate user: Code(s): Z79.631 - [facility] (current) use of antimetabolite agent Category: Medical Plan: #Long-term Current Use of Methotrexate Discussed with patient the benefits and risks of methotrexate for managing their rheumatic condition Benefits include reduced pain, reduced mortality, maintenance of remission and reduction of flares Risks include oral ulcers, photosensitivity, hepatotoxicity, hematologic toxicity, pneumonitis, flu-like symptoms (especially day after administration), nodulosis, lymphomas ? Limit alcohol and avoid Bactrim ? Monitoring: ?CBC, BMP, LFTs every 3-4 months and hepatitis serologies as needed (6) Encounter for monitoring bisphosphonate therapy: Code(s): Z51.81 - Encounter for therapeutic drug level monitoring; Z79.83 - [facility] (current) use of bisphosphonates Plan: #Long-term Use of Bisphosphonates Risks and benefits of bisphosphonates in the management of osteoporosis Benefits include improved bone density, decreased fracture risk Risks include atypical femoral fractures, GI upset, esophageal strictures Contraindicated in patients with a creatinine clearance < 30 to 35 ml/min Keep vitamin-D at least 35 ng/mL Plan I spent 32 minutes reviewing the record and labs, taking a history, examining the patient, discussing the treatment plan, ordering diagnostic work up and documenting in the medical record Orders: Orders AMB Joint Injection/Aspiration Today M17.0 - Bilateral primary osteoarthritis of knee Medications: Refilled methotrexate sodium 10 mg (4 x 2.5 mg) PO QWEEK 52 tabs 1RF 90 days L93.2 - Other local lupus erythematosus alendronate 70 mg PO QWEEK 13 tabs 1RF 90 days M80.08XA - Age-related osteoporosis with current pathological fracture, vertebra(e), initial encounter for fracture folic acid 1 mg PO DAILY 90 tabs 1RF hydroxychloroquine 200 mg PO DAILY 90 tabs 1RF L93.2 - Other local lupus erythematosus Coding Level of Care Code Est Pt Level 4 (38930) Complex EM visit Add On G2211 Diagnoses Cutaneous lupus erythematosus L93.2 Osteoporosis with pathological fracture of cervical vertebra M80.08XA Bilateral primary osteoarthritis of knee M17.0 Long-term use of hydroxychloroquine Z79.899 [facility] methotrexate user Z79.631 Encounter for monitoring bisphosphonate therapy Z51.81; Z79.83 CPT Codes Coding - 18127 Large joint: 95424 - Large joint ([id number])
[2025-07-11 15:36] VITALS: BP 122/68; PULSE 59; O2SAT 96; BMI 27.2
--- OUTSIDE RECORDS SUMMARY | 2025-07-11 16:25 | XMS_ITS | Encounter Summary ---
Author Organization [facility] Address [address] [place] [address] Care Team Providers Care Drawbridge Tender Name Role Phone Cassidy Corley MD Primary Care Provider [phone] Colin Painter MD Unavailable Reason for Visit * Reason Onset Date Comments E-prescribe Rx Request 02/19/2011 Encounter Details Date Type Department Care Team Description 02/19/2011 Refill Adult Medicine [address] [address] Deny Babin MD E-prescribe Rx Request Social History Tobacco Use Types Packs/Day Years Used Date Smoking Tobacco: Never Alcohol Use Standard Drinks/Week Comments Yes 0 (1 standard drink = 0.6 oz pur e alcohol) SOC Sex Assigned at Date Recorded Not on file documented as of this encounter Miscellaneous Notes * Telephone Encounter - Maribel Jon - 02/19/2011 9:47 AM EDT Pt has an appt w/ you 11:30 today * Telephone Encounter - Bev Peralta - 02/19/2011 9:41 AM EDT WHEN WAS THE PATIENT'S LAST APPOINTMENT IN ADULT MEDICINE? 08/31/10 WHEN WAS THE LAST TIME THE PATIENT SAW THEIR PCP? Same as above Does patient have an upcoming appointment? Yes 4/15/11 (THE MEDICATION REQUESTED IS ON THE MED LIST ABOVE) Did you check the Pharmacy information above?: YES Is this a mail order prescription request? NO Indicate how soon the patient needs the script: BY END OF DAY Patient would like script to be: FAXED TO PHARMACY Is the doctor here today?: YES Can the message wait until the doctor returns?: NO Patients current insurance carrier is: [facility] Plan: [facility] MDCR- ADV HMO $15/$30 [facility] Product Type: MEDICARE [id number] documented in this encounter Plan of Treatment Not on file documented as of this encounter Visit Diagnoses Not on filedocumented in this encounter Care Teams Drawbridge Tender Relationship Specialty Start Date End Date Cassidy Corley MD [address] [place] [address] PCP - General 05/07/1991 Colin Painter MD [address] [place] [address] Specialist Cardiovascular Disease 11/26/20 documented as of this encounter
--- OUTSIDE RECORDS SUMMARY | 2025-07-11 16:25 | XMS_ITS | Encounter Summary ---
Author Organization [facility] Address [address] [place] [address] Care Team Providers Care Child Care Associate Teacher Name Role Phone Cassidy Corley MD Primary Care Provider [phone] Colin Painter MD Unavailable Encounter Details Date Type Department Care Team Description 06/14/2011 Author Agent Report Medical Records [address] [place] [address] Amira Lynne Social History Tobacco Use Types Packs/Day Years Used Date Smoking Tobacco: Never Alcohol Use Standard Drinks/Week Comments Yes 0 (1 standard drink = 0.6 oz pur e alcohol) SOC Sex Assigned at Date Recorded Not on file documented as of this encounter Plan of Treatment Not on file documented as of this encounter Visit Diagnoses Not on filedocumented in this encounter Care Teams Child Care Associate Teacher Relationship Specialty Start Date End Date Cassidy Corley MD [address] [place] [address] PCP - General 05/07/1991 Colin Painter MD [address] [place] [address] Specialist Cardiovascular Disease 11/26/20 documented as of this encounter
--- OUTSIDE RECORDS SUMMARY | 2025-07-11 16:25 | XMS_ITS | Clinical Summary ---
Author Organization [facility] Address [address] [facility] [address] [place] [address] Phone Care Team Providers Care Museum Attendant Name Role Phone Cassidy Corley MD Primary Care Provider [phone] Allergies Active Allergy Reactions Criticality Noted Date [...] topic Medical Devices Not on file Insurance [place] [employer] SU[employer] MEDICARE PART A & B [facility] MEDICARE SUPPLEMENT [facility] Address: [id number] [place] [address] [place] [employer] SUPP[place] MEDICARE PART A & B FOR LIFE MEDICARE SUPPLEMENT [facility] Address: [facility] [address] [place] [address] [place] [employer] SUPP[employer]MENT MEDICARE PART A & B [employer] MEDICARE SUPPLEMENT [place] [employer] MEDICARE PART A & B Member Subscriber Plan / Payer (Ef fective 2004-Present) Name:TheresaBarbIlda Member ID:[id number] Relation to Subscriber:Self Name:Ilda Cardenas Subscriber ID:[id number] Payer ID:[id number] Group ID:Not on file Type:Medicare Address: [facility] [employer] [facility] - [facility] [address] [facility] [place] [address] [facility] MEDICARE SUPPLEMENT [employer] SUPPLEMENT MEDICARE PART A & B [employer] MEDICARE SUPPLEMENT [facility] Address: [facility] [address] [place] [address] [employer] [place] SUPPLEMENT MEDICARE PART A & B [employer] [facility] MEDICARE SUPPLEMENT [facility] Address: [address] [place] [address] [place] [employer] SUPPLEMENT MEDICARE PART A & B [employer] MEDICARE SUPPLEMENT [facility] Address: [facility] [address] [place] [address] [place] [employer] SUPPLEMENT MEDICARE PART A & B [employer] MEDICARE SUPPLEMENT [place] [place] SUPPLEMENT MEDICARE PART A & B [facility] MEDICARE SUPPLEMENT [facility] Address: [address] [place] [address] Care Teams Museum Attendant Relationship Specialty Start Date End Date Cassidy Corley MD [address] [place] [address] PCP - General Internal Medicine 05/25/18 Additional Source Comments The information contained in this document represents components of the legal health record. It is not the complete legal health record.[facility]
--- OUTSIDE RECORDS SUMMARY | 2025-07-11 16:25 | XMS_ITS | Encounter Summary ---
Author Organization [facility] Address [address] [place] [address] Care Team Providers Care Floral Merchandiser Name Role Phone Cassidy Corley MD Primary Care Provider [phone] Colin Painter MD Unavailable Encounter Details Date Type Department Care Team Description 08/30/2014 Powerhouse Mechanic Supervisor Report Medical Records [address] [place] [address] Tyler Stack MD Social History Tobacco Use [...] on filedocumented in this encounter Care Teams Floral Merchandiser Relationship Specialty Start Date End Date Cassidy Corley MD [address] [place] [address] PCP - General 05/07/1991 Colin Painter MD [address] [place] [address] Specialist Cardiovascular Disease 11/26/20 documented as of this encounter
--- OUTSIDE RECORDS SUMMARY | 2025-07-11 16:25 | XMS_ITS | Encounter Summary ---
Author Organization [facility] Address [address] [place] [address] Care Team Providers Care Cement Production Plant Operator Name Role Phone Cassidy Corley MD Primary Care Provider [phone] Colin Painter MD Unavailable Encounter Details Date Type Department Care Team Description 10/27/2011 [facility] Orthopedic Surgery [address] [place] [address] Harshad Soriano MD Social History Tobacco Use Types Packs/Day [...] on filedocumented in this encounter Care Teams Cement Production Plant Operator Relationship Specialty Start Date End Date Cassidy Corley MD [address] [place] [address] [phone] PCP - General 05/07/1991 Colin Painter MD [address] [place] [phone] Specialist Cardiovascular Disease 11/26/20 documented as of this encounter
--- OUTSIDE RECORDS SUMMARY | 2025-07-11 16:25 | XMS_ITS | Encounter Summary ---
Author Organization [facility] Address [address] [place] [address] Care Team Providers Care Improvement Engineer Name Role Phone Cassidy Corley MD Primary Care Provider [phone] Colin Painter MD Unavailable Reason for Visit * Reason Onset Date Comments Post ER Outreach 05/24/2018 [facility] follow u p 05/24/18 Encounter Details Date Type Department Care Team Description 05/24/2018 Telephone Adult Medicine [facility] - [address] [phone] Cassidy Corley MD [address] [place] [address] [phone] Post ER Outreach ([facility] follow up 05/24/18) Social History Tobacco Use Types Packs/Day Years Used Date Smoking Tobacco: Never Smokeless Tobacco: Never Alcohol Use Standard Drinks/Week Comments Yes 0 (1 standard drink = 0.6 oz pur e alcohol) SOC Sex Assigned at Date Recorded Not on file documented as of this encounter Miscellaneous Notes * Telephone Encounter - Margo Noriega M.A. - 05/29/2018 11:[address] Corley, Just an KIM Vieira did not want to book an ER follow up appointment. I have looked in the [facility] for her ER records for you to review, however they were unavailable. I have requested [facility] for them to be faxed to your department. Thank you, .Margo Turner C.M.A. Senior Budget Analyst * Telephone Encounter - Margo Noriega M.A. - 05/26/2018 8:35 AM EDT EMERGENCY DEPARTMENT/HOSPITAL DISCHARGE FOLLOW-UP CONTACT: Did they go to the ER? : Yes Which ER did they go to? : [facility] Why did the patient go to the ER? Lightheaded and diarrhea Was the patient admitted? : No. ER/Hospital discharge plan reviewed: Yes reviewed with patient How is the patient feeling? : getting better Any concerns or information needed? no Disposition? : Patient declines follow up appointment. States she is following up in August with Dr. Corley Comments: I outreached to Isha regarding her ER visit. She states she went because she was light headed and she was concerned for her heart. She states she got a good work up and is feeling better. She is thinking it might have been due to the heat. She went to her paint roller cover machine setter in [place] yesterday, and also set up apointments for a mammo and colon. Margo Noriega M.A. * Telephone Encounter - Margo Noriega M.A. - 05/25/2018 12:34 PM EDT Patient was outreached for post ER visit by Margo Quality Senior Budget Analyst Unable to reach patient. Message left for patient to return call to quality department. ?? Patient was outreached to determine need for follow-up office visit. Please schedule appointment. ?? If patient returns the call and appointment is scheduled, please forward telephone encounter to pool # [id number] ?? Patient was discharged from: [facility] on 05/24/2018. ?? Discharge diagnosis: Unknown * Telephone Encounter - Belinda Fernandez - 05/24/2018 1:39 PM EDT Patient returning call states that she can be reached at [phone] * Telephone Encounter - Margo Noriega M.A. - 05/24/2018 11:49 AM EDT Patient was outreached for post ER visit by [facility] Senior Budget Analyst Unable to reach patient. Message left for patient to return call to quality department. Patient was outreached to determine need for follow-up office visit. Please schedule appointment. If patient returns the call and appointment is scheduled, please forward telephone encounter to [place] # [phone] Patient was discharged from: [facility] on 05/24/2018. Discharge diagnosis: Unknown documented in this encounter Plan of Treatment Not on file documented as of this encounter Visit Diagnoses Not on filedocumented in this encounter Care Teams Improvement Engineer Relationship Specialty Start Date End Date Cassidy Corley MD [address] [place] [phone] PCP - General 05/07/1991 Colin Painter MD [address] [place] [address] Specialist Cardiovascular Disease 11/26/20 documented as of this encounter
--- OUTSIDE RECORDS SUMMARY | 2025-07-11 16:25 | XMS_ITS | Encounter Summary ---
Author Organization [facility] Address [address] [place] [address] Care Team Providers Care Insulation Hoseman Name Role Phone Cassidy Corley MD Primary Care Provider [phone] Colin Painter MD Unavailable Encounter Details Date Type Department Care Team Description 09/14/2018 Hospital Medical Records [address] [place] [address] Mauro Garza MD Social History Tobacco Use [...] on filedocumented in this encounter Care Teams Insulation Hoseman Relationship Specialty Start Date End Date Cassidy Corley MD [address] [place] [address] [phone] PCP - General 05/07/1991 Colin Painter MD [address] [place] [address] [phone] Specialist Cardiovascular Disease 11/26/20 documented as of this encounter
--- OUTSIDE RECORDS SUMMARY | 2025-07-11 16:25 | XMS_ITS | Encounter Summary ---
Author Organization [facility] Address [address] [place] [address] Care Team Providers Care Button Sewer Hand Name Role Phone Cassidy Corley MD Primary Care Provider [phone] Colin Painter MD Unavailable Encounter Details Date Type Department Care Team Description 10/27/2011 Hospital Medical Records 4 [place] [address] Harshad Soriano MD Social History Tobacco Use [...] on filedocumented in this encounter Care Teams Button Sewer Hand Relationship Specialty Start Date End Date Cassidy Corley MD [address] [place] [address] PCP - General 05/07/1991 Colin Painter MD [address] [place] [address] [phone] Specialist Cardiovascular Disease 11/26/20 documented as of this encounter
--- OUTSIDE RECORDS SUMMARY | 2025-07-11 16:25 | XMS_ITS | Encounter Summary ---
Author Organization [facility] Address [address] [place] [address] Care Team Providers Care Kier Hand Name Role Phone Cassidy Corley MD Primary Care Provider [phone] Colin Painter MD Unavailable Encounter Details Date Type Department Care Team Description 08/15/2018 Business Doc Medical Records [address] [place] [address] [id number] Abstract, Provider Social History Tobacco Use Types [...] on filedocumented in this encounter Care Teams Kier Hand Relationship Specialty Start Date End Date Cassidy Corley MD [address] [place] [address] [phone] PCP - General 05/07/1991 Colin Painter MD [address] [place] [address] [phone] Specialist Cardiovascular Disease 11/26/20 documented as of this encounter
--- OUTSIDE RECORDS SUMMARY | 2025-07-11 16:25 | XMS_ITS | Encounter Summary ---
Author Organization [facility] Address [address] [place] [address] Care Team Providers Care Pattern And Chain Maker Name Role Phone Cassidy Corley MD Primary Care Provider [phone] Colin Pianter MD Unavailable Encounter Details Date Type Department Care Team Description 05/29/2018 Slicing Machine Feeder Report Medical Records [address] [place] [phone] Abstract, Provider Social History Tobacco Use Types [...] on filedocumented in this encounter Care Teams Pattern And Chain Maker Relationship Specialty Start Date End Date Cassidy Corley MD [address] [place] [address] [phone] PCP - General 05/07/1991 Colin Painter MD [address] [place] [address] [phone] Specialist Cardiovascular Disease 11/26/20 documented as of this encounter
--- OUTSIDE RECORDS SUMMARY | 2025-07-11 16:25 | XMS_ITS | Encounter Summary ---
Author Organization [facility] Address [address] [place] [address] Care Team Providers Care Parcel Post Officer Name Role Phone Cassidy Corley MD Primary Care Provider [phone] Colin Painter MD Unavailable Encounter Details Date Type Department Care Team Description 10/24/2018 Proc Tech Report Medical Records 4 [place] [address] Randy Mcginnis MD Social History Tobacco Use [...] on filedocumented in this encounter Care Teams Parcel Post Officer Relationship Specialty Start Date End Date Cassidy Corley MD [address] [place] [address] PCP - General 05/07/1991 Colin Painter MD [address] [place] [address] Specialist Cardiovascular Disease 11/26/20 documented as of this encounter
--- OUTSIDE RECORDS SUMMARY | 2025-07-11 16:26 | XMS_ITS | Encounter Summary ---
Author Organization [facility] Address [address] [place] [address] Care Team Providers Care Freight Adjuster Name Role Phone Cassidy Corley MD Primary Care Provider [phone] Colin Painter MD Unavailable Encounter Details Date Type Department Care Team Description 06/15/2010 Morale Officer Report Medical Records [address] [place] [address] Amira Lynne Social History Tobacco Use Types [...] on filedocumented in this encounter Care Teams Freight Adjuster Relationship Specialty Start Date End Date Cassidy Corley MD [address] [place] [address] PCP - General 05/07/1991 Colin Painter MD [address] [place] [address] Specialist Cardiovascular Disease 11/26/20 documented as of this encounter
--- OUTSIDE RECORDS SUMMARY | 2025-07-11 16:26 | XMS_ITS | Encounter Summary ---
Author Organization [facility] Address [address] [place] [address] Care Team Providers Care Sales Exec Name Role Phone Cassidy Corley MD Primary Care Provider [phone] Colin Painter MD Unavailable Encounter Details Date Type Department Care Team Description 07/23/2022 Activity Therapy Specialist Report Medical Records [address] [place] [address] Benjamin hTayer MD Social History Tobacco Use Types Packs/Day [...] on filedocumented in this encounter Care Teams Sales Exec Relationship Specialty Start Date End Date Cassidy Corley MD [address] [place] [address] PCP - General 05/07/1991 Colin Painter MD [address] [place] [address] Specialist Cardiovascular Disease 11/26/20 documented as of this encounter
--- OUTSIDE RECORDS SUMMARY | 2025-07-11 16:26 | XMS_ITS | Encounter Summary ---
Author Organization [facility] Address [address] [place] [address] Care Team Providers Care Calculus Professor Name Role Phone Cassidy Corley MD Primary Care Provider [phone] Colin Painter MD Unavailable Encounter Details Date Type Department Care Team Description 01/09/2020 Fertilizer Supervisor Report Medical Records [address] [place] [address] Benjamin Thayer MD Social History Tobacco Use [...] on filedocumented in this encounter Care Teams Calculus Professor Relationship Specialty Start Date End Date Cassidy Corley MD [address] [place] [address] PCP - General 05/07/1991 Colin Painter MD [address] [place] [address] Specialist Cardiovascular Disease 11/26/20 documented as of this encounter
--- OUTSIDE RECORDS SUMMARY | 2025-07-11 16:26 | XMS_ITS | Encounter Summary ---
Author Organization [facility] Address [address] [place] [address] Care Team Providers Care Deck Supervisor Name Role Phone Cassidy Corley MD Primary Care Provider [phone] Colin Painter MD Unavailable Encounter Details Date Type Department Care Team Description 10/06/2021 Player Development Manager Report Medical Records [address] [place] [address] Benjamin Thayer MD Social History Tobacco Use [...] on filedocumented in this encounter Care Teams Deck Supervisor Relationship Specialty Start Date End Date Cassidy Corley MD [address] [place] [address] PCP - General 05/07/1991 Colin Painter MD [address] [place] [address] Specialist Cardiovascular Disease 11/26/20 documented as of this encounter
--- OUTSIDE RECORDS SUMMARY | 2025-07-11 16:26 | XMS_ITS | Encounter Summary ---
Author Organization [facility] Address [address] [place] [address] Care Team Providers Care Avionics Shop Supervisor Name Role Phone Cassidy Corley MD Primary Care Provider [phone] Colin Painter MD Unavailable Encounter Details Date Type Department Care Team Description 09/23/2009 Hospital Medical Records 4 [place] [address] Manuelito Manning MD Social History Tobacco Use [...] on filedocumented in this encounter Care Teams Avionics Shop Supervisor Relationship Specialty Start Date End Date Cassidy Corley MD [address] [place] [address] [phone] PCP - General 05/07/1991 Colin Painter MD [address] [place] [address] [phone] Specialist Cardiovascular Disease 11/26/20 documented as of this encounter
--- OUTSIDE RECORDS SUMMARY | 2025-07-11 16:26 | XMS_ITS | Encounter Summary ---
Author Organization [facility] Address [address] [place] [address] Care Team Providers Care Benefits Manager Name Role Phone Cassidy Corley MD Primary Care Provider [phone] Colin Painter MD Unavailable Encounter Details Date Type Department Care Team Description 09/11/2015 Train Reservation Clerk Report Medical Records 4 [place] [address] Liz Miramontes [facility] [address] [phone] Social History Tobacco Use Types Packs/Day Years [...] on filedocumented in this encounter Care Teams Benefits Manager Relationship Specialty Start Date End Date Cassidy Corley MD [address] [place] [address] [phone] PCP - General 05/07/1991 Colin Painter MD [address] [place] [address] [phone] Specialist Cardiovascular Disease 11/26/20 documented as of this encounter
--- OUTSIDE RECORDS SUMMARY | 2025-07-11 16:26 | XMS_ITS | Encounter Summary ---
Author Organization [facility] Address [address] [place] [address] Care Team Providers Care Network Strategist Name Role Phone Cassidy Corley MD Primary Care Provider [phone] Colin Painter MD Unavailable Encounter Details Date Type Department Care Team Description 04/20/2016 Check Processor Report Medical Records [address] [place] [address] [facility] Social History Tobacco Use Types Packs/Day Years [...] on filedocumented in this encounter Care Teams Network Strategist Relationship Specialty Start Date End Date Cassidy Corley MD [address] [place], [place] [phone] PCP - General 05/07/1991 Colin Painter MD [address] [place] [address] [phone] Specialist Cardiovascular Disease 11/26/20 documented as of this encounter
--- OUTSIDE RECORDS SUMMARY | 2025-07-11 16:26 | XMS_ITS | Encounter Summary ---
Author Organization [facility] Address [address] [place] [address] Care Team Providers Care Coverage Analyst Name Role Phone Cassidy Corley MD Primary Care Provider [phone] Colin Painter MD Unavailable Reason for Visit * Reason Onset Date Comments Provider Call Back 09/21/2021 Encounter Details Date Type Department Care Team Description 09/21/2021 Telephone Dermatology [address] [place] [address] [phone] Juan Carmichael PA-C Provider Call Back Social [...] on filedocumented in this encounter Care Teams Coverage Analyst Relationship Specialty Start Date End Date Cassidy Corley MD [address] [place] [address] PCP - General 05/07/1991 Colin Painter MD [address] [place] [address] [phone] Specialist Cardiovascular Disease 11/26/20 documented as of this encounter
--- OUTSIDE RECORDS SUMMARY | 2025-07-11 16:26 | XMS_ITS | Encounter Summary ---
Author Organization [facility] Address [address] [place] [address] Care Team Providers Care Pocket Machine Operator Name Role Phone Cassidy Corley MD Primary Care Provider [phone] Colin Painter MD Unavailable Encounter Details Date Type Department Care Team Description 12/05/2017 Exhibits Coordinator Report Medical Records 4 [place] [address] Carol Perez MD Social History Tobacco Use [...] on filedocumented in this encounter Care Teams Pocket Machine Operator Relationship Specialty Start Date End Date Cassidy Corley MD [address] [place] [address] PCP - General 05/07/1991 Colin Painter MD [address] [place] [address] [phone] Specialist Cardiovascular Disease 11/26/20 documented as of this encounter
--- OUTSIDE RECORDS SUMMARY | 2025-07-11 16:26 | XMS_ITS | Encounter Summary ---
Author Organization [facility] Address [address] [place] [address] Care Team Providers Care Recycling Assistant Name Role Phone Cassidy Corley MD Primary Care Provider [phone] Colin Painter MD Unavailable Encounter Details Date Type Department Care Team Description 01/06/2021 Financial Operations Analyst Report Medical Records [address] [place] [address] Jamie Davis Social History Tobacco Use Types Packs/Day Years [...] on filedocumented in this encounter Care Teams Recycling Assistant Relationship Specialty Start Date End Date Cassidy Corley MD [address] [place] [address] PCP - General 05/07/1991 Colin Painter MD [address] [place] [address]20 Specialist Cardiovascular Disease 11/26/20 documented as of this encounter
--- OUTSIDE RECORDS SUMMARY | 2025-07-11 16:26 | XMS_ITS | Encounter Summary ---
Author Organization [facility] Address [address] [place] [address] Care Team Providers Care Finance Associate Name Role Phone Cassidy Corley MD Primary Care Provider [phone] Colin Painter MD Unavailable Encounter Details Date Type Department Care Team Description 12/01/2020 Telephone Adult Medicine [address] [address] Cassidy Corley MD [address] [place] [address] [phone] Social History Tobacco Use Types Packs/Day Years [...] or suspected to have Coronavirus / COVID-19? Unable to assess 12/02/2020 9:08 AM EST documented as of this encounter Plan of Treatment Not on file documented as of this encounter Visit Diagnoses Not on filedocumented in this encounter Care Teams Finance Associate Relationship Specialty Start Date End Date Cassidy Corley MD [address] [place] [address] [phone] PCP - General 05/07/1991 Colin Painter MD [address] [place] [address]20 Specialist Cardiovascular Disease 11/26/20 documented as of this encounter
--- OUTSIDE RECORDS SUMMARY | 2025-07-11 16:26 | XMS_ITS | Encounter Summary ---
Author Organization [facility] Address [address] [place] [address] Care Team Providers Care Computer Engineering Technician Name Role Phone Cassidy Corley MD Primary Care Provider [phone] Colin Painter MD Unavailable Encounter Details Date Type Department Care Team Description 05/07/2010 Drywall Hanger Framer Report Medical Records 4 [place] [address] Manuelito Manning MD Social History Tobacco Use [...] filedocumented in this encounter Care Teams Computer Engineering Technician Relationship Specialty Start Date End Date Cassidy Corley MD [address] [place] [address] [phone] PCP - General 05/07/1991 Colin Painter MD [address] [place] [address] [phone] Specialist Cardiovascular Disease 11/26/20 documented as of this encounter
--- OUTSIDE RECORDS SUMMARY | 2025-07-11 16:26 | XMS_ITS | Encounter Summary ---
Author Organization [facility] Address [address] [place] [address] Care Team Providers Care Information Management Specialist Name Role Phone Cassidy Corley MD Primary Care Provider [phone] Colin Painter MD Unavailable Encounter Details Date Type Department Care Team Description 09/11/2019 Cycle Director Report Medical Records [address] [place] [address] Benjamin Thayer MD Social History Tobacco Use [...] on filedocumented in this encounter Care Teams Information Management Specialist Relationship Specialty Start Date End Date Cassidy Corley MD [address] [place] [address]20 PCP - General 05/07/1991 Colin Painter MD [address] [place] [address]20 Specialist Cardiovascular Disease 11/26/20 documented as of this encounter
--- OUTSIDE RECORDS SUMMARY | 2025-07-11 16:26 | XMS_ITS | Encounter Summary ---
Author Organization [facility] Address [address] [place] [address] Care Team Providers Care Atmospheric Sciences Professor Name Role Phone Cassidy Corley MD Primary Care Provider [phone] Colin Painter MD Unavailable Reason for Visit * Reason Onset Date Comments Provider Call Back 11/29/2017 Encounter Details Date Type Department Care Team Description 11/29/2017 Telephone Dermatology - [address] [phone] Juan Carmichael PA-C Provider Call Back Social [...] She would like a call back at [phone]. documented in this encounter Plan of Treatment Not on file documented as of this encounter Visit Diagnoses Not on filedocumented in this encounter Care Teams Atmospheric Sciences Professor Relationship Specialty Start Date End Date Cassidy Corley MD [address] [place] [address] PCP - General 05/07/1991 Colin Painter MD [address] [place] [address] [phone] Specialist Cardiovascular Disease 11/26/20 documented as of this encounter
--- OUTSIDE RECORDS SUMMARY | 2025-07-11 16:26 | XMS_ITS | Encounter Summary ---
Author Organization [facility] Address [address] [place] [address] Care Team Providers Care Security Orderly Name Role Phone Cassidy Corley MD Primary Care Provider [phone] Colin Painter MD Unavailable Encounter Details Date Type Department Care Team Description 10/01/2020 Manager Etl Report Medical Records [address] [place] [address] Benjamin Thayer MD Social History Tobacco Use [...] on filedocumented in this encounter Care Teams Security Orderly Relationship Specialty Start Date End Date Cassidy Corley MD [address] [place] [address] PCP - General 05/07/1991 Colin Painter MD [address] [place] [address]20 Specialist Cardiovascular Disease 11/26/20 documented as of this encounter
--- OUTSIDE RECORDS SUMMARY | 2025-07-11 16:26 | XMS_ITS | Encounter Summary ---
Author Organization [facility] Address [address] [place] [address] Care Team Providers Care Actuary Clerk Name Role Phone Cassidy Corley MD Primary Care Provider [phone] Colin Painter MD Unavailable Reason for Visit * Reason Onset Date Comments Medication 03/31/2017 Encounter Details Date Type Department Care Team Description 03/31/2017 Telephone Cardiology - [address] [phone] Randy Spencer MD Medication Social History Tobacco Use Types Packs/Day Years Used Date Smoking Tobacco: Never Smokeless Tobacco: Never Alcohol Use Standard Drinks/Week Comments Yes 0 (1 standard drink = 0.6 oz pur e alcohol) SOC Sex Assigned at Date Recorded Not on file documented as of this encounter Miscellaneous Notes * Telephone Encounter - Adriana Sykes L.P.N. - 03/31/2017 11:49 AM EDT Please resend for 90 days Refilled yesterday thanks * Telephone Encounter - Mehnaz Navarrete - 03/31/2017 10:00 AM EDT Pt came in to pick-up scrpt for losartan this morning and she was requesting a 90-day supply. She was upset she only received the 30 day and asked the pharmacy to call. documented in this encounter Plan of Treatment Not on file documented as of this encounter Visit Diagnoses Not on filedocumented in this encounter Care Teams Actuary Clerk Relationship Specialty Start Date End Date Cassidy Corley MD [address] [place] [address] [phone] PCP - General 05/07/1991 Colin Painter MD [address] [place] [address] [phone] Specialist Cardiovascular Disease 11/26/20 documented as of this encounter
--- OUTSIDE RECORDS SUMMARY | 2025-07-11 16:26 | XMS_ITS | Encounter Summary ---
Author Organization [facility] Address [address] [place] [address] Care Team Providers Care Asic Engineer Name Role Phone Cassidy Corley MD Primary Care Provider [phone] Colin Painter MD Unavailable Reason for Referral * EXTERNAL (Routine) - Authorized/Booked Specialty Diagnoses / Procedures Referred By Kitty ortega Referred To Contact Otolaryngology / Hearing Diagnoses Hearing loss, unspecified hearing loss type, unspecified laterality Procedures REFERRAL TO HEARING TEST Cassidy Corley MD [address] [place] [address] [facility] [address] [place] [address] Referral ID Status Reason Start Date Expiration Date V isits Requested Visits Authorized LETTER MAILED Authorized/ Booked 01/02/2020 04/01/2020 1 1 Reason for Visit * Reason Onset Date Comments REFERRAL 01/02/2020 Encounter Details Date Type Department Care Team Description 01/02/2020 Telephone Adult Medicine [address] [phone] Cassidy Corley MD [address] [place] [address] [phone] REFERRAL Social History Tobacco Use Types Packs/Day Years Used Date Smoking Tobacco: Never Smokeless Tobacco: Never Alcohol Use Standard Drinks/Week Comments Yes 0 (1 standard drink = 0.6 oz pur e alcohol) 1 drink per mo @ most Sex Assigned at Date Recorded Not on file documented as of this encounter Miscellaneous Notes * Telephone Encounter - Maryanne Dugan M.A. - 01/02/2020 10:04 AM EST Spoke with pt- she needs a hearing test. She will be transferring from a office in [facility] to the [facility] * Telephone Encounter - Cassidy Corley MD - 01/02/2020 9:27 AM EST Clarify what is needed - does she need a hearing test - I do not generally refer just for a hearingaid. * Telephone Encounter - Anisha Guadarrama - 01/02/2020 9:09 AM EST Patient wants a referral for for [facility] for her new hearing aids, Please fax order to [phone] attn: [email or web address] documented in this encounter Plan of Treatment Not on file documented as of this encounter Visit Diagnoses Diagnosis Hearing loss, unspecified hearing loss type, unspecified laterality- Primary documented in this encounter Care Teams Asic Engineer Relationship Specialty Start Date End Date Cassidy Corley MD [address] [place] [address] PCP - General 05/07/1991 Colin Painter MD [address] [place] [address] Specialist Cardiovascular Disease 11/26/20 documented as of this encounter
--- OUTSIDE RECORDS SUMMARY | 2025-07-11 16:26 | XMS_ITS | Clinical Summary ---
Author Organization [facility] Address [address] [place] [address] Care Team Providers Care Lan Specialist Name Role Phone Cassidy Corley MD Primary Care Provider [phone] Colin Painter MD Unavailable Allergies Active Allergy [...] get your yearly flu shot Educational Resources [employer] (www.heart.org) This care plan was [...] Bx subacute cutaneous LE(07/16). Pos RICKIE, Anti RESPIRATORY THERAPIST, RF, SS-A , SS- B. Neg Anti [...] Daughter Alcohol Abuse Father [place] Ovarian Mother [place], widespread facial skin cancer, melanoma, 88 Cancer [...] VACCINE Completed 09/21/2020, 08/14/20 18 Care Teams Lan Specialist Relationship Specialty Start Date End Date Cassidy Corley MD [address] [place] [address] [phone] PCP - General 05/07/1991 Colin Painter MD [address] [place] [address] Specialist Cardiovascular Disease 11/26/20
--- OUTSIDE RECORDS SUMMARY | 2025-07-11 16:26 | XMS_ITS | Encounter Summary ---
Author Organization [facility] Address [address] [place] [address] Care Team Providers Care Service Loss Control Consultant Name Role Phone Cassidy Corley MD Primary Care Provider [phone] Colin Painter MD Unavailable Encounter Details Date Type Department Care Team Description 01/23/2016 Corrective Therapy Aide Teacher Report Medical Records [address] [place] [address] Benjamin Thayer MD Social History Tobacco Use [...] on filedocumented in this encounter Care Teams Service Loss Control Consultant Relationship Specialty Start Date End Date Cassidy Corley MD [address] [place] [address] [phone] PCP - General 05/07/1991 Colin Painter MD [address] [place] [phone] Specialist Cardiovascular Disease 11/26/20 documented as of this encounter
--- OUTSIDE RECORDS SUMMARY | 2025-07-11 16:26 | XMS_ITS | Encounter Summary ---
Author Organization [facility] Address [address] [place] [address] Care Team Providers Care Childcare Provider Name Role Phone Cassidy Corley MD Primary Care Provider [phone] Colin Painter MD Unavailable Encounter Details Date Type Department Care Team Description 01/05/2017 Release of Information Medical Records [address] [place] [id number] Abstract, Provider Social History Tobacco Use Types [...] on filedocumented in this encounter Care Teams Childcare Provider Relationship Specialty Start Date End Date Cassidy Corley MD [address] [place] [address] [phone] PCP - General 05/07/1991 Colin Painter MD [address] [place] [address] [phone] Specialist Cardiovascular Disease 11/26/20 documented as of this encounter
--- OUTSIDE RECORDS SUMMARY | 2025-07-11 16:26 | XMS_ITS | Encounter Summary ---
Author Organization [facility] Address [address] [place] [address] Care Team Providers Care Ip Litigation Paralegal Name Role Phone Cassidy Corley MD Primary Care Provider [phone] Colin Painter MD Unavailable Encounter Details Date Type Department Care Team Description 10/10/2019 Sand Mixer Operator Report Medical Records [address] [place] [id number] Benjamin Thayer MD Social History Tobacco Use [...] on filedocumented in this encounter Care Teams Ip Litigation Paralegal Relationship Specialty Start Date End Date Cassidy Corley MD [address] [place] [phone] PCP - General 05/07/1991 Colin Painter MD [address] [place] [address] [phone] Specialist Cardiovascular Disease 11/26/20 documented as of this encounter
== END 2025-07-11 16:46 | disposition home or self-care (01) ==
LOC: HO.RHES 15:27
PROVIDERS: PCP Internal Medicine; Visit Provider Student in an Organized Health Care Education/Training Program
DX: M80.08XA Age-related osteoporosis with current pathological fracture, vertebra(e), initial encounter for fracture (principal); L93.2 Other local lupus erythematosus; M17.0 Bilateral primary osteoarthritis of knee; M25.562 Pain in left knee; Z79.899 Other long term (current) drug therapy; Z79.631 Long term (current) use of antimetabolite agent; Z51.81 Encounter for therapeutic drug level monitoring; Z79.83 Long term (current) use of bisphosphonates
CPT/HCPCS: 20610; 99214

== ENCOUNTER 2025-07-15 13:58 | Outpatient (AMB) | payer MEDICARE, OTHER, SELFPAY ==
[2025-07-15 14:05] VITALS: BP 110/66; PULSE 76; RESP 18; BMI 26.4
--- NOTE | 2025-07-15 14:05 | MHC.OFFVIS ---
Vital Signs 07/15/25 14:05 Height 5 ft 4.5 in Weight 156 lb BMI 26.4 BP 110/66 Blood Pressure Location Lt brachial Position Sitting Respiration 18 Pulse 76 Intake Visit Reasons: umbilcal hernia Intake Note: Pt states, My hernia popped out. c/o bulge after lifting suitcase Mechanical Reliability Engineer Required: No Allergies amoxicillin (AMOXICILLIN) Allergy (Unknown, Verified 07/11/25 15:35) UNKNOWN Medication List - Last Reconciled 07/15/25 by Griffin Rodriguez, RN alendronate 70 mg PO QWEEK 90 days apixaban (Eliquis) 5 mg PO BID 90 days cholecalciferol (vitamin D3) (Vitamin D3) 25 mcg PO DAILY fluticasone propionate 50 mcg/actuation 1 spray intranasal Q12H folic acid 1 mg PO DAILY furosemide 40 mg PO DAILY hydroxychloroquine 200 mg PO DAILY losartan 25 mg PO DAILY methotrexate sodium 10 mg (4 x 2.5 mg) PO QWEEK 90 days metoprolol tartrate 25 mg See Protocol PO BID multivitamin 1 tab PO DAILY HPI HPI umbilcal hernia: Details: overall doing well. Presenting to the office due to a supraumbilical hernia. She states she has had this for a long time and does not usually cause her issues. She states that she was coming back from a trip and had to lift her suitcase and later that night noticed that the hernia was protruding more. She denies pain at the site, states that now it has gone back in. She denies nausea or vomiting, constipation or diarrhea. She expressed that she does not want to have this surgically repaired at this time due to her age and other medical problems but she wanted to make sure things did not need to be done emergently. [facility] Medical History Chronic lower back pain Chronic heart failure with preserved ejection fraction (HFpEF) Essential hypertension LBBB (left bundle branch block) Acute diverticulitis TIA (transient ischemic attack) HTN (hypertension) Surgical History History of appendectomy (06/16/23) History of cataract surgery H/O hernia repair Family History Father No problems noted. Mother No problems noted. Social History Household Members: None Housing: Apartment Do you presently have visiting nurse or other home services: No Alcohol intake: current Alcohol intake frequency: a few times a month Patient Tobacco Use Status: Never used Tobacco e-Cigarette/Vaping Use: Never Used Second Hand Smoke Exposure: No Advance Directives Date on File: 08/18/21 service: No Current occupational status: retired Current occupational exposures/hazards: No Cognitive needs: No Hearing needs: Yes Vision needs: No Physical Exam Vital Signs: Last Vital Signs Pulse 76 07/15/25 14:05 Resp 18 07/15/25 14:05 BP 110/66 07/15/25 14:05 BMI result Body Mass Index 26.4 Const General: comfortable and no acute distress Orientation/consciousness: patient oriented x3 Resp Effort & Inspection: normal respiratory effort and able to speak in complete sentences GI Other: Large incarcerated supraumbilical incisional hernia Inspection: No distended and Yes scar (Right lower quadrant open appendectomy) Palpation (GI): Soft to palpation, nontender and no guarding Neuro General: patient oriented x3 Assessment & Plan Assessment & Plan (1) Supraumbilical hernia: Code(s): K43.9 - Ventral hernia without obstruction or gangrene Category: Medical Plan 85-year-old female with a history of AFib (on Eliquis/metoprolol), NSTEMI osteoporosis, hypertension, LBBB, lupus, heart failure with preserved ejection fraction presenting to the office for evaluation of a large supraumbilical hernia. This has been present for quite some time, however last week she had to lift a heavy suitcase and later that night noticed that the hernia was protruding more. She denies any pain associated with this event. She has been pain free since and thinks the hernia has decreased in size. on exam there is a large supraumbilical incisional hernia that is unable to be reduced in the office today. I reviewed previous CT scans from 2022 and 2023 and confirmed this hernia has been present. Clinically she has no obstructive symptoms that would require emergent surgical intervention. We discussed options for management including hernia repair with mesh vs observation. We discussed risks of the procedure including but not limited to bleeding, infection, injury to surrounding organs. She would prefer to manage this nonoperatively because of her age and various comorbitities. I am agreeable to this plan. Advised her to continue to monitor this over time, I recommended that if she develops obstructive symptoms such as intractable pain, nausea, vomiting, inability to pass gas or stool, that she should give the office a call to be seen or present to the ED. Coding Level of Care Code Est Pt Level 3 (82485) Diagnoses Supraumbilical hernia K43.9
--- OUTSIDE RECORDS SUMMARY | 2025-07-15 16:21 | XMS_ITS | Patient Health Record ---
Author Organization [facility] Address [address] [facility] [place] [address] Care Team Providers Care Lift Driver Name Role Phone Cassidy Corley Primary Care Provider Jamie Contreras Unavailable [phone] Allergies Allergen (clinical drug ingredient) Drug/Non Drug [...] Medicare National Govt Svcs Inc [address] [place] [address] [id number] Isha Izquierdo Self - patient is the insured [facility] [address] [place] [address] [id number] Isha Izquierdo Self - patient is the insured Medical (General) History Medical History History ICD Code Arthritis Chicken pox Heart disease Lupus Measles Mumps Transfusions Surgical History Surgery Date(Month/Year) hernia Tooth extraction
--- OUTSIDE RECORDS SUMMARY | 2025-07-15 16:21 | XMS_ITS | Clinical Summary ---
Author Organization [facility] Address [address] [facility] [address] [place] [phone] Phone Care Team Providers Care Bar Captain Name Role Phone Cassidy Corley MD Primary Care Provider [phone] Allergies Active Allergy Reactions Criticality Noted Date [...] cm (5' 5.25 ) 10/19/2012 9:[address] Body Mass Index 36.5 10/19/2012 9:55 AM [...] topic Medical Devices Not on file Insurance [facility] MEDEX SUPPLEMENT MEDICARE PART A & B [facility] MEDICARE SUPPLEMENT [facility] Address: [id number] [place] [address] [facility] MEDEX SUPPLEMENT MEDICARE PART A & B [employer] MEDICARE SUPPLEMENT [facility] Address: [facility] [address] [place] [address] [facility] MEDEX SUPPLEMENT MEDICARE PART A & B [employer] LIFE MEDICARE SUPPLEMENT [facility] MEDEX SUPPLEMENT MEDICARE PART A & B Member Subscriber Plan / Payer (Ef fective 2004-Present) Name:TheresaBarbIlda Member ID:[id number] Relation to Subscriber:Self Name:lIda Cardenas Subscriber ID:[id number] Payer ID:[id number] Group ID:Not on file Type:Medicare Address: [facility] [employer] [facility] [address] [facility] [place] [address] [facility] MEDICARE SUPPLEMENT [employer] MEDEX SUPPLEMENT MEDICARE PART A & B [employer] MEDICARE SUPPLEMENT [facility] Address: [facility] [address] [place] [address] [employer] MEDEX SUPPLEMENT MEDICARE PART A & B [employer] [facility] MEDICARE SUPPLEMENT [facility] Address: [address] [place] [address] [facility] MEDEX SUPPLEMENT MEDICARE PART A & B FOR LIFE MEDICARE SUPPLEMENT [facility] Address: [facility] [address] [place] [address] [facility] MEDEX SUPPLEMENT MEDICARE PART A & B [employer] MEDICARE SUPPLEMENT [employer]EX SUPPLEMENT MEDICARE PART A & B [facility] MEDICARE SUPPLEMENT [facility] Address: [address] [place] [address] Care Teams Bar Captain Relationship Specialty Start Date End Date Cassidy Corley MD [address] [place] [address] PCP - General Internal Medicine 05/25/18 Additional Source Comments The information contained in this document represents components of the legal health record. It is not the complete legal health record.[facility]
== END 2025-07-15 14:53 | disposition home or self-care (01) ==
LOC: HO.HGS 13:58
PROVIDERS: PCP Internal Medicine
DX: K43.9 Ventral hernia without obstruction or gangrene (principal)
CPT/HCPCS: 99213

== ENCOUNTER → 2025-07-15 13:58 | Outpatient (BNVA) | payer MEDICARE, OTHER, SELFPAY | PROVIDERS: PCP Internal Medicine | DX: K43.9 Ventral hernia without obstruction or gangrene (principal) | CPT/HCPCS: 99212 ==

== ENCOUNTER 2025-08-27 13:48 | Outpatient (AMB) | payer MEDICARE, OTHER, SELFPAY ==
--- NOTE | 2025-08-27 13:54 | MHC.PC.OV ---
Vital Signs 08/27/25 13:56 Height 5 ft 4 in Weight 151 lb 8 oz BMI 26.0 BP 136/60 Blood Pressure Location Lt brachial Position Sitting Pulse 64 Pulse Source Pulse Oximeter Temp 97.3 F Temp Source Temporal Artery Scan Pulse Oximetry (%) 96 Oxygen Delivery Method Room Air Intake Visit Reasons: Coughing, possible pneumonia Intake Note: Patient is here to follow up on Coughing, possible pneumonia?. Construction Management Instructor Required: No Rubber Boots And Shoes Repairer: Not Required per policy Accompanied by: Self / Same As Patient Allergies amoxicillin (AMOXICILLIN) Allergy (Unknown, Verified 08/27/25 13:56) UNKNOWN Medication List - Last Reconciled 08/27/25 by Diogenes Huffman MD alendronate 70 mg PO QWEEK 90 days apixaban (Eliquis) 5 mg PO BID 90 days cholecalciferol (vitamin D3) (Vitamin D3) 25 mcg PO DAILY fluticasone propionate 50 mcg/actuation 1 spray intranasal Q12H folic acid 1 mg PO DAILY furosemide 40 mg PO DAILY hydroxychloroquine 200 mg PO DAILY losartan 25 mg PO DAILY methotrexate sodium 10 mg (4 x 2.5 mg) PO QWEEK 90 days metoprolol tartrate 25 mg See Protocol PO BID multivitamin 1 tab PO DAILY Tobacco use date assessed: 08/27/25 Fall risk assessment: No Falls in past year Last assessed Fall Risk: 08/27/25 Dental Screening Dental Screen Date: 11/15/24 HPI HPI Comments History of Present Illness Details The patient is an 85-year-old female presenting with concerns of possible pneumonia and chest congestion. She reports experiencing trouble breathing and a mild cough, with no significant fever noted. The patient lives alone in a building with many residents and has been experiencing these symptoms for an unspecified duration. She describes a sensation of congestion in her chest and has been taking [id number] medication to alleviate mucus in her throat. The medication appears to be effective in helping clear the mucus. The patient has expressed concern about her lungs being filled with fluid, but upon examination, her lungs were clear to auscultation. [facility] Medical History Chronic lower back pain Chronic heart failure with preserved ejection fraction (HFpEF) Essential hypertension LBBB (left bundle branch block) Acute diverticulitis TIA (transient ischemic attack) HTN (hypertension) Surgical History History of appendectomy (06/16/23) History of cataract surgery H/O hernia repair Family History Father No problems noted. Mother No problems noted. Social History Household Members: None Housing: Apartment Do you presently have visiting nurse or other home services: No Alcohol intake: current Alcohol intake frequency: a few times a month Patient Tobacco Use Status: Never used Tobacco e-Cigarette/Vaping Use: Never Used Second Hand Smoke Exposure: No Advance Directives Date on File: 08/18/21 service: No Current occupational status: retired Current occupational exposures/hazards: No Cognitive needs: No Hearing needs: Yes Vision needs: No Questionnaire PHQ-9 Over the last 2 weeks, how often have you been bothered by any of the following problems? 1. Little interest or pleasure in doing things: more than half the days 2. Feeling down, depressed, or hopeless: more than half the days 3. Trouble falling or staying asleep, or sleeping too much: several days 4. Feeling tired or having little energy: several days 5. Poor appetite or overeating: several days 6. Feeling bad about yourself - or that you are a failure or have let yourself or your family down: more than half the days 7. Trouble concentrating on things, such as reading the newspaper or watching television: several days 8. Moving or speaking so slowly that other people could have noticed. Or the opposite - being so fidgety or restless that you have been moving around a lot more than usual: not at all 9. Thoughts that you would be better off or of hurting yourself in some way: not at all Total score: 10 Depression Screening Interpretation: Positive Depression Screening Done: Yes Source: Developed by Drs. Chad Gramajo, Amalia Brewer, Duane Small and colleagues, with an educational edward from [employer]. Thrive Questionnaire Date Thrive assessed: 11/15/24 I am a: Patient What is your living situation today?: I have a steady place to live Within the past 12 months, did the food you bought not last and you didn't have the money to get more?: Never true Within the past 12 months, did you worry whether your food would run out before you got money to buy more?: Never true Do you have trouble paying for medicines?: No Do you have trouble getting transportation to medical appointments?: No Do you have trouble paying your heating and electricity bill?: No Do you have trouble taking care of your child, family member or friend?: No Do you have trouble with day-to-day activities such as bathing, preparing meals, shopping, managing finances, etc.?: No Are you currently unemployed and looking for a job?: No Are you interested in more education?: No Please select the resources that you would like help with: None Currently or been in a relationship where the following occur: No concerns reported THRIVE Score: 0 AUDIT C Alcohol Use Questionnaire (AUDIT-C) 1. How often do you have a drink containing alcohol?: Monthly or less 2. How many drinks containing alcohol do you have on a typical day when you are drinking?: 1 or 2 3. How often do you have six or more drinks on one occasion?: Never Total Score: 1 VERONICA-7 AMB Questionnaire VERONICA-7 Date VERONICA - 7 assessed: 11/15/24 Feeling nervous, anxious, or on edge: 1 = Several days Not being able to stop or control worryin = Several days Worrying too much about different things: 0 = Not at all Trouble relaxin = Not at all Being so restless that it is hard to sit still: 0 = Not at all Becoming easily annoyed or irritable: 0 = Not at all Feeling afraid as if something awful might happen: 1 = Several days Total VERONICA-7 score (0-4 normal; 5-9 mild; 10-14 moderate; 15-21 severe): 3 Source: Developed by Drs. Chad Gramajo, Amalia Brewer, Duane Small and colleagues, with an educational edward from [employer]. Review of Systems Const Details: Positives besides what was mentioned in HPI are in BOLD Constitutional: No Weight Change, No Fever, No Chills, No Night Sweats, No Fatigue, No Malaise ENT/Mouth: No Hearing Changes, No Ear Pain, No Nasal Congestion, No Sinus Pain, No Hoarseness, No sore throat, No Rhinorrhea, No Swallowing Difficulty Eyes: No Eye Pain, No Swelling, No Redness, No Foreign Body, No Discharge, No Vision Changes Cardiovascular: No Chest Pain, No SOB, No PND, No Dyspnea on Exertion, No Orthopnea, No Claudication, No Edema, No Palpitations Respiratory: No Cough, No Sputum, No Wheezing, No Smoke Exposure, No Dyspnea Gastrointestinal: No Nausea, No Vomiting, No Diarrhea, No Constipation, No Pain, No Heartburn, No Anorexia, No Dysphagia, No Hematochezia, No Melena, No Flatulence, No Jaundice Genitourinary: No Dysmenorrhea, No DUB, No Dyspareunia, No Dysuria, No Urinary Frequency, No Hematuria, No Urinary Incontinence, No Urgency, No Flank Pain, No Urinary Flow Changes, No Hesitancy Musculoskeletal: No Arthralgias, No Myalgias, No Joint Swelling, No Joint Stiffness, No Back Pain, No Neck Pain, No Injury History Skin: No Skin Lesions, No Pruritis, No Hair Changes, No Breast/Skin Changes, No Nipple Discharge Neuro: No Weakness, No Numbness, No Paresthesias, No Loss of Consciousness, No Syncope, No Dizziness, No Headache, No Coordination Changes, No Recent Falls Psych: No Anxiety/Panic, No Depression, No Insomnia, No Personality Changes, No Delusions, No Rumination, No SI/HI/AH/VH, No Social Issues, No Memory Changes, No Violence/Abuse Hx., No Eating Concerns Heme/Lymph: No Bruising, No Bleeding, No Transfusions History, No Lymphadenopathy Endocrine: No Polyuria, No Polydipsia, No Temperature Intolerance Physical exam (Primary Care) Vital Signs: Last Vital Signs Temp 97.3 F 08/27/25 13:56 Pulse 64 08/27/25 13:56 BP 136/60 08/27/25 13:56 Pulse Ox 96 08/27/25 13:56 Oxygen Delivery Method Room Air 08/27/25 13:56 BMI result Body Mass Index 26.0 Tobacco/Smoking Status: Tobacco use Status Tobacco use date assessed 08/27/25 08/27/25 14:02 Patient Tobacco Use Status Never used Tobacco 08/27/25 14:02 e-Cigarette/Vaping Use Never Used 08/27/25 14:02 PHQ-9: PHQ-9 Score PHQ-9: Total score 10 08/27/25 14:02 Depression Screening Interpretation: Positive Thrive Assessment: Date of Thrive Assessment Date Thrive assessed 11/15/24 08/27/25 14:02 Currently or been in a relationship where the following occur: No concerns reported Const Other: Pertinent findings are in BOLD GENERAL APPEARANCE NAD, activity normal for age, well developed/ well nourished, no cyanosis, pallor, or diaphoresis. EYES lids/conjunctiva normal. EARS/NOSE/THROAT Mucous membranes moist, nares normal, lips/teeth normal uvula midline without oral pharyngeal erythema, exudate or swelling TMs normal bilaterally. No lymphangitis/lymphedema. HEAD/NECK normocephalic atraumatic, no facial trauma, neck is supple. RESPIRATORY respiratory effort normal, speaks in full sentences, no tripod position, no accessory muscle use. Lungs clear to auscultation without rhonchi, wheezes, rales CARDIAC Regular rate and rhythm, no edema. ABDOMINAL Soft, ND/NT. No evidence of fluid wave. No pulsatile masses on exam, rebound tenderness, Hernandez sign or pain over Mcburney's point. MUSCLES/EXTREMITIES No abnormal range of motion, no swelling. SKIN Warm, pink and dry. No rashes, dermatoses, petechiae or lesions. NEUROLOGICAL Speech is clear and appropriate. Normal level of consciousness. Gait and coordination are normal. 5/5 strength in all extremities. PSYCH Normal mood and affect. Judgement/competence is appropriate Coding Level of Care Code Est Pt Level 3 (05246) Diagnoses Chest congestion R09.89 Time Spent (min) 20 Assessment & Plan Assessment & Plan (1) Chest congestion: Code(s): R09.89 - Other specified symptoms and signs involving the circulatory and respiratory systems Category: Medical Plan: Continue OTC cough medication as it was helping in the past. Re-assured the patient that her symptoms are less likely related to pneumonia. Plan I discussed with the patient that her symptoms do not suggest pneumonia at this time, and her lungs are clear upon examination. I advised her to continue with the hwwk-wmg-julxjog medication for mucus relief and to rest. I instructed her to monitor for any worsening symptoms, such as fever, and to return if necessary. Medications: Refilled furosemide 40 mg PO DAILY 90 tabs 1RF metoprolol tartrate 25 mg See Protocol PO BID 180 tabs 3RF
[2025-08-27 13:56] VITALS: BP 136/60; PULSE 64; TEMP 36.3; O2SAT 96; BMI 26.0
--- OUTSIDE RECORDS SUMMARY | 2025-08-27 18:27 | XMS_ITS | Clinical Summary ---
Author Organization [facility] Address [address] [facility] [address] [place] [address] Phone Care Team Providers Care Infertility Nurse Name Role Phone Cassidy Corley MD Primary Care Provider [phone] Allergies Active Allergy Reactions Criticality Noted Date [...] topic Medical Devices Not on file Insurance [facility] MEDEX SUPPLEMENT MEDICARE PART A & B [facility] MEDICARE SUPPLEMENT [facility] MED[facility] SUPPLEMENT MEDICARE PART A & B [employer] MEDICARE SUPPLEMENT [facility] MEDEX SUPPLEMENT MEDICARE PART A & B [employer] MEDICARE SUPPLEMENT [facility] MEDEX SUPPLEMENT MEDICARE PART A & B Member Subscriber Plan / Payer (Ef fective 2004-Present) Name:TheresaBarbIlda Member ID:[id number] Relation to Subscriber:Self Name:Ilda Cardenas Subscriber ID:[id number] Payer ID:[id number] Group ID:Not on file Type:Medicare Address: [facility] [employer] [facility] [address] [place] [address] [facility] MEDICARE SUPPLEMENT [employer] SUPPLEMENT MEDICARE PART A & B [employer] MEDICARE SUPPLEMENT [employer] SUPPLEMENT MEDICARE PART A & B [employer] [facility] MEDICARE SUPPLEMENT [facility] MEDEX SUPPLEMENT MEDICARE PART A & B [employer] MEDICARE SUPPLEMENT [facility] MEDEX SUPPLEMENT MEDICARE PART A & B [employer] MEDICARE SUPPLEMENT [employer] SUPPLEMENT MEDICARE PART A & B [facility] MEDICARE SUPPLEMENT Care Teams Infertility Nurse Relationship Specialty Start Date End Date Cassidy Corley MD [address] [place] [address] PCP - General Internal Medicine 05/25/18 Additional Source Comments The information contained in this document represents components of the legal health record. It is not the complete legal health record.[facility]
--- OUTSIDE RECORDS SUMMARY | 2025-08-27 18:27 | XMS_ITS | Patient Health Record ---
Author Organization [facility] Address [address] [facility] [place] [address] Care Team Providers Care Quantitative Software Engineer Name Role Phone Cassidy Corley Primary Care Provider Jamie Jerez Unavailable [phone] Allergies Allergen (clinical drug ingredient) Drug/Non Drug [...] Medicare National [employer]t S[employer] [address] [place] [address] [id number] Isha Izquierdo Self - patient is the insured [facility] [address] [place] [address] [id number] Isha Izquierdo Self - patient is the insured Medical (General) History Medical History History ICD Code Arthritis Chicken pox Heart disease Lupus Measles Mumps Transfusions Surgical History Surgery Date(Month/Year) hernia Tooth extraction
== END 2025-08-27 15:16 | disposition home or self-care (01) ==
LOC: HO.HMCH 13:50
PROVIDERS: PCP Internal Medicine; Visit Provider Internal Medicine
DX: R09.89 Other specified symptoms and signs involving the circulatory and respiratory systems (principal)

== ENCOUNTER → 2025-08-27 13:48 | Outpatient (BNVA) | payer MEDICARE, OTHER, SELFPAY | PROVIDERS: PCP Internal Medicine; Visit Provider Internal Medicine | DX: I10 Essential (primary) hypertension (principal); R09.89 Other specified symptoms and signs involving the circulatory and respiratory systems | CPT/HCPCS: 96127; 99212 ==

== ENCOUNTER 2025-09-23 09:19 | Outpatient (AMB) | payer MEDICARE, OTHER, SELFPAY ==
--- NOTE | 2025-09-23 09:32 | A.OFFPC_ITS ---
Vital Signs 09/23/25 09:33 Height 5 ft 4 in Weight 153 lb 8 oz BMI 26.3 BP 132/60 Blood Pressure Location Lt brachial Position Sitting Respiration 18 Pulse 58 Pulse Source Pulse Oximeter Temp Source Temporal Artery Scan Pulse Oximetry (%) 98 Oxygen Delivery Method Room Air Intake Visit Reasons: Had a fall Pain in left side torso Respite Care Provider Required: No Accompanied by: Self / Same As Patient Allergies amoxicillin (AMOXICILLIN) Allergy (Unknown, Verified 09/23/25 09:33) UNKNOWN Medication List - Last Reconciled 09/23/25 by Diogenes Huffman MD alendronate 70 mg PO QWEEK 90 days apixaban (Eliquis) 5 mg PO BID 90 days cholecalciferol (vitamin D3) (Vitamin D3) 25 mcg PO DAILY fluticasone propionate 50 mcg/actuation 1 spray intranasal Q12H folic acid 1 mg PO DAILY furosemide 40 mg PO DAILY hydroxychloroquine 200 mg PO DAILY losartan 25 mg PO DAILY methotrexate sodium 10 mg (4 x 2.5 mg) PO QWEEK 90 days metoprolol tartrate 25 mg See Protocol PO BID multivitamin 1 tab PO DAILY Tobacco use date assessed: 09/23/25 Fall risk assessment: 1 Fall in past year Last assessed Fall Risk: 09/23/25 Dental Screening Dental Screen Date: 09/23/25 Did you have a dental visit in the last 12 months?: No Did you have a dental problem in the last 6 months where you did not have access to dental care?: No Was dental information given to patient?: Patient has dentist HPI HPI Comments History of Present Illness Details The patient is an 85-year-old female with PMH of A fib, HTN, HFpEF, NSTEMI, Lupus, osteoporosis presenting for evaluation of left shoulder pain after a fall. She states she tripped on an item on the floor while walking to her bed, causing her to fall directly onto her shoulder. The patient did not hit her head or lose consciousness during the fall. The pain was quite severe for two days, but is much better now, and the patient did not take any medication for it. She reports that she may have also fallen on her knee, which was painful but is no longer hurting. The patient reports being independent with her activities of daily living. COUNTS INCLUDE 234 BEDS AT THE [facility] Medical History Chronic lower back pain Chronic heart failure with preserved ejection fraction (HFpEF) Essential hypertension LBBB (left bundle branch block) Acute diverticulitis TIA (transient ischemic attack) HTN (hypertension) Surgical History History of appendectomy (06/16/23) History of cataract surgery H/O hernia repair Family History Father No problems noted. Mother No problems noted. Social History Household Members: None Housing: Apartment Do you presently have visiting nurse or other home services: No Alcohol intake: current Alcohol intake frequency: a few times a month Patient Tobacco Use Status: Never used Tobacco e-Cigarette/Vaping Use: Never Used Second Hand Smoke Exposure: No Advance Directives Date on File: 08/18/21 service: No Current occupational status: retired Current occupational exposures/hazards: No Cognitive needs: No Hearing needs: Yes Vision needs: No Questionnaire Thrive Questionnaire Date Thrive assessed: 08/27/25 I am a: Patient What is your living situation today?: I have a steady place to live Within the past 12 months, did the food you bought not last and you didn't have the money to get more?: Never true Within the past 12 months, did you worry whether your food would run out before you got money to buy more?: Never true Do you have trouble paying for medicines?: No Do you have trouble getting transportation to medical appointments?: No Do you have trouble paying your heating and electricity bill?: No Do you have trouble taking care of your child, family member or friend?: No Do you have trouble with day-to-day activities such as bathing, preparing meals, shopping, managing finances, etc.?: No Are you currently unemployed and looking for a job?: No Are you interested in more education?: No Please select the resources that you would like help with: None Currently or been in a relationship where the following occur: No concerns reported THRIVE Score: 0 VERONICA-7 AMB Questionnaire VERONICA-7 Date VERONICA - 7 assessed: 11/15/24 Source: Developed by Drs. Chad Gramajo, Amalia Brewer, Duane Small and colleagues, with an educational edward from [employer]. Review of Systems Narrative Review of Systems - Constitutional: Denies loss of consciousness. - Musculoskeletal: Reports significantly improved pain in the left shoulder after a fall two days ago. - Neurological: Denies hitting her head, weakness, or tingling since the fall. - Cardiovascular: Denies chest pain. Const Details: As per HPI. Physical exam (Primary Care) Vital Signs: Last Vital Signs Pulse 58 09/23/25 09:33 Resp 18 09/23/25 09:33 BP 132/60 09/23/25 09:33 Pulse Ox 98 09/23/25 09:33 Oxygen Delivery Method Room Air 09/23/25 09:33 BMI result Body Mass Index 26.3 Tobacco/Smoking Status: Tobacco use Status Tobacco use date assessed 09/23/25 09/23/25 09:41 Patient Tobacco Use Status Never used Tobacco 09/23/25 09:41 e-Cigarette/Vaping Use Never Used 09/23/25 09:41 Thrive Assessment: Date of Thrive Assessment Date Thrive assessed 08/27/25 09/23/25 09:41 Currently or been in a relationship where the following occur: No concerns reported Narrative Physical Exam - General: Patient is able to stand from a seated position. - Musculoskeletal: Full active range of motion of bilateral upper extremities, able to raise arms fully overhead without reported pain. - Shoulder: No tenderness to palpation of the shoulder. - Neurological: Sensation is grossly intact, with no reported weakness or tingling. - Strength: Good and equal glass bulb machine adjuster strength bilaterally. - Lower Extremities: Strength tested with knee extension and hip flexion. Rest of physicalo exam is within normal limits. Const Other: Pertinent findings are in BOLD GENERAL APPEARANCE NAD, activity normal for age, well developed/ well nourished, no cyanosis, pallor, or diaphoresis. EYES lids/conjunctiva normal. EARS/NOSE/THROAT Mucous membranes moist, nares normal, lips/teeth normal uvula midline without oral pharyngeal erythema, exudate or swelling TMs normal bilaterally. No lymphangitis/lymphedema. HEAD/NECK normocephalic atraumatic, no facial trauma, neck is supple. RESPIRATORY respiratory effort normal, speaks in full sentences, no tripod position, no accessory muscle use. Lungs clear to auscultation without rhonchi, wheezes, rales CARDIAC Regular rate and rhythm, no edema. ABDOMINAL Soft, ND/NT. No evidence of fluid wave. No pulsatile masses on exam, rebound tenderness, Hernandez sign or pain over Mcburney's point. MUSCLES/EXTREMITIES No abnormal range of motion, no swelling. SKIN Warm, pink and dry. No rashes, dermatoses, petechiae or lesions. NEUROLOGICAL Speech is clear and appropriate. Normal level of consciousness. Gait and coordination are normal. 5/5 strength in all extremities. PSYCH Normal mood and affect. Judgement/competence is appropriate Coding Level of Care Code Est Pt Level 3 (74898) Diagnoses Acute pain of right shoulder M25.511 Chronicity: acute Assessment & Plan Assessment & Plan (1) Right shoulder pain: Code(s): M25.511 - Pain in right shoulder Category: Medical Qualifiers: Chronicity: acute Qualified Code(s): M25.511 - Pain in right shoulder Plan: - The patient is an 85-year-old female who presents after a mechanical fall at home two days prior, landing on her shoulder. - While suspicion for a fracture is low given her significant clinical improvement and benign physical exam, a left shoulder X-ray will be obtained to rule out an occult fracture. - The patient will be contacted with the results. - No immediate follow-up is necessary at this time. Plan I discussed with the patient that although I have a low suspicion for a fracture based on her improving pain and the findings from her physical exam, I am ordering an X-ray of her left shoulder to be safe. I informed her that she can go to the main hospital today to get the X-ray and that I will call her by tomorrow afternoon with the results if there are any abnormal findings. I advised her that no follow-up appointment is needed for now. Orders: Orders XR shoulder LT min 2V Today W19.XXXA - Unspecified fall, initial encounter
[2025-09-23 09:33] VITALS: BP 132/60; PULSE 58; RESP 18; O2SAT 98; BMI 26.3
== END 2025-09-23 11:22 | disposition home or self-care (01) ==
LOC: HO.HMCH 09:21
PROVIDERS: PCP Internal Medicine; Visit Provider Internal Medicine
DX: M25.511 Pain in right shoulder (principal)

== ENCOUNTER 2025-09-23 09:19 | Outpatient (REF) | payer MEDICARE, OTHER, SELFPAY ==
--- NOTE | ~2025-09-23 | XR_ITS ---
EXAMINATION: XR SHOULDER, LEFT CLINICAL INFORMATION: W19.XXXA - Unspecified fall, initial encounter COMPARISON: Correlated to chest x-ray dated April 27, 2024. TECHNIQUE: AP external rotation, Grashey, scapular Y, and axillary views of the left shoulder. FINDINGS: Subchondral cyst formation asymmetric joint space narrowing and the glenohumeral joint and the greater tuberosity. 5 mm well-corticated calcification in the inferior aspect of the glenohumeral joint towards the left humerus. Small marginal osteophyte formation femoral head. No acute cortical disruption or malalignment. XR/XR shoulder LT min 2V IMPRESSION: Degenerative changes, moderate to severe without acute fracture or dislocation. Electronically signed by: Oziel Barksdale MD 09/23/2025 10:56 AM YAQUELIN SERNA
--- OUTSIDE RECORDS SUMMARY | 2025-09-23 20:58 | XMS_ITS | Clinical Summary ---
Author Organization [facility] Address [address] [place] [address] Phone Care Team Providers Care Direct Support Staff Member Name Role Phone Cassidy Corley MD Primary Care Provider [phone] Allergies Active Allergy Reactions Criticality Noted Date [...] on patient's age to complete this topic IPV VACCINES Aged Out No longer eligi ble based on patient's age to complete this topic MENINGOCOCCAL VACCINES (ACWY) Aged Out No longer eligible based on patient's age to complete this topic MENINGOCOCCAL VACCINES (B) Aged Out N o longer eligible based on patient's age to complete this topic Medical Devices Not on file Insurance [employer] MEDEX SUPPLEMENT MEDICARE PART A & B [facility] MEDICARE SUPPLEMENT [place] MEDEX SUPPLEMENT MEDICARE PART A & B FOR LIFE MEDICARE SUPPLEMENT [facility] MEDEX SUPPLEMENT MEDICARE PART A & B FOR LIFE MEDICARE SUPPLEMENT [facility] MEDEX SUPPLEMENT MEDICARE PART A & B [employer] LIFE MEDICARE SUPPLEMENT [employer] MEDEX SUPPLEMENT MEDICARE PART A & B [facility] MEDICARE SUPPLEMENT [employer] MED[employer] SUPPLEMENT MEDICARE PART A & B [employer] [facility] MEDICARE SUPPLEMENT [facility] MEDEX SUPPLEMENT MEDICARE PART A & B [employer] MEDICARE SUPPLEMENT [facility] MEDEX SUPPLEMENT MEDICARE PART A & B [employer] MEDICARE SUPPLEMENT [facility] MEDEX SUPPLEMENT MEDICARE PART A & B [facility] MEDICARE SUPPLEMENT Care Teams Direct Support Staff Member Relationship Specialty Start Date End Date Cassidy Corley MD [address] [place] [address] PCP - General Internal Medicine 05/25/18 Additional Source Comments The information contained in this document represents components of the legal health record. It is not the complete legal health record.[facility]
== END 2025-09-23 09:20 | disposition home or self-care (01) ==
LOC: HO.XRAY 09:19
PROVIDERS: PCP Internal Medicine; Visit Provider Internal Medicine
DX: M25.512 Pain in left shoulder (principal); W01.0XXA Fall on same level from slipping, tripping and stumbling without subsequent striking against object, initial encounter; Y93.9 Activity, unspecified; Y92.9 Unspecified place or not applicable; Y99.9 Unspecified external cause status
CPT/HCPCS: 73030; 99212

== ENCOUNTER → 2025-09-23 10:09 | Outpatient (BNV) | payer MEDICARE, OTHER, SELFPAY | PROVIDERS: PCP Internal Medicine; Visit Provider Radiology Diagnostic Radiology | DX: M19.012 Primary osteoarthritis, left shoulder (principal); Z04.3 Encounter for examination and observation following other accident | CPT/HCPCS: 73030 ==

== ENCOUNTER 2025-10-02 07:48 | Outpatient (AMB) | payer MEDICARE, OTHER, SELFPAY ==
--- OUTSIDE RECORDS SUMMARY | 2025-10-02 07:54 | XMS_ITS | Clinical Summary ---
Author Organization [facility] Address [address] [place] [id number] Phone Care Team Providers Care Uniformer Name Role Phone Cassidy Corley MD Primary Care Provider [phone] Allergies Active Allergy Reactions Criticality Noted Date [...] topic Medical Devices Not on file Insurance [facility] MEDEX SUPPLEMENT MEDICARE PART A & B [facility] MEDICARE SUPPLEMENT [facility] MEDEX SUPPLEMENT MEDICARE PART A & B [employer] MEDICARE SUPPLEMENT [facility] MEDEX SUPPLEMENT MEDICARE PART A & B [employer] MEDICARE SUPPLEMENT [facility] MEDEX SUPPLEMENT MEDICARE PART A & B Member Subscriber Plan / Payer (Ef fective 2004-Present) Name:TheresaBarbIlda Member ID:[id number] Relation to Subscriber:Self Name:Ilda Cardenas Subscriber ID:[id number] Payer ID:[id number] Group ID:Not on file Type:Medicare Address: [facility] [employer] [facility] [employer] [facility] [address] [place] [address] [facility] MEDICARE SUPPLEMENT [employer] SUPPLEMENT MEDICARE PART A & B [employer] MEDICARE SUPPLEMENT [employer] SUPPLEMENT MEDICARE PART A & B [employer] [facility] MEDICARE SUPPLEMENT [facility] MEDEX SUPPLEMENT MEDICARE PART A & B [employer] MEDICARE SUPPLEMENT [facility] MEDEX SUPPLEMENT MEDICARE PART A & B [employer] MEDICARE SUPPLEMENT [employer] SUPPLEMENT MEDICARE PART A & B [facility] MEDICARE SUPPLEMENT Care Teams Uniformer Relationship Specialty Start Date End Date Cassidy Corley MD [address] [place] [address] PCP - General Internal Medicine 05/25/18 Additional Source Comments The information contained in this document represents components of the legal health record. It is not the complete legal health record.[facility]
--- OUTSIDE RECORDS SUMMARY | 2025-10-02 07:54 | XMS_ITS | Patient Health Record ---
Author Organization [facility] Address [address] [place] [address] Care Team Providers Care Single Wire Saw Operator Name Role Phone Cassidy Corley Primary Care Provider Jamie Jerez Unavailable [phone] Allergies Allergen (clinical drug ingredient) Drug/Non Drug [...] Medicare National [employer] [address] [place] [address] [id number] Isha Izquierdo Self - patient is the insured [facility] [address] [place] [address] [phone] [id number] Isha Izquierdo Self - patient is the insured Medical (General) History Medical History History ICD Code Arthritis Chicken pox Heart disease Lupus Measles Mumps Transfusions Surgical History Surgery Date(Month/Year) hernia Tooth extraction
--- NOTE | 2025-10-02 08:05 | A.OFFPC_ITS ---
Vital Signs 10/02/25 08:06 Height 5 ft 4 in Weight 151 lb 2 oz BMI 25.9 BP 126/64 Blood Pressure Location Lt brachial Position Sitting Pulse 59 Pulse Source Pulse Oximeter Temp 97.3 F Temp Source Temporal Artery Scan Pulse Oximetry (%) 92 Oxygen Delivery Method Room Air Intake Visit Reasons: Left hip pain Intake Note: Patient is here to follow up on Left hip pain due to fall. Television Repairer Required: No Director Educational Radio: Not Required per policy Accompanied by: Self / Same As Patient Allergies amoxicillin (AMOXICILLIN) Allergy (Unknown, Verified 10/02/25 08:06) UNKNOWN Tobacco use date assessed: 10/02/25 Fall risk assessment: 1 Fall in past year Last assessed Fall Risk: 10/02/25 Dental Screening Dental Screen Date: 09/23/25 HPI HPI Comments History of Present Illness Details History of Present Illness - The patient is an 85 year old individu al presenting for follow-up of a fall and persistent chest pain. - The patient experienced a fall at home nearly three weeks ago, tripping over an item on a carpeted floor, but was able to get up without assistance. - Since the fall, the patient has had pe rsistent, intermittent chest pain which does not worsen with deep breaths. - An X-ray was performed about a week af ter the fall, which showed no fracture. - The patient reports concerns about dev eloping pneumonia as a result of the fall. - Regarding medications, the patient is on methotrexate, folic acid, and hydroxychloroquine prescribed by a kosher dietary service supervisor and will continue taking them, with a follow-up appointment scheduled in January. - The patient also takes a once-weekly m edication for bones. - The patient has been taking furosemide about once a week due to experiencing frequent urination. - For preventative care, the patient has not yet received a flu shot this season. Social History - The patient plans to go to a restauran t with family for an upcoming holiday. Results - Imaging: Chest X-ray performed approxi mately two weeks prior was negative for fracture. [facility] Medical History Chronic lower back pain Chronic heart failure with preserved ejection fraction (HFpEF) Essential hypertension LBBB (left bundle branch block) Acute diverticulitis TIA (transient ischemic attack) HTN (hypertension) Surgical History History of appendectomy (06/16/23) History of cataract surgery H/O hernia repair Family History Father No problems noted. Mother No problems noted. Social History Household Members: None Housing: Apartment Do you presently have visiting nurse or other home services: No Alcohol intake: current Alcohol intake frequency: a few times a month Patient Tobacco Use Status: Never used Tobacco e-Cigarette/Vaping Use: Never Used Second Hand Smoke Exposure: No Advance Directives Date on File: 08/18/21 service: No Current occupational status: retired Current occupational exposures/hazards: No Cognitive needs: No Hearing needs: Yes Vision needs: No Questionnaire Thrive Questionnaire Date Thrive assessed: 08/27/25 I am a: Patient What is your living situation today?: I have a steady place to live Within the past 12 months, did the food you bought not last and you didn't have the money to get more?: Never true Within the past 12 months, did you worry whether your food would run out before you got money to buy more?: Never true Do you have trouble paying for medicines?: No Do you have trouble getting transportation to medical appointments?: No Do you have trouble paying your heating and electricity bill?: No Do you have trouble taking care of your child, family member or friend?: No Do you have trouble with day-to-day activities such as bathing, preparing meals, shopping, managing finances, etc.?: No Are you currently unemployed and looking for a job?: No Are you interested in more education?: No Please select the resources that you would like help with: None Currently or been in a relationship where the following occur: No concerns reported THRIVE Score: 0 VERONICA-7 AMB Questionnaire VERONICA-7 Date VERONICA - 7 assessed: 11/15/24 Source: Developed by Drs. Chad Gramajo, Amalia Brewer, Duane Small and colleagues, with an educational edward from [employer] Review of Systems Narrative Review of Systems - Musculoskeletal: Reports persistent, intermittent chest pain. - Respiratory: Denies significant pain with deep inspiration. - Genitourinary: Reports frequent urination. Physical exam (Primary Care) Vital Signs: Last Vital Signs Temp 97.3 F 10/02/25 08:06 Pulse 59 10/02/25 08:06 BP 126/64 10/02/25 08:06 Pulse Ox 92 10/02/25 08:06 Oxygen Delivery Method Room Air 10/02/25 08:06 BMI result Body Mass Index 25.9 Tobacco/Smoking Status: Tobacco use Status Tobacco use date assessed 10/02/25 10/02/25 08:10 Patient Tobacco Use Status Never used Tobacco 10/02/25 08:10 e-Cigarette/Vaping Use Never Used 10/02/25 08:10 Thrive Assessment: Date of Thrive Assessment Date Thrive assessed 08/27/25 10/02/25 08:10 Currently or been in a relationship where the following occur: No concerns reported Narrative Physical Exam General: Appearance normal, both eyes and all related structures Nutritional Appearance: Well nourished Orientation/consciousness: Patient oriented x3 Limitations: No limitations Head: Normal to inspection Neck: Normal visual inspection Chest: Contusion injury of the chest, no fracture, normal palpation of entire chest wall Respiratory: Normal respiratory effort, no pain on deep breath Neurology: Patient oriented x3 Coding Level of Care Code Complex visit Add On G2211 Diagnoses Contusion, chest wall S20.219A Assessment & Plan Assessment & Plan (1) Contusion, chest wall: Code(s): S20.219A - Contusion of unspecified front wall of thorax, initial encounter Plan Plan - Chest Contusion: Reassurance was provided that the chest pain is due to a contusion from the recent fall, not a fracture, based on a prior negative X-ray. - Advised that the injury will resolve with time. - Medication Management: The patient will discontinue taking furosemide. - The patient will continue taking methotrexate, folic acid, and hydroxychloroquine as prescribed by the kosher dietary service supervisor, with a follow-up scheduled in January. - Preventative Care: The patient will receive an influenza vaccination during the visit. - Prescriptions: No new prescriptions are required at this time. Discussion Notes I explained to the patient that the persistent chest pain is from a chest wall contusion resulting from the fall three weeks ago. I reassured the patient that the prior X-ray showed no fracture and that this injury will heal over time. I also addressed the concern about pneumonia, clarifying that this type of injury is not a risk factor. We reviewed the patient's medications and agreed to discontinue furosemide due to the side effect of frequent urination and infrequent use. I advised the patient to continue taking the rheumatology medications, including methotrexate and hydroxychloroquine, until the follow-up appointment in January. The patient consented to receive the influenza vaccine during today's visit. Patient Instructions - Your chest pain is from a bruise (contusion) from your fall. - The X-ray showed no broken bones, and this will get better on its own. - You can stop taking the furosemide (water pill). - Continue taking all your other medications as prescribed, especially those from your kosher dietary service supervisor (methotrexate, folic acid, hydroxychloroquine). - You will get a flu shot today in the office. - You do not need any new prescriptions today.
[2025-10-02 08:06] VITALS: BP 126/64; PULSE 59; TEMP 36.3; O2SAT 92; BMI 25.9
== END 2025-10-02 09:20 | disposition home or self-care (01) ==
LOC: HO.HMCH 07:49
PROVIDERS: PCP Internal Medicine; Visit Provider Internal Medicine
DX: S20.219A Contusion of unspecified front wall of thorax, initial encounter (principal)

== ENCOUNTER → 2025-10-02 07:48 | Outpatient (BNVA) | payer MEDICARE, OTHER, SELFPAY | PROVIDERS: PCP Internal Medicine; Visit Provider Internal Medicine | DX: S20.219D Contusion of unspecified front wall of thorax, subsequent encounter (principal) | CPT/HCPCS: 99212 ==